=== PATIENT | female | born 1995 | race Caucasian/White ===

== ENCOUNTER 2018-07-17 14:08 | Emergency (ER) | payer SELFPAY ==
--- OUTSIDE RECORDS SUMMARY | 2018-07-17 14:09 | XMS REPORT ---
:1995 Author Organization [facility] Address [address] [place] [address] Care Team Providers Name Role Phone MICHELLE GALDAMEZ Unavailable Unavailable Problems This patient has no known problems. Allergies, Adverse Reactions, Alerts This patient has no known allergies or adverse reactions. Medications This patient has no known medications. Results Test Description Test Time Test Comments Text Results Atomic Results Result Comments Culture, Urine 2017-01-23 10:50:00 Test Item Value Reference Range Comments Culture, Urine (test code=URC) NF Culture, Urine (test code=URC1) 75 NU Chemistry - [id number] 13:59:00 Test Item Value Reference Range Comments Chemistry - Specials (test Negative NEGATIVE Method of sensitivity- code=BHCGST) Indeterminant: results should be repeated after 48-72 hrs Positive: results may be detected as early as 1 day after the first missed menses. [id number] 13:35:00 Test Item Value Reference Range Comments Urinalysis (test code=UACLR) Dark Yellow Yellow Urinalysis (test code=UACLY) h Clear Urinalysis (test code=SPGR) 1.020 1.005-1.030 Urinalysis (test code=ISIDRO) 7.0 5.0-9.0 Urinalysis (test code=UALEU) Trace Negative Urinalysis (test code=UANIT) Positive Negative Urinalysis (test code=PROUADIP) 30 mg/dL Neg-Trace Urinalysis (test code=GLUCU) 100 mg/dL Negative Urinalysis (test code=KETU) Negative mg/dL Negative Urinalysis (test code=UAUROB) 1.0 mg/dL 0.2-1.0 Urinalysis (test code=UABIL) Negative Negative Urinalysis (test code=UABLD) Trace Negative Urinalysis (test code=UARBC) 4-6 HPF 0-3 Urinalysis (test code=UAWBC) Greater Than 50-TNTC HPF 0-3 Urinalysis (test code=UASQUAM) 4-6 HPF 0-3 Urinalysis (test code=UABAC) 1+ HPF None Seen Urine Source: Urine Clean Catch
[2018-07-17 15:28] LABS: Absolute Monocytes 0.7 K/uL (0.1-1.3); Absolute Neutrophil 5.8 K/uL (1.8-8.0); Basophils % 0.3 % (0-1.3); Eosinophils % 5.2 % (0-4.4); Hematocrit 41.6 % (36.0-45.0); Lymphocytes % 22.2 % (15.3-44.8); MPV 10.3 fL (7.6-11.3); Monocytes % 7.4 % (3.3-12.3); RBC Red Blood Cell Count 4.55 M/uL (3.86-4.86)
[2018-07-17 15:41] LABS: BUN Blood Urea Nitrogen 6 mg/dL (7-18); Bicarbonate 24 mmol/L (21-32); Glucose Level 82 mg/dL (74-106); Potassium 3.8 mmol/L (3.5-5.1); Sodium Level 141 mmol/L (136-145)
--- NOTE | 2018-07-17 16:08 | RAD REPORT ---
EXAM DESCRIPTION: US - Transvaginal OB - 07/17/2018 3:04 pm CLINICAL HISTORY: ABD PAIN COMPARISON: No comparisons FINDINGS: A single gestational sac is seen within the uterus. The shape of the sac is within normal limits for gestational age. Within the sac is a single pole with crown-rump length of 4 mm, cor relating to estimated gestational age of 6 weeks 1 day. Estimated date of delivery is 03/11/2019. Heart rate is 111 BPM. The placenta is not yet developed due to early gestational age. The maternal adnexa and ovaries are within normal limits. Normal Doppler blood flow was demonstrated to both ovaries. IMPRESSION: Single live early intrauterine gestation with estimated gestational age of 6 weeks 1 day , RAYO 03/11/2019. No unusual or unexpected finding.
[2018-07-17 16:25] LABS: HCG, Quantitative 28739 mIU/mL (1-3)
--- NOTE | 2018-07-17 16:40 | EDPHYS ---
Physician Documentation [facility] Name: Christina Alfaro Age: 23 yrs Sex: Female : 1995 Arrival Date: 07/17/2018 Time: 14:10 Bed 23 Private MD: ED Physician Chele Hoffmann HPI: 07/17 16:36 This 23 yrs old Female presents to ER via Ambulatory with complaints of nh Vaginal Bleeding, + Preg <12wks. 16:36 The patient presents to the emergency department with vaginal bleeding, that is nh moderate, with clots. The estimated gestational age is 6 weeks. course: care: at a clinic. Previous pregnancies: in previous pregnancies patient has had. Associated signs and symptoms: The patient has no apparent associated signs or symptoms. The patient has not experienced similar symptoms in the past. The patient has not recently seen a physician. 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 - Social history:: Smoking status: . - Ebola Screening: : Patient denies travel to an Ebola-affected area in the 21 days before illness onset. ROS: 16:36 Constitutional: Negative for fever, chills, and weight loss, Eyes: Negative for injury, nh pain, redness, and discharge, ENT: Negative for injury, pain, and discharge, Neck: Negative for injury, pain, and swelling, Cardiovascular: Negative for chest pain, palpitations, and edema, Respiratory: Negative for shortness of breath, cough, wheezing, and pleuritic chest pain, Abdomen/GI: Negative for abdominal pain, nausea, vomiting, diarrhea, and constipation, Back: Negative for injury and pain, MS/Extremity: Negative for injury and deformity, Skin: Negative for injury, rash, and discoloration, Neuro: Negative for headache, weakness, numbness, tingling, and seizure, Psych: Negative for depression, anxiety, suicide ideation, homicidal ideation, and hallucinations, Allergy/Immunology: Negative for hives, rash, and allergies, Endocrine: Negative for neck swelling, polydipsia, polyuria, polyphagia, and marked weight changes, Hematologic/Lymphatic: Negative for swollen nodes, abnormal bleeding, and unusual bruising. 16:36 : Positive for vaginal bleeding. Exam: 16:36 Constitutional: This is a well developed, well nourished patient who is awake, alert, nh and in no acute distress. Head/Face: Normocephalic, atraumatic. Eyes: Pupils equal round and reactive to light, extra-ocular motions intact. Lids and lashes normal. Conjunctiva and sclera are non-icteric and not injected. Cornea within normal limits. Periorbital areas with no swelling, redness, or edema. ENT: Nares patent. No nasal discharge, no septal abnormalities noted. Tympanic membranes are normal and external auditory canals are clear. Oropharynx with no redness, swelling, or masses, exudates, or evidence of obstruction, uvula midline. Mucous membranes moist. Neck: Trachea midline, no thyromegaly or masses palpated, and no cervical lymphadenopathy. Supple, full range of motion without nuchal rigidity, or vertebral point tenderness. No Meningismus. Chest/axilla: Normal chest wall appearance and motion. Nontender with no deformity. No lesions are appreciated. Cardiovascular: Regular rate and rhythm with a normal S1 and S2. No gallops, murmurs, or rubs. Normal PMI, no JVD. No pulse deficits. Respiratory: Lungs have equal breath sounds bilaterally, clear to auscultation and percussion. No rales, rhonchi or wheezes noted. No increased work of breathing, no retractions or nasal flaring. Abdomen/GI: Soft, non-tender, with normal bowel sounds. No distension or tympany. No guarding or rebound. No evidence of tenderness throughout. Back: No spinal tenderness. No costovertebral tenderness. Full range of motion. Pelvic Exam: Normal external genitalia. Speculum exam with closed cervical os, no discharge or bleeding noted. Bimanual exam with normal adnexa, no adnexal or cervical motion tenderness. Normal uterus. Female : Normal external genitalia. Skin: Warm, dry with normal turgor. Normal color with no rashes, no lesions, and no evidence of cellulitis. MS/ Extremity: Pulses equal, no cyanosis. Neurovascular intact. Full, normal range of motion. Neuro: Awake and alert, GCS 15, oriented to person, place, time, and situation. Cranial nerves II-XII grossly intact. Motor strength 5/5 in all extremities. Sensory grossly intact. Cerebellar exam normal. Normal gait. Psych: Awake, alert, with orientation to person, place and time. Behavior, mood, and affect are within normal limits. Vital Signs: 14:21 BP 117 / 61; Pulse 83; Resp 17; Temp 97.8(TE); Pulse Ox 98% on R/A; Pain 5/10; tw2 15:21 BP 114 / 76; Pulse 83; Resp 17; Pulse Ox 100% on R/A; Pain 5/10; ed1 MDM: 14:29 Patient medically screened. mn 16:36 Data reviewed: vital signs, nurses notes, lab test result(s), radiologic studies, I nh have discussed the patient's presentation/case with the attending Emergency Department Physician; and as a result, I will discharge patient. Counseling: I had a detailed discussion with the patient and/or guardian regarding: the historical points, exam findings, and any diagnostic results supporting the discharge/admit diagnosis, lab results, radiology results, the need for outpatient follow up, to return to the emergency department if symptoms worsen or persist or if there are any questions or concerns that arise at home. 07/17 14:37 Order name: Urine Dipstick--Ancillary (enter results) 07/17 14:37 Order name: Urine --Ancillary (enter results) 07/17 14:41 Order name: Abo/rh Typing; Complete Time: 16:09 mn 07/17 14:41 Order name: Basic Metabolic Panel; Complete Time: 16:36 mn 07/17 14:41 Order name: CBC with Diff; Complete Time: 15:43 mn 07/17 15:43 Order name: HCG-Quantitative mn 07/17 14:41 Order name: IV Saline Lock; Complete Time: 15:24 mn 07/17 14:41 Order name: Labs collected and sent; Complete Time: 15:24 mn 07/17 14:41 Order name: NPO; Complete Time: 15:24 mn 07/17 14:41 Order name: Urine Dipstick-Ancillary (obtain specimen); Complete Time: 15:24 mn 07/17 14:41 Order name: US Transvaginal Ob; Complete Time: 16:09 mn 07/17 15:46 Order name: HCG, Quantitative; Complete Time: 16:36 EDMS 07/17 15:47 Order name: ABO/RH no charge; Complete Time: 16:09 EDMS Administered Medications: No medications were administered Point of Care Testing: Urine : 14:37 hCG Reading: Positive; Control Reading: Positive; ed1 Disposition: 18:44 Co-signature as Attending Physician, Chele Hoffmann MD. rn Disposition: 07/17/18 16:39 Discharged to Home. Impression: Threatened . - Condition is Stable. - Discharge Instructions: Threatened Miscarriage. - Medication Reconciliation Form, Thank You Letter, Antibiotic Education, Prescription Opioid Use form. - Follow up: Private Physician; When: 2 - 3 days; Reason: Recheck today's complaints. - Problem is new. - Symptoms are unchanged. Signatures: Dispatcher [employer] EDMS Olga Webber, PUNCHBOARD INSERTER PUNCHBOARD INSERTER mn Chele Hoffmann MD MD rn Riggs, Erika, LVN RUN BOAT OPERATOR ed1 Elayne Vera RN RN tw2 Corrections: (The following items were deleted from the chart) 16:51 16:39 07/17/2018 16:39 Discharged to Home. Impression: Threatened . Condition ed1 is Stable. Forms are Medication Reconciliation Form, Thank You Letter, Antibiotic Education, Prescription Opioid Use. Follow up: Private Physician; When: 2 - 3 days; Reason: Recheck today's complaints. Problem is new. Symptoms are unchanged. mn
--- NOTE | 2018-07-17 16:40 | ER ---
Nurse's Notes [facility] Name: Christina Alfaro Age: 23 yrs Sex: Female : 1995 Arrival Date: 07/17/2018 Time: 14:10 Bed 23 Private MD: Diagnosis: Threatened Presentation: 07/17 14:20 Presenting complaint: Patient states: i think i am having a miscarriage, the bleeding tw2 started 3 days ago, cramping and nauseous, and constipation. Transition of care: patient was not received from another setting of care. Onset of symptoms was July 17, 2018. Risk Assessment: Do you want to hurt yourself or someone else? Patient reports no desire to harm self or others. Initial Sepsis Screen: Does the patient meet any 2 criteria? No. Patient's initial sepsis screen is negative. Does the patient have a suspected source of infection? No. Patient's initial sepsis screen is negative. Care prior to arrival: None. 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 - Social history:: Smoking status: . - Ebola Screening: : Patient denies travel to an Ebola-affected area in the 21 days before illness onset. Screenin:21 Abuse screen: Denies threats or abuse. Denies injuries from another. Nutritional ed1 screening: No deficits noted. Tuberculosis screening: No symptoms or risk factors identified. Fall Risk No fall in past 12 months (0 pts). No secondary diagnosis (0 pts). IV access (20 points). Ambulatory Aid- None/Bed Rest/Nurse Assist (0 pts). Gait- Normal/Bed Rest/Wheelchair (0 pts) Mental Status- Oriented to own ability (0 pts). Total Laughlin Fall Scale indicates No Risk (0-24 pts). Assessment: 15:21 Obstetrical Assessment: General assessment: awake and alert, skin warm and dry, ed1 respirations even and unlabored, Patient reports nausea, abdominal cramping, vaginal bleeding. Pain: Complains of pain in suprapubic area Pain does not radiate. Pain currently is 5 out of 10 on a pain scale. Quality of pain is described as crampy, Pain began 1 day ago. Is continuous. : Reports vaginal bleeding that is bright red, spotty. 15:25 General: The previous assessment is accurate, call light remains within reach. . ss 16:49 Reassessment: Patient appears in no apparent distress at this time. No changes from ed1 previously documented assessment. Patient and/or family updated on plan of care and expected duration. Pain level reassessed. Patient is alert, oriented x 3, equal unlabored respirations, skin warm/dry/pink. Vital Signs: 14:21 BP 117 / 61; Pulse 83; Resp 17; Temp 97.8(TE); Pulse Ox 98% on R/A; Pain 5/10; tw2 15:21 BP 114 / 76; Pulse 83; Resp 17; Pulse Ox 100% on R/A; Pain 5/10; ed1 Vitals: 16:50 Heart Tones N/A. ed1 ED Course: 14:10 Patient arrived in ED. tw3 14:21 Triage completed. tw2 14:22 Arm band placed on. tw2 14:24 Syl Herbert LVN is Primary Nurse. ed1 14:29 Olga Webber FNP is PHCP. nh 14:29 Chele Hoffmann MD is Attending Physician. nh 14:37 Urine collected: clean catch specimen, clear. ed1 15:05 US Transvaginal Ob In Process Unspecified. EDMS 15:21 Patient has correct armband on for positive identification. Bed in low position. Call ed1 light in reach. Side rails up X 1. Adult w/ patient. Pulse ox on. NIBP on. Door closed. Visitors limited. Warm blanket given. 15:21 Initial lab(s) drawn, by me, sent to lab. Inserted saline lock: 22 gauge in right ed1 antecubital area, using aseptic technique. Blood collected. 16:49 No provider procedures requiring assistance completed. IV discontinued, intact, ed1 bleeding controlled, No redness/swelling at site. Pressure dressing applied. Administered Medications: No medications were administered Point of Care Testing: Urine : 14:37 hCG Reading: Positive; Control Reading: Positive; ed1 Outcome: 16:39 Discharge ordered by . hi 16:49 Discharged to home ambulatory, with significant other. ed1 16:49 Condition: good 16:49 Discharge instructions given to patient, Instructed on discharge instructions, follow up and referral plans. Demonstrated understanding of instructions, follow-up care. 16:51 Patient left the ED. ed1 Signatures: Dispatcher [employer] EDMS Olga Webber, DECK SCALER DECK SCALER Meeta Wilkins, RN RN ss Syl Herbert LVN PROGRAM EVALUATOR ed1 Elayne Vera RN RN tw2 Ct Ortiz tw3
[2018-07-17 19:15] LABS: Urine Blood NEGATIVE (NEG); Urine Glucose NEGATIVE (NEG); Urine Protein NEGATIVE (NEG); Urine Specific Gravity >1.030 (1.005-1.030); Urine pH 6.5 (5.0-7.0)
== END 2018-07-17 16:51 | disposition home or self-care (01) ==
LOC: ER 14:08
DX: O20.0 Threatened abortion (principal); Z3A.01 Less than 8 weeks gestation of pregnancy; Z91.040 Latex allergy status; Z91.048 Other nonmedicinal substance allergy status
CPT/HCPCS: 36415; 76817; 80048; 81003; 81025; 84702; 85025; 86900; 86901; 99284

== ENCOUNTER 2018-10-13 07:16 | Emergency (ER) | payer OTHER, SELFPAY ==
--- OUTSIDE RECORDS SUMMARY | 2018-10-13 07:18 | XMS REPORT ---
:1995 Author Organization [facility] Address [address] [place] [address] Care Team Providers Name Role Phone MICHELLE [...] code=URC) NF Culture, Urine (test code=URC1) 75 [facility] Chemistry - [id number] 13:59:00 Test Item Value Reference Range Comments Chemistry - Specials (test Negative NEGATIVE Method of sensitivity- code=BHCGST) Indeterminant: results should be repeated after 48-72 hrs Positive: results may be detected as early as 1 day after the first missed menses. [id number] 13:35:00 Test Item Value Reference Range Comments [...]
--- NOTE | 2018-10-13 08:29 | EDPHYS ---
Physician Documentation [facility] Name: Christina Alfaro Age: 23 yrs Sex: Female : 1995 Arrival Date: 10/13/2018 Time: 07:18 Bed 12 Private MD: ED Physician Michael Lima HPI: 10/13 08:20 This 23 yrs old Female presents to ER via Ambulatory with complaints of Flu pm1 Symptoms - 18 wks preg. 08:20 The patient or guardian reports cough, with productive sputum, that is yellow. Onset: pm1 The symptoms/episode began/occurred 5 day(s) ago. 08:20 Severity of symptoms: in the emergency department the symptoms are actually worse. pm1 Modifying factors: The symptoms are alleviated by nothing, the symptoms are aggravated by nothing. Associated signs and symptoms: Pertinent positives: sore throat, Pertinent negatives: chest pain, ear ache, fever, nausea, vomiting, Urinary symptoms. The patient has not experienced similar symptoms in the past. The patient has been recently seen by a physician: with similar presenting complaints, and apparently given a diagnosis of URI, OB. Patient 18 weeks and presenting to the ER with productive yellow cough and sore throat. She currently smokes 1/2 pack per day. 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 - Social history:: Smoking status: Patient uses tobacco products, smokes one-half pack cigarettes per day. - Ebola Screening: : Patient denies exposure to infectious person Patient denies travel to an Ebola-affected area in the 21 days before illness onset. ROS: 08:20 Constitutional: Negative for fever, chills, and weight loss, Eyes: Negative for injury, pm1 pain, redness, and discharge, Neck: Negative for injury, pain, and swelling. 08:20 Cardiovascular: Negative for chest pain, palpitations, and edema. 08:20 Abdomen/GI: Negative for abdominal pain, nausea, vomiting, diarrhea, and constipation, Back: Negative for injury and pain, : Negative for injury, bleeding, discharge, and swelling, MS/Extremity: Negative for injury and deformity, Skin: Negative for injury, rash, and discoloration, Neuro: Negative for headache, weakness, numbness, tingling, and seizure. 08:20 ENT: Positive for sore throat, Negative for drainage from ear(s), ear pain, sinus congestion, sinus pain, dental pain, difficulty swallowing, difficulty handling secretions, hoarseness. 08:20 Respiratory: Positive for cough, with yellow sputum, shortness of breath, Negative for wheezing. Exam: 08:20 Constitutional: This is a well developed, well nourished patient who is awake, alert, pm1 and in no acute distress. Head/Face: Normocephalic, atraumatic. Eyes: Pupils equal round and reactive to light, extra-ocular motions intact. Lids and lashes normal. Conjunctiva and sclera are non-icteric and not injected. Cornea within normal limits. Periorbital areas with no swelling, redness, or edema. ENT: Nares patent. No nasal discharge, no septal abnormalities noted. Tympanic membranes are normal and external auditory canals are clear. Oropharynx with no redness, swelling, or masses, exudates, or evidence of obstruction, uvula midline. Mucous membranes moist. Neck: Trachea midline, no thyromegaly or masses palpated, and no cervical lymphadenopathy. Supple, full range of motion without nuchal rigidity, or vertebral point tenderness. No Meningismus. Chest/axilla: Normal chest wall appearance and motion. Nontender with no deformity. No lesions are appreciated. Cardiovascular: Regular rate and rhythm with a normal S1 and S2. No gallops, murmurs, or rubs. Normal PMI, no JVD. No pulse deficits. Respiratory: Lungs have equal breath sounds bilaterally, clear to auscultation and percussion. No rales, rhonchi or wheezes noted. No increased work of breathing, no retractions or nasal flaring. Abdomen/GI: Soft, non-tender, with normal bowel sounds. No distension or tympany. No guarding or rebound. No evidence of tenderness throughout. Back: No spinal tenderness. No costovertebral tenderness. Full range of motion. Skin: Warm, dry with normal turgor. Normal color with no rashes, no lesions, and no evidence of cellulitis. MS/ Extremity: Pulses equal, no cyanosis. Neurovascular intact. Full, normal range of motion. 08:20 Neuro: Orientation: is normal, Motor: is normal, moves all fours. Vital Signs: 07:26 BP 106 / 63; Pulse 84; Resp 14; Temp 97.7(TE); Pulse Ox 99% on R/A; Weight 91.17 kg; aa1 Height 5 ft. 9 in. (175.26 cm); Pain 5/10; 07:26 Body Mass Index 29.68 (91.17 kg, 175.26 cm) aa1 MDM: 07:32 Patient medically screened. pm1 08:27 Data reviewed: vital signs. Data interpreted: Pulse oximetry: on room air is 99 %. pm1 Interpretation: normal. Counseling: I had a detailed discussion with the patient and/or guardian regarding: the historical points, exam findings, and any diagnostic results supporting the discharge/admit diagnosis, lab results, the need for outpatient follow up, to return to the emergency department if symptoms worsen or persist or if there are any questions or concerns that arise at home. 10/13 07:32 Order name: Flu; Complete Time: 08:14 pm1 10/13 07:32 Order name: Strep; Complete Time: 08:14 pm1 10/13 07:32 Order name: FHT's; Complete Time: 07:47 pm1 10/13 08:08 Order name: Throat Culture EDMS Administered Medications: No medications were administered Disposition: 10:32 Co-signature as Attending Physician, Michael Lima MD I agree with the assessment and kdr plan of care. Disposition: 10/13/18 08:28 Discharged to Home. Impression: Bronchitis, not specified as acute or chronic. - Condition is Stable. - Discharge Instructions: Acute Bronchitis, Adult, How to Use an Inhaler, Steps to Quit Smoking. - Prescriptions for Albuterol Sulfate 90 mcg/actuation - inhale 1-2 puff by INHALATION route every 4-6 hours; 1 Inhaler. - Medication Reconciliation Form, Thank You Letter, Antibiotic Education, Prescription Opioid Use form. - Follow up: Emergency Department; When: As needed; Reason: Worsening of condition. Follow up: Private Physician; When: 2 - 3 days; Reason: Recheck today's complaints, Continuance of care, Re-evaluation by your physician. - Problem is new. - Symptoms have improved. Signatures: Dispatcher [employer] EDMS Ghazal Moore RN RN aa1 Michael Lima MD MD kdr Hall, Patricia, RN RN ph Corey العلي, SHIPMASTER SHIPMASTER pm1 Corrections: (The following items were deleted from the chart) 08:45 08:28 10/13/2018 08:28 Discharged to Home. Impression: Bronchitis, not specified as ph acute or chronic. Condition is Stable. Forms are Medication Reconciliation Form, Thank You Letter, Antibiotic Education, Prescription Opioid Use. Follow up: Emergency Department; When: As needed; Reason: Worsening of condition. Follow up: Private Physician; When: 2 - 3 days; Reason: Recheck today's complaints, Continuance of care, Re-evaluation by your physician. Problem is new. Symptoms have improved. pm1
--- NOTE | 2018-10-13 08:29 | ER ---
Nurse's Notes [facility] Name: Christina Alfaro Age: 23 yrs Sex: Female : 1995 Arrival Date: 10/13/2018 Time: 07:18 Bed 12 Private MD: Diagnosis: Bronchitis, not specified as acute or chronic Presentation: 10/13 07:24 Presenting complaint: Patient states: cough, fever and congestion x 4-5 days. Pt aa1 reports she is 18 weeks . Transition of care: patient was not received from another setting of care. Onset of symptoms was October 08, 2018. Risk Assessment: Do you want to hurt yourself or someone else? Patient reports no desire to harm self or others. Initial Sepsis Screen: Does the patient meet any 2 criteria? No. Patient's initial sepsis screen is negative. Does the patient have a suspected source of infection? No. Patient's initial sepsis screen is negative. Care prior to arrival: None. 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 - Social history:: Smoking status: Patient uses tobacco products, smokes one-half pack cigarettes per day. - Ebola Screening: : Patient denies exposure to infectious person Patient denies travel to an Ebola-affected area in the 21 days before illness onset. Screenin:32 Abuse screen: Denies threats or abuse. Denies injuries from another. Nutritional ss screening: No deficits noted. Tuberculosis screening: No symptoms or risk factors identified. Never had TB. Fall Risk None identified. Assessment: 07:32 General: Appears uncomfortable, Behavior is calm, cooperative, Reports chills for >3 ss days, fever for 2-3 days, feeling ill for > 3 days, fatigue for >3 days. Pain: Complains of pain in chest Pain currently is 5 out of 10 on a pain scale. Quality of pain is described as "sore from coughing" Pain began 2-3 days ago. Is continuous. Neuro: Level of Consciousness is awake, alert, obeys commands, Oriented to person, place, time, situation. Cardiovascular: Capillary refill < 3 seconds is brisk in bilateral fingers Patient's skin is warm and dry. Respiratory: Reports shortness of breath cough that is productive, since x 5 days pain with cough pain with respiration Airway is patent Trachea midline Respiratory effort is even, unlabored, Respiratory pattern is regular, symmetrical, Breath sounds are clear bilaterally. GI: Patient currently denies abdominal pain, diarrhea, nausea, vomiting. : No signs and/or symptoms were reported regarding the genitourinary system. EENT: Nares are clear Oral mucosa is moist. Throat is clear. Derm: Skin is intact, is healthy with good turgor, Skin is dry, Skin is pink, warm \\T\\ dry. normal. Musculoskeletal: Circulation, motion, and sensation intact. Range of motion: intact in all extremities, Swelling absent. 08:43 Reassessment: Patient appears in no apparent distress at this time. Patient and/or ph family updated on plan of care and expected duration. Pain level reassessed. Patient is alert, oriented x 3, equal unlabored respirations, skin warm/dry/pink. Pt d/c home w/ family, instructed to follow up w/ OB if symptoms do not improve in 3-4 days. Vital Signs: 07:26 BP 106 / 63; Pulse 84; Resp 14; Temp 97.7(TE); Pulse Ox 99% on R/A; Weight 91.17 kg; aa1 Height 5 ft. 9 in. (175.26 cm); Pain 5/10; 07:26 Body Mass Index 29.68 (91.17 kg, 175.26 cm) aa1 Vitals: 07:51 Heart Tones 156. ED Course: 07:18 Patient arrived in ED. as 07:25 Triage completed. aa1 07:26 Arm band placed on right wrist. aa1 07:27 Corey العلي NP is PHCP. pm1 07:27 Michael Lima MD is Attending Physician. pm1 07:32 Meeta Meza, LANA is Primary Nurse. ss 07:32 Patient has correct armband on for positive identification. Bed in low position. Call ss light in reach. 07:32 Patient maintains SpO2 saturation greater than 95% on room air. 08:44 No provider procedures requiring assistance completed. Patient did not have IV access ph during this emergency room visit. Administered Medications: No medications were administered Outcome: 08:28 Discharge ordered by . pm1 08:44 Discharged to home ambulatory, with family. ph 08:44 Condition: good 08:44 Discharge instructions given to patient, Instructed on discharge instructions, follow up and referral plans. medication usage, Demonstrated understanding of instructions, follow-up care, medications, Prescriptions given X 1. 08:45 Patient left the ED. ph Signatures: Ghazal Moore RN RN aa1 Mae Magana Shelby, RN RN Mindy Juarez RN RN Corey العلي, GREER CLOUD ENGINEER pm1
== END 2018-10-13 08:45 | disposition home or self-care (01) ==
LOC: ER 07:16
DX: O26.892 Other specified pregnancy related conditions, second trimester (principal); J40 Bronchitis, not specified as acute or chronic; Z3A.18 18 weeks gestation of pregnancy; Z91.040 Latex allergy status; F17.210 Nicotine dependence, cigarettes, uncomplicated
CPT/HCPCS: 87070; 87081; 87804; 99284

== ENCOUNTER 2018-10-15 11:35 | Emergency (ER) | payer OTHER ==
--- OUTSIDE RECORDS SUMMARY | 2018-10-15 11:37 | XMS REPORT ---
:1995 [facility] Address [address] [place] [address] [address] [place] [address] Care Team Providers Name Role Phone MICHELLE [...] code=URC) NF Culture, Urine (test code=URC1) 75 NUGF Chemistry - [id number] 13:59:00 Test Item Value Reference Range Comments Chemistry - Specials (test Negative NEGATIVE Method of sensitivity- code=BHCGST) Indeterminant: results should be repeated after 48-72 hrs Positive: results may be detected as early as 1 day after the first missed menses. [id number] 13:35:00 Test Item Value Reference Range Comments [...]
[2018-10-15 12:17] LABS: Urine Blood NEGATIVE (NEG); Urine Glucose NEGATIVE (NEG); Urine Protein NEGATIVE (NEG); Urine Specific Gravity 1.025 (1.005-1.030)
--- NOTE | 2018-10-15 13:25 | RAD REPORT ---
EXAM DESCRIPTION: US - OB Limited - 10/15/2018 1:12 pm CLINICAL HISTORY: 19wk iup;Abd pain age. COMPARISON: Transvaginal OB dated 07/17/2018 FINDINGS: Limited examination was performed for referring physician request. A single cephalic presenting gestation is identified. Heart rate normal. The estimated gestational age (EGA) is 19 weeks 0 days. The placenta is grade 0, posterior in location. No placenta previa. The amniotic fluid index is 13.7 cm, with largest pocket 5.0 cm. IMPRESSION: Limited obstetrical sonography as detailed.
--- NOTE | 2018-10-15 13:35 | ER ---
Nurse's Notes [facility] Name: Christina Alfaro Age: 23 yrs Sex: Female : 1995 Arrival Date: 10/15/2018 Time: 11:36 Bed 2 Private MD: out of town, doctor Diagnosis: Unspecified abdominal pain Presentation: 10/15 11:55 Presenting complaint: Patient states: is approx 19 weeks , had sharp pain to iw suprapubic area this morning, has been having abd cramping since then, denies vaginal bleeding, states she has a "low placenta". Transition of care: patient was not received from another setting of care. Onset of symptoms was October 15, 2018. Risk Assessment: Do you want to hurt yourself or someone else? Patient reports no desire to harm self or others. Initial Sepsis Screen: Does the patient meet any 2 criteria? No. Patient's initial sepsis screen is negative. Does the patient have a suspected source of infection? No. Patient's initial sepsis screen is negative. Care prior to arrival: None. 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 - Social history:: Smoking status: . - Ebola Screening: : Patient negative for fever greater than or equal to 101.5 degrees Fahrenheit, and additional compatible Ebola Virus Disease symptoms Patient denies exposure to infectious person Patient denies travel to an Ebola-affected area in the 21 days before illness onset No symptoms or risks identified at this time. Screenin:55 Abuse screen: Denies threats or abuse. Nutritional screening: No deficits noted. aa5 Tuberculosis screening: No symptoms or risk factors identified. Fall Risk None identified. Assessment: 11:55 General: Appears comfortable, Behavior is calm, cooperative. Pain: Complains of pain in aa5 suprapubic area, right lower quadrant and left lower quadrant Pain currently is 7 out of 10 on a pain scale. Quality of pain is described as crampy, Is continuous. Neuro: Level of Consciousness is awake, alert, obeys commands, Oriented to person, place, time, situation. Cardiovascular: Heart tones S1 S2 present Rhythm is regular. Respiratory: Airway is patent Respiratory effort is even, unlabored, Respiratory pattern is regular, symmetrical. GI: Abdomen is round Bowel sounds present X 4 quads. Abd is soft and non tender X 4 quads. : Denies burning with urination, urinary frequency, urgency, vaginal bleeding. EENT: No signs and/or symptoms were reported regarding the EENT system. Derm: Skin is pink, warm \\T\\ dry. Musculoskeletal: Range of motion: intact in all extremities. 12:05 Reassessment: Patient is alert, oriented x 3, equal unlabored respirations, skin aa5 warm/dry/pink. 13:02 Reassessment: Patient is alert, oriented x 3, equal unlabored respirations, skin aa5 warm/dry/pink. US at bedside . 14:00 Reassessment: Patient is alert, oriented x 3, equal unlabored respirations, skin aa5 warm/dry/pink. Vital Signs: 11:57 BP 113 / 68; Pulse 70; Resp 16 S; Temp 98.7; Pulse Ox 99% on R/A; Pain 7/10; iw 14:00 BP 105 / 55; Pulse 65; Resp 16 S; Pulse Ox 99% on R/A; aa5 Vitals: 12:05 Heart Tones 150 to 190 bpm, GLASS POLISHER was notified. . aa5 ED Course: 11:36 Patient arrived in ED. mr 11:37 out of town, doctor is Private Physician. mr 11:39 [facility]und[facility]iles [facility] snw 11:39 Chele Hoffmann MD is Attending Physician. snw 11:52 Odette Alexandra, LANA is Primary Nurse. aa5 11:56 Triage completed. iw 11:57 Arm band placed on. iw 11:57 Patient has correct armband on for positive identification. Bed in low position. Call aa5 light in reach. Side rails up X 1. 13:11 Ultrasound completed. Patient tolerated well. sg3 13:12 US OB Limited In Process Unspecified. EDMS 14:00 No provider procedures requiring assistance completed. Patient did not have IV access aa5 during this emergency room visit. Administered Medications: No medications were administered Outcome: 13:34 Discharge ordered by MD. marin 14:00 Discharged to home ambulatory, with significant other. aa5 14:00 Condition: good 14:00 Discharge instructions given to patient, Instructed on discharge instructions, follow up and referral plans. Demonstrated understanding of instructions, follow-up care. 14:12 Patient left the ED. aa5 Signatures: Dispatcher [employer] EDMS Aundrea Giles, INDIAN BLANKET WEAVER-C INDIAN BLANKET WEAVER-Csnw Isauro Kaylin Emma Ross RN Odette Cardozo RN RN aa5 Jordana Syed sg3 Corrections: (The following items were deleted from the chart) 12:12 11:55 : Denies burning with urination, urinary frequency, urgency, aa5 aa5
--- NOTE | 2018-10-15 13:35 | EDPHYS ---
Physician Documentation [facility] Name: Christina Alfaro Age: 23 yrs Sex: Female : 1995 Arrival Date: 10/15/2018 Time: 11:36 Bed 2 Private MD: out of town, doctor ED Physician Chele Hoffmann HPI: 10/15 12:32 This 23 yrs old Female presents to ER via Ambulatory with complaints of 19 snw wks , Abdominal Pain. 12:32 The patient presents with abdominal pain in the lower abdomen. Onset: The snw symptoms/episode began/occurred suddenly, today. The symptoms do not radiate. Associated signs and symptoms: none. The symptoms are described as crampy. Severity of pain: At its worst the pain was moderate today, crampy in nature since, denies vaginal discharge or bleeding. The patient has not experienced similar symptoms in the past. It is unknown whether or not the patient has recently seen a physician. 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 - Social history:: Smoking status: . - Ebola Screening: : Patient negative for fever greater than or equal to 101.5 degrees Fahrenheit, and additional compatible Ebola Virus Disease symptoms Patient denies exposure to infectious person Patient denies travel to an Ebola-affected area in the 21 days before illness onset No symptoms or risks identified at this time. ROS: 12:32 Constitutional: Negative for fever, chills, and weight loss, Eyes: Negative for injury, snw pain, redness, and discharge, ENT: Negative for injury, pain, and discharge, Neck: Negative for injury, pain, and swelling, Cardiovascular: Negative for chest pain, palpitations, and edema, Respiratory: Negative for shortness of breath, cough, wheezing, and pleuritic chest pain, Back: Negative for injury and pain, : Negative for injury, bleeding, discharge, and swelling, MS/Extremity: Negative for injury and deformity, Skin: Negative for injury, rash, and discoloration, Neuro: Negative for headache, weakness, numbness, tingling, and seizure. 12:32 Abdomen/GI: Positive for abdominal pain, abdominal cramps. Exam: 12:27 Constitutional: This is a well developed, well nourished patient who is awake, alert, snw and in no acute distress. Head/Face: Normocephalic, atraumatic. Eyes: Pupils equal round and reactive to light, extra-ocular motions intact. Lids and lashes normal. Conjunctiva and sclera are non-icteric and not injected. Cornea within normal limits. Periorbital areas with no swelling, redness, or edema. ENT: Nares patent. No nasal discharge, no septal abnormalities noted. Tympanic membranes are normal and external auditory canals are clear. Oropharynx with no redness, swelling, or masses, exudates, or evidence of obstruction, uvula midline. Mucous membranes moist. Neck: Trachea midline, no thyromegaly or masses palpated, and no cervical lymphadenopathy. Supple, full range of motion without nuchal rigidity, or vertebral point tenderness. No Meningismus. Chest/axilla: Normal chest wall appearance and motion. Nontender with no deformity. No lesions are appreciated. Cardiovascular: Regular rate and rhythm with a normal S1 and S2. No gallops, murmurs, or rubs. Normal PMI, no JVD. No pulse deficits. Respiratory: Lungs have equal breath sounds bilaterally, clear to auscultation and percussion. No rales, rhonchi or wheezes noted. No increased work of breathing, no retractions or nasal flaring. Back: No spinal tenderness. No costovertebral tenderness. Full range of motion. Skin: Warm, dry with normal turgor. Normal color with no rashes, no lesions, and no evidence of cellulitis. MS/ Extremity: Pulses equal, no cyanosis. Neurovascular intact. Full, normal range of motion. Neuro: Awake and alert, GCS 15, oriented to person, place, time, and situation. Cranial nerves II-XII grossly intact. Motor strength 5/5 in all extremities. Sensory grossly intact. Cerebellar exam normal. Normal gait. Psych: Awake, alert, with orientation to person, place and time. Behavior, mood, and affect are within normal limits. 12:27 Abdomen/GI: Inspection: abdomen appears normal, Bowel sounds: normal, Palpation: abdomen is soft and non-tender, in all quadrants, gravid. Vital Signs: 11:57 BP 113 / 68; Pulse 70; Resp 16 S; Temp 98.7; Pulse Ox 99% on R/A; Pain 7/10; iw 14:00 BP 105 / 55; Pulse 65; Resp 16 S; Pulse Ox 99% on R/A; aa5 MDM: 11:50 Patient medically screened. snw 13:50 Data reviewed: vital signs, nurses notes. Data interpreted: Pulse oximetry: on room air snw is 99 %. Interpretation: normal. Counseling: I had a detailed discussion with the patient and/or guardian regarding: the historical points, exam findings, and any diagnostic results supporting the discharge/admit diagnosis, lab results, the need for outpatient follow up, to return to the emergency department if symptoms worsen or persist or if there are any questions or concerns that arise at home. 10/15 12:04 Order name: Urine Dipstick--Ancillary (enter results); Complete Time: 12:24 eb 10/15 11:40 Order name: Urine Dipstick-Ancillary (obtain specimen); Complete Time: 11:57 snw 10/15 11:40 Order name: FHT's; Complete Time: 12:08 snw 10/15 12:04 Order name: Urine --Ancillary (enter results); Complete Time: 12:24 eb 10/15 12:14 Order name: US OB Limited; Complete Time: 13:31 snw Administered Medications: No medications were administered Disposition: 14:20 Co-signature as Attending Physician, Chele Hoffmann MD. rn Disposition: 10/15/18 13:34 Discharged to Home. Impression: Unspecified abdominal pain. - Condition is Stable. - Discharge Instructions: Abdominal Pain, Adult, Second Trimester of , [id number]. - Medication Reconciliation Form, Thank You Letter, Antibiotic Education, Prescription Opioid Use form. - Follow up: Private Physician; When: 2 - 3 days; Reason: Recheck today's complaints, Continuance of care, Re-evaluation by your physician. Follow up: Emergency Department; When: As needed; Reason: Worsening of condition. Signatures: Dispatcher [employer] EDAundrea Mcrae, METAL FLOORING INSTALLER-C METAL FLOORING INSTALLER-Csnw Emma Talley, RN Chele Ham MD MD rn Calderon, Audri, RN RN aa5 Corrections: (The following items were deleted from the chart) 14:12 13:34 10/15/2018 13:34 Discharged to Home. Impression: Unspecified abdominal pain. aa5 Condition is Stable. Forms are Medication Reconciliation Form, Thank You Letter, Antibiotic Education, Prescription Opioid Use. Follow up: Private Physician; When: 2 - 3 days; Reason: Recheck today's complaints, Continuance of care, Re-evaluation by your physician. Follow up: Emergency Department; When: As needed; Reason: Worsening of condition. snw
== END 2018-10-15 14:12 | disposition home or self-care (01) ==
LOC: ER 11:35
DX: O26.892 Other specified pregnancy related conditions, second trimester (principal); Z3A.19 19 weeks gestation of pregnancy; Z91.040 Latex allergy status; Z91.048 Other nonmedicinal substance allergy status
CPT/HCPCS: 76815; 81003; 81025; 99283

== ENCOUNTER 2019-06-06 09:00 | Inpatient (IN) | payer OTHER ==
--- OUTSIDE RECORDS SUMMARY | 2019-06-06 09:04 | XMS REPORT | Summary of Care ---
:1995 Author Organization [facility] Address [address] [place] [id number] Care Team Providers Name Role Phone Cole Hallman DO Insurance Hmo Kathy Vásquez [facility] Primary Care Provider Encounter Details Date Type Department Care Team Description 02/13/2019 Patient Secure [facility]- Kathy Vásquez , [facility] [address] [facility] [address] [place] [address] [facility] [phone] [place] [address] Allergies Active Allergy Reactions Severity Noted Date Comments Latex Rash 05/20/2017 documented as of this encounter (statuses as of 02/13/2019) Medications Medication Sig Dispensed Refills Start Date End Date Status buPROPion XL Take 1 tablet by 30 tablet 0 01/26/2019 Active (WELLBUTRIN XL) 150 mouth daily. mg 24 hr tabletIndications: Other depression vitamin Take 1 tablet by 100 tablet 3 02/08/2019 Active w/FA mouth daily. May tabletIndications: substitute for what S/P is in stock and section covered by patient plan docusate calcium Take 1 capsule by 60 capsule 1 02/08/2019 Active 240 mg mouth once daily as capsuleIndications: needed for S/P Constipation. May section substitute for what is in stock and covered by patient plan ferrous sulfate 325 Take 1 tablet by 60 tablet 2 02/08/2019 Active mg (65 mg iron) mouth 2 (two) times tabletIndications: daily. May S/P substitute for what section is in stock and covered by patient plan ibuprofen 600 mg Take 1 tablet by 60 tablet 1 02/08/2019 Active tabletIndications: mouth every 6 (six) S/P hours as needed for section Pain (scale 1-3) or Pain (scale 4-6) (Pain). Take with food or milk. HYDROcodone-acetami Take 1 tablet by 25 tablet 0 02/10/2019 Active nophen 5-325 mg mouth every 6 (six) tabletIndications: hours as needed for 35 weeks gestation Pain (scale 4-6) (If of uncontrolled by Ibuprofen). documented as of this encounter (statuses as of 02/13/2019) Active Problems Problem Noted Date Tubal ligation evaluation 02/07/2019 35 weeks gestation of 02/07/2019 Obesity (BMI 30-39.9) 02/07/2019 Other depression 12/26/2018 Headache in 11/09/2018 Low-lying placenta 10/12/2018 Overview: See usg report , follow up 01/11/19-resolved Eczema 09/16/2018 Susceptible varicella 08/22/2018 Overview: Address pp Supervision of high-risk 08/19/2018 Multiparity 08/19/2018 Family history of Down syndrome 08/19/2018 Overview: Reports pervious child with down syndrome, quad screen was done at the time but it was not detected. Order detailed anatomy with genetics-pending Tobacco use in 08/19/2018 Obesity in 08/19/2018 Pelvic disproportion 08/19/2018 Overview: As reported by patient History of section 08/19/2018 documented as of this encounter (statuses as of 02/13/2019) Immunizations Name Administration Dates Next Due Tdap 12/26/2018 Varicella (varivax)(chicken pox) 02/10/2019 documented as of this encounter Social History Tobacco Use Types Packs/Day Years Used Date Current Every Day Smoker 0.75 6 Smokeless Tobacco: Never Used Alcohol Use Drinks/Week oz/Week Comments No Sex Assigned at Date Recorded Not on file Job Start Date Occupation Industry Not on file Not on file Not on file Travel History Travel Start Travel End No recent travel history available. documented as of this encounter Last Filed Vital Signs Not on filedocumented in this encounter Plan of Treatment Date Type Specialty Care Team Description 02/14/2019 [facility]2019 Routine Visit OB Satellites Kerry Talley, LAUNDRY AGENT [address] [place] [address] [phone] Health Maintenance Due Date Last Done Comments PNEUMOCOCCAL 0-64 YEARS COMBINED SERIES (1 of 1 - 2000 PPSV23) HPV VACCINES (1 - Female 3-dose series) 2009 VARICELLA VACCINES (2 of 2 - 13+ 2-dose series) 03/10/2019 02/10/2019 INFLUENZA VACCINE 03/19/2019 CHLAMYDIA SCREENING 08/19/2019 08/19/2018 PAP SMEAR 08/19/2021 08/19/2018 DTaP,Tdap,and Td Vaccines (2 - Td) 12/26/2028 12/26/2018 documented as of this encounter Results Not on filedocumented in this encounter Insurance Payer Benefit Plan / Subscriber ID Effective Dates Phone Address Type Group [facility] xxxxxxxxx 2018-Present Medicaid HEALTH PLAN - HEALTH MANAGED MEDICAID documented as of this encounter Advance Directives Name Relationship Healthcare Agent Communication Relationship Kishor Nahun Spouse Primary healthcare agent
--- OUTSIDE RECORDS SUMMARY | 2019-06-06 09:04 | XMS REPORT | Summary of Care ---
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 pfannenstiel - Closure: aria - Estimated blood loss: 700 mL - Intraoperative Complications: none - Clinical trials: none - Preop H/H: 11.1/34.7 - Postop H/H: 9.9/31.2 Depression - on bupropion 150mg qd - reports stable mood, denies SI/HI Tobacco Use in - approx 15cigarettes/day in first trimester - reports no use since first trimester - counseled on smoking cessation Antepartum course reviewed - 1 h 85, sero negative, Rimmune, VZVnot immune, O positive/IAT negative, GBS unkn, Pap NILM 08/2018 - H/H, plt: 12 / 36.9, 137 on 12/07/2018 - [facility] Postoperative care: - Diet: Advance as tolerated - Fluid: Encourage oral intake - Activity: Encourage ambulation and incentive spirometry - Pain: [place] and Ibuprofen, Toradol as needed for pain not controlled by [place]/ Ibuprofen - DVT prophylaxis: SCDs and TEDs when not ambulating Discharge Planning - Contraception: s/p BTL - Vaccines: Varivax ordered, patient unaware if she has gotten Gardasil so declines at this time - Follow up in 5-7 days for incision check and/or staple removal at [facility] - Follow Up: follow-up in 3-6 weeks at [facility] Baby's Status - APGARs 8 , 9 - Weight: 2975 g - Male, desires circumcision - Location: ISCU for RDS, unknown discharge date per mother Dispo: POD#2.home todaySaige Perez MD - 02/08/2019 11:47 PM CDTR1 ALEXANDRE CALL PROGRESS NOTE Christina Alfaro [id number] 02/08/2019, 11:48 PM CTSP by LANA Ribeiro Notified by RN that patient is complaining of uncontrolled pain. Patient was given Ibuprofen at 1657and Andover at 1820 without relief. Toradol 30mg IM ordered. 0501: Patient was asleep when I entered the room. Patient says that the Andover brought pain down from8/10 to 7/10 and Toradol helped to bring pain from 7/10 to 6/10. Vitals are stable. Heart was normalRR, no murmurs, rubs, or gallops. Lungs were clear to auscultation. Abdomen was normal tenderness topalpation. Incision site was clean and dry. Patient has been passing gas and urinating without any issues. Will order another dose of Toradol 30mg IM as well as continue with Andover. Discussed with Dr. Janet Hardin. Saige Perez MD PGY-1, Obstetrics and Gynecology Pager: [phone] ETMadelyn Lara LMSW - 02/08/2019 4:00 PM CDTTHIS NOTE IS COPIED FROM BABY'S CHART: Social Work Note REDRYING MACHINE OPERATOR interviewed MOB Christina Alfaro ph: [phone], who reports residing at [facility] [address], [facility] [address] with FOB: Kishor Garnica ph: [phone] and her 5 year old son and 2 year old daughter. MOB reports they are getting ready to move to [address] in [address] same [address] complex. MOB reports having a car seat and all other necessary items for baby to go home with. MOB is already established with WIC and will make baby an appointment. MOB reports plans to follow-up at the [facility] in [place]. MOB has transportation home and to appointments. MOB reports a history of anxiety and depression. MOB reports she is currently taking Wellbutrin and states her mood has been stable. MOB denies any current depressive symptoms. MOB provided educationalmaterial on PPD. Signs/symptoms reviewed and MOB encouraged to notify physician if experiencing any signs/ symptoms of PPD. Plan: Baby to D/C home with MOB when medically cleared. F/U as directed by physician Madelyn Lara LMSW Care Management Pager: [phone] Darlene Martin MD - 02/08/2019 5:42 AM CDT POST-OPERATIVE PROGRESS NOTE 02/08/2019 5:42 AM Subjective: Overnight patient had complaints of itching, but she is aware it is from the anesthesia wearing off. Her pain is not well controlled on oral pain medications. She is tolerating a regular diet. She has passed flatus. She is not ambulating without difficulty. Lochia is moderate. She is urinating with [place]. Patient denies chest pain, SOB, n/v, headache, RUQ pain, vision changes, dizziness. Objective: VITALS: Patient Vitals for the past 24 hrs: BP Temp Temp src Pulse Resp SpO2 Height Weight 02/08/19 0400 109/60 36.7 C (98 F) Oral 58 16 100 % 02/08/19 0019 109/51 36.4 C (97.5 F) Oral 55 16 100 % 02/07/19 2300 108/64 67 17 100 % 02/07/19 2245 106/63 36.5 C (97.7 F) Oral 68 12 100 % 02/07/19 2230 102/57 60 11 100 % 02/07/19 2215 100/59 67 11 100 % 02/07/19 2200 110/51 36.4 C (97.6 F) Oral 73 19 100 % 02/07/19 1948 124/71 37 C (98.6 F) Oral 77 18 100 % 02/07/19 1830 115/77 80 20 99 % 02/07/19 1755 122/69 36.7 C (98.1 F) Oral 80 18 99 % 1.753 m (5' 9") 98.9 kg (218 lb) 02/07/19 1714 103/76 36.2 C (97.1 F) Oral 74 16 100 % 02/07/19 1713 97.5 kg (215 lb) I/O: 0.93 cc/kg/hr Intake/Output Summary (Last 24 hours) at 02/08/2019 0542 Last data filed at 02/08/2019 0400 Gross per 24 hour Intake 1356 ml Output 1900 ml Net -544 ml PE: General: patient alert and in no acute distress Lungs: clear to auscultation bilaterally Cardiology: regular rate and rhythm, no murmur Abdomen: normal tenderness to palpation, soft, bowel sounds present. Fundus is firm and at umbilicus Incision: bandage Clean, dry, and intact, no erythema or induration Extremities: no clubbing, cyanosis, or edema : deferred MEDS: Current Facility-Administered Medications Medication Dose Route Frequency Last Rate Last Dose bisacodyl (DULCOLAX) suppository 10 mg 10 mg Rectal QDAILYPRN diphenhydrAMINE (BENADRYL) 25 mg in NaCl 0.9% (NS) piggyback 25 mg IV Piggyback Q6HPRN diphenhydrAMINE (BENADRYL) tablet 25 mg 25 mg Oral Q6HPRN 25 mg at 0246 docusate calcium (SURFAK) capsule 240 mg 240 mg Oral QDAILYPRN HYDROcodone-acetaminophen (NORCO 5) 5-325 mg tablet 1 tablet 1 tablet Oral Q6HPRN HYDROcodone-acetaminophen (NORCO 5) 5-325 mg tablet 2 tablet 2 tablet Oral Q6HPRN 2 tablet at02/08/19 0019 ibuprofen (IBU) tablet 600 mg 600 mg Oral Q6HPRN 600 mg at 02/08/19 0430 LR 1000 mL + oxytocin 20 units IV Solution IV Infusion ONCE magnesium hydroxide (MILK OF MAGNESIA) 400 mg/5 mL suspension 30 mL 30 mL Oral QDAILYPRN ondansetron (ZOFRAN (PF)) injection 4 mg 4 mg Slow IV Push Q8HPRN simethicone (GAS RELIEF) chewable tablet 160 mg 160 mg Oral PC+HSPRN ketorolac (TORADOL) injection 30 mg 30 mg Intramuscular Q6HPRN X 24 HOURS 30 mg at 02/07/19 2304 naloxone (NARCAN) injection 0.4 mg 0.4 mg Slow IV Push PRN - SEE INSTRUCTIONS ondansetron (ZOFRAN (PF)) injection 4 mg 4 mg Slow IV Push ONCE Stopped at 02/07/19 2300 LABS: WBC (10*3/L) Date Value 02/08/2019 12.70 (H) 02/07/2019 9.68 HGB (g/dL) Date Value 02/08/2019 9.9 (L) 02/07/2019 11.1 (L) HCT (%) Date Value 02/08/2019 31.2 (L) 02/07/2019 34.7 (L) PLT (10*3/L) Date Value 02/08/2019 133 (L) 02/07/2019 157 (L) Assessment: Christina Alfaro is a 23 year old POD#1 s/p repeat LTCS +BTL on 02/07/192113 at 35w5d for labor in the setting of previous X2, uncomplicated. Patient is recovering well: hemodynamicallystable, good UOP, pain well- controlled, vitals within normal limits. Plan: Postoperative Review: - Admitted for: contractions - Surgical procedure: Repeat Lower uterine transverse section with lower segment uterine extension and Modified [place] bilateral tubal ligation - Skin incision: pfannenstiel - Closure: aria - Estimated blood loss: 700 mL - Intraoperative Complications: none - Clinical trials: none - Urine output: 0.93 cc/kg/hr - Preop H/H: 11.1/34.7 - Postop H/H: 9.9/31.2 Depression - on bupropion 15mg qd - reports stable mood, denies SI/HI Tobacco Use in - approx 15cigarettes/day in first trimester - reports no use since first trimester - counseled on smoking cessation Antepartum course reviewed - 1 h 85, sero negative, Rimmune, VZVnot immune, O positive/IAT negative, GBS unkn, Pap NILM 08/2018 - H/H, plt: 12 36.9, 137 on 12/07/2018 - [facility] Postoperative care: - Diet: Advance as tolerated - Fluid: Encourage oral intake - Activity: Encourage ambulation and incentive spirometry - Pain: [place] and Ibuprofen - DVT prophylaxis: SCDs and TEDs when not ambulating Discharge Planning - Contraception: s/p BTL - Vaccines: Varivax ordered, patient unaware if she has gotten Gardasil so declines at this time - Follow up in 5-7 days for incision check and/or staple removal at [facility] - Follow Up: follow-up in 3-6 weeks at [facility] - Dispo: Anticipate discharge POD#1-2 Baby's Status - APGARs 8 , 9 - Weight: 2975 g - Male, desires circumcision - Location: ISCU for RDS Dispo: POD#1. Patient is 24h PP @ 2114. Stable overnight, needs to meet following milestones: d/c [place], ambulation, incision check after 24 hours. Patient does not feel ready to go home. Anticipate discharge on POD#2. Darlene Carcamo MD Associated attestation - Wilman Hall - 02/09/2019 1:54 PM CDTCase reviewed , patient seen, agree with Dr. Carcamo.Keon Stover MD - 02/07/2019 8: 08 PM CDTBTL COUNSELING NOTE 02/07/2019 8:09 PM I counseled the patient regarding incentives, risks, benefits and alternatives of Bilateral Tubal Ligation including: risk of infection, bleeding, need for transfusion of blood/blood products, injury to ureter, bladder, bowel with possible further surgery, stint, catheterization or colostomy to repair. The permanence of this procedure and risk of regret in 1 in 3 women under the age of 30 were discussed. tubal ligation failure rate is 0.75% and higher in women younger than 30 years old. There is an increased risk for ectopic and the need to seek medical attention should failure of tubal ligation occur. Alternatives discussed include: Oral Contraceptive Agents, Intrauterine Device, Depo Provera, Ring, Patch, Condoms/foam, interval bilateral tubal ligation, or vasectomy of partner. All questions answered, and patient expressed her desire to proceed with bilateral tubal ligation surgery. PSH: previous c/s x2 Weight: 98.9 kg Informed consent discussed with the patient, including: condition, proposed care , treatments and services, alternative forms of treatment, and risks of no treatment. Details discussed around the procedures to be used, and the risks and hazards involved, potential benefits, and side effects of the patients proposed care, treatment, and services; the likelihood of the patient achieving his or her goals; and any potential problems that might occur during recuperation. Reasonable alternative also discussed with the patients proposed care, treatment, and services. The discussion encompasses risks, benefits, and side effects related to the alternative and risks related to not receiving the proposed care, treatment, and services. Consent signed on 12/26/2018. Keon Stover MD OBGYN PGY2 02/07/19 documented in this encounter Plan of Treatment Date Type Specialty Care Team Description 02/14/2019 [facility] Routine Visit OB Satellites Kerry Talley, SHORT STORY WRITER [address] [place] [address] [phone] Name Type Priority Associated Diagnoses Order Schedule Rho (D) Immune Globulin LAB Routine ONCE for 1 Occurrences starting 02/08/2019 until 02/08/2019 Health Maintenance Due Date Last Done Comments PNEUMOCOCCAL 0-64 YEARS COMBINED SERIES (1 of 1 - 2000 PPSV23) VARICELLA VACCINES (1 of 2 - 13+ 2-dose series) 2007 HPV VACCINES (1 - Female 3-dose series) 2009 INFLUENZA VACCINE 03/19/2019 CHLAMYDIA SCREENING 08/19/2019 08/19/2018 PAP SMEAR 08/19/2021 08/19/2018 DTaP,Tdap,and Td Vaccines (2 - Td) 12/26/2028 12/26/2018 documented as of this encounter Procedures Procedure Name Priority Date/Time Associated Comments Diagnosis CBC WITH DIFFERENTIAL Routine 02/08/2019 4:34 Results for this AM CDT procedure are in the results section. CBC WITH DIFF Routine 02/08/2019 4:34 Results for this AM CDT procedure are in the results section. SURGICAL PATHOLOGY STAT 02/07/2019 9:28 Results for this EXAM PM CDT procedure are in the results section. VENOUS CORD GAS LORENZA 02/07/2019 9:19 Results for this PM CDT procedure are in the results section. ARTERIAL CORD GAS LORENZA 02/07/2019 9:19 Results for this PM CDT procedure are in the results section. TUBAL LIGATION 02/07/2019 8:24 23yo @ 35.6 wbd PM CDT PrevX2 for ERCS SECTION 02/07/2019 8:24 23yo @ 35.6 wbd PM CDT PrevX2 for ERCS TYPE AND SCREEN Routine 02/07/2019 8:12 Results for this PM CDT procedure are in the results section. TYPE AND SCREEN LORENZA 02/07/2019 8:12 Results for this PM CDT procedure are in the results section. GALV ONLY - SYPHILIS LORENZA 02/07/2019 8:07 Results for this IGG/IGM PM CDT procedure are in the results section. CBC WITH DIFFERENTIAL LORENZA 02/07/2019 8:07 Results for this PM CDT procedure are in the results section. HEPATITIS B SURFACE LORENZA 02/07/2019 8:07 Results for this ANTIGEN PM CDT procedure are in the results section. CBC WITH DIFF LORENZA 02/07/2019 8:07 Results for this PM CDT procedure are in the results section. documented in this encounter Results CBC WITH DIFFERENTIAL (02/08/2019 4:34 AM CDT) WBC 12.70 (H) 4.30 - 11.10 [facility] 10*3/L SERVICES RBC 3.36 (L) 3.93 - 5.25 [facility] 10*6/L SERVICES HGB 9.9 (L) 11.6 - 15.0 [facility] g/dL SERVICES HCT 31.2 (L) 35.7 - 45.2 % [facility] SERVICES MCV 92.9 80.6 - 95.5 fL [facility] MCH 29.5 25.9 - 32.8 pg [facility] MCHC 31.7 31.6 - 35.1 [facility] g/dL SERVICES RDW-SD 45.2 39.0 - 49.9 fL [facility] RDW-CV 13.3 12.0 - 15.5 % [facility] PLT 133 (L) 166 - 358 [facility] 10*3/L SERVICES MPV 12.5 9.5 - 12.9 fL [facility] NRBC/100 WBC 0.0 0.0 - 10.0 /100 [facility] WBCs SERVICES NRBC x10^3 <0.01 10*3/L [facility] GRAN MAT (NEUT) % 75.4 % [facility] IMM GRAN % 0.40 % [facility] LYMPH % 16.9 % [facility] MONO % 6.0 % [facility] EOS % 1.1 % [facility] BASO % 0.2 % [facility] GRAN MAT x10^3(ANC) 9.58 (H) 1.88 - 7.09 [facility] 10*3/uL SERVICES IMM GRAN x10^3 0.05 0.00 - 0.06 [facility] 10*3/uL SERVICES LYMPH x10^3 2.14 1.32 - 3.29 [facility] 10*3/uL SERVICES MONO x10^3 0.76 0.33 - 0.92 [facility] 10*3/uL SERVICES EOS x10^3 0.14 0.03 - 0.39 [facility] 10*3/uL SERVICES BASO x10^3 0.03 0.01 - 0.07 [facility] 10*3/uL SERVICES Specimen Blood - ARM, LEFT Performing Organization Address City/State/Zipcode Phone Number [facility] CLIA: [id number], [address] [place] [address] [phone] [facility] SURGICAL PATHOLOGY EXAM (02/07/2019 9:28 PM CDT) Case Report Surgical Pathology Case: [id number] [facility] Authorizing Provider:America Adams MD Collected: 02/07/20198 SERVICES Ordering Location: Labor and Delivery ([facility])Received: 02/08/2019 0847 Pathologist: Leopoldo Jimenez MD Specimens: A) - FALLOPIAN TUBE, LEFT B) - FALLOPIAN TUBE, RIGHT Final Diagnosis [facility] Electronically A. FALLOPIAN TUBE, LEFT, SEGMENTAL RESECTION: SERVICES signed by Barbara, - FULL CROSS SECTION OF FALLOPIAN TUBE IDENTIFIED Leopoldo Mcneil MD on 02/09/2019 at 11:00 B. FALLOPIAN TUBE, RIGHT, SEGMENTAL RESECTION: AM - FULL CROSS SECTION OF FALLOPIAN TUBE IDENTIFIED I have personally reviewed all specimens/slides and agree with all statements made by residents, fellows or pathologist assistants whose name(s) may appear on this report. Clinical prev x2, MPDPS [facility] Information SERVICES Gross Description |SSpecimen A is received in formalin labeled with the patient's name, number, "fallopian tube, left" and consists of a single renae- pink segment of fallopian tube (1.3 cm in length and 0.5 cm in diamet [facility] er) which is serially sectioned to reveal renae-pink, grossly unremarkable cut surfaces. Fleet Sales Associate sections are submitted in A1. SERVICES Specimen B is received in formalin labeled with the patient's name, number , "fallopian tube, right" and consists of a single renae-pink segment of fallopian tube (1.5 cm in length and 0.6 cm in diamete r) which is serially sectioned to reveal renae-pink, grossly unremarkable cut surfaces. Fleet Sales Associate sections are submitted in B1. JOSTIN Mohan (ASCP)cm Embedded Images [facility] Specimen Tissue - FALLOPIAN TUBE, LEFT Tissue specimen (specimen) - FALLOPIAN TUBE, RIGHT Performing Organization Address City/State/Zipcode Phone Number [facility] CLIA: [id number], [address] [place] [phone] [facility] ARTERIAL CORD GAS (02/07/2019 9:19 PM CDT) BASE EXCESS, CORD -3.9 mEq/L [facility] AC PH, CORD (BEAKER) 7.33 7.18 - 7.38 [facility] PC02, CORD 42 32 - 66 mmHg [facility] PO2, CORD 21 10 - 30 mmHg [facility] BICARBONATE, CORD 22 17 - 27 mEq/L [facility] Specimen Blood - CORD Performing Organization Address City/State/Zipcode Phone Number [facility] CLIA: [id number], [address] [place] [address] [facility] VENOUS CORD GAS (02/07/2019 9:19 PM CDT) Pathologist [facility] VENOUS BASE EXCESS, -4.0 mEq/L [facility] CORD SERVICES VENOUS PH, CORD 7.41 7.25 - 7.45 [facility] VENOUS PC02, CORD 31 27 - 49 mmHg [facility] VENOUS PO2, CORD 36 17 - 41 mmHg [facility] SERVICES VENOUS BICARBONATE, 19 12 - 29 mEq/L [facility] CORD SERVICES Specimen Blood - CORD Performing Organization Address City/State/Zipcode Phone Number [facility] CLIA: [id number], [address] [place] [address] [facility] Type and Screen - ONCE Routine (02/07/2019 8:12 PM CDT) Pathologist [facility] ABO & RH O POSITIVE LAB Comment: Performed at [facility] Laboratory Services - [facility] Blood [place] [address] Toll Free: [phone] CLIA No. [id number] IAT Negative LAB Comment: Performed at [facility] Laboratory Services - [facility] Blood [place] [address] Toll Free: [phone] CLIA No. [id number] Specimen Blood - VENOUS Performing Organization Address City[facility] Phone Number [facility] LAB Type and Screen - ONCE LORENZA (02/07/2019 8:12 PM CDT) [facility] ABO & RH O POSITIVE LAB Comment: Performed at [facility] Laboratory Services - [facility] Blood [place] [address] Toll Free: [phone] CLIA No. [id number] IAT Negative LAB Comment: Performed at [facility] Laboratory Services - [facility] Blood [place] [address] Toll Free: [phone] CLIA No. [id number] Specimen Blood - VENOUS Performing Organization Address City/State/Zipcode Phone Number [facility] LAB CBC WITH DIFFERENTIAL (02/07/2019 8:07 PM CDT) Pathologist [facility] WBC 9.68 4.30 - 11.10 [facility] 10*3/L SERVICES RBC 3.73 (L) 3.93 - 5.25 [facility] 10*6/L SERVICES HGB 11.1 (L) 11.6 - 15.0 [facility] g/dL SERVICES HCT 34.7 (L) 35.7 - 45.2 % [facility] MCV 93.0 80.6 - 95.5 fL [facility] MCH 29.8 25.9 - 32.8 pg [facility] MCHC 32.0 31.6 - 35.1 [facility] g/dL SERVICES RDW-SD 46.3 39.0 - 49.9 fL [facility] RDW-CV 13.6 12.0 - 15.5 % [facility] PLT 157 (L) 166 - 358 [facility] 10*3/L SERVICES MPV 12.3 9.5 - 12.9 fL [facility] NRBC/100 WBC 0.0 0.0 - 10.0 /100 [facility] WBCs SERVICES NRBC x10^3 <0.01 10*3/L [facility] GRAN MAT (NEUT) % 70.5 % [facility] IMM GRAN % 0.40 % [facility] LYMPH % 20.6 % [facility] MONO % 6.5 % [facility] EOS % 1.7 % [facility] BASO % 0.3 % [facility] GRAN MAT x10^3(ANC) 6.83 1.88 - 7.09 [facility] 10*3/uL SERVICES IMM GRAN x10^3 0.04 0.00 - 0.06 [facility] 10*3/uL SERVICES LYMPH x10^3 1.99 1.32 - 3.29 [facility] 10*3/uL SERVICES MONO x10^3 0.63 0.33 - 0.92 [facility] 10*3/uL SERVICES EOS x10^3 0.16 0.03 - 0.39 [facility] 10*3/uL SERVICES BASO x10^3 0.03 0.01 - 0.07 [facility] 10*3/uL SERVICES Specimen Blood - VENOUS Performing Organization Address City/State/Zipcode Phone Number [facility] CLIA: [id number], [address] [place] [address] [phone] [facility] GALV ONLY - SYPHILIS IGG/IGM (02/07/2019 8:07 PM CDT) Syphilis IgG/IgM Non-reactive Non-reactive [facility] Specimen Blood - VENOUS Narrative Performed At Non-reactive - No serologic evidence of T. pallidum [facility] infection. Cannot exclude incubating or early syphilis. Submit a second specimen in 2-4 weeks if syphilis is clinically suspected. Equivocal - Further testing to follow. Reactive - Further testing to follow. Performing Organization Address City/State/Zipcode Phone Number [facility] CLIA: [id number], [address] [place] [phone] [facility] Hepatitis B Surface Antigen (02/07/2019 8:07 PM CDT) HBsAg HEPATITIS B Negative [facility] SURFACE ANTIGEN SERVICES NEGATIVE HBsAg 0.05 [facility] Semi-Quantitative SERVICES Specimen Blood - VENOUS Performing Organization Address City/[facility] Phone Number [facility] CLIA: [id number], [address] [place] [phone] [facility] documented in this encounter Visit Diagnoses Diagnosis 35 weeks gestation of - Primary state, incidental S/P section Other postprocedural status Supervision of high-risk Unspecified high-risk Multiparity Family history of Down syndrome Family history of congenital anomalies Tobacco use in Tobacco use disorder complicating , childbirth, or the puerperium, unspecified as to episode of care or not applicable Obesity in Obesity complicating , childbirth, or the puerperium, unspecified as to episode of care or not applicable History of section Other postprocedural status Susceptible varicella Other specified conditions influencing health status Other depression Tubal ligation evaluation Other specified pre-operative examination Obesity (BMI 30-39.9) Obesity, unspecified documented in this encounter Administered Medications Medication Order MAR Action Action Date Dose Rate Site buPROPion XL (WELLBUTRIN XL) Given 02/09/2019 10:55 AM CDT 150 mg tablet 150 mg 150 mg, Oral, DAILY, First dose on Alison 02/09/19 at 0900, Until Discontinued, Routine diphenhydrAMINE (BENADRYL) tablet 25 mg Given 02/08/2019 2:46 AM CDT 25 mg 25 mg, Oral, Q6HPRN, Starting Wed02/08/19 at 0008, Until Discontinued, Routine, Sleep, Itching docusate calcium (SURFAK) capsule 240 mg Given 02/09/2019 1:22 PM CDT 240 mg 240 mg, Oral, QDAILYPRN, Starting Wed02/08/19 at 0008, Until Discontinued, Routine, Constipation Given 02/08/2019 12:24 PM CDT 240 mg HYDROcodone-acetaminophen (NORCO 5) 5-325 Given 02/10/2019 1:19 PM CDT 1 tablet mg tablet 1 tablet 1 tablet, Oral, Q6HPRN, Starting Wed02/08/19 at 0008, Until Discontinued, Routine, Pain (scale 4-6), If uncontrolled by Ibuprofen HYDROcodone-acetaminophen (NORCO 5) 5-325 Given 02/10/2019 3:50 AM CDT 2 tablets mg tablet 2 tablet 2 tablet, Oral, Q6HPRN, Starting Wed02/08/19 at 0008, Until Discontinued, Routine, Pain (scale 7-10), If uncontrolled by Ibuprofen Given 02/09/2019 8:44 PM CDT 2 tablets Given 02/09/2019 1:22 PM CDT 2 tablets ibuprofen (IBU) tablet 600 mg Given 02/10/2019 10:43 AM CDT 600 mg 600 mg, Oral, Q6HPRN, Starting Wed02/08/19 at 0008, Until Discontinued, Routine, Pain (scale 1-3) Given 02/10/2019 3:51 AM CDT 600 mg Given 02/09/2019 8:44 PM CDT 600 mg magnesium hydroxide (MILK OF MAGNESIA) 400 Given 02/09/2019 1:22 PM CDT 30 mL mg/5 mL suspension 30 mL 30 mL, Oral, QDAILYPRN, Starting Wed02/08/19 at 0008, Until Discontinued, Routine, Constipation simethicone (GAS RELIEF) chewable tablet 160 Given 02/09/2019 1:22 PM CDT 160 mg mg 160 mg, Oral, PC+HSPRN, Starting Wed02/08/19 at 0008, Until Discontinued, Routine, Gas Given 02/08/2019 10:06 PM CDT 160 mg Medication Order MAR Action Action Date Dose Rate Site ceFAZolin in dextrose (iso-os) Given 02/07/2019 8:20 PM CDT 2 g (ANCEF) 2 gram/100 mL Piggyback 2 g 2 g (2,000 mg), IV Piggyback, O.R. 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 injection 30 mg Gluteus 30 mg, Intramuscular, Q6HPRN X 24 HOURS, 2 doses, Starting Wed02/07/19 at 2258, Until Wed02/08/19 at 2251, Routine, Pain (scale 4-6), PACU, sales team member approving Restricted medication: LD PACU Given 02/07/2019 11:04 PM CDT 30 mg Right Vastus Lateralis-IM ketorolac (TORADOL) Given 02/09/2019 6:15 AM CDT 30 mg Right Upper Outer injection 30 mg Quadrant 30 mg, Intramuscular, ONCE, 1 dose, Alison 02/09/19 at 0515, Routine, sales team member approving Restricted medication: ТАТЬЯНА RAMEY lactated ringers IV infusion 1,000 mL New Bag 02/07/2019 9:11 PM CDT at 125 mL/hr, 1,000 mL, IV Infusion, CONTINUOUS, Starting Wed02/07/19 at 1900, Until Wed02/08/19 at 0008, Routine New Bag 02/07/2019 8:42 PM CDT New Bag 02/07/2019 7:46 PM CDT 1,000 mL 125 mL/hr lactated ringers IV infusion New Bag 02/08/2019 2:53 AM CDT 1,000 mL 125 mL/hr 1,000 mL at 125 mL/hr, 1,000 mL, IV Infusion, ONCE, 1 dose, Wed02/08/19 at 0015, Routine lactated ringers IV infusion 500 New Bag 02/07/2019 7:47 PM CDT 500 mL 999 mL/hr mL at 999 mL/hr, 500 mL, IV Infusion, ONCE, 1 dose, Wed02/07/19 at 2000, Routine LR 1000 mL + oxytocin 20 units IV New Bag 02/07/2019 10:58 PM CDT 125 mL/ hr Solution at 125 mL/hr, IV Infusion, CONTINUOUS, Starting Wed02/07/19 at 2100, Until Wed02/08/19 at 0008, LORENZA nalbuphine (NUBAIN) injection 5 mg Given 02/07/2019 11:40 PM CDT 5 mg 5 mg, Intravenous, PRN, 1 dose, Starting Wed02/07/19 at 2258, Until Wed02/07/19 at 2340, Routine, Itching, PACU sodium citrate-citric acid (BICITRA) 500-334 Given 02/07/2019 8:20 PM CDT 30 mL mg/5 mL solution 30 mL 30 mL, Oral, PRE-PROCEDURE ONCE, 1 dose, Starting Wed02/07/19 at 1855, Until Wed02/07/19 at 2020, Routine, Surgery terbutaline (BRETHINE) Given 02/07/2019 7:27 PM CDT 0.25 mg Right Upper Arm-SC injection 0.25 mg 0.25 mg, Subcutaneous, ONCE, 1 dose, Wed02/07/19 at 2030, Routine varicella virus vaccine live (VARIVAX Given 02/10/2019 5:19 PM CDT 0.5 mL Left Arm (PF)) injection 0.5 mL 0.5 mL, Subcutaneous, ONCE-PRIOR TO DISCHARGE, 1 dose, Starting Wed02/08/19 at 0636, Until Wed02/10/19 at 1719, Routine, Give vaccine prior to discharge documented in this encounter Insurance Payer Benefit Plan / Subscriber ID Effective Dates Phone Address Type Group [facility] xxxxxxxxx 2018-Present Medicaid HEALTH PLAN - HEALTH MANAGED MEDICAID documented as of this encounter Advance Directives Name Relationship Healthcare Agent Communication Relationship Kishor Nahun Spouse Primary healthcare agent
--- OUTSIDE RECORDS SUMMARY | 2019-06-06 09:04 | XMS REPORT ---
:1995 [facility] Address [address] [place] [address] [address] [place] [address] Care Team Providers Name Role Phone MICHELLE [...] Urine (test code=URC1) 75 NUGF Chemistry - [id number] 13:59:00 Test Item Value Reference Range Comments Chemistry - Specials (test Negative NEGATIVE Method of sensitivity- code=BHCGST) Indeterminant: results should be repeated after 48-72 hrs Positive: results may be detected as early as 1 day after the first missed menses. [id number] 13:35:00 Test Item Value Reference Range Comments [...]
--- OUTSIDE RECORDS SUMMARY | 2019-06-06 09:05 | XMS REPORT | Summary of Care ---
:1995 Author Organization [facility] Address [address] [place] [address] Care Team Providers Name Role Phone Cole Hallman DO Insurance Hmo Kathy Vásquez [facility] Primary Care Provider Reason for Visit Reason Comments Staple Removal Encounter Details Date Type Department Care Team Description 02/17/2019 Nurse Visit [facility]- Kathy Vásquez, [facility] [address] [place] [address] [facility] Visit, [facility] Nurse removal (Primary Dx) [address] [place] [address] Allergies Active Allergy Reactions Severity Noted Date Comments Latex Rash 05/20/2017 documented as of this encounter (statuses as of 02/21/2019) Medications Medication Sig Dispensed Refills Start Date End Date Status buPROPion XL Take 1 tablet by 30 tablet 0 01/26/2019 Suspended (WELLBUTRIN XL) mouth daily. 150 mg 24 hr tabletIndications : Other depression vitamin Take 1 tablet by 100 tablet 3 02/08/2019 Suspended w/FA mouth daily. May tabletIndications substitute for what : S/P is in stock and section covered by patient plan docusate calcium Take 1 capsule by 60 capsule 1 02/08/2019 Suspended 240 mg mouth once daily as capsuleIndication needed for s: S/P Constipation. May section substitute for what is in stock and covered by patient plan ferrous sulfate Take 1 tablet by 60 tablet 2 02/08/2019 Suspended 325 mg (65 mg mouth 2 (two) times iron) daily. May tabletIndications substitute for what : S/P is in stock and section covered by patient plan ibuprofen 600 mg Take 1 tablet by 60 tablet 1 02/08/2019 Suspended tabletIndications mouth every 6 (six) : S/P hours as needed for section Pain (scale 1-3) or Pain (scale 4-6) (Pain). Take with food or milk. HYDROcodone-aceta Take 1 tablet by 25 tablet 0 02/10/2019 Suspended minophen 5-325 mg mouth every 6 (six) tabletIndications hours as needed for : 35 weeks Pain (scale 4-6) gestation of (If uncontrolled by Ibuprofen). documented as of this encounter (statuses as of 02/21/2019) Active Problems Problem Noted Date Bradycardia 02/19/2019 Tubal ligation evaluation 02/07/2019 35 weeks gestation [...] as of this encounter (statuses as of 02/21/2019) Immunizations Name Administration Dates Next Due Tdap [...] Sign Reading Time Taken Comments Blood Pressure 109/63 02/17/2019 2:25 PM CDT Pulse 57 02/17/2019 2:25 PM CDT Temperature 37 C (98.6 F) 02/17/2019 2:25 PM CDT Respiratory Rate 16 02/17/2019 2:25 PM CDT Oxygen Saturation - - Inhaled Oxygen Concentration - - Weight 94.3 kg (208 lb) 02/17/2019 2:25 PM CDT Height 175.3 cm (5' 9") 02/17/2019 2:25 PM CDT Body Mass Index 30.72 02/17/2019 2:25 PM CDT documented in this encounter Patient Instructions Patient InstructionsDeisy WillselaISHAAN - 02/17/2019 2:30 PM CDT Incision Care Remember: Follow-up visits allow your healthcare provider to make sure your incision is healing well. Be sure to keep your appointments. Stitches (sutures),surgical aria, special strips of surgical tape, or surgical skin glue may beused to close incisions. They also help stop bleeding and speed healing. To help your incision heal,follow the tips on this handout. Home care Tips for home care include the following: Always wash your hands before and after touching your incision. Keep your incision clean and dry. Avoid doing things that could cause dirt or sweat to get on your incision. Dont pick at scabs. They help protect the wound. Keep your incision out of water. Take a sponge bath to avoid getting your incision wet, unless your healthcare provider tells you otherwise. Ask your provider when can you take a shower or bathe. Ask your provider about the best way to keep your incision dry when bathing or showering. Pat stitches dry if they get wet. Dont rub. Leave the bandage (dressing) in place until you are told to remove it or change it. Change it only as directed, using clean hands. After the first 12 hours, change your dressing every 24 hours, or as directed by your healthcare provider. Change your dressing if it gets wet or soiled. Care for specific closures Follow these guidelines unless yourhealthcare provider tells you otherwise: Stitches or aria. Once you no longer need to keep these dry, clean the wound daily. First remove the bandage using clean hands. Then wash the area gently with soap and warm water. Use a wet cotton swab to loosen and remove any blood or crust that forms. After cleaning, put a thin layer of antibiotic ointment on. Then put on a new bandage. Skin glue. Dont put liquid, ointment, or cream on your wound while the glue is in place.Avoid activities that cause heavy sweating. Protect the wound from sunlight. Do not scratch, rub, or pickat the glue. Do not put tape directly over the glue.The glue should peel off within 5 to 10 days. Surgical tape. Keep the area dry. If it gets wet, blot the area dry with a clean towel. Surgical tape usually falls off within 7 to 10 days. If it has not fallen off after 10 days, contact your healthcare provider before taking it off yourself. If you are told to remove the tape,put mineral oil or petroleum jelly on a cotton ball. Gently rub the tape until it is removed. Changing your dressing Leave the dressing (bandage) in place until you are told to remove it or change it. Follow the instructions below unless told otherwise by your healthcare provider: Always wash your hands before changing your dressing. After the first48 hours, the incision wound usually will have closed. At this point, leave the incision uncovered and open to the air.If the incision has not closed keep it covered. Cover your incision only if your clothing is rubbing it or causing irritation. Change your dressing if it gets wet or soiled. Follow-up care Follow up with your healthcare provider to ask how long sutures or aria should be left in place. Be sure to return for stitch or staple removal as directed. If dissolving stitches were used in your mouth, these will not need to be removed. They should fall out or dissolve on their own. If tape closures were used, remove them yourself when your provider recommends if they have not fallen off on their own. Ifskin glue was used, the glue will wear off by itself. When to seek medical care Call your healthcare provider if you have any of the following: More pain, redness, swelling, bleeding, or foul-smelling discharge around the incision area Fever of 100.4F (38C) or higher, or as directed by your healthcare provider Shaking chills Vomiting or nausea that doesn't go away Numbness, coldness, or tingling around the incision area, or changes in skin color Opening of the sutures or wound Stitches or aria come apart or fall out or surgical tape falls off before 7 days or as directed by your healthcare provider Date Last Reviewed: 06/18/201619996454-6121 [employer]. [address] [place] [address], [place] [address]. All rights reserved. This information is not intended as a substitute for professional medical care. Always follow your healthcare professional's instructions. documented in this encounter Progress Notes Cathryn Wills LVN - 02/17/2019 2:30 PM CDTNurse Visit:: Patient in clinic for staple removal. Delivered 02/07/2019 via Pt voiding and stooling without difficulties, not constipated . Pt eating well and drinking water daily. She is breast and bottle feeding. Infant care no concerns voiced has help at home. She denies depression/suicidal/homocial ideation, Denies any domestic violence. LT incision well approximated and intact no superficial wound separation. No ss of infection, induration or wound opening noted. Skin cleansed via aseptic technique, aria removed w/o any difficulty. Steri-strips applied. C/S inc care reviewed and warning S/S given ER warnings discussed, she voiced understanding and agrees with plan. documented in this encounter Plan of Treatment Date Type Specialty Care Team Description 03/01/2019 Routine Visit [facility] Kerry Talley, TAB MACHINE OPERATOR [address] [place], [place] [address] Health Maintenance Due Date Last Done Comments [...] Results Not on filedocumented in this encounter Visit Diagnoses Diagnosis Encounter for staple removal - Primary Encounter for removal of sutures documented in this encounter Insurance Payer Benefit Plan / Subscriber ID Effective Dates Phone Address Type Group [facility] xxxxxxxxx 2018-Present Medicaid HEALTH PLAN - [facility] MANAGED MEDICAID documented as of this encounter Advance Directives Name Relationship Healthcare Agent Communication Relationship Kishor Nahun Spouse Primary healthcare agent
--- OUTSIDE RECORDS SUMMARY | 2019-06-06 09:05 | XMS REPORT | Summary of Care ---
:1995 Author Organization [facility] Address [address] [place] [address] Care Team Providers Name Role Phone Cole Hallman DO Insurance Hmo Kathy Vásquez [facility] Primary Care Provider Encounter Details Date Type Department Care Team Description 02/20/2019 Patient Secure [facility]- Kathy Vásquez , [facility] [address] [facility] [address] [place] [address] [facility] [phone] [place] [address] Allergies Active Allergy Reactions Severity Noted Date Comments Latex Rash 05/20/2017 documented as of this encounter (statuses as of 02/20/2019) Medications Medication Sig Dispensed Refills Start Date [...] as of this encounter (statuses as of 02/20/2019) Active Problems Problem Noted Date Bradycardia 02/19/2019 [...] as of this encounter (statuses as of 02/20/2019) Immunizations Name Administration Dates Next Due Tdap [...] 03/01/2019 Routine Visit [facility] Kerry Talley, ENVIRONMENTAL COMPLIANCE TECHNICIAN [address] [place] [address] [phone] Health Maintenance Due Date Last Done Comments [...] ID Effective Dates Phone Address Type Group [facility] xxxxxxxxx 2018-Present Medicaid HEALTH PLAN - HEALTH MANAGED MEDICAID documented as of this encounter Advance Directives Name Relationship Healthcare Agent Communication Relationship Kishor Nahun Spouse Primary healthcare agent
--- OUTSIDE RECORDS SUMMARY | 2019-06-06 09:06 | XMS REPORT | Summary of Care ---
:1995 Author Organization [facility] - [facility] Address [address] [place] [id number] Care Team Providers Name Role Phone Cole Hallman DO Insurance Hmo Kathy Vásquez [facility] Primary Care Provider Reason for Referral (Routine) Status Reason Specialty Diagnoses / Referred By Referred To Procedures Contact Contact New Request IM-CARDIOVASCULA Diagnoses cardiomyopathy Roxi, Rosales R DISEASE Procedures Discharge Follow-Up: Specialty Service IM-CARDIOVASCULAR DISEASE; 4-6 Weeks RADHA Chen 301 [facility] [id number] [place], [place] [id number] (Routine) Status Reason Specialty Diagnoses / Procedures Referred By Referred To Contact Contact New Request Diagnoses cardiomyopathy Roxi, Rosales Akinsikalina, Procedures Discharge Follow-up: PCP KATHY VÁSQUEZ; 3-5 Days RADHA Chen, 301 [facility] [id number] [address] [facility] [address] [address] Phone: [place], [place] [phone] Radiology Services (Routine) Status Reason Specialty Diagnoses / Referred By Referred To Procedures Contact Contact New Request Diagnostic Diagnoses Bradycardia Anthony [facility]ill Radiology Procedures XR BRISA Nguyen MD 301 [facility] [id number] [place] [id number] Radiology Services (Routine) Status Reason Specialty Diagnoses / Referred By Referred To Procedures Contact Contact New Request Diagnostic Diagnoses Bradycardia 35 weeks gestation of Anthony Oneill Radiology Procedures XR CHEST 1 NAFISA Nguyen MD [address] [facility] [id number] [place] [address] Radiology Services (Routine) Status Reason Specialty Diagnoses / Referred By Referred To Procedures Contact Contact New Request Diagnostic Diagnoses Bradycardia Anthony Oneill Radiology Procedures XR BRISA Nguyen MD [id number] [place] [address] Radiology Services (Routine) Status Reason Specialty Diagnoses / Referred By Referred To Procedures Contact Contact New Request Diagnostic Diagnoses Bradycardia 35 weeks gestation of Anthony Oneill Radiology Procedures XR CHEST 1 NAFISA Nguyen MD [address] [place] [address] Reason for Visit Auth/Cert Status Reason Specialty Diagnoses / Procedures Referred By Contact Referred To Contact Cardiology Diagnoses CHEST PAIN [place] [address] [place] [phone] Encounter Details Date Type Department Care Team Description 02/19/2019 - Hospital Encounter Cardiology (SANDOVAL 9B) Unruly Dianeas Bradycardia 02/21/2019 712 [facility] [address] [place] [id number] [address] [facility] [phone] [place] [address] [phone] Allergies Active Allergy Reactions Severity Noted Date Comments Latex Rash 05/20/2017 documented as of this encounter (statuses as of 02/21/2019) Medications Medication Sig Dispensed Refills Start End Date Status Date vitamin Take 1 tablet by 100 tablet 3 Active w/FA mouth daily. November 24 tabletIndications: substitute for S/P what is in stock section and covered by patient plan docusate calcium Take 1 capsule by 60 capsule 1 Active 240 mg mouth once daily 9 capsuleIndications: as needed for S/P Constipation. May section substitute for what is in stock and covered by patient plan ferrous sulfate 325 Take 1 tablet by 60 tablet 2 Active mg (65 mg iron) mouth 2 (two) 9 tabletIndications: times daily. May S/P substitute for section what is in stock and covered by patient plan ibuprofen 600 mg Take 1 tablet by 60 tablet 1 Active tabletIndications: mouth every 6 9 S/P (six) hours as section needed for Pain (scale 1-3) or Pain (scale 4-6) (Pain). Take with food or milk. carvedilol 3.125 mg Take 1 tablet by 60 tablet 5 Active tabletIndications: mouth 2 (two) 9 times daily with cardiomyopathy meals. furosemide 20 mg Take 1 tablet by 5 tablet 0 Active tabletIndications: mouth daily. 9 cardiomyopathy buPROPion XL Take 1 tablet by 30 tablet 0 02/22/20 Discontinued (WELLBUTRIN XL) 150 mouth daily. 9 19 mg 24 hr tabletIndications: Other depression HYDROcodone-acetami Take 1 tablet by 25 tablet 0 02/22/20 Discontinued nophen 5-325 mg mouth every 6 9 19 tabletIndications: (six) hours as 35 weeks gestation needed for Pain of (scale 4-6) (If uncontrolled by Ibuprofen). furosemide 20 mg Take 1 tablet by 30 tablet 5 02/22/20 Discontinued tabletIndications: mouth daily. 9 19 cardiomyopathy documented as of this encounter (statuses as of 02/21/2019) Active Problems Problem Noted Date cardiomyopathy 02/21/2019 Bradycardia 02/19/2019 Tubal ligation evaluation 02/07/2019 35 [...] Sign Reading Time Taken Comments Blood Pressure 108/64 02/21/2019 3:33 PM CDT Pulse 61 02/21/2019 3:33 PM CDT Temperature 36.8 C (98.2 F) 02/21/2019 3:33 PM CDT Respiratory Rate 18 02/21/2019 3:33 PM CDT Oxygen Saturation 98% 02/21/2019 3:33 PM CDT Inhaled Oxygen Concentration - - Weight 90.7 kg (200 lb) 02/21/2019 3:30 AM CDT Height 175.3 cm (5' 9") 02/19/2019 2:00 AM CDT Body Mass Index 29.53 02/19/2019 2:00 AM CDT documented in this encounter Discharge Instructions Debby Huizar RN - 02/21/2019 Patient Discharge Instructions Take Home Medications These are medications ordered for you by your healthcare provider. Do not take any other medications or supplements unless advised by your healthcare provider. Current Discharge Medication List START taking these medications Details carvedilol (COREG) 3.125 mg Take 3.125 mg by mouth 2 (two) times daily with meals. Qty: 60 tablet, Refills: 5 Start date: 02/21/2019 Associated Diagnoses: cardiomyopathy furosemide (LASIX) 20 mg Take 20 mg by mouth daily. Qty: 5 tablet, Refills: 0 Start date: 02/21/2019 Associated Diagnoses: cardiomyopathy CONTINUE these medications which have NOT CHANGED Details docusate calcium (SURFAK) 240 mg Take 240 mg by mouth once daily as needed for Constipation. May substitute for what is in stock and covered by patient plan Qty: 60 capsule, Refills: 1 Associated Diagnoses: S/P section ferrous sulfate 325 mg Take 325 mg by mouth 2 (two) times daily. May substitute for what is in stockand covered by patient plan Qty: 60 tablet, Refills: 2 Associated Diagnoses: S/P section ibuprofen (IBU) 600 mg Take 600 mg by mouth every 6 (six) hours as needed for Pain (scale 1-3) or Pain (scale 4-6) (Pain). Take with food or milk. Qty: 60 tablet, Refills: 1 Associated Diagnoses: S/P section vitamin w/FA (PRENATABS RX) 1 tablet Take 1 tablet by mouth daily. May substitute for what is in stock and covered by patient plan Qty: 100 tablet, Refills: 3 Associated Diagnoses: S/P section STOP taking these medications HYDROcodone-acetaminophen (NORCO 5) 1 tablet Comments: Reason for Stopping: buPROPion XL (WELLBUTRIN XL) 150 mg Comments: Reason for Stopping: Follow-up appointments: For questions regarding follow-up instructions call the edenes Hotline at or If you experience any of the following symptoms , please follow up with . For worsening symptoms/changing condition/problems or questions: Non-emergency/urgent: Call the edenes Hotline at or or Emergency: Go to the closest emergency room or call [phone] Translated by Date Time AttachmentsThe following attachments cannot be sent through Care Everywhere.Cardiomyopathy, Discharge Instructions for (Moldovan)Angina, Discharge Instructions for (Moldovan)documented in this encounter Progress Notes Sara Browne RN - 02/20/2019 2:18 PM CDTCare Management Social Functional Assessment Patient Name: Christina Alfaro Age: [age] year old Sex: female Patient's Previous Admission Date at [facility]: 02/07/2019 Current diagnosis and co-morbidities: CHEST PAIN Readmission Questions: Was patient discharged from any acute care hospital within the last 30 days: Yes Were all questions regarding previous illness/diagnosis answered prior to discharge: Yes Did you have any difficulties with your discharge instructions: No Were you able to go to your follow-up discharge appointments: Yes Any difficulties after discharge with medications: No Any difficulties after discharge with transportation: No Any difficulties after discharge with physical conditions, support, or other limitations?: No Did patient refuse services that were recommended on the previous admission: No Was patient non-compliant with the previously recommended treatment: No If admitted from the ED did you call your primary MD or place a sick call/ request with your provider?: No Social Functional Assessment: Primary language spoken/preferred: Moldovan Mental Status: Alert & Oriented to Person,Place & Time Information given by: Self Patient's support system: Spouse Name and number of support system: Spouse Kishor Nahun [phone] Primary Lead Furnace Operator: Self MPOA: No;Same as support system Living Arrangement: Mobile Home Address of living arrangement : [address], [facility] [address] Persons living in home: Self;Child;Spouse Barriers to returning home: None Baseline functional status- ambulation: Independent Functional status-baseline personal care: Independent Baseline functional status- driving: Independent Baseline functional status- grocery shopping: Independent Functional status-baseline housekeeping: Independent Functional status-baseline meal prep: Independent Current functional status same as prior: Yes Do you have a PCP?: Yes Name of PCP: Kathy Vásquez Home Health Care Agency: No Provider Services: No DME Company: No Equipment: None Hemodialysis: No Community resources utilized: SSA/SSI/Medicaid Funding Resources: Medicaid HMO Prescription coverage plan: Medicaid-3 slots Pharmacy where meds are filled: Other Other pharmacy: [facility] Anticipated services prior to disharge: Continue Medical Eval Expected mode of discharge transportation: Personal vehicle Additional Recommendations for DC: Pt already has a goodrx card. She is not sure if she has 3 slots or unlimited with her medicaid. Additional info required for discharge planning: Pending medical evaluation Recommended discharge plan: Home SFA Complete: Social Functional Assessment complete: Yes Alcohol Use Screening (AUDIT-C) How often do you have a drink containing alcohol?: Never SCORE: 0 Role of Care Management explained. Makayla Martinez MD - 02/19/2019 6:52 AM CDT White Team Progress Note Date of Service: 02/19/2019 06:53 Chief Complaint: Chest pain 24-HOUR EVENTS: - Admitted to White team - Tele: Sinus bradycardia, trending 50s - Chronotropic response was monitored during walk test on the floor. HR at rest 47. HR after walkingin 80s. SUBJECTIVE: Patient continues to have chest pain across b/l chest that is 6/10. Chest pain has been going on forseveral hours. She says it feels heavy to breathe. Denies MCFARLANE, N/V, LE edema. Objective: Vitals: 02/19/19 0200 02/19/19623 BP: (!) 141/85 116/68 Pulse: (!) 47 67 Resp: 20 20 Temp: 36.7 C (98 F) 36.9 C (98.4 F) TempSrc: Oral Oral SpO2: 100% 100% Weight: 94.3 kg (207 lb 12.8 oz) Height: 1.753 m (5' 9") BP: (116-141)/(68-85) Temp: [36.7 C (98 F)-36.9 C (98.4 F)] Temp source: Oral (02/20 624) Pulse: [47-67] Resp: [20] SpO2: [100 %] Height: [175.3 cm (5' 9")] Weight: [94.3 kg (207 lb 12.8 oz)] BMI (calculated): [30.69] Intake/Output Summary (Last 24 hours) at 02/19/2019 0653 Last data filed at 02/19/2019 0624 Gross per 24 hour Intake 360 ml Output 400 ml Net -40 ml Physical Exam: General: Alert and oriented x 4; no apparent distress HEENT: PERRLA, EOMI, MMM Neck: Supple, no lymphadenopathy, no bruits, no JVD Lungs: Clear to auscultation bilaterally, no respiratory distress Cardio: S1, S2 normal; no murmurs. No chest tenderness to palpation Abdomen: Soft; non-tender; non-distended; normoactive bowel sounds Extremities: No clubbing, cyanosis, or edema Skin: scar present across low abdomen: clean, dry, intact. No rashes Neuro: No focal sensorimotor deficits LABS/IMAGING - reviewed, pertinent results as below: Recent Labs 02/19/19 0308 WBC 9.29 HGB 10.8* HCT 35.0* MCV 92.3 PLT 257 NA 141 K 3.8 CL 108 TCO2 26 CREAT 0.74 BUN 13 MG 1.8 Recent Labs 03/20/18 1530 02/19/19 0308 TROPNI 0.001 0.001 ASSESSMENT/PLAN Christina Alfaro is a 23 year old female with PMH as listed above, admitted to the hospital with: Chest pain Bradycardia Patient is (underwent 02/07/19) and presents with chest pain and sinus saulo. Per chart review, HR is normally 60-80s. Labs and imaging are unremarkable and ruled out PE, dissection, and pneumothorax at this time. Possible there is a component of pericarditis vs non cardiac pain. The bradycardia may be related being as some women can have transient bradycardia after vs some other hormonal process. She exhibited adequate chronotropic response on walk test. Will check ECHO tomorrow. - Monitor on telemetry - [place] 5 Q6HPRN; will wean to non-opioid pain meds as tolerated - TTE Makayla Castillo MD Internal Medicine, PGY-2 [place] Team Pager# [phone] END OF DAILY PROGRESS NOTE HOSPITAL COURSE Christina Alfaro is a 23 year old female with PMHx of anxiety, depression, and recent C section on 02/07/19 presenting for chest pain. Troponin negative. EKG showed sinus bradycardia but no ST changes. She continues on supportive care and telemetry monitoring. CURRENT MEDICATIONS - reviewed. Current Facility-Administered Medications Medication Dose Route Frequency Last Rate Last Dose acetaminophen (TYLENOL) tablet 650 mg 650 mg Oral Q6HPRN alum-mag hydroxide-simeth (MAALOX PLUS / MAG-AL PLUS) 200-200-20 mg/5 mL suspension 30 mL 30 mLOral ONCE buPROPion XL (WELLBUTRIN XL) tablet 150 mg 150 mg Oral DAILY heparin injection 5,000 Units 5,000 Units Subcutaneous Q12H HYDROcodone-acetaminophen (NORCO 5) 5-325 mg tablet 1 tablet 1 tablet Oral Q6HPRN 1 tablet at02/19/19 0302 ipratropium-albuterol (DUONEB) 0.5 mg-3 mg(2.5 mg base)/3 mL nebulizer solution 3 mL 3 mL Inhalation ONCE nitroglycerin (NITROSTAT) sublingual tablet 0.4 mg 0.4 mg Sublingual Q5MIN PRN Prior to Admission medications Medication Sig Start Date End Date Taking? Authorizing Provider HYDROcodone-acetaminophen 5-325 mg tablet Take 1 tablet by mouth every 6 (six) hours as needed for Pain (scale 4-6) (If uncontrolled by Ibuprofen). 02/10/19 Yes Clarence Pereira MD buPROPion XL (WELLBUTRIN XL) 150 mg 24 hr tablet Take 1 tablet by mouth daily. Yes Kathy Vásquez CONSTANZA docusate calcium 240 mg capsule Take 1 capsule by mouth once daily as needed for Constipation. May substitute for what is in stock and covered by patient plan 02/08/19 Darlene Carcamo MD ferrous sulfate 325 mg (65 mg iron) tablet Take 1 tablet by mouth 2 (two) times daily. May substitute for what is in stock and covered by patient plan 02/08/19 Darlene Carcamo MD ibuprofen 600 mg tablet Take 1 tablet by mouth every 6 (six) hours as needed for Pain (scale 1-3) orPain (scale 4-6) (Pain). Take with food or milk. 02/08/19 Darlene Carcamo MD vitamin w/FA tablet Take 1 tablet by mouth daily. May substitute for what is in stock and covered by patient plan 02/08/19 Darlene Carcamo MD documented in this encounter Plan of Treatment Date Type Specialty Care Team Description 03/01/2019 Routine Visit OB Satellites Kerry Talley, ACID[facility]ER [address] [place] [address] [phone] Name Type Priority Associated Diagnoses Date/Time URINE DRUG (LCMSMS) - LAB Routine 02/19/2019 6:29 PM CDT SYNTHETIC OPIATES PANEL URINE DRUG (LCMSMS) - LAB Routine 02/19/2019 6:29 PM CDT OPIATES PANEL Name Type Priority Associated Diagnoses Order Schedule Troponin I LAB Routine EVERY 6 HOURS (START TIME ADJUSTABLE) START TIME ADJUSTABLE for 3 Occurrences starting 02/19/2019 until 02/19/2019, 2 completed EKG-12 LEAD ROUTINE HEART STATION Routine EVERY MORNING for 3 Days starting 02/19/2019 until 02/21/2019 URINE DRUG (LCMSMS) LAB Routine ONCE for 1 Occurrences - SYNTHETIC OPIATES starting 02/19/2019 PANEL until 02/19/2019, 1 completed URINE DRUG (LCMSMS) LAB Routine ONCE for 1 Occurrences - OPIATES PANEL starting 02/19/2019 until 02/19/2019, 1 completed MAGNESIUM LAB Routine EVERY MORNING AT 0400 until discontinued starting 02/21/2019, 1 completed BASIC METABOLIC LAB Routine EVERY MORNING AT 0400 PANEL (NA, K, CL, until discontinued CO2, GLUCOSE, BUN, starting 02/21/2019, 1 CREATININE, CA) completed CBC WITH DIFF LAB Routine EVERY MORNING AT 0400 until discontinued starting 02/21/2019, 1 completed Health Maintenance Due Date Last Done Comments [...] Associated Comments Diagnosis CBC WITH DIFFERENTIAL Routine 02/21/2019 3:39 Results for this AM CDT procedure are in the results section. CBC WITH DIFF Routine 02/21/2019 3:39 Results for this AM CDT procedure are in the results section. BASIC METABOLIC PANEL Routine 02/21/2019 3:39 Results for this (NA, K, CL, CO2, AM CDT procedure are in GLUCOSE, BUN, the results CREATININE, CA) section. MAGNESIUM Routine 02/21/2019 3:39 Results for this AM CDT procedure are in the results section. ECHO ROUTINE W/DOPPLER LORENZA 02/20/2019 3:55 Bradycardia COLOR PM CDT EKG-12 LEAD Routine 02/20/2019 7:20 AM CDT CBC WITH DIFFERENTIAL Routine 02/20/2019 4:34 Results for this AM CDT procedure are in the results section. CBC WITH DIFF Routine 02/20/2019 4:34 Results for this AM CDT procedure are in the results section. BASIC METABOLIC PANEL Routine 02/20/2019 4:34 Results for this (NA, K, CL, CO2, AM CDT procedure are in GLUCOSE, BUN, the results CREATININE, CA) section. TROPONIN I Routine 02/20/2019 4:34 Results for this AM CDT procedure are in the results section. MAGNESIUM Routine 02/20/2019 4:34 Results for this AM CDT procedure are in the results section. GALV/CLC ONLY - URINE Routine 02/19/2019 6:29 Results for this DRUG (IMMUNOASSAY) - PM CDT procedure are in COMPREHENSIVE DRUG the results SCREEN section. GLYCOSYLATED Routine 02/19/2019 4:15 Results for this HEMOGLOBIN (A1C) AM CDT procedure are in the results section. XR KUB Routine 02/19/2019 3:38 Bradycardia Results for this AM CDT procedure are in the results section. XR CHEST 1 VW Routine 02/19/2019 3:38 Bradycardia Results for this AM CDT 35 weeks gestation procedure are in of the results section. CBC WITH DIFFERENTIAL Routine 02/19/2019 3:08 Results for this AM CDT procedure are in the results section. N-TERMINAL PRO-BNP Add-on 02/19/2019 3:08 Results for this AM CDT procedure are in the results section. ANTI-NUCLEAR ANTIBODY Add-on 02/19/2019 3:08 Results for this SCREEN AM CDT procedure are in the results section. PROTHROMBIN TIME / INR LORENZA 02/19/2019 3:08 Results for this AM CDT procedure are in the results section. CBC WITH DIFF Routine 02/19/2019 3:08 Results for this AM CDT procedure are in the results section. SEDIMENTATION RATE Routine 02/19/2019 3:08 Results for this AM CDT procedure are in the results section. LIPID PANEL Routine 02/19/2019 3:08 Results for this (52387)(TOTAL AM CDT procedure are in CHOLESTEROL, the results TRIGLYCERIDES, HDL) section. BASIC METABOLIC PANEL Routine 02/19/2019 3:08 Results for this (NA, K, CL, CO2, AM CDT procedure are in GLUCOSE, BUN, the results CREATININE, CA) section. HEPATIC FUNCTION PANEL LORENZA 02/19/2019 3:08 Results for this (76631) AM CDT procedure are in (ALB,T.PRO,BILI the results T,BU/BC,ALT,AST,ALK section. PHOS) THYROID STIMULATING Routine 02/19/2019 3:08 Results for this HORMONE AM CDT procedure are in the results section. TROPONIN I Routine 02/19/2019 3:08 Results for this AM CDT procedure are in the results section. C-REACTIVE PROTEIN Routine 02/19/2019 3:08 Results for this AM CDT procedure are in the results section. MAGNESIUM Routine 02/19/2019 3:08 Results for this AM CDT procedure are in the results section. LIPASE Add-on 02/19/2019 3:08 Results for this AM CDT procedure are in the results section. CREATINE KINASE Routine 02/19/2019 3:08 Results for this AM CDT procedure are in the results section. PHOSPHORUS Routine 02/19/2019 3:08 Results for this AM CDT procedure are in the results section. documented in this encounter Results CBC WITH DIFFERENTIAL (02/21/2019 3:39 AM CDT) WBC 5.20 4.30 - 11.10 [facility] 10*3/L SERVICES RBC 4.14 3.93 - 5.25 [facility] 10*6/L SERVICES HGB 11.8 11.6 - 15.0 [facility] g/dL SERVICES HCT 37.2 35.7 - 45.2 % [facility] SERVICES MCV 89.9 80.6 - 95.5 fL [facility] SERVICES MCH 28.5 25.9 - 32.8 pg [facility] SERVICES MCHC 31.7 31.6 - 35.1 [facility] g/dL SERVICES RDW-SD 43.4 39.0 - 49.9 fL [facility] SERVICES RDW-CV 13.2 12.0 - 15.5 % [facility] PLT 231 166 - 358 [facility] 10*3/L SERVICES MPV 11.4 9.5 - 12.9 fL [facility] SERVICES NRBC/100 WBC 0.0 0.0 - 10.0 /100 [facility] WBCs SERVICES NRBC x10^3 <0.01 10*3/L [facility] SERVICES GRAN MAT (NEUT) % 54.9 % [facility] IMM GRAN % 0.40 % [facility] LYMPH % 26.5 % [facility] MONO % 8.8 % [facility] EOS % 8.8 % [facility] BASO % 0.6 % [facility] SERVICES GRAN MAT x10^3(ANC) 2.85 1.88 - 7.09 [facility] 10*3/uL SERVICES IMM GRAN x10^3 <0.03 0.00 - 0.06 [facility] 10*3/uL SERVICES LYMPH x10^3 1.38 1.32 - 3.29 [facility] 10*3/uL SERVICES MONO x10^3 0.46 0.33 - 0.92 [facility] 10*3/uL SERVICES EOS x10^3 0.46 (H) 0.03 - 0.39 [facility] 10*3/uL SERVICES BASO x10^3 0.03 0.01 - 0.07 [facility] 10*3/uL SERVICES Specimen Blood - ARM, LEFT Performing Organization Address City/State/Zipcode Phone Number [facility] CLIA: [id number], [address] [place] [address] [facility] BASIC METABOLIC PANEL (NA, K, CL, CO2, GLUCOSE, BUN, CREATININE, CA) (2018 3:39 AM CDT) NA 136 135 - 145 mmol/L [facility] K 3.8 3.5 - 5.0 mmol/L [facility] CL 103 98 - 108 mmol/L [facility] CO2 TOTAL 25 23 - 31 mmol/L [facility] AGAP 8 2 - 16 [facility] BUN 13 7 - 23 mg/dL [facility] GLUCOSE 95 70 - 110 mg/dL [facility] CREATININE 0.67 0.50 - 1.04 [facility] mg/dL SERVICES CALCIUM 8.6 8.6 - 10.6 mg/dL [facility] SERVICES eGFR Calculation 108.1 mL/min/1.73m2 [facility] (Non-) SERVICES eGFR Calculation 131.1 mL/min/1.73m2 [facility] () SERVICES Specimen Blood - ARM, LEFT Narrative Performed At Association of Glomerular Filtration Rate (GFR) and Staging [facility] SERVICES of Kidney Disease* + + + + | GFR (mL/min/1.73 m2)| With Kidney Damage|Without Kidney Damage + + + + |>90|Stage one| Normal + + + + |60-89|Stage two| Decreased GFR + + + + |30-59|Stage three| Stage three + + + + |15-29|Stage four | Stage four + + + + |<15 (or dialysis)|Stage five | Stage five + + + + *Each stage assumes the associated GFR level has been in effect for at least three months.Stages 1 to 5, with or without kidney disease, indicate chronic kidney disease. Notes: Determination of stages one and two (with eGFR >59mL/min/1.73 m2) requires estimation of kidney damage for at least three months as defined by structural or functional abnormalities of the kidney, manifested by either: Pathological abnormalities or Markers of kidney damage (including abnormalities in the composition of the blood or urine or abnormalities in imaging tests). Performing Organization Address [facility] Phone Number [facility] CLIA: [id number], [address] [place] [phone] [facility] MAGNESIUM (02/21/2019 3:39 AM CDT) MAGNESIUM 1.8 1.7 - 2.4 mg/dL [facility] Specimen Blood - ARM, LEFT Performing Organization Address [facility] Phone Number [facility] CLIA: [id number], [address] [place] [address] [phone] [facility] CBC WITH DIFFERENTIAL (02/20/2019 4:34 AM CDT) WBC 7.19 4.30 - 11.10 [facility] 10*3/L SERVICES RBC 4.04 3.93 - 5.25 [facility] 10*6/L SERVICES HGB 11.8 11.6 - 15.0 [facility] g/dL SERVICES HCT 36.6 35.7 - 45.2 % [facility] MCV 90.6 80.6 - 95.5 fL [facility] MCH 29.2 25.9 - 32.8 pg [facility] MCHC 32.2 31.6 - 35.1 [facility] g/dL SERVICES RDW-SD 42.9 39.0 - 49.9 fL [facility] RDW-CV 13.1 12.0 - 15.5 % [facility] PLT 270 166 - 358 [facility] 10*3/L SERVICES MPV 11.3 9.5 - 12.9 fL [facility] NRBC/100 WBC 0.0 0.0 - 10.0 /100 [facility] WBCs SERVICES NRBC x10^3 <0.01 10*3/L [facility] GRAN MAT (NEUT) % 61.6 % [facility] IMM GRAN % 0.30 % [facility] LYMPH % 24.8 % [facility] MONO % 5.6 % [facility] EOS % 7.4 % [facility] BASO % 0.3 % [facility] GRAN MAT x10^3(ANC) 4.44 1.88 - 7.09 [facility] 10*3/uL SERVICES IMM GRAN x10^3 <0.03 0.00 - 0.06 [facility] 10*3/uL SERVICES LYMPH x10^3 1.78 1.32 - 3.29 [facility] 10*3/uL SERVICES MONO x10^3 0.40 0.33 - 0.92 [facility] 10*3/uL SERVICES EOS x10^3 0.53 (H) 0.03 - 0.39 [facility] 10*3/uL SERVICES BASO x10^3 <0.03 0.01 - 0.07 [facility] 10*3/uL SERVICES Specimen Blood - ARM, LEFT Performing Organization Address City/State/Zipcode Phone Number [facility] CLIA: [id number], [address] [place], [place] [address] [facility] MAGNESIUM (02/20/2019 4:34 AM CDT) MAGNESIUM 1.9 1.7 - 2.4 mg/dL [facility] Specimen Blood - ARM, LEFT Performing Organization Address City/State/Zipcode Phone Number [facility] CLIA: [id number], [address] [place] [address] [facility] BASIC METABOLIC PANEL (NA, K, CL, CO2, GLUCOSE, BUN, CREATININE, CA) (2018 4:34 AM CDT) NA 139 135 - 145 mmol/L [facility] K 4.1 3.5 - 5.0 mmol/L [facility] CL 108 98 - 108 mmol/L [facility] CO2 TOTAL 25 23 - 31 mmol/L [facility] AGAP 6 2 - 16 [facility] BUN 12 7 - 23 mg/dL [facility] GLUCOSE 83 70 - 110 mg/dL [facility] CREATININE 0.78 0.50 - 1.04 [facility] mg/dL SERVICES CALCIUM 9.1 8.6 - 10.6 mg/dL [facility] eGFR Calculation 90.7 mL/min/1.73m2 [facility] (Non-) SERVICES eGFR Calculation 110.0 mL/min/1.73m2 [facility] () SERVICES Specimen Blood - ARM, LEFT Narrative Performed At Association of Glomerular Filtration Rate (GFR) and Staging [facility] of Kidney Disease* + + + + | GFR (mL/min/1.73 m2)| With Kidney Damage|Without Kidney Damage + + + + |>90|Stage one| Normal + + + + |60-89|Stage two| Decreased GFR + + + + |30-59|Stage three| Stage three + + + + |15-29|Stage four | Stage four + + + + |<15 (or dialysis)|Stage five | Stage five + + + + *Each stage assumes the associated GFR level has been in effect for at least three months.Stages 1 to 5, with or without kidney disease, indicate chronic kidney disease. Notes: Determination of stages one and two (with eGFR >59mL/min/1.73 m2) requires estimation of kidney damage for at least three months as defined by structural or functional abnormalities of the kidney, manifested by either: Pathological abnormalities or Markers of kidney damage (including abnormalities in the composition of the blood or urine or abnormalities in imaging tests). Performing Organization Address City/State/Zipcode Phone Number [facility] CLIA: [id number], [address] [place] [phone] [facility] Troponin I (02/20/2019 4:34 AM CDT) TROPONIN I 0.000 <=0.034 ng/mL [facility] Specimen Blood - ARM, LEFT Narrative Performed At Equal or Less than 0.034 ng/ml---Normal [facility] Note: Cardiac troponin begins to rise 3-4 hours after the onset of ischemia. Repeat in 4-6 hours if the sample was drawn within 3-4 hours of the onset of the symptom and found normal. Between 0.035 and 0.120 ng/mL--- Borderline. Questionable myocardial injury or necrosis Note: Serial measurement may be necessary to confirm or exclude the diagnosis of myocardial injury or necrosis; Clinical correlation (symptoms, EKGs, imaging studies, and others) required; Repeat in 4-6 hours if clinically indicated. Equal or Higher than 0.121 ng/mL---Abnormal. Myocardial Injury or Necrosis Likely Biotin has been reported to cause a negative bias, interpret results relative to patient's use of biotin. Performing Organization Address City/State/Zipcode Phone Number [facility] CLIA: [id number], [address] [place] [phone] [facility] GALV/CLC ONLY - URINE DRUG (IMMUNOASSAY) - COMPREHENSIVE DRUG SCREEN (2018 6:29 PM CDT) AMPHET Negative Negative [facility] MARLENY U Negative Negative [facility] BENZO U Negative Negative [facility] Cocaine Metabolite Negative Negative [facility] METHADONE Negative Negative [facility] OPIATES Presumptive Negative [facility] Positive (A) SERVICES PCP Negative Negative [facility] THC Negative Negative [facility] Specimen Urine - URINE, CLEAN CATCH Narrative Performed At Urine Drug Cutoff Ranges [facility] Cocaine: 150 ng/mL Benzodiazepines: 200 ng/mL Methadone: 300 ng/mL Amphetamine: 1,000 ng/mL Opiates: 300 ng/mL Cannabinoids:50 ng/mL Phencyclidine: 25 ng/mL Barbiturates:200 ng/mL The results are to be used only for medical (i.e., treatment) purposes. Unconfirmed screening results must not be used for non-medical purposes (e.g., employment testing, legal testing). Performing Organization Address City/[facility]/Zipcode Phone Number [facility] CLIA: [id number], [address] [place] [address] 92462 [phone] [facility] Glycosylated Hemoglobin (A1C) (02/19/2019 4:15 AM CDT) HGB A1C 5.0 4.0 - 6.0 % [facility] Specimen Blood - VENOUS Performing Organization Address [facility] Phone Number [facility] CLIA: [id number], [address] [place] [phone] [facility] XR KUB (02/19/2019 3:38 AM CDT) Specimen Impressions Performed At PACS/VR/DOSE 1.No acute cardiopulmonary or intra-abdominal abnormality. Narrative Performed At * * * * * * * * ORIGINAL REPORT * * * * * * * * PACS/VR/DOSE EXAM: XR CHEST 1 VW, EXAM: XR KUB COMPARISON: None available HISTORY: chest pain FINDINGS: Radiographs of the chest and abdomen are interpreted on this report. Lines/Tubes: None. Lungs: The lungs are clear. No pleural effusion or pneumothorax is identified. Heart/Mediastinum: The cardiomediastinal silhouette is normal for technique. Bones: No acute osseous abnormality is seen. ABDOMEN: The bowel gas pattern is nonobstructive. No definite urolithiasis is seen. Procedure Note [facility], Radiant Results Inft User - 02/19/2019 1:27 PM CDT * * * * * * * * ORIGINAL REPORT * * * * * * * * EXAM: XR CHEST 1 VW, EXAM: XR KUB COMPARISON: None available HISTORY: chest pain FINDINGS: Radiographs of the chest and abdomen are interpreted on this report. Lines/Tubes: None. Lungs: The lungs are clear. No pleural effusion or pneumothorax is identified. Heart/Mediastinum: The cardiomediastinal silhouette is normal for technique. Bones: No acute osseous abnormality is seen. ABDOMEN: The bowel gas pattern is nonobstructive. No definite urolithiasis is seen. IMPRESSION 1. No acute cardiopulmonary or intra-abdominal abnormality. Performing Organization Address [facility] Phone Number PACS/VR/DOSE XR CHEST 1 VW (02/19/2019 3:38 AM CDT) Specimen Impressions Performed At [facility]/VR/DOSE 1.No acute cardiopulmonary or intra-abdominal abnormality. Narrative Performed At * * * * * * * * ORIGINAL REPORT * * * * * * * * PACS/VR/DOSE EXAM: XR CHEST 1 VW, EXAM: XR KUB COMPARISON: None available HISTORY: chest pain FINDINGS: Radiographs of the chest and abdomen are interpreted on this report. Lines/Tubes: None. Lungs: The lungs are clear. No pleural effusion or pneumothorax is identified. Heart/Mediastinum: The cardiomediastinal silhouette is normal for technique. Bones: No acute osseous abnormality is seen. ABDOMEN: The bowel gas pattern is nonobstructive. No definite urolithiasis is seen. Procedure Note [facility], Radiant Results Inft User - 02/19/2019 1:27 PM CDT * * * * * * * * ORIGINAL REPORT * * * * * * * * EXAM: XR CHEST 1 VW, EXAM: XR KUB COMPARISON: None available HISTORY: chest pain FINDINGS: Radiographs of the chest and abdomen are interpreted on this report. Lines/Tubes: None. Lungs: The lungs are clear. No pleural effusion or pneumothorax is identified. Heart/Mediastinum: The cardiomediastinal silhouette is normal for technique. Bones: No acute osseous abnormality is seen. ABDOMEN: The bowel gas pattern is nonobstructive. No definite urolithiasis is seen. IMPRESSION 1. No acute cardiopulmonary or intra-abdominal abnormality. Performing Organization Address City/State/Zipcode Phone Number [facility]/VR/DOSE N-TERMINAL PRO-BNP (02/19/2019 3:08 AM CDT) NT-proBNP 162 (H) <=125 pg/mL [facility] Specimen Blood - VENOUS Narrative Performed At Biotin has been reported to cause a negative bias, interpret [facility] results relative to patient's use of biotin. Performing Organization Address City/State/Zipcode Phone Number [facility] CLIA: [id number], [address] [place] [phone] [facility] ANTI-NUCLEAR ANTIBODY SCREEN (02/19/2019 3:08 AM CDT) ERICA Negative Negative [facility] Specimen Blood - VENOUS Narrative Performed At Negative - No Anti-Nuclear Antibodies detected by IFA. [facility] Positive - ERICA IFA screen performed with a 1:80 dilution in adults and a 1:40 dilution in pediatrics. Any ERICA "Positive" will have titer performed and reported separately. Negative - No Anti-Nuclear Antibodies detected by IFA. Positive - ERICA IFA screen performed with a 1:80 dilution in adults and a 1:40 dilution in pediatrics. Any ERICA "Positive" will have titer performed and reported separately. Performing Organization Address City/State/Zipcode Phone Number [facility] CLIA: [id number], [address] [place] [phone] [facility] LIPASE (02/19/2019 3:08 AM CDT) LIPASE 73 0 - 220 U/L [facility] Specimen Blood - VENOUS Performing Organization Address City/[facility] Phone Number [facility] CLIA: [id number], [address] [place] [phone] [facility] CBC WITH DIFFERENTIAL (02/19/2019 3:08 AM CDT) WBC 9.29 4.30 - 11.10 [facility] 10*3/L SERVICES RBC 3.79 (L) 3.93 - 5.25 [facility] 10*6/L SERVICES HGB 10.8 (L) 11.6 - 15.0 [facility] g/dL SERVICES HCT 35.0 (L) 35.7 - 45.2 % [facility] MCV 92.3 80.6 - 95.5 fL [facility] MCH 28.5 25.9 - 32.8 pg [facility] MCHC 30.9 (L) 31.6 - 35.1 [facility] g/dL SERVICES RDW-SD 44.5 39.0 - 49.9 fL [facility] RDW-CV 13.1 12.0 - 15.5 % [facility] PLT 257 166 - 358 [facility] 10*3/L SERVICES MPV 11.1 9.5 - 12.9 fL [facility] NRBC/100 WBC 0.0 0.0 - 10.0 /100 [facility] WBCs SERVICES NRBC x10^3 <0.01 10*3/L [facility] GRAN MAT (NEUT) % 64.2 % [facility] IMM GRAN % 0.30 % [facility] LYMPH % 23.6 % [facility] MONO % 6.5 % [facility] EOS % 5.0 % [facility] BASO % 0.4 % [facility] GRAN MAT x10^3(ANC) 5.97 1.88 - 7.09 [facility] 10*3/uL SERVICES IMM GRAN x10^3 0.03 0.00 - 0.06 [facility] 10*3/uL SERVICES LYMPH x10^3 2.19 1.32 - 3.29 [facility] 10*3/uL SERVICES MONO x10^3 0.60 0.33 - 0.92 [facility] 10*3/uL SERVICES EOS x10^3 0.46 (H) 0.03 - 0.39 [facility] 10*3/uL SERVICES BASO x10^3 0.04 0.01 - 0.07 [facility] 10*3/uL SERVICES Specimen Blood - VENOUS Performing Organization Address City/[facility] Phone Number [facility] CLIA: [id number], [address] [place] [address] [facility] C-REACTIVE PROTEIN (02/19/2019 3:08 AM CDT) CRP 2.0 (H) <0.8 mg/dL [facility] Specimen Blood - VENOUS Performing Organization Address [facility] Phone Number [facility] CLIA: [id number], [address] [place] [address] [facility] SEDIMENTATION RATE (02/19/2019 3:08 AM CDT) ESR 62 (H) 0 - 20 mm/HR [facility] Specimen Blood - VENOUS Performing Organization Address [facility] Phone Number [facility] CLIA: [id number], [address] [place] [address] [facility] CREATINE KINASE (02/19/2019 3:08 AM CDT) CK 57 33 - 194 U/L [facility] Specimen Blood - VENOUS Performing Organization Address City/[facility] Phone Number [facility] CLIA: [id number], [address] [place] [phone] [facility] Thyroid Stimulating Hormone (TSH) (02/19/2019 3:08 AM CDT) TSH 1.19 0.45 - 4.70 mIU/L [facility] Specimen Blood - VENOUS Performing Organization Address [facility] Phone Number [facility] CLIA: [id number], [address] [place] [address] [phone] [facility] Lipid Panel (Total Cholesterol, Triglycerides, HDL) (02/19/2019 3:08 AM CDT) CHOL 233 (H) 120 - 200 mg/dL [facility] HDL 44 (L) >50 mg/dL [facility] HDLC RATIO 5.3 (H) <=4.5 [facility] TRIG 148 30 - 170 mg/dL [facility] LDL CHOL 159 <=160 mg/dL [facility] VLDL 30 5 - 60 mg/dL [facility] Specimen Blood - VENOUS Performing Organization Address [facility] Phone Number [facility] CLIA: [id number], [address] [place] [address] [phone] [facility] Troponin I (02/19/2019 3:08 AM CDT) TROPONIN I 0.001 <=0.034 ng/mL [facility] Specimen Blood - VENOUS Narrative Performed At Equal or Less than 0.034 ng/ml---Normal [facility] Note: Cardiac troponin begins to rise 3-4 hours after the onset of ischemia. Repeat in 4-6 hours if the sample was drawn within 3-4 hours of the onset of the symptom and found normal. Between 0.035 and 0.120 ng/mL--- Borderline. Questionable myocardial injury or necrosis Note: Serial measurement may be necessary to confirm or exclude the diagnosis of myocardial injury or necrosis; Clinical correlation (symptoms, EKGs, imaging studies, and others) required; Repeat in 4-6 hours if clinically indicated. Equal or Higher than 0.121 ng/mL---Abnormal. Myocardial Injury or Necrosis Likely Biotin has been reported to cause a negative bias, interpret results relative to patient's use of biotin. Performing Organization Address City/[facility]/Zipcode Phone Number [facility] CLIA: [id number], [address] [place] [phone] [facility] Phosphorus Serum (02/19/2019 3:08 AM CDT) PHOSPHORUS 4.3 2.5 - 5.0 mg/dL [facility] Specimen Blood - VENOUS Performing Organization Address [facility] Phone Number [facility] CLIA: [id number], [address] [place] [phone] [facility] Prothrombin Time / INR (02/19/2019 3:08 AM CDT) PROTIME PATIENT 12.5 10.1 - 12.6 [facility] Seconds SERVICES INR 1.1Comment: Normal [facility] INR <1.1; Warfarin SERVICES Therapeutic range 2.0 to 3.0 or 2.5 to 3.5, depending upon the indications. Specimen Blood - VENOUS Performing Organization Address [facility] Phone Number [facility] CLIA: [id number], [address] [place] [address] [phone] [facility] Magnesium Serum (02/19/2019 3:08 AM CDT) Pathologist [facility] MAGNESIUM 1.8 1.7 - 2.4 mg/dL [facility] Specimen Blood - VENOUS Performing Organization Address [facility] Phone Number [facility] CLIA: [id number], [address] [place] [phone] [facility] HEPATIC FUNCTION PANEL ([id number]) (ALB,T.PRO,BILI T,BU/BC,ALT,AST,ALK PHOS) (2018 3:08 AM CDT) TOTAL BILI 0.3 0.1 - 1.1 mg/dL [facility] BILI UNCON 0.1 0.1 - 1.1 mg/dL [facility] BILI CONJ 0.0 0.0 - 0.3 mg/dL [facility] T PROTEIN 6.8 6.3 - 8.2 g/dL [facility] ALBUMIN 3.4 (L) 3.5 - 5.0 g/dL [facility] ALK PHOS 79 34 - 122 U/L [facility] ALT(SGPT) 20 9 - 51 U/L [facility] AST(SGOT) 20 13 - 40 U/L [facility] Specimen Blood - VENOUS Performing Organization Address City/State/Zipcode Phone Number [facility] CLIA: [id number], [address] [place] [address] [facility] Basic Metabolic Panel (NA, K, CL, CO2, GLUCOSE, BUN, CREATININE, CA) (2018 3:08 AM CDT) NA 141 135 - 145 mmol/L [facility] K 3.8 3.5 - 5.0 mmol/L [facility] CL 108 98 - 108 mmol/L [facility] CO2 TOTAL 26 23 - 31 mmol/L [facility] [facility] AGAP 7 2 - 16 [facility] BUN 13 7 - 23 mg/dL [facility] GLUCOSE 82 70 - 110 mg/dL [facility] CREATININE 0.74 0.50 - 1.04 [facility] mg/dL SERVICES CALCIUM 9.0 8.6 - 10.6 mg/dL [facility] eGFR Calculation 96.4 mL/min/1.73m2 [facility] (Non-) SERVICES eGFR Calculation 116.9 mL/min/1.73m2 [facility] () SERVICES Specimen Blood - VENOUS Narrative Performed At Association of Glomerular Filtration Rate (GFR) and Staging [facility] of Kidney Disease* + + + + | GFR (mL/min/1.73 m2)| With Kidney Damage|Without Kidney Damage + + + + |>90|Stage one| Normal + + + + |60-89|Stage two| Decreased GFR + + + + |30-59|Stage three| Stage three + + + + |15-29|Stage four | Stage four + + + + |<15 (or dialysis)|Stage five | Stage five + + + + *Each stage assumes the associated GFR level has been in effect for at least three months.Stages 1 to 5, with or without kidney disease, indicate chronic kidney disease. Notes: Determination of stages one and two (with eGFR >59mL/min/1.73 m2) requires estimation of kidney damage for at least three months as defined by structural or functional abnormalities of the kidney, manifested by either: Pathological abnormalities or Markers of kidney damage (including abnormalities in the composition of the blood or urine or abnormalities in imaging tests). 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 Administered Medications Medication Order MAR Action Action Date Dose Rate Site buPROPion XL (WELLBUTRIN XL) Given 02/21/2019 8:35 AM CDT 150 mg tablet 150 mg 150 mg, Oral, DAILY, First dose on Wed02/19/19 at 0900, Until Discontinued, Routine Given 02/20/2019 9:05 AM CDT 150 mg Given 02/19/2019 7:57 AM CDT 150 mg heparin injection 5,000 Units Given 02/20/2019 8:00 PM CDT 5,000 Units Abdomen-SC 5,000 Units, Subcutaneous, Q12H, First dose on Wed02/19/19 at 0800, Until Discontinued, Routine HYDROcodone-acetaminophen (NORCO 5) 5-325 Given 02/21/2019 1:27 PM CDT 1 tablet mg tablet 1 tablet 1 tablet, Oral, Q6HPRN, Starting Wed02/21/19 at 0634, Until Alison 02/23/19 at 0633, Routine, Pain (scale 4-6) Given 02/21/2019 6:25 AM CDT 1 tablet traMADol (ULTRAM) tablet 50 mg Given 02/20/2019 6:37 PM CDT 50 mg 50 mg, Oral, Q6HPRN, Starting Wed02/20/19 at 1345, Until Discontinued, Routine, Pain (scale 4-6) Medication Order MAR Action Action Date Dose Rate Site aspirin tablet 325 mg Given 02/19/2019 3:02 AM CDT 325 mg 325 mg, Oral, ONCE, 1 dose, Wed02/19/19 at 0300, Routine furosemide (LASIX) tablet 20 mg Given 02/21/2019 3:49 PM CDT 20 mg 20 mg, Oral, ONCE, 1 dose, Wed02/21/19 at 1545, LORENZA HYDROcodone-acetaminophen (NORCO 5) 5-325 Given 02/20/2019 8:00 PM CDT 1 tablet mg tablet 1 tablet 1 tablet, Oral, Q6HPRN, Starting 02/19/19 at 0241, Until Wed02/21/19 at 0240, Routine, Pain (scale 4-6) Given 02/20/2019 2:17 PM CDT 1 tablet Given 02/20/2019 4:29 AM CDT 1 tablet KCL (KLOR-CON M20) tablet 40 mEq Given 02/20/2019 4:29 AM CDT 40 mEq 40 mEq, Oral, ONCE, 1 dose, 02/20/19 at 0415, Routine KCL (KLOR-CON M20) tablet 40 mEq Given 02/21/2019 5:22 AM CDT 40 mEq 40 mEq, Oral, ONCE, 1 dose, Wed02/21/19 at 0545, Routine magnesium sulfate in water 2 gram/50 mL (4 %) New Bag 02/21/2019 5:46 AM CDT 2 g infusion 2 g 2 g, IV Piggyback, ONCE, 1 dose, Wed02/21/19 at 0545, Routine documented in this encounter Insurance Payer Benefit Plan / Subscriber ID Effective Dates Phone Address Type Group [facility] 2018-Present Medicaid HEALTH PLAN - HEALTH MANAGED MEDICAID documented as of this encounter Advance Directives Name Relationship Healthcare Agent Communication Relationship Kishor Nahun Spouse Primary healthcare agent
--- OUTSIDE RECORDS SUMMARY | 2019-06-06 09:07 | XMS REPORT | Summary of Care ---
:1995 Author Organization [facility] - [facility] Address [address] [place] [id number] Care Team Providers Name Role Phone Cole Hallman DO Insurance Hmo Kathy Vásquez [facility] Primary Care Provider Reason for Referral (LORENZA) Status Reason Specialty Diagnoses / Referred By Referred To Procedures Contact Contact New Request Cardiology Diagnoses Chest pain, unspecified type Chest wall pain Jeremie Eng Procedures CONSULT CARDIOLOGY III, [place] [address] [place] [address] MRI/CAT Scan (LORENZA) Status Reason Specialty Diagnoses / Referred By Referred To Procedures Contact Contact New Request Diagnostic Diagnoses Chest pain, unspecified type Jeremie Eng A Radiology Procedures CT CHEST PULMONARY ANGIOGRAM III, [place] [address] [facility] [place] [address] MRI/CAT Scan (LORENZA) Status Reason Specialty Diagnoses / Referred By Referred To Procedures Contact Contact New Request Diagnostic Diagnoses Chest pain, unspecified type Jeremie Eng A Radiology Procedures CT CHEST PULMONARY ANGIOGRAM III, [place] [address] [facility] [place] [address] Radiology Services (LORENZA) Status Reason Specialty Diagnoses / Referred By Referred To Procedures Contact Contact New Request Diagnostic Diagnoses Chest pain, unspecified type Jeremie Eng A Radiology Procedures XR CHEST 2 VW III, [place] [address] [facility] [place] [address] Radiology Services (LORENZA) Status Reason Specialty Diagnoses / Referred By Referred To Procedures Contact Contact New Request Diagnostic Diagnoses Chest pain, unspecified type Jeremie Eng Radiology Procedures XR CHEST 2 VW III, PA [address] [place] [address] [place] [address] Reason for Visit Reason Comments Chest wall pain Auth/Cert Status Reason Specialty Diagnoses / Referred By Referred To Procedures Contact Contact Emergency Medicine Diagnoses [facility] [address] [place] [address] [place] [address] Encounter Details Date Type Department Care Team Description 02/26/2019 Emergency [facility] Jeremie Eng III, Chest pain, unspecified type (Primary Dx); Department PA Chest wall pain [address] [place] [address] [place] [address] [place] [address] [facility] [place] [address] [phone] Allergies Active Allergy Reactions Severity Noted Date Comments Latex Rash 05/20/2017 documented as of this encounter (statuses as of 02/26/2019) Medications Medication Sig Dispensed Refills Start Date End Date Status vitamin w/FA Take 1 tablet by 100 tablet 3 02/08/2019 Active tabletIndications: mouth daily. May S/P section substitute for what is in stock and covered by patient plan docusate calcium 240 Take 1 capsule by 60 capsule 1 02/08/2019 Active mg mouth once daily capsuleIndications: as needed for S/P section Constipation. May substitute for what is in stock and covered by patient plan ferrous sulfate 325 Take 1 tablet by 60 tablet 2 02/08/2019 Active mg (65 mg iron) mouth 2 (two) tabletIndications: times daily. May S/P section substitute for what is in stock and covered by patient plan ibuprofen 600 mg Take 1 tablet by 60 tablet 1 02/08/2019 Active tabletIndications: mouth every 6 S/P section (six) hours as needed for Pain (scale 1-3) or Pain (scale 4-6) (Pain). Take with food or milk. carvedilol 3.125 mg Take 1 tablet by 60 tablet 5 02/21/2019 Active tabletIndications: mouth 2 (two) times daily with cardiomyopathy meals. furosemide 20 mg Take 1 tablet by 5 tablet 0 02/21/2019 Active tabletIndications: mouth daily. cardiomyopathy ranitidine (ZANTAC) Take 1 tablet by 30 tablet 1 02/26/2019 Active 150 mg mouth 2 (two) tabletIndications: times daily. Chest pain, Follow up with unspecified type, your MD for Chest wall pain further evaluation and treatment. Omeprazole 20 mg Take 1 tablet by 10 tablet 0 02/26/2019 03/08/2019 Active tabletIndications: mouth daily for Chest pain, 10 days. unspecified type, Chest wall pain traMADol (ULTRAM) 50 Take 1 tablet by 9 tablet 0 02/26/2019 Active mg tabletIndications: mouth every 8 Chest pain, (eight) hours as unspecified type, needed for Pain Chest wall pain (scale 4-6). ibuprofen 600 mg Take 1 tablet by 10 tablet 0 02/26/2019 03/03/2019 Active tabletIndications: mouth 4 (four) Chest pain, times daily as unspecified type, needed for Pain Chest wall pain (scale 4-6) for up to 5 days. documented as of this encounter (statuses as of 02/26/2019) Active Problems Problem Noted Date cardiomyopathy 02/21/2019 [...] as of this encounter (statuses as of 02/26/2019) Immunizations Name Administration Dates Next Due Tdap [...] Sign Reading Time Taken Comments Blood Pressure 132/79 02/26/2019 11:14 PM CDT Pulse 57 02/26/2019 11:14 PM CDT Temperature 36.8 C (98.3 F) 02/26/2019 9:33 PM CDT Respiratory Rate 18 02/26/2019 11:14 PM CDT Oxygen Saturation 99% 02/26/2019 11:14 PM CDT Inhaled Oxygen Concentration - - Weight 91.6 kg (202 lb) 02/26/2019 9:33 PM CDT Height - - Body Mass Index 29.83 02/19/2019 2:00 AM CDT documented in this encounter Discharge Instructions Jeremie Leung III, PA - 02/26/2019 @@@@@@@@@@@@@@@@@@@@@@@@@@@@@@@@@@@@@@@@@@@@@@@@@@@@@ [facility] RETURN TO WORK / SCHOOL EXCUSE Christina Alfaro WAS SEEN IN THE ER AND DISCHARGED 02/26/2019 TODAY, 11:35 PM & May return to Work / School / Incarceration on 02/27/19 with No limitations unless indicated below. ___The following limitations apply until pt is seen by Physician and cleared to return to normal activity. ___ Light duty ___ No Sports ___ No work ___ Do not return until fever free for 24 hours. ___ No school Jabari Eng PA-C [facility] [address] [place] [address] [place] [address] If you are unprepared to return to work tomorrow due to pain please give this note to your employer and make a follow up appointment with your MD for further evaluation and limitations. ### The patient may have been given Narcotic pain medications during their stay in the ED that may show up on a Drug Screen. The hospital discharge paper work will identify these medications. @@@@@@@@@@@@@@@@@@@@@@@@@@@@@@@@@@@@@@@@@@@@@@@@@@@@@ Thank you for trusting us with your care. The emergency room is the first stop in the medical management of your complaint . Our primary pupose is to identify life threatening emergancies and to rapidly address those issues. We are releasing you today after evaluation for emergency or life threatening problems related to your complaint. At this time we are comfortable that your condition is stable enough to go home, take oral medications and follow up for further care. If you can't afford a doctor OR MEDICATIONS consider Clinic [facility], [address] [place] [address]; [phone] Medications mAPPn WILL SHOW YOU WHERE YOU CAN GET YOUR MEDICATIONS CHEAPEST. 1. Call your doctor and let them know you were seen for ICD-10-CM ICD-9-CM 1. Chest pain, unspecified type R07.9 786.50 2. Chest wall pain R07.89 786.52 2. Schedule a follow up within 3 days of your ER visit. 3. Take your prescriptions to the pharmacy and get them filled today. 4. Take the medications as prescribed and until completed. 5. You have been referred for further care 6. You may need additional tests Your doctors will help you figure out what you need and how to get them done. 7. Please read all paperwork provided to you. Additional instructions See Attached documented in this encounter Plan of Treatment Date Type Specialty Care Team Description 03/01/2019 Routine Visit OB Satellites Kerry Talley, PRESS SET UP PERSON [address] [place], [place] [id number] Name Type Priority Associated Diagnoses Date/Time XR CHEST 2 VW IMAGING LORENZA Chest pain, unspecified type 02/26/2019 10:46 PM CDT Health Maintenance Due Date Last Done Comments PNEUMOCOCCAL 0-64 YEARS COMBINED SERIES (1 of - 2000 PPSV23) HPV VACCINES (1 - Female 3-dose series) 2009 VARICELLA VACCINES (2 of 2 - 13+ 2-dose series) 03/10/2019 02/10/2019 INFLUENZA VACCINE 03/19/2019 CHLAMYDIA SCREENING 08/19/2019 08/19/2018 PAP SMEAR 08/19/2021 08/19/2018 DTaP,Tdap,and Td Vaccines (2 - Td) 12/26/2028 12/26/2018 documented as of this encounter Procedures Procedure Name Priority Date/Time Associated Diagnosis Comments CT CHEST PULMONARY LORENZA 02/26/2019 11:11 PM Chest pain, Results for this ANGIOGRAM CDT unspecified type procedure are in the results section. XR CHEST 2 VW LORENZA 02/26/2019 10:46 PM Chest pain, CDT unspecified type Procedure Note - [facility], Radiant Results Inft User - 02/26/2019 10:58 PM CDT * * * * * * * * ORIGINAL REPORT * * * * * * * * EXAM: XR CHEST 2 VW HISTORY: chest wall pain COMPARISON: Chest x-ray dated 02/19/2019. FINDINGS: The lungs are clear without a focal consolidation, pleural effusion, or pneumothorax. The cardiomediastinal silhouette is normal. No acute osseous abnormality is identified. IMPRESSION No acute cardiopulmonary abnormality. CBC WITH DIFFERENTIAL STAT 02/26/2019 9:59 PM Chest pain, Results for this CDT unspecified type procedure are in the results section. N-TERMINAL PRO-BNP STAT 02/26/2019 9:59 PM Chest pain, Results for this CDT unspecified type procedure are in the results section. D-DIMER STAT 02/26/2019 9:59 PM Chest pain, Results for this CDT unspecified type procedure are in the results section. CBC WITH DIFF Routine 02/26/2019 9:59 PM Chest pain, Results for this CDT unspecified type procedure are in the results section. COMP. METABOLIC PANEL STAT 02/26/2019 9:59 PM Chest pain, Results for this (46814) CDT unspecified type procedure are in the results section. TROPONIN I STAT 02/26/2019 9:59 PM Chest pain, Results for this CDT unspecified type procedure are in the results section. LIPASE STAT 02/26/2019 9:59 PM Chest pain, Results for this CDT unspecified type procedure are in the results section. CONSENT/REFUSAL FOR Routine 02/26/2019 9:19 PM DIAGNOSIS AND CDT TREATMENT documented in this encounter Results CT CHEST PULMONARY ANGIOGRAM (02/26/2019 11:11 PM CDT) Specimen Impressions Performed At PACS/VR/DOSE 1.No acute pulmonary embolism Huma Vargas MD., have reviewed this study and agree with the above report. Narrative Performed At * * * * * * * * ORIGINAL REPORT * * * * * * * * PACS/VR/DOSE PROCEDURE: CT ANGIO CHEST WITH CONTRAST - PE PROTOCOL CLINICAL INDICATION: PE suspected, intermediate probability, positive D-dimer PE suspected, low pretestprobability COMPARISON: Same-day chest x-ray. TECHNIQUE:Helical CT was performed and reconstructed at 1.25 mm slice thickness from lung base to apices after the administration of 120 mL Omnipaque-350 intravenous contrast, without complication.Display field of view: 40 cm. FINDINGS: PULMONARY ARTERIES: Enhancement is adequate, and there is no acute or chronic pulmonary embolism. CHEST: Lower neck/thyroid: Unremarkable. Lungs: Normal. Central airway: Unremarkable. Pleura: No pleural effusion, thickening or pneumothorax. Thoracic aorta and great vessels: Normal in diameter. Heart and pericardium: No detectable coronary arterial calcification. Unremarkable cardiac morphology and pericardium. Lymph nodes: A calcified mediastinal lymph node is noted. The left is otherwise unremarkable. Mediastinum: Unremarkable. Thoracic spine and chest wall: Unremarkable, with normal thoracic vertebral body heights. Other Lines/Tubes/Devices/Hardware: None Visualized upper abdomen: Unremarkable. Procedure Note [facility], Radiant Results Inft User - 02/26/2019 11:57 PM CDT * * * * * * * * ORIGINAL REPORT * * * * * * * * PROCEDURE: CT ANGIO CHEST WITH CONTRAST - PE PROTOCOL CLINICAL INDICATION: PE suspected, intermediate probability, positive D-dimer PE suspected, low pretest probability COMPARISON: Same-day chest x-ray. TECHNIQUE: Helical CT was performed and reconstructed at 1.25 mm slice thickness from lung base to apices after the administration of 120 mL Omnipaque-350 intravenous contrast, without complication. Display field of view: 40 cm. FINDINGS: PULMONARY ARTERIES: Enhancement is adequate, and there is no acute or chronic pulmonary embolism. CHEST: Lower neck/thyroid: Unremarkable. Lungs: Normal. Central airway: Unremarkable. Pleura: No pleural effusion, thickening or pneumothorax. Thoracic aorta and great vessels: Normal in diameter. Heart and pericardium: No detectable coronary arterial calcification. Unremarkable cardiac morphology and pericardium. Lymph nodes: A calcified mediastinal lymph node is noted. The left is otherwise unremarkable. Mediastinum: Unremarkable. Thoracic spine and chest wall: Unremarkable, with normal thoracic vertebral body heights. Other Lines/Tubes/Devices/Hardware: None Visualized upper abdomen: Unremarkable. IMPRESSION 1. No acute pulmonary embolism I, Compa English MD., have reviewed this study and agree with the above report. Performing Organization Address City/State/Zipcode Phone Number PACS/VR/DOSE CBC WITH DIFFERENTIAL (02/26/2019 9:59 PM CDT) WBC 6.40 4.30 - 11.10 [facility] 10*3/L [facility] RBC 4.37 3.93 - 5.25 [facility] 10*6/L HOSPITAL [facility] HGB 12.5 11.6 - 15.0 g/dL [facility] HCT 39.0 35.7 - 45.2 % [facility] MCV 89.2 80.6 - 95.5 fL [facility] MCH 28.6 25.9 - 32.8 pg [facility] MCHC 32.1 31.6 - 35.1 g/dL [facility] RDW-SD 43.3 39.0 - 49.9 fL [facility] RDW-CV 13.2 12.0 - 15.5 % [facility] PLT 291 166 - 358 [facility] 10*3/L [facility] MPV 11.8 9.5 - 12.9 fL [facility] NRBC/100 WBC 0.0 0.0 - 10.0 /100 [facility] WBCs [facility] NRBC x10^3 <0.01 10*3/L [facility] GRAN MAT (NEUT) % 50.1 % [facility] IMM GRAN % 0.30 % [facility] LYMPH % 38.8 % [facility] MONO % 5.9 % [facility] EOS % 4.4 % [facility] BASO % 0.5 % [facility] GRAN MAT x10^3(ANC) 3.21 1.88 - 7.09 [facility] 10*3/uL HOSPITAL [facility] IMM GRAN x10^3 <0.03 0.00 - 0.06 [facility] 10*3/uL [facility] LYMPH x10^3 2.48 1.32 - 3.29 [facility] 10*3/uL [facility] MONO x10^3 0.38 0.33 - 0.92 [facility] 10*3/uL H[facility]ITAL [facility] EOS x10^3 0.28 0.03 - 0.39 [facility] 10*3/uL [facility] BASO x10^3 0.03 0.01 - 0.07 [facility] 10*3/uL [facility] Specimen Blood - VENOUS Performing Organization Address City/[facility] Phone Number [facility] CLIA: [id number], [address] [place] [address] LIPASE (02/26/2019 9:59 PM CDT) LIPASE 117 0 - 220 U/L [facility] Specimen Blood - VENOUS Performing Organization Address City/[facility]/Zipcode Phone Number [facility] CLIA: [id number], [address] [place] [address] N-TERMINAL PRO-BNP (02/26/2019 9:59 PM CDT) NT-proBNP 34 <=125 pg/mL [facility] Specimen Blood - VENOUS Narrative Performed At Biotin has been reported to cause a negative [facility] bias, interpret results relative to patient's use of biotin. Performing Organization Address [facility] Cent[facility]ode Phone Number [facility] CLIA: [id number], [address] [place] [address] TROPONIN I (02/26/2019 9:59 PM CDT) TROPONIN I <0.012 <=0.034 ng/mL [facility] Specimen Blood - VENOUS Narrative Performed At Equal or Less than 0.034 ng/ml---Normal [facility] Note: Cardiac troponin begins to rise 3-4 [...] patient's use of biotin. Performing Organization Address [facility] Center[facility]il Phone Number [facility] CLIA: [id number], [address] D-DIMER (02/26/2019 9:59 PM CDT) D-DIMER 0.53 (H) <0.41 g/mL (FEU) [facility] Specimen Blood - VENOUS Narrative Performed At This test may be used in conjunction with a [facility] clinical pretest probability (PTP) assessment model to exclude pulmonary embolism (PE) and as an aid in the diagnosis of deep venous thrombosis (DVT) in outpatients suspected of PE or DVT. A D-Dimer value less than 0.50 g/ml (FEU) has a negative predicative value of 98 to 100% (95% CI) for the exclusion of pulmonary embolism (PE) and 95 to 100% (95% CI) as an aid in the diagnosis of deep vein thrombosis (DVT) when there is low or moderate pretest probability of PE or DVT. D-Dimer values are expressed in initial fibrinogen equivalent units (FEU). Performing Organization Address [facility] Centercode Phone Number [facility] CLIA: [id number], [address] COMP. METABOLIC PANEL (50518) (02/26/2019 9:59 PM CDT) NA 142 135 - 145 [facility] mmol/L [facility] K 4.1 3.5 - 5.0 [facility] mmol/L [facility] CL 105 98 - 108 mmol/L [facility] CO2 TOTAL 25 23 - 31 mmol/L [facility] AGAP 12 2 - 16 [facility] BUN 14 7 - 23 mg/dL [facility] GLUCOSE 82 70 - 110 mg/dL [facility] CREATININE 0.86 0.50 - 1.04 [facility] mg/dL [facility] TOTAL BILI <0.1 (L) 0.1 - 1.1 mg/dL [facility] CALCIUM 9.4 8.6 - 10.6 [facility] mg/dL [facility] T PROTEIN 8.0 6.3 - 8.2 g/dL [facility] ALBUMIN 4.5 3.5 - 5.0 g/dL [facility] ALK PHOS 78 34 - 122 U/L [facility] ALT(SGPT) 20 9 - 51 U/L [facility] AST(SGOT) 17 13 - 40 U/L [facility] eGFR Calculation 81.1 mL/min/1.73m2 [facility] ([facility] [place]) eGFR Calculation 98.3 mL/min/1.73m2 [facility] ([facility]) [facility] Specimen Blood - VENOUS Narrative Performed At Association of Glomerular Filtration Rate (GFR) [facility] and Staging of Kidney Disease* + + +- + | GFR (mL/min/1.73 m2)| With Kidney Damage|Without Kidney Damage + + +- + |>90| Stage one| Normal + + +- + |60-89|S tage two| Decreased GFR + + +- + |30-59|S tage three| Stage three + + +- + |15-29|S tage four | Stage four + + +- + |<15 (or dialysis)|Stage five | Stage five + + +- + *Each stage assumes the associated GFR [...] tests). Performing Organization Address City/State/Zipcode Phone Number [facility] CLIA: [id number], [address] [place] [address] documented in this encounter Visit Diagnoses Diagnosis Chest pain, unspecified type - Primary Chest wall pain Painful respiration documented in this encounter Administered Medications Medication Order MAR Action Action Date Dose Rate Site HYDROcodone-acetaminophen Given 02/26/2019 10:06 PM CDT 1 tablet (NORCO) 10-325 mg tablet 1 tablet 1 tablet, Oral, ONCE NOW, 1 dose, 02/26/19 at 2300, Routine iohexol (OMNIPAQUE 350 BULK-100 mL) Given 02/26/2019 11:04 PM CDT 120 mL injection 120 mL 120 mL, Intravenous, ONCE, 1 dose, 02/26/19 at 2315, Routine maalox:diphenhydrAMINE:lidocaine2 %viscous Given 02/26/2019 11:00 PM CDT 15 mL 1:1:1: suspension (COMPOUNDED) 15 mL, Oral, ONCE, 1 dose, 02/26/19 at 2300, Routine NaCl 0.9% (NS) bolus infusion New Bag 02/26/2019 10:05 PM CDT 1,000 mL 999 mL/hr 1,000 mL at 999 mL/hr, 1,000 mL, IV Infusion, ONCE, 1 dose, 02/26/19 at 2300, STAT ondansetron (ZOFRAN (PF)) injection 4 mg Given 02/26/2019 10:05 PM CDT 4 mg 4 mg, Slow IV Push, ONCE, 1 dose, 02/26/19 at 2300, LORENZA documented in this encounter Insurance Payer Benefit Plan / Subscriber ID Effective Dates Phone Address Type Group [place] [facility] [place] [facility] xxxxxxxxx 2018-Present Medicaid HEALTH PLAN - HEALTH MANAGED MEDICAID documented as of this encounter Advance Directives Name Relationship Healthcare Agent Relationship Communication Kishor Echoer Spouse Primary healthcare agent "
--- OUTSIDE RECORDS SUMMARY | 2019-06-06 09:07 | XMS REPORT | Summary of Care ---
:1995 Author Organization [facility] - Health Address [address] [place] [address] Care Team Providers Name Role Phone Cole Hallman DO Insurance Hmo Kathy Vásquez [facility] Primary Care Provider Encounter Details Date Type Department Care Team Description 02/27/2019 Orders Only [facility] Doctor Unassigned, No [address] [facility] [place] [address] [place] [id number] Allergies Active Allergy Reactions Severity Noted Date Comments Latex Rash 05/20/2017 documented as of this encounter (statuses as of 02/27/2019) Medications Medication Sig Dispensed Refills Start Date [...] as of this encounter (statuses as of 02/27/2019) Active Problems Problem Noted Date cardiomyopathy 02/21/2019 [...] as of this encounter (statuses as of 02/27/2019) Immunizations Name Administration Dates Next Due Tdap [...] 03/01/2019 Routine Visit OB Satellites Kerry Talley, MAP M[employer]TER [address] [place] [address] [phone] Health Maintenance Due Date Last Done Comments [...] Procedure Name Priority Date/Time Associated Diagnosis Comments EXTERNAL PROVIDER Routine 02/27/2019 12:01 AM CDT RECORDS documented in this encounter Results Not on filedocumented in this encounter Insurance Payer Benefit Plan / Subscriber ID Effective Dates Phone Address Type Group [place] [facility] [place] [facility] xxxxxxxxx 2018-Present Medicaid HEALTH PLAN - HEALTH MANAGED MEDICAID documented as of this encounter Advance Directives Name Relationship Healthcare Agent Relationship Communication Kishor Risinger Spouse Primary healthcare agent
--- OUTSIDE RECORDS SUMMARY | 2019-06-06 09:07 | XMS REPORT | Summary of Care ---
:1995 Author Organization [facility] Address [address] [place] [address] Care Team Providers Name Role Phone Cole Hallman DO Insurance Hmo Kathy Vásquez [facility] Primary Care Provider Reason for Visit Reason Comments Refill Request Encounter Details Date Type Department Care Team Description 03/02/2019 Refill [facility] [place] Kathy Vásquez, Refill Request [address] [place] [address] [place] [phone] [facility] [place] [address] Allergies Active Allergy Reactions Severity Noted Date Comments Latex Rash 05/20/2017 documented as of this encounter (statuses as of 03/02/2019) Medications Medication Sig Dispensed Refills Start Date [...] 2 (two) times daily with cardiomyopathy meals. Omeprazole 20 mg Take 1 tablet by 10 tablet 0 02/26/2019 03/08/2019 Active tabletIndications: mouth daily for Chest pain, 10 days. unspecified type, Chest wall pain buPROPion XL 150 mg TAKE 1 TABLET BY 0 01/26/2019 Active 24 hr tablet MOUTH ONCE DAILY BUPROPION XL 150 mg TAKE 1 TABLET BY 30 tablet 0 03/02/2019 Active 24 hr MOUTH ONCE DAILY tabletIndications: Other depression documented as of this encounter (statuses as of 03/02/2019) Active Problems Problem Noted Date cardiomyopathy 02/21/2019 Bradycardia 02/19/2019 History of bilateral tubal ligation 02/07/2019 Obesity (BMI 30-39.9) 02/07/2019 Other depression 12/26/2018 Eczema 09/16/2018 Susceptible varicella 08/22/2018 Overview: Address pp Multiparity 08/19/2018 Family history of Down syndrome 08/19/2018 Overview: Reports pervious child with down syndrome, quad screen was done at the time but it was not detected. Order detailed anatomy with genetics-pending Tobacco use 08/19/2018 Pelvic disproportion 08/19/2018 Overview: As reported by patient History of section 08/19/2018 documented as of this encounter (statuses as of 03/02/2019) Resolved Problems Problem Noted Date Resolved Date 35 weeks gestation of 02/07/2019 03/01/2019 Headache in 11/09/2018 03/01/2019 Low-lying placenta 10/12/2018 03/01/2019 Overview: See usg report , follow up 01/11/19-resolved Supervision of high-risk 08/19/2018 03/01/2019 Obesity in 08/19/2018 03/01/2019 documented as of this encounter (statuses as of 03/02/2019) Immunizations Name Administration Dates Next Due Tdap 12/26/2018 Varicella (varivax)(chicken pox) 02/10/2019 documented as of this encounter Social History Tobacco Use Types Packs/Day Years Used Date Former Smoker 0.75 6 Smokeless Tobacco: Never Used [...] Treatment Date Type Specialty Care Team Description 03/23/2019 Office Visit OB Satellites Kerry Talley, SHAFT MECHANIC [address] [place], [place] [id number] 05/01/2019 Laboratory Only [place] Man, Adc Cardio Fac 1, Adc Cardio Fac Room 05/11/2019 Office Visit Cardiology Nancy Pavon MD [address] [place] [address] Health Maintenance Due Date Last Done Comments PNEUMOCOCCAL 0-64 YEARS COMBINED SERIES (1 of 1 - 2000 PPSV23) HPV VACCINES (1 - Female 3-dose series) 2009 VARICELLA VACCINES (2 of 2 - 13+ 2-dose series) 03/10/2019 02/10/2019 INFLUENZA VACCINE (#1) 2019 CHLAMYDIA SCREENING 08/19/2019 08/19/2018 PAP SMEAR 08/19/2021 08/19/2018 DTaP,Tdap,and Td Vaccines (2 - Td) 12/26/2028 12/26/2018 documented as of this encounter Results Not on filedocumented in this encounter Visit Diagnoses Diagnosis Other depression documented in this encounter Insurance Payer Benefit Plan / Subscriber ID Effective Dates Phone Address Type Group [facility] xxxxxxxxx 2018-Present Medicaid HEALTH PLAN - HEALTH MANAGED MEDICAID documented as of this encounter Advance Directives Name Relationship Healthcare Agent Relationship Communication Kishor Risinger Spouse Primary healthcare agent
--- OUTSIDE RECORDS SUMMARY | 2019-06-06 09:07 | XMS REPORT | Summary of Care ---
:1995 Author Organization [facility] Address [address] [place] [address] Care Team Providers Name Role Phone Cole Hallman DO Insurance [facility] Provider Encounter Details Date Type Department Care Team Description 02/24/2019 Patient Secure [facility] Kathy Vásquez , [facility] [address] [facility] [address] [place] [address] [facility] [phone] [place] [address] Allergies Active Allergy Reactions Severity Noted Date Comments Latex Rash 05/20/2017 documented as of this encounter (statuses as of 02/24/2019) Medications Medication Sig Dispensed Refills Start Date End Date Status vitamin w/FA Take 1 tablet by 100 tablet 3 02/08/2019 Active tabletIndications: S/P mouth daily. May section substitute for what is in stock and covered by patient plan docusate calcium 240 Take 1 capsule by 60 capsule 1 02/08/2019 Active mg capsuleIndications: mouth once daily S/P section as needed for Constipation. May substitute for what is in stock and covered by patient plan ferrous sulfate 325 mg Take 1 tablet by 60 tablet 2 02/08/2019 Active (65 mg iron) mouth 2 (two) tabletIndications: S/P times daily. May section substitute for what is in stock and covered by patient plan ibuprofen 600 mg Take 1 tablet by 60 tablet 1 02/08/2019 Active tabletIndications: S/P mouth every 6 section (six) hours as needed for Pain (scale 1-3) or Pain (scale 4-6) (Pain). Take with food or milk. carvedilol 3.125 mg Take 1 tablet by 60 tablet 5 02/21/2019 Active tabletIndications: mouth 2 (two) times daily with cardiomyopathy meals. furosemide 20 mg Take 1 tablet by 5 tablet 0 02/21/2019 Active tabletIndications: mouth daily. cardiomyopathy documented as of this encounter (statuses as of 02/24/2019) Active Problems Problem Noted Date cardiomyopathy 02/21/2019 [...] as of this encounter (statuses as of 02/24/2019) Immunizations Name Administration Dates Next Due Tdap [...] 03/01/2019 Routine Visit OB Satellites Kerry Talley, ROLL COVERER [address] [place] [address] [phone] Health Maintenance Due Date Last Done Comments [...] ID Effective Dates Phone Address Type Group [facility] [place] [facility] xxxxxxxxx 2018-Present Medicaid HEALTH PLAN - HEALTH MANAGED MEDICAID documented as of this encounter Advance Directives Name Relationship Healthcare Agent Communication Relationship Kishor Nahun Spouse Primary healthcare agent
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
--- OUTSIDE RECORDS SUMMARY | 2019-06-06 09:08 | XMS REPORT | Summary of Care ---
:1995 Author Organization [facility] - [facility] Address [address] [place] [address] Care Team Providers Name Role Phone Cole Hallman DO Insurance Hmo Kathy Vásquez [facility] Primary Care Provider Reason for Visit Reason Comments New Patient induced Cardiomyopathy Bradycardia (Routine) Status Reason Specialty Diagnoses / Referred By Referred To Procedures Contact Contact New Request Cardiology Diagnoses cardiomyopathy Bradycardia Kerry Talley, Procedures CONSULT/REFERRAL CARDIOLOGY AUTOMOTIVE PARTS COUNTERPERSON [address] [facility] [place] [address] Encounter Details Date Type Department Care Team Description 03/02/2019 Office Visit [facility] Nancy Pavon cardiomyopathy (Primary Dx); Cardiology- Hui Jacob MD Atypical chest pain [address], [address] [place] [address] [phone] Allergies Active Allergy Reactions Severity Noted Date Comments Latex Rash 05/20/2017 documented as of this encounter (statuses as of 03/03/2019) Medications Medication Sig Dispensed Refills Start Date [...] Active 24 hr tablet MOUTH ONCE DAILY documented as of this encounter (statuses as of 03/03/2019) Active Problems Problem Noted Date cardiomyopathy 02/21/2019 [...] as of this encounter (statuses as of 03/03/2019) Resolved Problems Problem Noted Date Resolved Date 35 weeks gestation of 02/07/2019 03/01/2019 Headache in 11/09/2018 03/01/2019 Low-lying placenta 10/12/2018 03/01/2019 Overview: See usg report , follow up 01/11/19-resolved Supervision of high-risk 08/19/2018 03/01/2019 Obesity in 08/19/2018 03/01/2019 documented as of this encounter (statuses as of 03/03/2019) Immunizations Name Administration Dates Next Due Tdap [...] Sign Reading Time Taken Comments Blood Pressure 112/70 03/02/2019 8:18 AM CDT Pulse 61 03/02/2019 8:18 AM CDT Temperature - - Respiratory Rate 19 03/02/2019 8:18 AM CDT Oxygen Saturation 98% 03/02/2019 8:18 AM CDT Inhaled Oxygen Concentration - - Weight 90.8 kg (200 lb 1.6 oz) 03/02/2019 8:18 AM CDT Height 175.3 cm (5' 9") 03/02/2019 8:18 AM CDT Body Mass Index 29.55 03/02/2019 8:18 AM CDT documented in this encounter Progress Notes Nancy Pavon MD - 03/02/2019 8:00 AM CDT [facility] Cardiology Consult Note Patient: Christina Alfaro Date of : 1995 Primary Care Physician: Kathy Vásquez CHIEF COMPLAINT: Chief Complaint Patient presents with New Patient induced Cardiomyopathy Bradycardia HISTORY OF PRESENT ILLNESS: Christina Alfaro is a 23 year old female presents to the clinic for follow up after recent hospital DC. History from patient/her mother. Admitted for chest pain, ACS ruled out. Echo shows mild LV EF reduction. Started on Coreg. Feeling better. MCFARLANE NYHA Class II. Still complaints of atypical chest pain. No PND or orthopnea. No pedal edema. No exertional palpitations or palpitations at rest. No syncopalattacks. Previous Cardiac Studies: IMAGING - I personally reviewed, pertinent results as below: Echo 02/2019 Echo 02/20/2019 Interpretation Summary A two-dimensional transthoracic echocardiogram with M-mode and Doppler was performed. The study was technically adequate. There is no comparison study available. Left ventricular systolic function is borderline reduced. EF=45-50%. The left ventricular diastolic function is consistant with impaired relaxation. Insufficient Tricuspid regurgitation jet to estimate RVSP There is mild global hypokinesis. Insufficient Tricuspid regurgitation jet to estimate RVSP Pericardial effusion is trivial CT chest 02/2019 IMPRESSION 1. No acute pulmonary embolism ECG Sinus bradycardia with sinus arrhythmia Otherwise normal ECG PAST MEDICAL HISTORY Past Medical History: Diagnosis Date Anemia ongoing, taking with iron Anxiety 2017 ongoing Depression 2017 bipolar manic depressive disorder Menstrual disorder Trauma 2004 Past Surgical History: Procedure Laterality Date SECTION SECTION N/A 02/07/2019 Surgeon: America Adams MD; Location: Labor and Delivery - [place] TONSILLECTOMY 2014 TUBAL LIGATION N/A 02/07/2019 Surgeon: America Adams MD; Location: Labor and Delivery [facility] [place] Family History Problem Relation Age of Onset Heart Sister defects Maternal Aunt Cancer Maternal Grandmother SOCIAL HISTORY Social History Socioeconomic History Marital status: Spouse [...] Not on file Tobacco Use Smoking status: Former Smoker Packs/day: 0.75 Years: 6.00 Pack years: 4.50 Smokeless tobacco: Never Used Substance and Sexual Activity Alcohol use: No Drug use: No Sexual activity: Yes Partners: Male control/protection: Surgical Comment: last sexual intercourse 08/11/2018 Lifestyle Physical activity: Days per week: Not on file Minutes per session: Not on file Stress: Not on file Relationships Social connections: Talks on phone: Not on file Gets together: Not on file Attends jain service: Not on file Active member of [...] Social History Narrative Patient lives with . ALLERGIES Allergies Allergen Reactions Latex Rash MEDICATIONS Patient's Medications START taking these medications No medications on file CONTINUE taking these medications which have NOT CHANGED BUPROPION XL 150 MG 24 HR TABLET TAKE 1 TABLET BY MOUTH ONCE DAILY CARVEDILOL 3.125 MG TABLET Take 1 tablet by mouth 2 (two) times daily with meals. DOCUSATE CALCIUM 240 MG CAPSULE Take 1 capsule by mouth once daily as needed for Constipation. May substitute for what is in stock and covered by patient plan IBUPROFEN 600 MG TABLET Take 1 tablet by mouth every 6 (six) hours as needed for Pain (scale 1-3) or Pain (scale 4-6) (Pain). Take with food or milk. OMEPRAZOLE 20 MG TABLET Take 1 tablet by mouth daily for 10 days. VITAMIN W/FA TABLET Take 1 tablet by mouth daily. May substitute for what is in stock and covered by patient plan START taking Modified Medications as Prescribed Modified Medication Previous Medication BUPROPION XL 150 MG 24 HR TABLET buPROPion XL (WELLBUTRIN XL) 150 mg 24 hr tablet TAKE 1 TABLET BY MOUTH ONCE DAILY Take 1 tablet by mouth daily. STOP taking these medications No medications on file REVIEW OF SYSTEMS: Comprehensive 10-system review was conducted and were negative except for what' s noted in the HPI. The following systems were reviewed: Constitutional, cardiovascular, respiratory, gastrointestinal, genitourinary, musculoskeletal, neurologic, psychiatric, endocrinological, and hematological. PHYSICAL EXAMINATION: Vitals: 03/02/19 0818 BP: 112/70 BP Location: Left arm Patient Position: Sitting BP CUFF SIZE: Adult Medium Pulse: 61 Resp: 19 SpO2: 98% Weight: 200 lb 1.6 oz (90.8 kg) Height: 5' 9" (1.753 m) General: no apparent distress HEENT: normocephalic atraumatic Neck: supple, no lymphadenopathy, no bruits, no JVD Lungs: clear to auscultation bilaterally. No wheezes or rhonchi. No increased work of breathing. Cardio: Regular rate and rhythm, S1&S2 normal, no murmurs, rubs or gallops Abdomen: soft; non-tender; non-distended; normoactive bowel sounds. : not examined Rectal: not examined Extremities: no clubbing, cyanosis, or edema. Skin: no rashes, no visible lesions. Neuro: no gross focal deficits LABS - Reviewed pertinent labs as below: CBC BMP PT/INR WBC (10*3/L) Date Value 02/26/2019 6.40 NA (mmol/L) Date Value 02/26/2019 142 No results found for: PT PLT (10*3/L) Date Value 02/26/2019 291 K (mmol/L) Date Value 02/26/2019 4.1 INR (no units) Date Value 02/19/2019 1.1 HGB (g/dL) Date Value 02/26/2019 12.5 BUN (mg/dL) Date Value 02/26/2019 14 HCT (%) Date Value 02/26/2019 39.0 CREATININE (mg/dL) Date Value 02/26/2019 0.86 LIPID PROFILE GLUCOSE (mg/dL) Date Value 02/26/2019 82 CHOL (mg/dL) Date Value 02/19/2019 233 (H) TSH LDL CHOL (mg/dL) Date Value 02/19/2019 159 TSH (mIU/L) Date Value 02/19/2019 1.19 CARDIAC ENZYMES HDL (mg/dL) Date Value 02/19/2019 44 (L) CK (U/L) Date Value 02/19/2019 57 TRIG (mg/dL) Date Value 02/19/2019 148 LFTs No results found for: CKMB AST(SGOT) (U/L) Date Value 02/26/2019 17 TROPONIN I (ng/mL) Date Value 02/26/2019 <0.012 ALT(SGPT) (U/L) Date Value 02/26/2019 20 No results found for: BNP LDL CHOL (mg/dL) Date Value 02/19/2019 159 Recent Labs 02/26/19 2159 TROPNI <0.012 Recent Labs 02/19/19 0308 TRIG 148 LDL CHOL (mg/dL) Date Value 02/19/2019 159 NT-proBNP (pg/mL) Date Value 02/26/2019 34 ASSESSMENT/PLAN 1. cardiomyopathy 2. Atypical chest pain Atypical chest pain: ECG done in the hospital was reviewed. Within acceptable limits. Will observe. If recurrent chest pain, then will plan for Ex TMT at later date. Post cardiomyopathy: EF reviewed. Echo report copy given. Continue Coreg 3.125 mg BiD. BP stable. Rpt Echo in 2 months. Reviewed future preg contraindications in view of post cardiomyopathy. May need to add ACEI. Follow up in 2 months Patient's diease process and its evaluation and treatment were discussed. We discussed each of for cardio vascular-related problems and discussed long-term goals and expectations for the each problem.I reviewed each of the cardiac medications in detail. Reviewed the medication with patient in detail recommended to continue taking the current medications without further changes. Recommended goal BP < 130/80 consistently, LDL << 70, HbA1c < 6.5. Recommended, explained and stressed the importance of healthy eating habits and exercises and lifestyle modifications Follow up as planned is predicated on symptoms stability and/or acceptable test results. Patient is urged to call in sooner should problems arise or if there is no improvement in cardiac symptoms. ER warning signs and symptoms explained and patient verbalized understanding. My diagnostic impression and treatment plans were discussed at length with the patient and family member present. All side effects as well as drug-drug interactions and risks discussed at length. Ample opportunity was offered and encouraged to ask questions during this visit and patient verbzalised statisfcation in the answers given. We reviewed the [place] [employer] recommendations for reduction of overall cardio vascular risk. The importance of monitoring the blood pressure carefully both at home on regular basis along with other physicians appointment was stressed in detail. In addition we discussed target LDL levels for optimal risk reduction. It was advised that to daily physical activity be performed with 30 minutes of sustained exercise for both cardio vascular fitness and improvement for generalized medical health and well-being. Thank you for allowing us to participate in the care of Christina Alfaro. If you have any questions or concerns please feel free to call our office at [phone]. I would be happy to be of further assistance for Christina Alfaro wellbeing. Giovanni Pavon MD Financial Center Manager, Division of Cardiology [facility] documented in this encounter Plan of Treatment Date Type Specialty Care Team Description 03/23/2019 Office Visit [facility] Kerry Talley, AUTOMOTIVE PARTS COUNTERPERSON [address] [place] [address] 05/01/2019 Laboratory Only Certified Performance Technologist, Adc Cardio Fac 1, Adc Cardio Fac Room 05/11/2019 Office Visit Cardiology Nancy Pavon MD [address] [place] [address] [phone] Health Maintenance Due Date Last Done Comments HPV VACCINES (1 - Female 3-dose 2009 series) VARICELLA VACCINES (2 of 2 - 13+ 03/10/2019 02/10/2019 2-dose series) INFLUENZA VACCINE (#1) 2019 CHLAMYDIA SCREENING 08/19/2019 08/19/2018 PAP SMEAR 08/19/2021 08/19/2018 DTaP,Tdap,and Td Vaccines (2 - Td) 12/26/2028 12/26/2018 PNEUMOCOCCAL 0-64 YEARS COMBINED Aged Out No longer eligible based on SERIES patient's age to complete this topic documented as of this encounter Results Not on filedocumented in this encounter Visit Diagnoses Diagnosis cardiomyopathy - Primary Peripartum cardiomyopathy, Atypical chest pain Other chest pain documented in this encounter Insurance Payer Benefit Plan / Subscriber ID Effective Dates Phone Address Type Group [facility] CHILDRENS xxxxxxxxx 2018-Present Medicaid HEALTH PLAN - HEALTH MANAGED MEDICAID documented as of this encounter Advance Directives Name Relationship Healthcare Agent Relationship Communication Kishor Risingyannick Spouse Primary healthcare agent
--- OUTSIDE RECORDS SUMMARY | 2019-06-06 09:08 | XMS REPORT | Summary of Care ---
:1995 Author Organization [facility] - [facility] Address [address] [place] [address] Care Team Providers Name Role Phone Cole Hallman DO Insurance Hmo Kathy Vásquez [employer] Primary Care Provider Encounter Details Date Type Department Care Team Description 03/13/2019 [facility] Kathy V[facility] , [facility] [address] [facility] [address] [place] [address] [facility] [phone] [place] [address] Allergies Active Allergy Reactions Severity Noted Date Comments Latex Rash 05/20/2017 documented as of this encounter (statuses as of 03/13/2019) Medications Medication Sig Dispensed Refills Start Date [...] 2 (two) times daily with cardiomyopathy meals. buPROPion XL 150 mg 24 TAKE 1 TABLET BY 0 01/26/2019 Active hr tablet MOUTH ONCE DAILY BUPROPION XL 150 mg 24 TAKE 1 TABLET BY 30 tablet 0 03/02/2019 Active hr tabletIndications: MOUTH ONCE DAILY Other depression documented as of this encounter (statuses as of 03/13/2019) Active Problems Problem Noted Date cardiomyopathy 02/21/2019 [...] as of this encounter (statuses as of 03/13/2019) Resolved Problems Problem Noted Date Resolved Date 35 weeks gestation of 02/07/2019 03/01/2019 Headache in 11/09/2018 03/01/2019 Low-lying placenta 10/12/2018 03/01/2019 Overview: See usg report , follow up 01/11/19-resolved Supervision of high-risk 08/19/2018 03/01/2019 Obesity in 08/19/2018 03/01/2019 documented as of this encounter (statuses as of 03/13/2019) Immunizations Name Administration Dates Next Due Tdap [...] 03/23/2019 Office Visit [facility] Kerry Talley, TAX ACCOUNTING ASSISTANT [address] [place], [place] [address] 05/04/2019 Laboratory Only Field Crops Harvest Machine Operator, Adc Cardio Fac 1, Adc Cardio Fac Room 05/11/2019 Office Visit Cardiology Nancy Pavon MD [address] [place] [address] Health Maintenance Due Date Last Done [...] ID Effective Dates Phone Address Type Group [facility] CHILDREN xxxxxxxxx 2018-Present Medicaid HEALTH PLAN - HEALTH MANAGED MEDICAID documented as of this encounter Advance Directives Name Relationship Healthcare Agent Relationship Communication Kishor Risinger Spouse Primary healthcare agent
--- OUTSIDE RECORDS SUMMARY | 2019-06-06 09:08 | XMS REPORT | Summary of Care ---
:1995 Author Organization [facility] - [facility] Address [address] [place] [address] Care Team Providers Name Role Phone Cole Hallman DO Insurance Hmo aKthy Vásquez [facility] Primary Care Provider Reason for Visit Reason Comments New Patient induced Cardiomyopathy Bradycardia (Routine) Status Reason Specialty Diagnoses / Referred By Referred To Procedures Contact Contact New Request Cardiology Diagnoses cardiomyopathy Bradycardia Kerry Talley, Procedures CONSULT/REFERRAL CARDIOLOGY ENROLLMENT COORDINATOR [address] [facility] [place] [address] Encounter Details Date Type Department Care Team Description 03/02/2019 Office Visit [facility] Nancy Pavon cardiomyopathy (Primary Dx); Cardiology- Hui Jacob MD Atypical chest pain [address], [address] [place] [address] [phone] Allergies Active Allergy Reactions Severity Noted Date [...] Pavon MD - 03/02/2019 8:00 AM CDT [facility] Cardiology Consult Note Patient: Christina Alfaro Date [...] Adams MD; Location: Labor and Delivery - [place] TONSILLECTOMY 2014 TUBAL LIGATION N/A 02/07/2019 Surgeon: America Adams MD; Location: Labor and Delivery - [place] Family History Problem Relation Age of Onset [...] file Gets together: Not on file Attends jew service: Not on file Active member of [...] in the answers given. We reviewed the [place] [employer] recommendations for reduction of overall [...] feel free to call our office at . I would be happy to be of further assistance for Christina Alfaro wellbeing. Giovanni Pavon MD Waiter/Waitress Cafeteria, Division of Cardiology [facility] documented in this encounter Plan of Treatment Date Type Specialty Care Team Description 03/23/2019 Office Visit [facility] Kerry Talley, ENROLLMENT COORDINATOR [address] [place] [address] 05/01/2019 Laboratory Only Blue Line Operator, Adc Cardio Fac 1, Adc Cardio Fac Room 05/11/2019 Office Visit Cardiology Nancy Pavon MD [address] [place] [address] [phone] Health Maintenance Due Date Last Done Comments [...] ID Effective Dates Phone Address Type Group [facility] CHILDRENS xxxxxxxxx 2018-Present Medicaid HEALTH PLAN - HEALTH MANAGED MEDICAID documented as of this encounter Advance Directives Name Relationship Healthcare Agent Relationship Communication Kishor Risingyannick Spouse Primary healthcare agent
--- OUTSIDE RECORDS SUMMARY | 2019-06-06 09:08 | XMS REPORT | Summary of Care ---
:1995 Author Organization [facility] - [facility] Address [address] [place] [address] Care Team Providers Name Role Phone Cole Hallman DO Insurance Hmo Kathy Vásquez [facility] Primary Care Provider Encounter Details Date Type Department Care Team Description 02/07/2019 Patient Secure Msg [facility] MyChart Messages Doctor Unassigned, [address] [place] [address] [place] [address] [place] [address] [place] [address] Allergies Active Allergy Reactions Severity Noted Date Comments Latex Rash 05/20/2017 documented as of this encounter (statuses as of 03/11/2019) Medications Medication Sig Dispensed Refills Start Date End Date Status vitamin Take 1 tablet by 100 tablet 3 02/08/2019 Active w/FA mouth daily. May tabletIndications: substitute for what S/P section is in stock and covered by patient plan docusate calcium 240 Take 1 capsule by 60 capsule 1 02/08/2019 Active mg mouth once daily as capsuleIndications: needed for S/P section Constipation. May substitute for what is in stock and covered by patient plan ibuprofen 600 mg Take 1 tablet by 60 tablet 1 02/08/2019 Active tabletIndications: mouth every 6 (six) S/P section hours as needed for Pain (scale 1-3) or Pain (scale 4-6) (Pain). Take with food or milk. documented as of this encounter (statuses as of 03/11/2019) Active Problems Problem Noted Date cardiomyopathy 02/21/2019 [...] as of this encounter (statuses as of 03/11/2019) Resolved Problems Problem Noted Date Resolved Date 35 weeks gestation of 02/07/2019 03/01/2019 Headache in 11/09/2018 03/01/2019 Low-lying placenta 10/12/2018 03/01/2019 Overview: See usg report , follow up 01/11/19-resolved Supervision of high-risk 08/19/2018 03/01/2019 Obesity in 08/19/2018 03/01/2019 documented as of this encounter (statuses as of 03/11/2019) Immunizations Name Administration Dates Next Due Tdap 12/26/2018 documented as of this encounter Social History [...] 03/23/2019 Office Visit [facility] Kerry Talley, MECHANICAL LEAD [address] [place] [address] [phone] 05/04/2019 Laboratory Only Generation Technologist, Adc Cardio Fac 1, Adc Cardio Fac Room 05/11/2019 Office Visit Cardiology Nancy Pavon MD [address] [place] [phone] Health Maintenance Due Date Last Done Comments [...] ID Effective Dates Phone Address Type Group [place] [facility] [place] [facility] xxxxxxxxx 2018-Present Medicaid HEALTH PLAN - HEALTH MANAGED MEDICAID documented as of this encounter Advance Directives Name Relationship Healthcare Agent Relationship Communication Kishor Risinger Spouse Primary healthcare agent
--- OUTSIDE RECORDS SUMMARY | 2019-06-06 09:08 | XMS REPORT | Summary of Care ---
:1995 Author Organization [facility] Address [address] [place] [address] Care Team Providers Name Role Phone Cole Hallman DO Insurance Hmo Kathy Vásquez [facility] Primary Care Provider Reason for Referral (Routine) Status Reason Specialty Diagnoses / Referred By Referred To Procedures Contact Contact New Request Cardiology Diagnoses cardiomyopathy Atypical chest pain MCFARLANE (dyspnea on exertion) Nancy Pavon Procedures ECHO ROUTINE W/DOPPLER COLOR Preferred Location: Hui Jacob MD [address] [phone] Reason for Visit Reason Comments New Patient induced Cardiomyopathy Bradycardia (Routine) Status Reason Specialty Diagnoses / Referred By Referred To Procedures Contact Contact New Request Cardiology Diagnoses cardiomyopathy Bradycardia Kerry Talley, Procedures CONSULT/REFERRAL CARDIOLOGY DIGITAL CAMPAIGN SPECIALIST [address] [place] [address] Encounter Details Date Type Department Care Team Description 03/02/2019 Office Visit [facility] Nancy Pavon cardiomyopathy (Primary Dx); Cardiology- Hui Jacob MD Atypical chest pain; [address] (dyspnea on exertion) Drive, [address] [place] [phone] Allergies Active Allergy Reactions Severity Noted Date [...] Pavon MD - 03/02/2019 8:00 AM CDT [facility] Cardiology Consult Note Patient: Christina [...] Adams MD; Location: Labor and Delivery - [place] TONSILLECTOMY 2014 TUBAL LIGATION N/A 02/07/2019 Surgeon: America Adams MD; Location: Labor and Delivery - [place] Family History Problem Relation Age of Onset [...] file Gets together: Not on file Attends hinduism service: Not on file Active member of [...] in the answers given. We reviewed the [place] [employer] recommendations for reduction of overall [...] for Christina Alfaro wellbeing. Giovanni Pavon MD Volunteer Firefighter, Division of Cardiology [facility] documented in this encounter Plan of Treatment Date Type Specialty Care Team Description 03/23/2019 Office Visit [facility] Kerry Talley, DIGITAL CAMPAIGN SPECIALIST [address] [place], [place] [phone] 05/01/2019 Laboratory Only Flight Engineer Inspector, Adc Cardio Fac 1, Adc Cardio Fac Room 05/11/2019 Office Visit Cardiology Nancy Pavon MD [address] [place] [address] Health Maintenance Due Date Last [...] cardiomyopathy, Atypical chest pain Other chest pain MCFARLANE (dyspnea on exertion) Other dyspnea and respiratory abnormality documented in this encounter Insurance Payer Benefit Plan / Subscriber ID Effective Dates Phone Address Type Group [facility] CHILDREN xxxxxxxxx 2018-Present Medicaid HEALTH PLAN - HEALTH MANAGED MEDICAID documented as of this encounter Advance Directives Name Relationship Healthcare Agent Relationship Communication Kishor Risinger Spouse Primary healthcare agent
--- OUTSIDE RECORDS SUMMARY | 2019-06-06 09:08 | XMS REPORT | Summary of Care ---
:1995 Author Organization [facility] Address [address] [place] [address] Care Team Providers Name Role Phone Cole Hallman DO Insurance Hmo Kathy Vásquez [facility] Primary Care Provider Reason for Visit Reason Comments Assessment Encounter Details Date Type Department Care Team Description 03/15/2019 Telephone [facility] Cardiology- Nancy Pavon MD Assessment [place] [address] [facility], [address] [place] [address] [place] [address] Allergies Active Allergy Reactions Severity Noted Date Comments Latex Rash 05/20/2017 documented as of this encounter (statuses as of 03/15/2019) Medications Medication Sig Dispensed Refills Start Date [...] as of this encounter (statuses as of 03/15/2019) Active Problems Problem Noted Date cardiomyopathy 02/21/2019 [...] as of this encounter (statuses as of 03/15/2019) Resolved Problems Problem Noted Date Resolved Date 35 weeks gestation of 02/07/2019 03/01/2019 Headache in 11/09/2018 03/01/2019 Low-lying placenta 10/12/2018 03/01/2019 Overview: See usg report , follow up 01/11/19-resolved Supervision of high-risk 08/19/2018 03/01/2019 Obesity in 08/19/2018 03/01/2019 documented as of this encounter (statuses as of 03/15/2019) Immunizations Name Administration Dates Next Due Tdap [...] 03/23/2019 Office Visit OB Satellites Kerry Talley, ENGINE LATHE SET UP OPERATOR TOOL [address] [place], [place] [phone] 05/04/2019 Laboratory Only Senior Tax Analyst, Adc Cardio Fac 1, Adc Cardio Fac Room 05/11/2019 Office Visit Cardiology Nancy Pavon MD [address] [place] [address] Health Maintenance Due Date Last [...] ID Effective Dates Phone Address Type Group [facility] CHILDRENS xxxxxxxxx 2018-Present Medicaid HEALTH PLAN - HEALTH MANAGED MEDICAID documented as of this encounter Advance Directives Name Relationship Healthcare Agent Relationship Communication Kishor Risinger Spouse Primary healthcare agent
--- OUTSIDE RECORDS SUMMARY | 2019-06-06 09:09 | XMS REPORT | Summary of Care ---
:1995 Author Organization [facility] - [facility] Address [address] [place] [address] Care Team Providers Name Role Phone Cole Hallman DO Insurance Hmo Kathy Vásquez [facility] Primary Care Provider Reason for Referral (Routine) Status Reason Specialty Diagnoses / Referred By Referred To Procedures Contact Contact New Request IM-CARDIOVASCULA Diagnoses cardiomyopathy Tosha Hines R DISEASE Procedures Discharge Follow-Up: Specialty Service IM-CARDIOVASCULAR DISEASE; 2 Weeks LISA Whatley [address] [facility] [place] [address] (Routine) Status Reason Specialty Diagnoses / Procedures Referred By Referred To Contact Contact New Request Diagnoses cardiomyopathy Tosha Hines, Procedures Discharge Follow-up: PCP KATHY VÁSQUEZ; 1 Week LISA Whatley, [address] [facility] [place], [place] [address] [address] Phone: MILO Millard [phone] [place] [address] Radiology Services (Routine) Status Reason Specialty Diagnoses / Referred By Referred To Procedures Contact Contact New Request Diagnostic Diagnoses cardiomyopathy Mariano Drake, Radiology Procedures XR CHEST [address] [place] [address] Radiology Services (Routine) Status Reason Specialty Diagnoses / Referred By Referred To Procedures Contact Contact New Request Diagnostic Diagnoses cardiomyopathy Mariano Drake, Radiology Procedures XR CHEST [address] [place] [address] Reason for Visit Auth/Cert Status Reason Specialty Diagnoses / Referred By Referred To Procedures Contact Contact Medicine - Diagnoses cardiomyopathy, chest pain Adc Med Surg Inpatient only [address] [place] [address] [place] [address] Encounter Details Date Type Department Care Team Description 03/15/2019 - Hospital Encounter [facility] Medicine Surgery Mariano Drake MD Chest pain 03/16/[address] [place] [address] [place] [address] [place] [address] [phone] Allergies Active Allergy Reactions Severity Noted Date Comments Latex Rash 05/20/2017 documented as of this encounter (statuses as of 03/16/2019) Medications Medication Sig Dispensed Refills Start Date [...] 4-6) (Pain). Take with food or milk. BUPROPION XL 150 mg TAKE 1 TABLET 30 tablet 0 03/02/2019 Active 24 hr BY MOUTH ONCE tabletIndications: DAILY Other depression carvedilol 3.125 mg Take 1 tablet 60 tablet 5 02/21/2019 Discontinued tabletIndications: by mouth 2 9 (two) times cardiomyopathy daily with meals. buPROPion XL 150 mg TAKE 1 TABLET 0 01/26/2019 08/29/201 Discontinued 24 hr tablet BY MOUTH ONCE 9 DAILY documented as of this encounter (statuses as of 03/16/2019) Active Problems Problem Noted Date Chest pain 03/15/2019 cardiomyopathy 02/21/2019 Bradycardia 02/19/2019 History of bilateral [...] as of this encounter (statuses as of 03/16/2019) Resolved Problems Problem Noted Date Resolved Date 35 weeks gestation of 02/07/2019 03/01/2019 Headache in 11/09/2018 03/01/2019 Low-lying placenta 10/12/2018 03/01/2019 Overview: See usg report , follow up 01/11/19-resolved Supervision of high-risk 08/19/2018 03/01/2019 Obesity in 08/19/2018 03/01/2019 documented as of this encounter (statuses as of 03/16/2019) Immunizations Name Administration Dates Next Due Tdap [...] Sign Reading Time Taken Comments Blood Pressure 112/74 03/16/2019 4:00 PM CDT Pulse 58 03/16/2019 4:00 PM CDT Temperature 36.6 C (97.9 F) 03/16/2019 4:00 PM CDT Respiratory Rate 18 03/16/2019 4:00 PM CDT Oxygen Saturation 96% 03/16/2019 4:00 PM CDT Inhaled Oxygen Concentration - - Weight 93.5 kg (206 lb 1.6 oz) 03/15/2019 5:47 PM CDT Height 175.3 cm (5' 9") 03/15/2019 5:47 PM CDT Body Mass Index 30.44 03/15/2019 5:47 PM CDT documented in this encounter Discharge Instructions AttachmentsThe following attachments cannot be sent through Care Everywhere.Chest Pain, Uncertain Cause (Lao)documented in this encounter Progress Notes Vivian Santizo, LB - 03/16/2019 11:13 AM CDTSubjective Patient ID: Christina Alfaro is a 23 year old female. Care Management Social Functional Assessment Patient Name: Christina Alfaro Age: [age] year old Sex: female Patient's Previous Admission Date at [facility]: 02/07/2019 Current diagnosis and co-morbidities: cardiomyopathy, chest pain Readmission Questions: Was patient discharged from any acute care hospital within the last 30 days: No Social Functional Assessment: Primary language spoken/preferred: Lao Mental Status: Alert & Oriented to Person,Place & Time Information given by: Self Patient's support system: Spouse Name and number of support system: Kishor Ratliff, Primary Knuckler: Self MPOA: No Living Arrangement: Home Address of living arrangement : [address] [facility] [address] Persons living in home: Self;Spouse Barriers to returning home: None Baseline functional [...] Equipment: None Hemodialysis: No Community resources utilized: None Funding Resources: Medicaid Prescription coverage plan: Medicaid-3 slots Pharmacy where meds are filled: Other Other pharmacy: [facility] Anticipated services prior to disharge: Continue Medical Eval Expected mode of discharge transportation: Same as support system Additional Recommendations for DC: Medical clearance Additional info required for discharge planning: Pending medical evaluation Recommended discharge plan: Home SFA Complete: Social Functional Assessment complete: Yes Alcohol Use Screening (AUDIT-C) How often do you have a drink containing alcohol?: Never SCORE: 0 Did patient elect to have resources provided: No Role of Care Management explained. Any issues or concerns with obtaining/affording your medications at home: no. 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 Review of Systems Objective Physical Exam Assessment/Plan Home with support of family KARI Vera Digital Photo Printer - Care Management [facility] [phone] [email or web address] documented in this encounter Plan of Treatment Date Type Specialty Care Team Description 03/23/2019 Office Visit OB Satellites Kerry Talley, HOSTED SERVICES ANALYST [address] [place], [place] [phone] 05/04/2019 Laboratory Only Mobile Pet Groomer, Adc Cardio Fac 1, Adc Cardio Fac Room 05/11/2019 Office Visit Cardiology Nancy Pavon MD [address] [place] [address] Name Type Priority Associated Diagnoses Order Schedule EKG-12 LEAD ROUTINE HEART STATION LORENZA ONCE for 1 Occurrences starting 03/15/2019 until 03/15/2019 Health Maintenance Due Date Last Done Comments [...] this topic documented as of this encounter Procedures Procedure Name Priority Date/Time Associated Diagnosis Comments ECHO ROUTINE Routine 03/16/2019 8:46 Chest pain, W/DOPPLER COLOR AM CDT unspecified type TROPONIN I Routine 03/16/2019 4:18 Results for this AM CDT procedure are in the results section. TROPONIN I Routine 03/15/2019 11:08 Results for this PM CDT procedure are in the results section. XR CHEST 1 VW Routine 03/15/2019 6:32 Results for this PM CDT cardiomyopathy procedure are in the results section. EKG-12 LEAD Routine 03/15/2019 6:25 PM CDT CBC WITH LORENZA 03/15/2019 6:24 Results for this DIFFERENTIAL PM CDT procedure are in the results section. N-TERMINAL PRO-BNP Routine 03/15/2019 6:24 Results for this PM CDT procedure are in the results section. CBC WITH DIFF LORENZA 03/15/2019 6:24 Results for this PM CDT procedure are in the results section. BASIC METABOLIC LORENZA 03/15/2019 6:24 Results for this PANEL (NA, K, CL, PM CDT procedure are in CO2, GLUCOSE, BUN, the results CREATININE, CA) section. HEPATIC FUNCTION LORENZA 03/15/2019 6:24 Results for this PANEL (78191) PM CDT procedure are in (ALB,T.PRO,BILI the results T,BU/BC,ALT,AST,ALK section. PHOS) TROPONIN I Routine 03/15/2019 6:24 Results for this PM CDT procedure are in the results section. documented in this encounter Results TROPONIN I (03/16/2019 4:18 AM CDT) TROPONIN I <0.012 <=0.034 ng/mL [facility] Specimen Blood - LINE, VENOUS Narrative Performed At Equal or Less than 0.034 ng/ml---Normal [facility] Note: Cardiac troponin begins to rise [...] patient's use of biotin. Performing Organization Address [facility] Facility[facility] Phone Number [facility] CLIA: [id number], [address] [place] [address] TROPONIN I (03/15/2019 11:08 PM CDT) TROPONIN I <0.012 <=0.034 ng/mL [facility] Specimen Blood - LINE, VENOUS Narrative Performed At Equal or Less than 0.034 ng/ml---Normal [facility] Note: Cardiac troponin begins to rise [...] patient's use of biotin. Performing Organization Address [facility] Facilitycode Phone Number [facility] CLIA: [id number], [address] [place] [address] [facility] XR CHEST 1 VW (03/15/2019 6:32 PM CDT) Specimen Impressions Performed At PACS/VR/DOSE No acute cardiopulmonary process. Bren Vargas MD., have reviewed this study and agree with the above report. Narrative Performed At PROCEDURE: XR CHEST 1 VW PACS/VR/DOSE CLINICAL INDICATION: Chest pain COMPARISON: 02/26/2019 FINDINGS: The lungs are well-expanded and clear without focal consolidation, pleural effusion, or pneumothorax. The cardiac silhouette is normal in size. No acute osseous abnormality. Procedure Note [facility], Radiant Results Inft User - 03/15/2019 7:00 PM CDT PROCEDURE: XR CHEST 1 VW CLINICAL INDICATION: Chest pain COMPARISON: 02/26/2019 FINDINGS: The lungs are well-expanded and clear without focal consolidation, pleural effusion, or pneumothorax. The cardiac silhouette is normal in size. No acute osseous abnormality. IMPRESSION No acute cardiopulmonary process. I, Bren Aponte MD., have reviewed this study and agree with the above report. Performing Organization Address City/State/Zipcode Phone Number PACS/VR/DOSE CBC WITH DIFFERENTIAL (03/15/2019 6:24 PM CDT) WBC 6.50 4.30 - 11.10 [facility] 10*3/L HOSPITAL LABORATORY RBC 3.94 3.93 - 5.25 [facility] 10*6/L HOSPITAL LAB[facility]ATORY HGB 10.9 (L) 11.6 - 15.0 [facility] g/dL HOSPITAL LAB[facility]ORY HCT 34.1 (L) 35.7 - 45.2 % [facility] MCV 86.5 80.6 - 95.5 fL [facility] MCH 27.7 25.9 - 32.8 pg [facility] MCHC 32.0 31.6 - 35.1 [facility] g/dL [facility] RDW-SD 43.3 39.0 - 49.9 fL [facility] RDW-CV 13.8 12.0 - 15.5 % [facility] PLT 211 166 - 358 [facility] 10*3/L [facility] MPV 11.6 9.5 - 12.9 fL [facility] NRBC/100 WBC 0.0 0.0 - 10.0 /100 [facility] WBCs [facility] NRBC x10^3 <0.01 10*3/L [facility] GRAN MAT (NEUT) % 49.4 % [facility] IMM GRAN % 0.30 % [facility] LYMPH % 38.0 % [facility] MONO % 6.6 % [facility] EOS % 5.1 % [facility] BASO % 0.6 % [facility] GRAN MAT x10^3(ANC) 3.21 1.88 - 7.09 [facility] 10*3/uL HOSPITAL LABORATORY IMM GRAN x10^3 <0.03 0.00 - 0.06 [facility] 10*3/uL HOSPITAL [facility] LYMPH x10^3 2.47 1.32 - 3.29 [facility] 10*3/uL HOSPITAL [facility] MONO x10^3 0.43 0.33 - 0.92 [facility] 10*3/uL HOSPITAL [facility] EOS x10^3 0.33 0.03 - 0.39 [facility] 10*3/uL H[facility]PITAL [facility] BASO x10^3 0.04 0.01 - 0.07 [facility] 10*3/uL [facility] Specimen Blood - ARM, RIGHT Performing Organization Address [facility] Facilitycohi Phone Number [facility] CLIA: [id number], [address] [place], [place] [id number] [address] TROPONIN I (03/15/2019 6:24 PM CDT) TROPONIN I <0.012 <=0.034 ng/mL [facility] Specimen Blood - ARM, RIGHT Narrative Performed At Equal or Less than 0.034 ng/ml---Normal [facility] Note: Cardiac troponin begins to rise [...] patient's use of biotin. Performing Organization Address [facility] Facility[facility] Phone Number [facility] CLIA: [id number], [address] [place], [place] [address] [address] N-TERMINAL PRO-BNP (03/15/2019 6:24 PM CDT) NT-proBNP 76 <=125 pg/mL [facility] Specimen Blood - ARM, RIGHT Narrative Performed At Biotin has been reported to cause a negative [facility] bias, interpret results relative to patient's use of biotin. Performing Organization Address [facility] Facilitycode Phone Number [facility] CLIA: [id number], [address] [place] [address] [address] HEPATIC FUNCTION PANEL ([id number]) (ALB,T.PRO,BILI T,BU/BC,ALT,AST,ALK PHOS) (2018 6:24 PM CDT) TOTAL BILI 0.3 0.1 - 1.1 mg/dL [facility] BILI UNCON 0.3 0.1 - 1.1 mg/dL [facility] BILI CONJ 0.0 0.0 - 0.3 mg/dL [facility] T PROTEIN 6.8 6.3 - 8.2 g/dL [facility] ALBUMIN 3.7 3.5 - 5.0 g/dL [facility] ALK PHOS 61 34 - 122 U/L [facility] ALT(SGPT) 25 9 - 51 U/L [facility] AST(SGOT) 22 13 - 40 U/L [facility] Specimen Blood - ARM, RIGHT Performing Organization Address City/State/Zipcode Phone Number [facility] CLIA: [id number], [address] [place] [address] BASIC METABOLIC PANEL (NA, K, CL, CO2, GLUCOSE, BUN, CREATININE, CA) (2018 6:24 PM CDT) NA 142 135 - 145 [facility] mmol/L [facility] K 3.8 3.5 - 5.0 [facility] mmol/L [facility] CL 109 (H) 98 - 108 mmol/L [facility] CO2 TOTAL 25 23 - 31 mmol/L [facility] AGAP 8 2 - 16 [facility] BUN 8 7 - 23 mg/dL [facility] GLUCOSE 75 70 - 110 mg/dL [facility] CREATININE 0.59 0.50 - 1.04 [facility] mg/dL [facility] CALCIUM 8.4 (L) 8.6 - 10.6 [facility] mg/dL [facility] eGFR Calculation 125.2 mL/min/1.73m2 [facility] (Non-[facility] LABORATORY Ukrainian) eGFR Calculation 151.8 mL/min/1.73m2 [facility] () [facility] Specimen Blood - ARM, RIGHT Narrative Performed At [facility] of Glomerular Filtration Rate (GFR) [facility] and Staging of Kidney Disease* + [...] tests). Performing Organization Address City/State/Zipcode Phone Number [facility] CLIA: [id number], [address] [place] [address] [facility] [address] documented in this encounter Visit Diagnoses Diagnosis cardiomyopathy - Primary Peripartum cardiomyopathy, Chest pain, unspecified type documented in this encounter Administered Medications Medication Order MAR Action Action Date Dose Rate Site acetaminophen (TYLENOL) tablet Given 03/16/2019 4:22 PM CDT 650 mg 650 mg 650 mg, Oral, Q6HPRN, Starting Wed03/15/19 at 1800, Until Discontinued, Routine, Pain (scale 1-3) buPROPion XL (WELLBUTRIN XL) tablet 150 mg Given 03/16/2019 9:27 AM CDT 150 mg 150 mg, Oral, DAILY, First dose on Wed03/16/19 at 0900, Until Discontinued, Routine traMADol (ULTRAM) tablet 50 mg 50 mg, Oral, Q8HPRN, Starting Wed03/15/19 at 1800, Until Wed03/17/19 at 1759, Routine, Pain (scale 4-6) Medication Order MAR Action Action Date Dose Rate Site morpHINE injection 2 mg Given 03/16/2019 1:34 PM CDT 2 mg 2 mg, Slow IV Push, Q4HPRN, Starting Wed03/15/19 at 1800, Until Wed03/16/19 at 1759, Routine, Pain (scale 7-10), Chest pain Given 03/16/2019 9:31 AM CDT 2 mg Given 03/16/2019 4:17 AM CDT 2 mg documented in this encounter Insurance Payer Benefit Plan / Subscriber ID Effective Dates Phone Address Type Group [facility] CHILDRENS xxxxxxxxx 2018-Present Medicaid HEALTH PLAN - HEALTH MANAGED MEDICAID documented as of this encounter Advance Directives Name Relationship Healthcare Agent Relationship Communication Kishor Risinger Spouse Primary healthcare agent
--- OUTSIDE RECORDS SUMMARY | 2019-06-06 09:09 | XMS REPORT | Summary of Care ---
:1995 Author Organization [facility] - [facility] Address [address] [place] [address] Care Team Providers Name Role Phone Cole Hallman DO Insurance Hmo Kathy Vásquez [facility] Primary Care Provider Reason for Visit Reason Comments Assessment Encounter Details Date Type Department Care Team Description 03/15/2019 Telephone [facility] Cardiology- Nancy Pavon MD Assessment [place] [address] [facility], [address] [place] [address] [place] [address] Allergies Active Allergy Reactions Severity Noted Date Comments Latex Rash 05/20/2017 documented as of this encounter (statuses as of 03/20/2019) Medications Medication Sig Dispensed Refills Start Date [...] 150 mg TAKE 1 TABLET 0 01/26/2019 Discontinued 24 hr tablet BY MOUTH ONCE 9 DAILY documented as of this encounter (statuses as of 03/20/2019) Active Problems Problem Noted Date Chest pain [...] as of this encounter (statuses as of 03/20/2019) Resolved Problems Problem Noted Date Resolved Date 35 weeks gestation of 02/07/2019 03/01/2019 Headache in 11/09/2018 03/01/2019 Low-lying placenta 10/12/2018 03/01/2019 Overview: See usg report , follow up 01/11/19-resolved Supervision of high-risk 08/19/2018 03/01/2019 Obesity in 08/19/2018 03/01/2019 documented as of this encounter (statuses as of 03/20/2019) Immunizations Name Administration Dates Next Due Tdap [...] 03/23/2019 Office Visit OB Satellites Kerry Talley, ABRASIVE WORKER [address] [place] [address] [phone] 05/04/2019 Laboratory Only Cement Storage Worker, Adc Cardio Fac 1, Adc Cardio Fac Room 05/11/2019 Office Visit Cardiology Nancy Pavon MD [address] [place] [address] Health Maintenance Due Date Last Done [...] ID Effective Dates Phone Address Type Group [place] [facility] xxxxxxxxx 2018-Present Medicaid HEALTH PLAN - HEALTH MANAGED MEDICAID documented as of this encounter Advance Directives Name Relationship Healthcare Agent Relationship Communication Kishor Risinger Spouse Primary healthcare agent
--- NOTE | 2019-06-06 09:41 | EKG ---
Test Date: 2019-06-06 Test Time: 09:10:36 Inorganic Chemistry Professor: NURIS MEASUREMENT RESULTS: Intervals: Rate: 58 ND: 154 QRSD: 94 QT: 398 QTc: 390 [place]: P: 75 ND: 154 QRS: 88 T: 63 INTERPRETIVE STATEMENTS: Sinus bradycardia with marked sinus arrhythmia Otherwise normal ECG No previous ECG available for comparison Electronically Signed On 06-06-19 09:41:32 HEEL SEATER by Chan Lindquist
--- NOTE | 2019-06-06 10:01 | RAD REPORT ---
EXAM DESCRIPTION: RAD - Chest Single View - 06/06/2019 9:53 am CLINICAL HISTORY: CHEST PAIN Chest pain. COMPARISON: No comparisons FINDINGS: Portable technique limits examination quality. The lungs are grossly clear. The heart is normal in size. No displaced fractures. IMPRESSION: No acute intrathoracic process suspected.
[2019-06-06] MEDS ORDERED: FENTANYL CITR 100 MCG/2 ML ONE (10:03)
[2019-06-06] MEDS ORDERED: ONDANSETRON 4 MG/2 ML VIAL ONE (10:03)
[2019-06-06] MEDS ORDERED: NA CHLORIDE 0.9% 500 ML ONE (10:04)
[2019-06-06 10:10] LABS: Absolute Lymphocytes (CBC) 1.7 K/uL (0.7-4.9); Basophils % 0.5 % (0-1.3); Lymphocytes % 32.3 % (15.3-44.8); MPV 10.2 fL (7.6-11.3); RBC Red Blood Cell Count 4.26 M/uL (3.86-4.86)
[2019-06-06 10:12] LABS: Protime INR 1.01
[2019-06-06 10:36] LABS: ALT/SGPT 28 U/L (12-78); AST/SGOT 17 U/L (15-37); Albumin 3.7 g/dL (3.4-5.0); Alkaline Phosphatase 67 U/L (45-117); BUN Blood Urea Nitrogen 7 mg/dL (7-18); Bicarbonate 27 mmol/L (21-32); Bilirubin Direct < 0.1 mg/dL (0-0.2); Bilirubin Total 0.2 mg/dL (0.2-1.0); Glucose Level 80 mg/dL (74-106); NT PRO-BNP 110 pg/mL (<125); Protein, Total 7.4 g/dL (6.4-8.2); Sodium Level 140 mmol/L (136-145); Troponin (Emerg Dept Use Only) < 0.02 ng/mL (0.0-0.045)
[2019-06-06] MEDS ORDERED: MORPHINE 4 MG/ML SYR ONE (11:07)
--- NOTE | 2019-06-06 11:41 | RAD REPORT ---
EXAM DESCRIPTION: CT - Chest For Pe Angio - 06/06/2019 11:30 am CLINICAL HISTORY: Chest pain. CHEST PAIN COMPARISON: No comparisons TECHNIQUE: CT angiogram of the pulmonary arteries was performed with MIP. All CT scans are performed using dose optimization technique as appropriate and may include automated exposure control or mA/KV adjustment according to patient size. FINDINGS: No evidence of pulmonary thromboembolism. No acute aortic finding demonstrated. The lungs are clear. No significant pericardial or pleural fluid. No concerning bony finding. IMPRESSION: No evidence of pulmonary thromboembolism. No acute lung findings.
--- NOTE | 2019-06-06 12:04 | ER ---
Nurse's Notes [facility] Name: Christina Alfaro Age: 23 yrs Sex: Female : 1995 Arrival Date: 06/06/2019 Time: 09:02 Bed 8 Private MD: out of town, doctor Diagnosis: Chest pain, unspecified Presentation: 06/06 09:25 Presenting complaint: Patient states: left sided chest pain, radiating to left shoulder iw blade and up to neck, constant X 1 week. Transition of care: patient was not received from another setting of care. Onset of symptoms was May 30, 2019. Risk Assessment: Do you want to hurt yourself or someone else? Patient reports no desire to harm self or others. Initial Sepsis Screen: Does the patient meet any 2 criteria? No. Patient's initial sepsis screen is negative. Does the patient have a suspected source of infection? No. Patient's initial sepsis screen is negative. Care prior to arrival: None. 09:25 Method Of Arrival: Ambulatory 09:25 Acuity: ADELINA 3 iw Historical: - Allergies: : Latex, Natural Rubber; around mouth; iw - Home Meds: : None [Active]; iw - PMHx: : Colitis; iw - PSHx: 09:26 Tonsillectomy; ; iw - Immunization history:: Adult Immunizations up to date. - Social history:: Smoking status: Patient/guardian denies using tobacco. - Ebola Screening: : Patient negative for fever greater than or equal to 101.5 degrees Fahrenheit, and additional compatible Ebola Virus Disease symptoms Patient denies exposure to infectious person Patient denies travel to an Ebola-affected area in the 21 days before illness onset No symptoms or risks identified at this time. Screenin:10 Abuse screen: Denies threats or abuse. Denies injuries from another. Nutritional sg screening: No deficits noted. Tuberculosis screening: No symptoms or risk factors identified. Never had TB. Fall Risk None identified. Assessment: 10:10 Reassessment: Patient appears in no apparent distress at this time. General: Appears in sg no apparent distress. well groomed, well developed, well nourished, Behavior is calm, cooperative, appropriate for age. Pain: Complains of pain in diaphragm Quality of pain is described as aching. Neuro: Level of Consciousness is awake, alert, obeys commands, Oriented to person, place, time, situation, Moves all extremities. Speech is normal, Facial symmetry appears normal. Cardiovascular: Capillary refill is brisk in bilateral fingers Patient's skin is warm and dry. Chest pain is denied. Respiratory: Airway is patent Respiratory effort is even, unlabored, Respiratory pattern is regular, symmetrical. GI: Abdomen is round non-distended, Reports tolerance of fluids, tolerance of food. : No signs and/or symptoms were reported regarding the genitourinary system. EENT: No signs and/or symptoms were reported regarding the EENT system. Derm: Skin is pink, warm \T\ dry. Musculoskeletal: Circulation, motion, and sensation intact. Range of motion: intact in all extremities. 12:55 Reassessment: Patient appears in no apparent distress at this time. pt updated, attempt sg to call report, nurse unavailable at this time, expecting a call back, pt stated understanding, no new orders received, pt to go upstairs soon. Vital Signs: 09:26 BP 98 / 77; Pulse 55; Resp 16; Temp 98.0; Pulse Ox 99% on R/A; Weight 99.79 kg; Height iw 5 ft. 9 in. (175.26 cm); Pain 8/10; 09:26 Body Mass Index 32.49 (99.79 kg, 175.26 cm) iw ED Course: 09:02 Patient arrived in ED. mr 09:02 out of town, doctor is Private Physician. mr 09:14 EKG done, by science technician. reviewed by Elias Jackson MD. at1 09:26 Triage completed. iw 09:26 Arm band placed on. iw 09:30 Corey العلي, GREER is PHCP. pm1 09:30 Elias Jackson MD is Attending Physician. pm1 09:52 XRAY Chest (1 view) In Process Unspecified. EDMS 10:05 Initial lab(s) drawn, by me, sent to lab. Inserted saline lock: 22 gauge in right jb1 antecubital area, using aseptic technique. Blood collected. 10:10 Patient has correct armband on for positive identification. Bed in low position. Call sg light in reach. Pulse ox on. NIBP on. Warm blanket given. Head of bed. 10:29 Jevon Grey, RN is Primary Nurse. sg 11:32 CT Chest For PE Angio In Process Unspecified. EDMS 12:03 Trevin Garcia MD is Hospitalizing Provider. pm1 12:06 Awaiting: admitting physician, awaiting admission orders, awaiting a bed assignment at this time, will continue to monitor. 13:12 No provider procedures requiring assistance completed. Patient admitted, IV remains in sg place. intact, No redness/swelling at site. Patient maintains SpO2 saturation greater than 95% on room air. Administered Medications: 10:08 Drug: NS 0.9% 500 ml Route: IV; Rate: bolus; Site: right antecubital; sg 10:10 Drug: fentaNYL (PF) 25 mcg Route: IVP; Site: right antecubital; sg 10:10 Drug: Zofran 4 mg Route: IVP; Site: right antecubital; sg 11:15 Drug: morphine 4 mg Route: IVP; Site: right antecubital; sg Outcome: 12:03 Decision to Hospitalize by Provider. pm1 13:12 Admitted to Tele accompanied by tech, via wheelchair, room 228, with chart, Report sg called to Tamy SCHWARTZ 13:12 Condition: good 13:12 Instructed on the need for admit, safety practices, Demonstrated understanding of instructions. 13:19 Patient left the ED. jl7 Signatures: Dispatcher [employer] EDMS Rick He jb1 Jevon Grey, RN Kaylin Ferguson Irene, Vaishnavi Cheng RN, solar photovoltaic installer EKG Tat1 Corey العلي, COMMERCIAL LOAN OFFICER COMMERCIAL LOAN OFFICER pm1 Brian Soares, LANA SCHWARTZ jl7
--- NOTE | 2019-06-06 12:05 | EDPHYS ---
Physician Documentation [facility] Name: Christina Alfaro Age: 23 yrs Sex: Female : 1995 Arrival Date: 06/06/2019 Time: 09:02 Bed 8 Private MD: out of town, doctor ED Physician Elias Jackson HPI: 06/06 10:15 This 23 yrs old Female presents to ER via Ambulatory with complaints of Chest pm1 Pain. 10:15 The patient or guardian reports chest pain that is located primarily in the mid-sternal pm1 area. The pain radiates to the left shoulder, left jaw, right jaw. Associated signs and symptoms: Pertinent positives: shortness of breath, Pertinent negatives: abdominal pain, cough, nausea, vomiting. The chest pain is described as a pressure. Duration: The patient or guardian reports a single episode. Modifying factors: The symptoms are alleviated by nothing. the symptoms are aggravated by nothing. Severity of pain: in the emergency department the pain is actually worse. The patient has experienced a previous episode, post delivery of child 4 months ago. Developed cardiomyopathy with 40% ejection fraction. Took carvedilol for 1 month and repeat u/s showed normal EF and medication discontinued.. Patient reports pain radiation to jaw and left shoulder worse today. Historical: - Allergies: 09:26 Latex, Natural Rubber; around mouth; iw - Home Meds: :26 None [Active]; iw - PMHx: :26 Colitis; iw - PSHx: 09:26 Tonsillectomy; ; iw - Immunization history:: Adult Immunizations up to date. - Social history:: Smoking status: Patient/guardian denies using tobacco. - Ebola Screening: : Patient negative for fever greater than or equal to 101.5 degrees Fahrenheit, and additional compatible Ebola Virus Disease symptoms Patient denies exposure to infectious person Patient denies travel to an Ebola-affected area in the 21 days before illness onset No symptoms or risks identified at this time. ROS: 10:15 Constitutional: Negative for fever, chills, and weight loss, Eyes: Negative for injury, pm1 pain, redness, and discharge, ENT: Negative for injury, pain, and discharge, Neck: Negative for injury, pain, and swelling. 10:15 Abdomen/GI: Negative for abdominal pain, nausea, vomiting, diarrhea, and constipation, Back: Negative for injury and pain, : Negative for injury, bleeding, discharge, and swelling, MS/Extremity: Negative for injury and deformity, Skin: Negative for injury, rash, and discoloration, Neuro: Negative for headache, weakness, numbness, tingling, and seizure. 10:15 Cardiovascular: Positive for chest pain, Negative for edema, palpitations. 10:15 Respiratory: Positive for shortness of breath, Negative for cough. Exam: 10:15 Constitutional: This is a well developed, well nourished patient who is awake, alert, pm1 and in no acute distress. Head/Face: Normocephalic, atraumatic. Neck: Trachea midline, no thyromegaly or masses palpated, and no cervical lymphadenopathy. Supple, full range of motion without nuchal rigidity, or vertebral point tenderness. No Meningismus. Chest/axilla: Normal chest wall appearance and motion. Nontender with no deformity. No lesions are appreciated. Respiratory: Lungs have equal breath sounds bilaterally, clear to auscultation and percussion. No rales, rhonchi or wheezes noted. No increased work of breathing, no retractions or nasal flaring. Abdomen/GI: Soft, non-tender, with normal bowel sounds. No distension or tympany. No guarding or rebound. No evidence of tenderness throughout. Back: No spinal tenderness. No costovertebral tenderness. Full range of motion. 10:15 Cardiovascular: Rate: bradycardic, Rhythm: regular, Pulses: no pulse deficits are appreciated, Heart sounds: normal. Vital Signs: 09:26 BP 98 / 77; Pulse 55; Resp 16; Temp 98.0; Pulse Ox 99% on R/A; Weight 99.79 kg; Height iw 5 ft. 9 in. (175.26 cm); Pain 8/10; 09:26 Body Mass Index 32.49 (99.79 kg, 175.26 cm) iw MDM: 09:30 Patient medically screened. pm1 11:40 Data reviewed: vital signs. Data interpreted: Pulse oximetry: on room air is 99 %. pm1 Interpretation: normal. 11:46 Counseling: I had a detailed discussion with the patient and/or guardian regarding: the pm1 historical points, exam findings, and any diagnostic results supporting the discharge/admit diagnosis, lab results, radiology results, the need for further work-up and treatment in the hospital. 12:02 Physician consultation: Trevin Garcia MD was called at 11:58, was contacted at 11:58, pm1 regarding admission, patient's condition, and will see patient in ED. 06/06 09:38 Order name: Basic Metabolic Panel; Complete Time: 10:56 pm1 06/06 09:38 Order name: CBC with Diff; Complete Time: 10:13 pm1 06/06 09:38 Order name: LFT's; Complete Time: 10:56 pm1 06/06 09:38 Order name: Magnesium; Complete Time: 10:56 pm1 06/06 09:38 Order name: NT PRO-BNP; Complete Time: 10:56 pm1 06/06 09:38 Order name: PT-INR; Complete Time: 10:16 pm1 06/06 09:38 Order name: Troponin (emerg Dept Use Only); Complete Time: 10:56 pm1 06/06 12:35 Order name: CKMB Creatine Kinase MB [facility] 06/06 12:35 Order name: CKMB Creatine Kinase MB [facility] 06/06 12:35 Order name: CKMB Creatine Kinase MB [facility] 06/06 12:36 Order name: Creatine Phosphokinase [facility] 06/06 12:36 Order name: Creatine Phosphokinase [facility] 06/06 12:36 Order name: Troponin I [facility] 06/06 12:36 Order name: Troponin I [facility] 06/06 09:38 Order name: XRAY Chest (1 view); Complete Time: 10:11 pm1 06/06 09:38 Order name: EKG; Complete Time: 09:39 pm1 06/06 09:38 Order name: Cardiac monitoring; Complete Time: 09:53 pm1 06/06 09:38 Order name: EKG - Nurse/Tech; Complete Time: 09:53 pm1 06/06 09:38 Order name: IV Saline Lock; Complete Time: 10:05 pm1 06/06 09:38 Order name: Labs collected and sent; Complete Time: 10:05 pm1 06/06 09:38 Order name: O2 Per Protocol; Complete Time: 09:53 pm1 06/06 09:38 Order name: O2 Sat Monitoring; Complete Time: 09:53 pm1 06/06 11:03 Order name: CT Chest For PE Angio; Complete Time: 11:47 pm1 06/06 12:36 Order name: CONS Pharmacy Consult EDTN 06/06 12:36 Order name: Heart Healthy EDTN EC:16 Rate is 58 beats/min. Rhythm is irregular, Sinus bradycardia with sinus arrhythmia. No pm1 Q waves. T waves are Normal. No ST changes noted. Clinical impression: Sinus saulo cardia with sinus arryhtmia. Administered Medications: 10:08 Drug: NS 0.9% 500 ml Route: IV; Rate: bolus; Site: right antecubital; sg 10:10 Drug: fentaNYL (PF) 25 mcg Route: IVP; Site: right antecubital; sg 10:10 Drug: Zofran 4 mg Route: IVP; Site: right antecubital; sg 11:15 Drug: morphine 4 mg Route: IVP; Site: right antecubital; sg Disposition: 06/06/19 12:03 Hospitalization ordered by Trevin Garcia for Observation. Preliminary diagnosis is Chest pain, unspecified. - Bed requested for Telemetry/MedSurg (observation). - Status is Observation. jl7 - Condition is Stable. - Problem is new. - Symptoms have improved. UTI on Admission? No Addendum: 06/12/2019 07:06 Co-signature as Attending Physician, Elias Jackson MD Did not see or evaluate patient. p s1 Chart signed for administrative purposes. Not and endorsement of care. . Signatures: Dispatcher [employer] [facility] sylwiaSharlene palomino Jevon Ortez RN RN sg Emma Talley RN RN iw Corey العلي, MANAGER CASINO MANAGER CASINO pm1 Brian Soares RN RN jl7 Elias Jackson MD MD ps1 Corrections: (The following items were deleted from the chart) 06/06 12:48 12:03 Hospitalization Ordered by Trevin Garcia MD for Observation. Preliminary bd diagnosis is Chest pain, unspecified. Bed requested for Telemetry/MedSurg (observation). Status is Observation. Condition is Stable. Problem is new. Symptoms have improved. UTI on Admission? No. pm1 13:19 12:48 06/06/2019 12:03 Hospitalization Ordered by Trevin Garcia MD for Observation. jl7 Preliminary diagnosis is Chest pain, unspecified. Bed requested for Telemetry/MedSurg (observation). Status is Observation. Condition is Stable. Problem is new. Symptoms have improved. UTI on Admission? No. bd
[2019-06-06] MEDS ORDERED: ACETAMINOPHEN 500 MG TAB PO PRN (12:29)
[2019-06-06] MEDS ORDERED: MORPHINE 2 MG/ML SYR IV PRN (12:29)
[2019-06-06] MEDS ORDERED: ONDANSETRON 4 MG/2 ML VIAL IV PRN (12:29)
--- NOTE | 2019-06-06 12:35 | P.HP ---
Certification for Inpatient Patient admitted to: Observation With expected LOS: <2 Midnights Patient will require the following post-hospital care: None Practitioner: I am a practitioner with admitting privileges, knowledge of patient current condition, hospital course, and medical plan of care. Services: Services provided to patient in accordance with Admission requirements found in Title 42 Section 412.3 of the Code of Federal Regulations Patient History Date of Service: 06/06/19 Reason for admission: Chest pain History of Present Illness: 23-year-old female with past medical history of cardiomyopathy admitted with chest discomfort . chest pain was going on for a week and was progressively worsening. Located retrosternal pressure-like radiating to the neck, not associated with any diaphoresis. Denies any shortness of breath. No fever no chills. Not associated with any cough patient has a history of cardiomyopathy and has been on Coreg. His initial EF was 40-45 which got better and normalized. Hence was discontinued coreg. At the time of interview, patient denies in shortness of breath but still continues to have chest pain 5/10 in severity. Was admitted in view of possible ACS Allergies No Known Allergies Allergy (Uncoded 03/05/17 13:33) Unknown Home Medications: NK [No Home Meds] 06/06/19 - Past Medical/Surgical History Past Medical History: Reviewed- Non-Contributory -: cardiomyopathy Past Surgical History: Reviewed- Non-Contributory -: 4 months back - Family History Family History: Reviewed- Non-Contributory - Social History Smoking Status: Never smoker Review of Systems 10-point ROS is otherwise unremarkable Eyes: Unremarkable ENT: Unremarkable Physical Examination - Vital Signs Temperature: 98 F Blood Pressure: 98/77 Pulse: 55 - Physical Exam General: Alert, In no apparent distress, Oriented x3 HEENT: Atraumatic, Normocephalic Neck: Supple Respiratory: Clear to auscultation bilaterally, Normal air movement Cardiovascular: Normal pulses, Regular rate/rhythm Capillary refill: <2 Seconds Gastrointestinal: Soft and benign, Non-distended, W/out hepatosplenomegaly Musculoskeletal: No clubbing, No swelling Integumentary: No rashes, No breakdown Neurological: Normal speech, Normal strength at 5/5 x4 extr Lymphatics: No axilla or inguinal lymphadenopathy Urinary: Other (No bladder distention) External genitalia: Deferred Rectal: Deferred - Studies Laboratory Data (last 24 hrs) 06/06/19 10:00: PT 11.9, INR 1.01 06/06/19 10:00: WBC 5.4, Hgb 11.9 L, Hct 35.0 L, Plt Count 172 06/06/19 10:00: Sodium 140, Potassium 4.0, BUN 7, Creatinine 0.61, Glucose 80, Magnesium 2.0, Total Bilirubin 0.2, AST 17, ALT 28, Alkaline Phosphatase 67 Assessment and Plan - Problems (Diagnosis) (1) Chest pain Current Visit: Yes Status: Acute Plan: Chest pain to rule out ACS Trend cardiac enzymes Monitor under telemetry Will get an echocardiogram given her history of cardiomyopathy Cardiology consult pain control CTA was negative for PE Discharge Plan: Home Plan to discharge in: 24 Hours - Advance Directives Does patient have a Living Will: No Does patient have a Durable POA for Healthcare: No Time Spent Managing Pts Care (In Minutes): 42
[2019-06-06 13:32] VITALS: O2SAT 99
[2019-06-06 13:36] VITALS: BMI 32.8
[2019-06-06] MEDS ORDERED: KETOROLAC 30 MG/ML INJ IV PRN (14:49)
[2019-06-06 18:26] LABS: CKMB Creatine Kinase MB < 1.0 ng/mL (0.3-3.6); Creatine Phosphokinase 89 U/L (26-192)
[2019-06-06 21:04] VITALS: BP 111/53; TEMP 97.6
[2019-06-06 21:33] LABS: CKMB Creatine Kinase MB < 1.0 ng/mL (0.3-3.6); Creatine Phosphokinase 88 U/L (26-192)
--- NOTE | 2019-06-07 07:57 | ECHO ---
HEIGHT: 5 ft 9 in WEIGHT: 222 lb 9 oz DATE OF STUDY: 06/06/[address]: Calvin Garcia DO 2-DIMENSIONAL: YES M.MODE: YES DOPPLER: YES COLOR FLOW: YES TDS: NO PORTABLE: NO DEFINITY: NO BUBBLE STUDY: NO DIAGNOSIS: CONGESTIVE HEART FAILURE, CHEST PAIN CARDIAC HISTORY: CATHERIZATION: NO SURGERY: NO PROSTHETIC VALVE: NO PACEMAKER: NO MEASUREMENTS (cm) DIASTOLIC (NORMALS) SYSTOLIC (NORMALS) IVSd 0.8 (0.6-1.2) LA Diam 3.4 (1.9-4.0) LVEF 67% LVIDd 5.1 (3.5-5.7) LVIDs 3.2 (2.0-3.5) %FS 38% LVPWd 0.9 (0.6-1.2) Ao Diam 2.6 (2.0-3.7) 2 DIMENSIONAL ASSESSMENT: RIGHT ATRIUM: NORMAL LEFT ATRIUM: NORMAL RIGHT VENTRICLE: NORMAL LEFT VENTRICLE: NORMAL TRICUSPID VALVE: NORMAL MITRAL VALVE: NORMAL PULMONIC VALVE: NORMAL AORTIC VALVE: NORMAL PERICARDIAL EFFUSION: NONE AORTIC ROOT: NORMAL LEFT VENTRICULAR WALL MOTION: NORMAL DOPPLER/COLOR FLOW: MILD TRICUSPID REGURGITATION. COMMENTS: MILD TRICUSPID REGURGITATION. NORMAL RIGHT VENTRICULAR SYSTOLIC PRESSURE. NORMAL SIZE AND FUNCTION. NO WALL MOTION ABNORMALITY. NO EFFUSION. TECHNOLOGIST: Tameka ATWOOD
[2019-06-07] MEDS ORDERED: ASPIRIN EC 81 MG TAB PO SCH (09:00)
== END 2019-06-06 21:28 | disposition left against medical advice (07) | DRG 313 ==
LOC: ER 09:00 → ERHOLD 12:30 → 2ND 13:11
PROVIDERS: ADMIT Family Medicine; ATTEND Family Medicine
DX: R07.9 Chest pain, unspecified (principal)
CPT/HCPCS: 36415; 71045; 71275; 80048; 80076; 82550; 82553; 83735; 83880; 84484; 85025; 85610; 93005; 93306; 96374; 96375; 99285; J2270; J2405; J3010; J7040; Q9967

== ENCOUNTER 2022-02-06 10:54 | Emergency (ER) | payer OTHER, SELFPAY ==
--- OUTSIDE RECORDS SUMMARY | 2022-02-06 11:01 | XMS REPORT | Continuity of Care Document ---
:1995 Author Organization [facility] t Address [address] [place] [address] Care Team Providers Name Role Phone Pcp, Does Not Have A Primary Care Physician Kristy ALONZO Attending Clinician Unavailable Kristy Alonzo DO Attending Clinician SRAVAN Attending Clinician Unavailable Wendy Balderas Attending Clinician WENDY MTZ Attending Clinician Unavailable POLLY DERAS Attending Clinician Unavailable Noelle SWENSON Attending Clinician Librado SWENSON, K.H. Attending Clinician Akinsikalina CNP, C Attending Clinician Cheri PARIMUTUEL TICKET CHECKER, N Attending Clinician Doctor Unassigned, Name Attending Clinician Unavailable Freeman Moore Attending Clinician Gustavo Roldan Attending Clinician Visit, Nurse Attending Clinician Unavailable Blayne SWENSON Attending Clinician Jesu Adams MD Attending Clinician DENICE Attending Clinician Unavailable SRAVAN Admitting Clinician Unavailable Noelle SWENSON Admitting Clinician Gustavo Roldan Admitting Clinician Blayne SWENSON Admitting Clinician Payers Payer Name Policy Type Policy Number Effective Date Expiration Date S shobha Problems Condition Condition Condition Status Onset Resolution Last Treating Co mments Source Name Details Category Date Date Treatment Clinician Date Chest pain Chest pain Disease Active 2019- U nivers 8-28 ity of 00:00: [place] 00 Medical Branch Disease Active 2019- U nivers cardiomyop cardiomyop 8-06 it y of athy athy 00:00: [place] [facility] Bradycardi Bradycardi Disease Active 2019- U nivers a a 8-04 ity of 00:00: [place] 00 Medical Branch Tubal Tubal Disease Active 2019 Univers ligation ligation 7 ity of evaluation evaluation 00:00[place] 00 Medical Branch 35 weeks 35 weeks Disease Active Unive rs gestation gestation 7 ity of of of 00:00: [place] 00 [facility] Obesity Obesity Disease Active Univers (BMI (BMI 7-23 ity of 30-39.9) 30-39.9) 00:00: [place] 00 Medical Branch History of History of Disease Active U nivers bilateral bilateral 02-07 ity of tubal tubal 00:00: [place] ligation ligation 00 Medica l Branch Other Other Disease Active Univers depression depression 6-10 it y of 00:00: [place] 00 Medical Branch Headache Headache Disease Active Unive rs in [place] 4-24 [place] [facility] [place] Low-lying Low-lying Disease Active 2019 Overview: Univers placenta placenta 3-27 See usg ity o f 00:00: report , [place] follow up Medical 01/11/19-r Branch esolved Eczema Eczema Disease Active 2019- Univers 3-01 ity of 00:00: [place] 00 Medical Branch Susceptibl Susceptibl Disease Active 2019 Overview : Univers e e 2-04 Formattin ity of varicella varicella 00:00: g of this [place] note Medical might be Branch different from the original. Address pp Supervisio Supervisio Disease Active 2019- U nivers n of n of 2-01 ity of high-risk high-risk 00:[place] [facility] Multiparit Multiparit Disease Active 2019- U nivers y y 2-01 ity of 00:00: [place] 00 Medical Branch Family [facility] Reports i ty of Down Down 00:00: pervious [place] syndrome syndrome 00 child Medica l with down Branch syndrome, quad screen was done at the time but it was not detected. Order detailed anatomy with genetics- pending Tobacco Tobacco Disease Active Univers use in use in - [place] of 00[place] [facility] Obesity in Obesity in Disease Active U nivers 08-19 ity of 00:00: [facility] Pelvic Pelvic Disease Active Overview: Thu s disproport disproport 08-19 Formattin ity of ion ion 00:00: g of this note Medical might be Branch different from the original. As reported by patient History of [facility] of Disease [facility] it[facility] of section section 00:00: [facility] Tobacco Tobacco Disease Active Univers use use 08-19 ity of 00:00: [facility] Tobacco Tobacco Disease Active Univers use use 08-19 ity of 00:00: [facility] Family Family Disease [facility]: [facility] of 08-19 Formattin ity of Down Down 00:00: g of this [place] syndrome syndrome 00 note Medica l might be Branch different from the original. Reports pervious child with down syndrome, quad screen was done at the time but it was not detected. Order detailed anatomy with genetics- pending Allergies, Adverse Reactions, Alerts Allergy Allergy Status Severity Reaction(s) Onset Inactive Treating Comm ents Source Name Type Date Date Clinician Latex Propensi Active Rash 2016-07 Univers ty to 07-20 ity of adverse 00:00: [place] reaction 00 [facility] s Branch LATEX DRUG Active Rash 2016-07 Univers INGREDI 07-20 ity of 00:00: Medical [place] Social History Social Habit Start Date Stop Date Quantity Comments Source Exposure to Not sure University of SARS-CoV-2 (event) [facility] Alcohol intake 2021-08-18 2021-08-18 Current University of 00:00:00 00:00:00 non-drinker of [facility] alcohol Branch (finding) Tobacco use and 2019-03-02 2019-03-02 Never used Universit y of exposure 00:00:00 00:00:00 [facility] Cigarettes smoked 2019-03-02 2019-03-02 Univers ity of current (pack per 00:00:00 00:00:00 ) - Reported Branch Cigarette 2019-03-02 2019-03-02 University of pack-years 00:00:00 00:00:00 [facility] Sex Assigned At [birth year] Universit y of 00:00:00 00:00:00 [facility] Smoking Status Start Date Stop Date Source Former smoker 2019-03-02 00:00:00 2019-03-02 00:00:00 Universi ty of [facility] Current every day 2019-02-07 00:00:00 [facility] smoker [facility] Medications Ordered Filled Start Stop Current Ordering Indication Dosage Frequency Signature Comments Components Source Medication Medication Date Date Medication? Clinician (SIG) Name Name HYDROcodone 2021- No 1{tbl} 1 tablet, Univers -acetaminop 08-18 Oral, ity of hen (NORCO 17:15: 16:15 ONCE, 1 Eduin as 5) 5-325 mg 00 :00 dose, On Medi amirah tablet 1 Mon Branch tablet 08/18/21 at 1115, LORENZA ondansetron 2021- No 4mg 4 mg, Univ ers (ZOFRAN-ODT 08-18 Oral, ity of ) 17:15: 16:15 ONCE, 1 [place] disintegrat 00 :00 dose, On Medi amirah ing tablet Mon Branch 4 mg 08/18/21 at 1115, Routine ondansetron Yes [id number] 4mg Take 1 Univers 4 mg 08-18 tablet by ity of disintegrat 00:00: mouth [place] ing tablet 00 every 8 Medica l (eight) Branch hours as needed for Nausea and Vomiting (N/V). sulfamethox 2021- No [id number] 1{tbl} Take 1 Univers azole-trime 08-1808 tablet by it y of thoprim 00:00: 05:59 mouth [place] 800-160 mg 00 :00 every 12 Medic al per tablet (twelve) Branc h hours for 7 days. NaCl 0.9% 2019- No 1000mL at 999 Uni vers (NS) bolus 2- 02-19 mL/hr, ity of infusion 23:30: 23:30 1,000 mL, Eduin as 1,000 mL 00 :00 IV Medical Infusion, [place] ONCE, 1 dose, [facility] 09/06/19 at 1730, STAT LORazepam 2019-0 2020- No 1mg 1 mg, Slow U nivers (ATIVAN) 09-06 IV Push, ity of injection 1 23:30: 22:36 ONCE, 1 [place] mg 00 :00 dose, [facility] 09/06/19 at Branch 1730, STAT buPROPion 2018- Yes 150mg 150 mg, Univ ers XL 03-16 Oral, ity of (WELLBUTRIN 14:00: DAILY, [place] tablet 00 First dose Med ical 150 mg on [place] 03/16/19 at 0900, Until Discontinu ed, Routine morpHINE 2018- 2019- No 2mg 2 mg, Slow Un luz injection 2 03-15 IV Push, ity of mg 23:00: 22:59 Q4HPRN, [place] 52 :52 Starting [facility] 03/15/19 at 1800, Until [place] 03/16/19 at 1759, Routine, Pain (scale 7-10), Chest pain traMADol 2018- 2019- No 50mg 50 mg, Univer s (ULTRAM) 03-15 Oral, ity of tablet 50 23:00: 22:59 Q8HPRN, [place] mg 49 :49 Starting [facility] 03/15/19 at 1800, Until Wed03/17/19 at 1759, Routine, Pain (scale 4-6) acetaminoph 2018- Yes 650mg 650 mg, Un luz en 03-15 Oral, ity of (TYLENOL) 23:00: Q6HPRN, [place] tablet 650 46 Starting Medic al mg [facility] 03/15/19 at 1800, Until Discontinu ed, Routine, Pain (scale 1-3) BUPROPION 2019- Yes [id number] TAKE 1 Un luz XL 150 mg 8-15 TABLET BY ity o f 24 hr 00:00: MOUTH ONCE [place] tablet 00 DAILY [facility] BUPROPION 2019-0 Yes [id number] TAKE 1 Un luz XL 150 mg 8-15 TABLET BY ity o f 24 hr 00:00: MOUTH ONCE [place] tablet 00 DAILY Medical [place] BUPROPION Yes [id number] TAKE 1 Un luz XL 150 mg 8-15 TABLET BY ity o f 24 hr 00:00: MOUTH ONCE [place] tablet 00 DAILY [facility] BUPROPION Yes [id number] TAKE 1 Un luz XL 150 mg 8-15 TABLET BY ity o f 24 hr 00:00: MOUTH ONCE [place] tablet 00 DAILY Medical [place] BUPROPION Yes [id number] TAKE 1 Un luz XL 150 mg 8-15 TABLET BY ity o f 24 hr 00:00: MOUTH ONCE [place] tablet 00 DAILY [facility] BUPROPION Yes [id number] TAKE 1 Un luz XL 150 mg 8-15 TABLET BY ity o f 24 hr 00:00: MOUTH ONCE [place] tablet 00 DAILY [facility] BUPROPION Yes [id number] TAKE 1 Un luz XL 150 mg 8-15 TABLET BY ity o f 24 hr 00:00: MOUTH ONCE [place] tablet 00 DAILY [facility] iohexol 2019- No 120mL 120 mL, Unive rs (OMNIPAQUE 02-27 Intravenou it y of 350 04:15: 04:04 s, ONCE, 1 [place] BULK-100 00 :00 dose, [facility] Medica l mL) 02/26/19 at Branch injection 2315, 120 mL Routine HYDROcodone 2018- No 1{tbl} 1 tablet, Univers -acetaminop 02-27 Oral, ONCE i ty of hen (NORCO) 04:00: 03:06 NOW, 1 Eduin as 10-325 mg 00 :00 dose, [facility] Medic al tablet 1 02/26/19 at [facility] h tablet 2300, Routine ondansetron 2019- No 4mg 4 mg, Slow Univers (ZOFRAN 02-27 IV Push, ity of (PF)) 04:00: 03:05 ONCE, 1 [place] injection 4 00 :00 dose, [facility] Med ical mg 02/26/19 at Branch 2300, LORENZA NaCl 0.9% 2019- No 1000mL at 999 Uni vers (NS) bolus 02-27 mL/hr, ity of infusion 04:00: 04:14 1,000 mL, Eduin as 1,000 mL 00 :00 IV Medical Infusion, [place] ONCE, 1 dose, 02/26/19 at 2300, STAT maalox:diph 2019- No 15mL 15 mL, Uni vers enhydrAMINE 02-27 Oral, ity of :lidocaine2 04:00: 04:00 ONCE, 1 [place] %viscous 00 :00 dose, [place] Medica l 1:1:1: 02/26/19 at Branch suspension 2300, (COMPOUNDED Routine ) ranitidine 2018- Yes [id number] 150mg Take 1 Univers (ZANTAC) 8-11 tablet by ity of 150 mg 00:00: mouth 2 [place] tablet 00 (two) Medical times Branch daily. Follow up with your MD for further evaluation and treatment. traMADol 2018- Yes [id number] 50mg Take 1 Un luz (ULTRAM) 50 8-11 tablet by ity of mg tablet 00:00: mouth [place] 00 every 8 Medical (eight) Branch hours as needed for Pain (scale 4-6). ranitidine 2018- Yes [id number] 150mg Take 1 Univers (ZANTAC) 8-11 tablet by ity of 150 mg 00:00: mouth 2 [place] tablet 00 (two) Medical times Branch daily. Follow up with your MD for further evaluation and treatment. traMADol Yes [id number] 50mg Take 1 Un luz (ULTRAM) 50 8-11 tablet by ity of mg tablet 00:00: mouth [place] 00 every 8 Medical (eight) Branch hours as needed for Pain (scale 4-6). Omeprazole 2019- No [id number] 20mg Take 1 Univers 20 mg 8-05 26-22 tablet by ity of tablet 00:00: 04:59 mouth [place] 00 :00 daily for Medical 10 days. Branch Omeprazole 2019- No [id number] 20mg Take 1 Univers 20 mg 8-11 08-22 tablet by ity of tablet 00:00: 04:59 mouth [place] 00 :00 daily for Medical 10 days. Branch Omeprazole 2019- No [id number] 20mg Take 1 Univers 20 mg 8-05 26- tablet by ity of tablet 00:00: 04:59 mouth [place] 00 :00 daily for Medical 10 days. Branch Omeprazole 2019- No [id number] 20mg Take 1 Univers 20 mg 8-11 08-22 tablet by ity of tablet 00:00: 04:59 mouth [place] 00 :00 daily for Medical 10 days. Branch Omeprazole 2019- No [id number] 20mg Take 1 Univers 20 mg 8-05 26-22 tablet by ity of tablet 00:00: 04:59 mouth [place] 00 :00 daily for Medical 10 days. Branch Omeprazole 2019- No [id number] 20mg Take 1 Univers 20 mg 8-05 26-22 tablet by ity of tablet 00:00: 04:59 mouth [place] 00 :00 daily for Medical 10 days. Branch Omeprazole 2019- No [id number] 20mg Take 1 Univers 20 mg 8-05 26-22 tablet by ity of tablet 00:00: 04:59 mouth [place] 00 :00 daily for Medical 10 days. Branch ibuprofen 2019- No [id number] 600mg Take 1 Univers 600 mg 02-26-17 tablet by ity of tablet 00:00: 04:59 mouth 4 [place] 00 :00 (four) Medical times Branch daily as needed for Pain (scale 4-6) for up to 5 days. ibuprofen 2019- No [id number] 600mg Take 1 Univers 600 mg 02-26- tablet by ity of tablet 00:00: 04:59 mouth 4 [place] 00 :00 (four) Medical times Branch daily as needed for Pain (scale 4-6) for up to 5 days. ranitidine 2019- No [id number] 150mg Take 1 Univers (ZANTAC) 02-26 tablet by ity o f 150 mg 00:00: 00:00 mouth 2 [place] tablet 00 :00 (two) Medical times Branch daily. Follow up with your MD for further evaluation and treatment. traMADol 2019- No [id number] 50mg Take 1 U nivers (ULTRAM) 50 02-26- tablet by it y of mg tablet 00:00: 00:00 mouth [place] 00 :00 every 8 Medical (eight) Branch hours as needed for Pain (scale 4-6). ibuprofen 2019- No [id number] 600mg Take 1 Univers 600 mg 02-26-14 tablet by ity of tablet 00:00: 00:00 mouth 4 [place] 00 :00 (four) Medical times Branch daily as needed for Pain (scale 4-6) for up to 5 days. furosemide 2019- No 20mg 20 mg, Univ ers (LASIX) 02-21 Oral, ity of tablet 20 20:42: 20:49 ONCE, 1 [place] mg 00 :00 dose, [facility] 02/21/19 at Branch 1545, LORENZA HYDROcodone 2019- No 1{tbl} 1 tablet, Univers -acetaminop 02-21 Oral, ity of hen (NORCO 11:34: 11:33 Q6HPRN, Eduin as 5) 5-325 mg 58 :58 Starting Medi amirah tablet 1 02/21/19 Branc h tablet at 0634, Until [place] 02/23/19 at 0633, Routine, Pain (scale 4-6) KCL 2019- No 40meq 40 mEq, Univers (KLOR-CON 02-21 Oral, ity of M20) tablet 10:45: 10:22 ONCE, 1 [place] 40 mEq 00 :00 dose, [facility] 02/21/19 at Branch 0545, Routine magnesium 2019- No 2g 2 g, IV [facility] ers sulfate in 02-21 Piggyback, it y of water 2 10:45: 10:46 ONCE, 1 [place] gram/50 mL 00 :00 dose, [facility] Medi amiarh (4 %) 02/21/19 at [place] infusion 2 0545, g Routine carvedilol Yes [id number] 3.125mg Take 1 Univers 3.125 mg 8- tablet by ity of tablet 00:00: mouth 2 [place] 00 (two) Medical times [place] daily with meals. furosemide 2018- Yes [id number] 20mg Take 1 U nivers 20 mg 8-06 tablet by ity of tablet 00:00: mouth [place] 00 daily. [facility] Branch carvedilol Yes [id number] 3.125mg Take 1 Univers 3.125 mg 8-06 tablet by ity of tablet 00:00: mouth 2 [place] 00 (two) Medical times [place] daily with meals. furosemide 2018- Yes [id number] 20mg Take 1 U nivers 20 mg 8-06 tablet by ity of tablet 00:00: mouth [place] 00 daily. [facility] Branch carvedilol 2018- Yes [id number] 3.125mg Take 1 Univers 3.125 mg 8-06 tablet by ity of tablet 00:00: mouth (two) Medical times Branch daily with meals. furosemide 2018-0 Yes [id number] 20mg Take 1 U nivers 20 mg 8-06 tablet by ity of tablet 00:00: mouth 00 daily. Medical Branch carvedilol 2018- Yes [id number] 3.125mg Take 1 Univers 3.125 mg 8-06 tablet by ity of tablet 00:00: mouth (two) Medical times Branch daily with meals. furosemide 2018- Yes [id number] 20mg Take 1 U nivers 20 mg 8-06 tablet by ity of tablet 00:00: mouth 00 daily. Medical Branch carvedilol Yes [id number] 3.125mg Take 1 Univers 3.125 mg 8-06 tablet by ity of tablet 00:00: mouth (two) Medical times Branch daily with meals. carvedilol Yes [id number] 3.125mg Take 1 Univers 3.125 mg 8-06 tablet by ity of tablet 00:00: mouth (two) Medical times Branch daily with meals. carvedilol 2018-0 Yes [id number] 3.125mg Take 1 Univers 3.125 mg 8-06 tablet by ity of tablet 00:00: mouth (two) Medical times Branch daily with meals. carvedilol 2018- Yes [id number] 3.125mg Take 1 Univers 3.125 mg 8-06 tablet by ity of tablet 00:00: mouth (two) Medical times Branch daily with meals. carvedilol Yes [id number] 3.125mg Take 1 Univers 3.125 mg 8-06 tablet by ity of tablet 00:00: mouth (two) Medical times Branch daily with meals. carvedilol 2018-0 Yes [id number] 3.125mg Take 1 Univers 3.125 mg 8-06 tablet by ity of tablet 00:00: mouth (two) Medical times Branch daily with meals. carvedilol 2018-0 Yes [id number] 3.125mg Take 1 Univers 3.125 mg 8-06 tablet by ity of tablet 00:00: mouth 2 [place] 00 (two) Medical times Branch daily with meals. carvedilol 2018- No [id number] 3.125mg Take 1 Univers 3.125 mg 02-21- tablet by ity o f tablet 00:00: 00:00 mouth 2 [place] 00 :00 (two) Medical times Branch daily with meals. carvedilol 2019- No [id number] 3.125mg Take 1 Univers 3.125 mg 02-21- tablet by ity o f tablet 00:00: 00:00 mouth 2 [place] 00 :00 (two) Medical times Branch daily with meals. furosemide 2019- No [id number] 20mg Take 1 Univers 20 mg 02-21- tablet by ity of tablet 00:00: 00:00 mouth [place] 00 :00 daily. Medical Branch furosemide 2018- No [id number] 20mg Take 1 Univers 20 mg 02-21- tablet by ity of tablet 00:00: 00:00 mouth [place] 00 :00 daily. Medical Branch traMADol Yes 50mg 50 mg, Univers (ULTRAM) 8-05 Oral, ity of tablet 50 18:45: Q6HPRN, [place] mg [address] [facility] 02/20/19 Branch at 1345, Until Discontinu ed, Routine, Pain (scale 4-6) KCL 2019- No 40meq 40 mEq, Univers (KLOR-CON 8- 08-05 Oral, ity of M20) tablet 09:15: 09:29 ONCE, 1 [place] 40 mEq 00 :00 dose, [facility] Medical 02/20/19 at Branch 0415, Routine buPROPion Yes 150mg 150 mg, Univ ers XL 8-04 Oral, ity of (WELLBUTRIN 14:00: DAILY, [place] XL) tablet 00 First dose Med ical 150 mg on [place] Branch 02/19/19 at 0900, Until Discontinu ed, Routine heparin Yes 5000U 5,000 Univers injection 8-04 Units, ity of 5,000 Units 13:00: Subcutaneo [place] 00 us, Q12H, Medical First dose Branch on [place] 02/19/19 at 0800, Until Discontinu ed, Routine aspirin 2019-0 2019- No 325mg 325 mg, Unive rs tablet 325 02-19 Oral, ity of mg 08:00: 08:02 ONCE, 1 [place] 00 :00 dose, [place] Medical 02/19/19 at Branch 0300, Routine nitroglycer 2018-0 Yes .4mg 0.4 mg, Uni vers in 02-19 Sublingual ity of (NITROSTAT) 07:42: , Q5MIN Eduin as sublingual 29 PRN, Medical tablet 0.4 Starting Branc h mg [place] 02/19/19 at 0242, Until Discontinu ed, Routine, Chest pain HYDROcodone 2019- No 1{tbl} 1 tablet, Univers -acetaminop 02-19 Oral, ity of hen (NORCO 07:41: 07:40 Q6HPRN, Eduin as 5) 5-325 mg 59 :59 Starting Medi amirah tablet 1 [place] 02/19/19 Branc h tablet at 0241, Until 02/21/19 at 0240, Routine, Pain (scale 4-6) acetaminoph 2018- Yes 650mg 650 mg, Un luz en 02-19 Oral, ity of (TYLENOL) 07:41: Q6HPRN, [place] tablet 650 56 Starting Medic al mg [place] 02/19/19 Branch at 0241, Until Discontinu ed, Routine, Pain (scale 1-3) HYDROcodone 2018- Yes [id number] 1{tbl} Take 1 Univers -acetaminop 7-26 tablet by ity of hen 5-325 00:00: mouth [place] mg tablet 00 every 6 Medical (six) Branch hours as needed for Pain (scale 4-6) (If uncontroll ed by Ibuprofen) . HYDROcodone 2018- Yes [id number] 1{tbl} Take 1 Univers -acetaminop 7-26 tablet by ity of hen 5-325 00:00: mouth [place] mg tablet 00 every 6 Medical (six) Branch hours as needed for Pain (scale 4-6) (If uncontroll ed by Ibuprofen) . HYDROcodone 2018- Yes [id number] 1{tbl} Take 1 Univers -acetaminop 7-26 tablet by ity of hen 5-325 00:00: mouth [place] mg tablet 00 every 6 Medical (six) Branch hours as needed for Pain (scale 4-6) (If uncontroll ed by Ibuprofen) . HYDROcodone Yes [id number] 1{tbl} Take 1 Univers -acetaminop 7-26 tablet by ity of hen 5-325 00:00: mouth [place] mg tablet 00 every 6 Medical (six) Branch hours as needed for Pain (scale 4-6) (If uncontroll ed by Ibuprofen) . HYDROcodone 2019- No [id number] 1{tbl} Take 1 Univers -acetaminop 7-26 08-06 tablet by it y of hen 5-325 00:00: 00:00 mouth [place] mg tablet 00 :00 every 6 Medical (six) Branch hours as needed for Pain (scale 4-6) (If uncontroll ed by Ibuprofen) . buPROPion Yes 150mg 150 mg, Univ ers XL 02-09 Oral, ity of (WELLBUTRIN 14:00: DAILY, [place] XL) tablet 00 First dose Med ical 150 mg on [facility] Branch 02/09/19 at 0900, Until Discontinu ed, Routine ketorolac 2019- No 30mg 30 mg, Unive rs (TORADOL) 02-09 Intramuscu ity of injection 10:09: 11:15 lar, ONCE, [place] 30 mg 00 :00 1 dose, Medical [facility] 02/09/19 at 0515, Routine
science faculty member approving Restricted medication : ТАТЬЯНА RAMEY diphenhydra 2019- No Take by U preetjuliann mine HCl 02-08 mouth. ity of (BENADRYL 14:22: 00:00 [place] ORAL) 06 :00 Medical Branch varicella 2019- No .5mL 0.5 mL, [facility] ers virus 02-08 Subcutaneo ity of vaccine 11:36: 22:19 us, [place] live 45 :00 ONCE-PRIOR Medical (VARIVAX TO Branch (PF)) DISCHARGE, injection 1 dose, 0.5 mL Starting [facility] 02/08/19 at 0636, Until Discontinu ed, Routine, Give vaccine prior to discharge lactated 2019- No 1000mL at 125 Univ ers ringers IV 02-08-24 mL/hr, ity of infusion 05:15: 07:53 1,000 mL, Eduin as 1,000 mL 00 :00 IV Medical Infusion, Branch ONCE, 1 dose, 02/08/19 at 0015, Routine HYDROcodone 2019-0 Yes 2{tbl} 2 tablet, Univers -acetaminop 7-24 Oral, ity of hen (NORCO 05:08: Q6HPRN, [place] 5) 5-325 mg 01 Starting Medi amirah tablet 2 Wed Branch tablet 02/08/19 at 0008, Until Discontinu ed, Routine, Pain (scale 7-10), If uncontroll ed by Ibuprofen HYDROcodone 2019-0 Yes 1{tbl} 1 tablet, Univers -acetaminop 02-08 Oral, ity of hen (NORCO 05:08: Q6HPRN, [place] 5) 5-325 mg 01 Starting Medi amirah tablet 1 Wed Branch tablet 02/08/19 at 0008, Until Discontinu ed, Routine, Pain (scale 4-6), If uncontroll ed by Ibuprofen ibuprofen 2019-0 Yes 600mg 600 mg, Univ ers (IBU) 02-08 Oral, ity of tablet 600 05:08: Q6HPRN, [place] mg Starting Medical Wed Branch 02/08/19 at 0008, Until Discontinu ed, Routine, Pain (scale 1-3) diphenhydrA 2019-0 Yes 25mg 25 mg, Univ ers MINE 02-08 Oral, ity of (BENADRYL) 05:08: Q6HPRN, [place] tablet 25 01 Starting Medica l mg Wed Branch 02/08/19 at 0008, Until Discontinu ed, Routine, Sleep, Itching ondansetron 2019-0 Yes 4mg 4 mg, Slow Univers (ZOFRAN 02-08 IV Push, ity of (PF)) 05:08: Q8HPRN, [place] injection 4 01 Starting Medi amirah mg Wed Branch 02/08/19 at 0008, Until Discontinu ed, Routine, Nausea and Vomiting (N/V) bisacodyl 2019-0 Yes 10mg 10 mg, Univer s (DULCOLAX) 02-08 Rectal, ity of suppository 05:08: QDAILYPRN, [place] 10 mg Starting Medical Wed Branch 02/08/19 at 0008, Until Discontinu ed, Routine, Constipati on simethicone 2019-0 Yes 160mg 160 mg, Un luz (GAS 02-08 Oral, ity of RELIEF) 05:08: PC+HSPRN, [place] chewable 01 Starting Medical tablet 160 Wed Branch mg 02/08/19 at 0008, Until Discontinu ed, Routine, Gas docusate Yes 240mg 240 mg, Unive rs calcium 02-08 Oral, ity of (SURFAK) 05:08: QDAILYPRN, Eduin as capsule 240 01 Starting Medi amirah mg Wed Branch 02/08/19 at 0008, Until Discontinu ed, Routine, Constipati on magnesium Yes 30mL 30 mL, Univer s hydroxide 02-08 Oral, ity of (MILK OF 05:08: QDAILYPRN, Eduin as MAGNESIA) 01 Starting Medica l 400 mg/5 mL Wed Branch suspension 02/08/19 at 30 mL 0008, Until Discontinu ed, Routine, Constipati on ketorolac 2019- No 30mg 30 mg, Unive rs (TORADOL) 02-08 Intramuscu ity of injection 03:58: 03:51 lar, [place] 30 mg 09 :00 Q6HPRN X Medical 24 HOURS, Branch 2 doses, Starting Wed02/07/19 at 2258, Until Discontinu ed, Routine, Pain (scale 4-6), PACU
Fa culty member approving Restricted medication : LD PACU nalbuphine 2019- No 5mg 5 mg, Unive rs (NUBAIN) 02-08 Intravenou ity of injection 5 03:58: 04:40 s, PRN, 1 [place] mg 09 :00 dose, Medical Starting Branch Wed02/07/19 at 2258, Until Discontinu ed, Routine, Itching, PACU LR 1000 mL 2019- No at 125 Univ ers + oxytocin 02-08 mL/hr, IV ity of 20 units IV 02:00: 05:08 Infusion, [place] Solution 00 :06 CONTINUOUS Medic al , Starting Branch Wed02/07/19 at 2100, Until Wed02/08/19 at 0008, LORENZA terbutaline 2019- No .25mg 0.25 mg, Univers (BRETHINE) 02-08 Subcutaneo it y of injection 01:30: 00:27 [place], ONCE, [place] 0.25 mg 00 :00 1 dose, Medical Tue Branch 02/07/19 at 2030, Routine lactated 2019- 2019- No 500mL at 999 Unive rs ringers IV - 07-24 mL/hr, 500 it y of infusion 01:00: 00:47 mL, IV [place] 500 mL 00 :00 Infusion, Medical ONCE, 1 Branch dose, 02/07/19 at 2000, Routine 2019-0 Yes [id number] 1{tbl} Take 1 Univers vitamin 7-24 tablet by ity of w/FA tablet 00:00: mouth [place] 00 daily. May Medical substitute Branch for what is in stock and covered by patient plan docusate Yes [id number] 240mg Take 1 [facility] nivers calcium 240 7-24 capsule by it y of mg capsule 00:00: mouth [place] 00 daily as Medical needed for Branch Constipati on. May substitute for what is in stock and covered by patient plan ferrous 2019 Yes [id number] 325mg Take 1 Un luz sulfate 325 7-24 tablet by ity of mg (65 mg 00:00: mouth 2 [place] iron) 00 (two) Medical tablet times Branch daily. May substitute for what is in stock and covered by patient plan ibuprofen Yes [id number] 600mg Take 1 [facility] 600 mg 7-24 tablet by ity of tablet 00:00: mouth [place] 00 every 6 Medical (six) Branch hours as needed for Pain (scale 1-3) or Pain (scale 4-6) (Pain). Take with food or milk. 2019-0 Yes [id number] 1{tbl} Take 1 [facility] vitamin 7-24 tablet by ity of w/FA tablet 00:00: mouth [place] 00 daily. May Medical substitute Branch for what is in stock and covered by patient plan docusate Yes [id number] 240mg Take 1 [facility] n[facility] calcium 240 7-24 capsule by it y of mg capsule 00:00: mouth once [place] 00 daily as Medical needed for Branch Constipati on. May substitute for what is in stock and covered by patient plan ferrous 2019- Yes [id number] 325mg Take 1 Un luz sulfate 325 7-24 tablet by ity of mg (65 mg 00:00: mouth 2 [place] iron) 00 (two) Medical tablet times Branch daily. May substitute for what is in stock and covered by patient plan ibuprofen Yes [id number] 600mg Take 1 [facility] 600 mg 7-24 tablet by ity of tablet 00:00: mouth [place] 00 every 6 Medical (six) Branch hours as needed for Pain (scale 1-3) or Pain (scale 4-6) (Pain). Take with food or milk. Yes [id number] 1{tbl} Take 1 [facility] vitamin 7-24 tablet by ity of w/FA tablet 00:00: mouth [place] 00 daily. May Medical substitute Branch for what is in stock and covered by patient plan docusate Yes [id number] 240mg Take 1 [facility] nivers calcium 240 7-24 capsule by it y of mg capsule 00:00: mouth once [place] 00 daily as Medical needed for Branch Constipati on. May substitute for what is in stock and covered by patient plan ferrous Yes [id number] 325mg Take 1 Un luz sulfate 325 7-24 tablet by ity of mg (65 mg 00:00: mouth 2 [place] iron) 00 (two) Medical tablet times Branch daily. May substitute for what is in stock and covered by patient plan ibuprofen Yes [id number] 600mg Take 1 [facility] 600 mg 7-24 tablet by ity of tablet 00:00: mouth [place] 00 every 6 Medical (six) Branch hours as needed for Pain (scale 1-3) or Pain (scale 4-6) (Pain). Take with food or milk. Yes [id number] 1{tbl} Take 1 [facility] vitamin 7-24 tablet by ity of w/FA tablet 00:00: mouth [place] 00 daily. May Medical substitute Branch for what is in stock and covered by patient plan docusate Yes [id number] 240mg Take 1 [facility] n[facility] calcium 240 7-24 capsule by it y of mg capsule 00:00: mouth once [place] 00 daily as Medical needed for Branch Constipati on. May substitute for what is in stock and covered by patient plan ferrous Yes [id number] 325mg Take 1 Un luz sulfate 325 7-24 tablet by ity of mg (65 mg 00:00: mouth 2 [place] iron) 00 (two) Medical tablet times Branch daily. May substitute for what is in stock and covered by patient plan ibuprofen Yes [id number] 600mg Take 1 [facility] 600 mg 7-24 tablet by ity of tablet 00:00: mouth [place] 00 every 6 Medical (six) Branch hours as needed for Pain (scale 1-3) or Pain (scale 4-6) (Pain). Take with food or milk. Yes [id number] 1{tbl} Take 1 [facility] vitamin 7-24 tablet by ity of w/FA tablet 00:00: mouth [place] 00 daily. May Medical substitute Branch for what is in stock and covered by patient plan docusate Yes [id number] 240mg Take 1 [facility] n[facility] calcium 240 7-24 capsule by it y of mg capsule 00:00: mouth once [place] 00 daily as Medical needed for Branch Constipati on. May substitute for what is in stock and covered by patient plan ferrous Yes [id number] 325mg Take 1 Un luz sulfate 325 7-24 tablet by ity of mg (65 mg 00:00: mouth 2 [place] iron) 00 (two) Medical tablet times Branch daily. May substitute for what is in stock and covered by patient plan ibuprofen Yes [id number] 600mg Take 1 [facility] 600 mg 7-24 tablet by ity of tablet 00:00: mouth [place] 00 every 6 Medical (six) Branch hours as needed for Pain (scale 1-3) or Pain (scale 4-6) (Pain). Take with food or milk. Yes [id number] 1{tbl} Take 1 [facility] vitamin 7-24 tablet by ity of w/FA tablet 00:00: mouth [place] 00 daily. May Medical substitute Branch for what is in stock and covered by patient plan docusate Yes [id number] 240mg Take 1 [facility] n[facility] calcium 240 7-24 capsule by it y of mg capsule 00:00: mouth once [place] 00 daily as Medical needed for Branch Constipati on. May substitute for what is in stock and covered by patient plan ferrous Yes [id number] 325mg Take 1 Un luz sulfate 325 7-24 tablet by ity of mg (65 mg 00:00: mouth 2 [place] iron) 00 (two) Medical tablet times Branch daily. May substitute for what is in stock and covered by patient plan ibuprofen Yes [id number] 600mg Take 1 [facility] 600 mg 7-24 tablet by ity of tablet 00:00: mouth [place] 00 every 6 Medical (six) Branch hours as needed for Pain (scale 1-3) or Pain (scale 4-6) (Pain). Take with food or milk. Yes [id number] 1{tbl} Take 1 [facility] vitamin 7-24 tablet by ity of w/FA tablet 00:00: mouth [place] 00 daily. May Medical substitute Branch for what is in stock and covered by patient plan docusate Yes [id number] 240mg Take 1 [facility] n[facility] calcium 240 7-24 capsule by it y of mg capsule 00:00: mouth once [place] 00 daily as Medical needed for Branch Constipati on. May substitute for what is in stock and covered by patient plan ferrous Yes [id number] 325mg Take 1 Un luz sulfate 325 7-24 tablet by ity of mg (65 mg 00:00: mouth 2 [place] iron) 00 (two) Medical tablet times Branch daily. May substitute for what is in stock and covered by patient plan ibuprofen Yes [id number] 600mg Take 1 [facility] 600 mg 7-24 tablet by ity of tablet 00:00: mouth [place] 00 every 6 Medical (six) Branch hours as needed for Pain (scale 1-3) or Pain (scale 4-6) (Pain). Take with food or milk. Yes [id number] 1{tbl} Take 1 [facility] vitamin 7-24 tablet by ity of w/FA tablet 00:00: mouth [place] 00 daily. May Medical substitute Branch for what is in stock and covered by patient plan docusate Yes [id number] 240mg Take 1 [facility] n[facility] calcium 240 7-24 capsule by it y of mg capsule 00:00: mouth once [place] 00 daily as Medical needed for Branch Constipati on. May substitute for what is in stock and covered by patient plan ibuprofen Yes [id number] 600mg Take 1 [facility] 600 mg 7-24 tablet by ity of tablet 00:00: mouth [place] 00 every 6 Medical (six) Branch hours as needed for Pain (scale 1-3) or Pain (scale 4-6) (Pain). Take with food or milk. Yes [id number] 1{tbl} Take 1 [facility] vitamin 7-24 tablet by ity of w/FA tablet 00:00: mouth [place] 00 daily. May Medical substitute Branch for what is in stock and covered by patient plan docusate Yes [id number] 240mg Take 1 [facility] n[facility] calcium 240 7-24 capsule by it y of mg capsule 00:00: mouth once [place] 00 daily as Medical needed for Branch Constipati on. May substitute for what is in stock and covered by patient plan ibuprofen Yes [id number] 600mg Take 1 [facility] 600 mg 7-24 tablet by ity of tablet 00:00: mouth [place] 00 every 6 Medical (six) Branch hours as needed for Pain (scale 1-3) or Pain (scale 4-6) (Pain). Take with food or milk. Yes [id number] 1{tbl} Take 1 [facility] vitamin 7-24 tablet by ity of w/FA tablet 00:00: mouth [place] 00 daily. May Medical substitute Branch for what is in stock and covered by patient plan docusate Yes [id number] 240mg Take 1 [facility] n[facility] calcium 240 7-24 capsule by it y of mg capsule 00:00: mouth once [place] 00 daily as Medical needed for Branch Constipati on. May substitute for what is in stock and covered by patient plan ibuprofen Yes [id number] 600mg Take 1 [facility] 600 mg 7-24 tablet by ity of tablet 00:00: mouth [place] 00 every 6 Medical (six) Branch hours as needed for Pain (scale 1-3) or Pain (scale 4-6) (Pain). Take with food or milk. Yes [id number] 1{tbl} Take 1 [facility] vitamin 7-24 tablet by ity of w/FA tablet 00:00: mouth [place] 00 daily. May Medical substitute Branch for what is in stock and covered by patient plan docusate Yes [id number] 240mg Take 1 [facility] n[facility] calcium 240 7-24 capsule by it y of mg capsule 00:00: mouth once [place] 00 daily as Medical needed for Branch Constipati on. May substitute for what is in stock and covered by patient plan ibuprofen Yes [id number] 600mg Take 1 [facility] 600 mg 7-24 tablet by ity of tablet 00:00: mouth [place] 00 every 6 Medical (six) Branch hours as needed for Pain (scale 1-3) or Pain (scale 4-6) (Pain). Take with food or milk. Yes [id number] 1{tbl} Take 1 [facility] vitamin 7-24 tablet by ity of w/FA tablet 00:00: mouth [place] 00 daily. May Medical substitute Branch for what is in stock and covered by patient plan docusate Yes [id number] 240mg Take 1 [facility] calcium 240 7-24 capsule by it y of mg capsule 00:00: mouth once [place] 00 daily as Medical needed for Branch Constipati on. May substitute for what is in stock and covered by patient plan ibuprofen Yes [id number] 600mg Take 1 [facility] 600 mg 7-24 tablet by ity of tablet 00:00: mouth [place] 00 every 6 Medical (six) Branch hours as needed for Pain (scale 1-3) or Pain (scale 4-6) (Pain). Take with food or milk. Yes [id number] 1{tbl} Take 1 [facility] vitamin 7-24 tablet by ity of w/FA tablet 00:00: mouth [place] 00 daily. May Medical substitute Branch for what is in stock and covered by patient plan docusate Yes [id number] 240mg Take 1 [facility] n[facility] calcium 240 7-24 capsule by it y of mg capsule 00:00: mouth once [place] 00 daily as Medical needed for Branch Constipati on. May substitute for what is in stock and covered by patient plan ibuprofen Yes [id number] 600mg Take 1 [facility] 600 mg 7-24 tablet by ity of tablet 00:00: mouth [place] 00 every 6 Medical (six) Branch hours as needed for Pain (scale 1-3) or Pain (scale 4-6) (Pain). Take with food or milk. Yes [id number] 1{tbl} Take 1 [facility] vitamin 7-24 tablet by ity of w/FA tablet 00:00: mouth [place] 00 daily. May Medical substitute Branch for what is in stock and covered by patient plan docusate Yes [id number] 240mg Take 1 [facility] n[facility] calcium 240 7-24 capsule by it y of mg capsule 00:00: mouth once [place] 00 daily as Medical needed for Branch Constipati on. May substitute for what is in stock and covered by patient plan ibuprofen Yes [id number] 600mg Take 1 [facility] 600 mg 7-24 tablet by ity of tablet 00:00: mouth [place] 00 every 6 Medical (six) Branch hours as needed for Pain (scale 1-3) or Pain (scale 4-6) (Pain). Take with food or milk. Yes [id number] 1{tbl} Take 1 [facility] vitamin 7-24 tablet by ity of w/FA tablet 00:00: mouth [place] 00 daily. May Medical substitute Branch for what is in stock and covered by patient plan docusate Yes [id number] 240mg Take 1 [facility] n[facility] calcium 240 7-24 capsule by it y of mg capsule 00:00: mouth once [place] 00 daily as Medical needed for Branch Constipati on. May substitute for what is in stock and covered by patient plan ibuprofen Yes [id number] 600mg Take 1 [facility] 600 mg 7-24 tablet by ity of tablet 00:00: mouth [place] 00 every 6 Medical (six) Branch hours as needed for Pain (scale 1-3) or Pain (scale 4-6) (Pain). Take with food or milk. Yes [id number] 1{tbl} Take 1 [facility] vitamin 7-24 tablet by ity of w/FA tablet 00:00: mouth [place] 00 daily. May Medical substitute Branch for what is in stock and covered by patient plan docusate Yes [id number] 240mg Take 1 [facility] n[facility] calcium 240 7-24 capsule by it y of mg capsule 00:00: mouth once [place] 00 daily as Medical needed for Branch Constipati on. May substitute for what is in stock and covered by patient plan ibuprofen Yes [id number] 600mg Take 1 [facility] 600 mg 7-24 tablet by ity of tablet 00:00: mouth [place] 00 every 6 Medical (six) Branch hours as needed for Pain (scale 1-3) or Pain (scale 4-6) (Pain). Take with food or milk. Yes [id number] 1{tbl} Take 1 [facility] vitamin 7-24 tablet by ity of w/FA tablet 00:00: mouth [place] 00 daily. May Medical substitute Branch for what is in stock and covered by patient plan docusate Yes [id number] 240mg Take 1 [facility] nivers calcium 240 7-24 capsule by it y of mg capsule 00:00: mouth once [place] 00 daily as Medical needed for Branch Constipati on. May substitute for what is in stock and covered by patient plan ibuprofen Yes [id number] 600mg Take 1 [facility] 600 mg 7-24 tablet by ity of tablet 00:00: mouth [place] 00 every 6 Medical (six) Branch hours as needed for Pain (scale 1-3) or Pain (scale 4-6) (Pain). Take with food or milk. Yes [id number] 1{tbl} Take 1 [facility] vitamin 7-24 tablet by ity of w/FA tablet 00:00: mouth [place] 00 daily. May Medical substitute Branch for what is in stock and covered by patient plan docusate Yes [id number] 240mg Take 1 [facility] n[facility] calcium 240 7-24 capsule by it y of mg capsule 00:00: mouth once [place] 00 daily as Medical needed for Branch Constipati on. May substitute for what is in stock and covered by patient plan ibuprofen Yes [id number] 600mg Take 1 [facility] 600 mg 7-24 tablet by ity of tablet 00:00: mouth [place] 00 every 6 Medical (six) Branch hours as needed for Pain (scale 1-3) or Pain (scale 4-6) (Pain). Take with food or milk. Yes [id number] 1{tbl} Take 1 [facility] vitamin 7-24 tablet by ity of w/FA tablet 00:00: mouth [place] 00 daily. May Medical substitute Branch for what is in stock and covered by patient plan Yes [id number] 1{tbl} Take 1 [facility] vitamin 7-24 tablet by ity of w/FA tablet 00:00: mouth [place] 00 daily. May Medical substitute Branch for what is in stock and covered by patient plan docusate Yes [id number] 240mg Take 1 [facility] n[facility] calcium 240 7-24 capsule by it y of mg capsule 00:00: mouth once [place] 00 daily as Medical needed for Branch Constipati on. May substitute for what is in stock and covered by patient plan ibuprofen Yes [id number] 600mg Take 1 [facility] 600 mg 7-24 tablet by ity of tablet 00:00: mouth [place] 00 every 6 Medical (six) Branch hours as needed for Pain (scale 1-3) or Pain (scale 4-6) (Pain). Take with food or milk. docusate Yes [id number] 240mg Take 1 [facility] nivers calcium 240 7-24 capsule by it y of mg capsule 00:00: mouth once [place] 00 daily as Medical needed for Branch Constipati on. May substitute for what is in stock and covered by patient plan ferrous Yes [id number] 325mg Take 1 Un luz sulfate 325 7-24 tablet by ity of mg (65 mg 00:00: mouth 2 [place] iron) 00 (two) Medical tablet times Branch daily. May substitute for what is in stock and covered by patient plan ibuprofen Yes [id number] 600mg Take 1 [facility] 600 mg 7-24 tablet by ity of tablet 00:00: mouth [place] 00 every 6 Medical (six) Branch hours as needed for Pain (scale 1-3) or Pain (scale 4-6) (Pain). Take with food or milk. ferrous 2019- No [id number] 325mg Take 1 [facility] n[facility] sulfate 325 7-24 08-14 tablet by it y of mg (65 mg 00:00: 00:00 mouth 2 [place] iron) 00 :00 (two) Medical tablet times Branch daily. May substitute for what is in stock and covered by patient plan lactated 2019- No 1000mL at 125 Univ ers ringers IV 02-08 07-24 mL/hr, ity of infusion 00:00: 05:08 1,000 mL, Eduin as 1,000 mL 00 :06 IV Medical Infusion, Branch CONTINUOUS , Starting Wed02/07/19 at 1900, Until Wed02/08/19 at 0008, Routine ceFAZolin 2019- No 2000mg 2 g (2,000 [facility] in dextrose 02-07 07-24 mg), IV ity of (iso-os) 23:55: 01:20 Piggyback, [place] (ANCEF) 2 06 :00 O.R. Medical gram/100 mL HOLDING Branc h Piggyback 2 ONCE, 1 g dose, Starting Wed02/07/19 at 1855, Until Discontinu ed, 100 mL
Reas on for Anti-Infec tive: Surgical Prophylaxi s
Surgi amirah Prophylaxi s: DWARF TREE GROWER
Duration of therapy: within 24 hours of surgery sodium 2019-0 2019- No 30mL 30 mL, [facility] citrate-cit 02-07 07-24 Oral, ity of nj acid 23:55: 01:20 PRE-PROCED [place] (BICITRA) 06 :00 URE ONCE, Medic al 500-334 1 dose, Branch mg/5 mL Starting solution 30 Tue mL 02/07/19 at 1855, Until Discontinu ed, Routine, Surgery buPROPion 2018-0 Yes [id number] 150mg Take 1 U nivers XL 7-11 tablet by ity of (WELLBUTRIN 00:00: mouth [place] XL) 150 mg 00 daily. Medical 24 hr Branch tablet buPROPion 2018-0 Yes [id number] 150mg Take 1 U nivers XL 7-11 tablet by ity of (WELLBUTRIN 00:00: mouth [place] XL) 150 mg 00 daily. Medical 24 hr Branch tablet buPROPion 2018-0 Yes [id number] 150mg Take 1 [facility] nivers XL 7-11 tablet by ity of (WELLBUTRIN 00:00: mouth [place] XL) 150 mg 00 daily. Medical 24 hr Branch tablet buPROPion 2018-0 Yes TAKE 1 Univer s XL 150 mg 7-11 TABLET BY ity o f 24 hr 00:00: MOUTH ONCE [place] tablet 00 DAILY Medical Branch buPROPion 2019-0 Yes TAKE 1 Univer s XL 150 mg 7-11 TABLET BY ity o f 24 hr 00:00: MOUTH ONCE [place] tablet 00 DAILY Medical Branch buPROPion 2018-0 Yes TAKE 1 Univer s XL 150 mg 7-11 TABLET BY ity o f 24 hr 00:00: MOUTH ONCE [place] tablet 00 DAILY Medical Branch buPROPion 2018-0 Yes TAKE 1 Univer s XL 150 mg 7-11 TABLET BY ity o f 24 hr 00:00: MOUTH ONCE [place] tablet 00 DAILY Medical Branch buPROPion 2018-0 Yes TAKE 1 Univer s XL 150 mg 7-11 TABLET BY ity o f 24 hr 00:00: MOUTH ONCE [place] tablet 00 DAILY Medical Branch buPROPion 2018-0 Yes TAKE 1 Univer s XL 150 mg 7-11 TABLET BY ity o f 24 hr 00:00: MOUTH ONCE [place] tablet 00 DAILY Medical Branch buPROPion Yes TAKE 1 Univer s XL 150 mg 7-11 TABLET BY ity o f 24 hr 00:00: MOUTH ONCE [place] tablet 00 DAILY Medical Branch buPROPion Yes [id number] 150mg Take 1 U nivers XL 7-11 tablet by ity of (WELLBUTRIN 00:00: mouth [place] XL) 150 mg 00 daily. Medical 24 hr Branch tablet buPROPion 2019- No TAKE 1 Unive rs XL 150 mg 7-05 26- TABLET BY ity of 24 hr 00:00: 00:00 MOUTH ONCE [place] tablet 00 :00 DAILY Medical Branch buPROPion 2019- No TAKE 1 Unive rs XL 150 mg 7-05 26- TABLET BY ity of 24 hr 00:00: 00:00 MOUTH ONCE [place] tablet 00 :00 DAILY Medical Branch buPROPion 2019- No [id number] 150mg Take 1 [facility] XL 01-26-06 tablet by ity of (WELLBUTRIN 00:00: 00:00 [place] XL) 150 mg 00 :00 daily. Medical 24 hr Branch tablet doxylamine- 2019- No [id number] 2{tbl} Take 2 [facility] pyridoxine, 01-04 tablets by i ty of vit B6, 00:00: 00:00 mouth at [place] (DICLEGIS) 00 :00 bedtime. Medic al 10-10 mg Branch per tablet acetaminoph 2019- No [id number] 1{capsu Take 1 [facility] en-caff-but 12-21 le} capsule by i ty of albital 00:00: 00:00 mouth [place] (ESGIC) per 00 :00 every 4 Medic al capsule (four) Branch hours as needed (migraines ). acetaminoph 2019- No [id number] 1{capsu Take 1 [facility] en-caff-but 11-08 le} capsule by i ty of albital 00:00: 00:00 mouth [place] (ESGIC) per 00 :00 every 4 Medic al capsule (four) Branch hours as needed for Headache. nystatin-tr 2019- No [id number] [facility] area(s) 3 it y of cream 00:00: 00:00 (three) [place] 00 :00 times Medical daily. Branch proMETHazin 2019- No [id number] 25mg Take 1 [facility] e 25 mg 08-29 tablet by ity of tablet 00:00: 00:00 mouth [place] 00 :00 every 6 Medical (six) Branch hours as needed for Nausea and Vomiting (N/V). PNV 67-iron 2019- No [id number] 1{each} Take 1 [facility] ps-folate 08-19 Each by ity of no.1-dha 00:00: 00:00 mouth [place] (VITAFOL 00 :00 daily. Medical ULTRA) 29 Branch mg iron- 1 mg-200 mg Cap proMETHazin 2018- No 25mg Take 1 Uni vers e 25 mg 03-20 tablet by ity of tablet 00:00: 00:00 mouth [place] 00 :00 every 6 Medical (six) Branch hours as needed for Nausea and Vomiting (N/V). naproxen 2018- No 250mg Take 1 Unive rs 250 mg 03-20 tablet by ity of tablet 00:00: 00:00 mouth 2 [place] 00 :00 (two) Medical times Branch daily with meals. traMADOL 2018- No 50mg Take 1 Univer s (ULTRAM) 50 03-20 tablet by it y of mg tablet 00:00: 00:00 mouth [place] 00 :00 every 6 Medical (six) Branch hours as needed for Pain (scale 4-6). ranitidine 2018- No 150mg Take 1 Uni vers (ZANTAC) 03-20 tablet by ity o f 150 mg 00:00: 00:00 mouth 2 [place] tablet 00 :00 (two) Medical times Branch daily. Follow up with your MD for further evaluation and treatment. oseltamivir 2018- No 75mg Take 1 Uni vers (TAMIFLU) 08-25 capsule by ity of 75 mg 00:00: 00:00 mouth 2 [place] capsule 00 :00 (two) Medical times Branch daily. acetaminoph 2019- No 1{tbl} Take 1 U nivers en-codeine 08-25 tablet by ity of 300-30 mg 00:00: 00:00 mouth [place] tablet 00 :00 every 4 Medical (four) Branch hours as needed for Pain (scale 4-6) (Cough). metoclopram 2019- No 10mg Take 1 Uni vers bruna HCl 10 08-25 tablet by ity of mg tablet 00:00: 00:00 mouth [place] 00 :00 every 6 Medical (six) Branch hours. sulfamethox 2016-07 2019- No 1{tbl} Take 1 U nivers azole-trime 07-21 tablet by it y of thoprim 00:00: 00:00 mouth [place] 800-160 mg 00 :00 every 12 Medic al per tablet (twelve) Branc h hours. TYLENOL-COD 2019- No 1{tbl} Take 1 U nivers EINE #3 02-18 tablet by ity of 300-30 mg 00:00: 00:00 mouth [place] tablet 00 :00 every 4 Medical (four) Branch hours as needed for Pain (scale 4-6). AMOXICILLIN 2018- No 1{tbl} Take 1 U nivers -CLAVULANAT 02-18 tablet by it y of E 875-125 00:00: 00:00 mouth [place] mg per 00 :00 every 12 Medical tablet (twelve) Branch hours. Immunizations Ordered Filled Immunization Date Status Comments [facility] e Immunization Name Name Varicella 2019-02-10 Completed University of (varivax)(chicken 00:00:00 [place] M edical pox) Branch Varicella 2019-02-10 Completed University of (varivax)(chicken 00:00:00 [place] M edical pox) Branch Varicella 2019-02-10 Completed University of (varivax)(chicken 00:00:00 [place] M edical pox) Branch Varicella 2019-02-10 Completed University of (varivax)(chicken 00:00:00 [place] M edical pox) Branch Varicella 2019-02-10 Completed University of (varivax)(chicken 00:00:00 [place] M edical pox) Branch Varicella 2019-02-10 Completed University of (varivax)(chicken 00:00:00 [place] M edical pox) Branch Varicella 2019-02-10 Completed [facility] of (varivax)(chicken 00:00:00 [place] M edical pox) Branch Varicella 2019-02-10 Completed University of (varivax)(chicken 00:00:00 [place] M edical pox) Branch Varicella 2019-02-10 Completed University of (varivax)(chicken 00:00:00 [place] M edical pox) Branch Varicella 2019-02-10 Completed University of (varivax)(chicken 00:00:00 [place] M edical pox) Branch Varicella 2019-02-10 Completed University of (varivax)(chicken 00:00:00 [place] M edical pox) Branch Varicella 2019-02-10 Completed University of (varivax)(chicken 00:00:00 [place] M edical pox) Branch Varicella 2019-02-10 Completed University of (varivax)(chicken 00:00:00 [place] M edical pox) Branch Varicella 2019-02-10 Completed University of (varivax)(chicken 00:00:00 [place] M edical pox) Branch Varicella 2019-02-10 Completed University of (varivax)(chicken 00:00:00 [place] M edical pox) Branch Varicella 2019-02-10 Completed University of (varivax)(chicken 00:00:00 [place] M edical pox) Branch Varicella 2019-02-10 Completed University of (varivax)(chicken 00:00:00 [place] M edical pox) Branch Varicella 2019-02-10 Completed University of (varivax)(chicken 00:00:00 [place] M edical pox) Branch Varicella 2019-02-10 Completed University of (varivax)(chicken 00:00:00 [place] M edical pox) Branch Tdap 2018-12-26 Completed University of 00:00:00 [facility] Tdap 2018-12-26 Completed University of 00:00:00 [facility] Tdap 2018-12-26 Completed University of 00:00:00 [facility] Tdap 2018-12-26 Completed University of 00:00:00 [facility] Tdap 2018-12-26 Completed University of 00:00:00 [facility] Tdap 2018-12-26 Completed University of 00:00:00 [facility] Tdap 2018-12-26 Completed University of 00:00:00 [facility] Tdap 2018-12-26 Completed University of 00:00:00 [facility] Tdap 2018-12-26 Completed University of 00:00:00 [facility] Tdap 2018-12-26 Completed University of 00:00:00 [place] [facility] Tdap 2018-12-26 Completed University of 00:00:00 [place] [facility] Tdap 2018-12-26 Completed University of 00:00:00 [place] [facility] Tdap 2018-12-26 Completed University of 00:00:00 [place] [facility] Tdap 2018-12-26 Completed University of 00:00:00 [place] [facility] Tdap 2018-12-26 Completed University of 00:00:00 [place] [facility] Tdap 2018-12-26 Completed University of 00:00:00 [place] [facility] Tdap 2018-12-26 Completed [facility] 00:00:00 [facility] Tdap 2018-12-26 Completed [facility] 00:00:00 [facility] TDAP 2018-12-26 Completed [facility] 00:00:00 [facility] Tdap 2018-12-26 Completed [facility] 00:00:00 [facility] Vital Signs Vital Name Observation Time Observation Value Comments Source Systolic blood 2021-08-18 16:03:00 129 mm[Hg] Univer sity of pressure [facility] Diastolic blood 2021-08-18 16:03:00 88 mm[Hg] Unive rsity of pressure [facility] Heart rate 2021-08-18 16:03:00 76 /min [facility] Body temperature 2021-08-18 16:03:00 36.78 Evelina [facility] Respiratory rate 2021-08-18 16:03:00 14 /min [facility] Body weight 2021-08-18 16:03:00 96.616 kg [facility] BMI 2021-08-18 16:03:00 31.45 kg/m2 [facility] Oxygen saturation in 2021-08-18 16:03:00 100 /min [facility] Arterial blood by [facility] Pulse oximetry Branch Systolic blood 2019-09-06 23:00:00 109 mm[Hg] Univer sity of pressure [facility] Diastolic blood 2019-09-06 23:00:00 62 mm[Hg] Unive rsity of pressure [facility] Heart rate 2019-09-06 23:00:00 66 /min [facility] Respiratory rate 2019-09-06 23:00:00 21 /min [facility] Oxygen saturation in 2019-09-06 23:00:00 99 /min University of Arterial blood by [employer] amirah Pulse oximetry Branch Body temperature 2019-09-06 19:39:00 37.22 Evelina [facility] Body weight 2019-09-06 19:39:00 96.616 kg [facility] BMI 2019-09-06 19:39:00 31.45 kg/m2 [facility] Systolic blood 2019-03-16 21:00:00 112 mm[Hg] Univer sity of pressure [facility] Diastolic blood 2019-03-16 21:00:00 74 mm[Hg] Unive rsity of pressure [facility] Heart rate 2019-03-16 21:00:00 58 /min [facility] Body temperature 2019-03-16 21:00:00 36.61 Evelina [facility] Respiratory rate 2019-03-16 21:00:00 18 /min [facility] Oxygen saturation in 2019-03-16 21:00:00 96 /min University of Arterial blood by [place] [employer] amirah Pulse oximetry Branch Body height 2019-03-15 22:47:00 175.3 cm [facility] Body weight 2019-03-15 22:47:00 93.486 kg [facility] BMI 2019-03-15 22:47:00 30.44 kg/m2 [facility] Systolic blood 2019-03-02 13:18:00 112 mm[Hg] Univer sity of pressure [facility] Diastolic blood 2019-03-02 13:18:00 70 mm[Hg] Unive rsity of pressure [facility] Heart rate 2019-03-02 13:18:00 61 /min [facility] Respiratory rate 2019-03-02 13:18:00 19 /min [facility] Body height 2019-03-02 13:18:00 175.3 cm [facility] Body weight 2019-03-02 13:18:00 90.765 kg [facility] BMI 2019-03-02 13:18:00 29.55 kg/m2 [facility] Oxygen saturation in 2019-03-02 13:18:00 98 /min University of Arterial blood by [facility] Pulse oximetry Branch Systolic blood 2019-03-01 18:44:00 111 mm[Hg] Univer sity of pressure [facility] Diastolic blood 2019-03-01 18:44:00 70 mm[Hg] Unive rsity of pressure [facility] Heart rate 2019-03-01 18:44:00 65 /min [facility] Body temperature 2019-03-01 18:44:00 37.11 Evelina [facility] Respiratory rate 2019-03-01 18:44:00 16 /min [facility] Body height 2019-03-01 18:44:00 175.3 cm [facility] Body weight 2019-03-01 18:44:00 90.719 kg [facility] BMI 2019-03-01 18:44:00 29.53 kg/m2 [facility] Systolic blood 2019-02-27 04:14:01 132 mm[Hg] Univer sity of pressure [facility] Diastolic blood 2019-02-27 04:14:01 79 mm[Hg] Unive rsity of pressure [facility] Heart rate 2019-02-27 04:14:01 57 /min [facility] Respiratory rate 2019-02-27 04:14:01 18 /min [facility] Oxygen saturation in 2019-02-27 04:14:01 99 /min University of Arterial blood by [facility] Pulse oximetry Branch Body temperature 2019-02-27 02:33:00 36.83 Evelina [facility] Body weight 2019-02-27 02:33:00 91.627 kg [facility] BMI 2019-02-27 02:33:00 29.83 kg/m2 [facility] Systolic blood 2019-02-21 20:33:00 108 mm[Hg] Univer sity of pressure [facility] Diastolic blood 2019-02-21 20:33:00 64 mm[Hg] Unive rsity of pressure [facility] Heart rate 2019-02-21 20:33:00 61 /min [facility] Body temperature 2019-02-21 20:33:00 36.78 Evelina [facility] Respiratory rate 2019-02-21 20:33:00 18 /min [facility] Oxygen saturation in 2019-02-21 20:33:00 98 /min University of Arterial blood by [place] [employer] amirah P[facility] o[facility] Branch Body weight 2019-02-21 08:30:00 90.719 kg [facility] BMI 2019-02-21 08:30:00 29.53 kg/m2 [facility] Body height 2019-02-19 07:00:00 175.3 cm [facility] Systolic blood 2019-02-17 19:25:00 109 mm[Hg] Univer sity of pressure [facility] Diastolic blood 2019-02-17 19:25:00 63 mm[Hg] Unive rsity of pressure [facility] Heart rate 2019-02-17 19:25:00 57 /min [facility] Body temperature 2019-02-17 19:25:00 37 Evelina [facility] Respiratory rate 2019-02-17 19:25:00 16 /min [facility] Body height 2019-02-17 19:25:00 175.3 cm [facility] Body weight 2019-02-17 19:25:00 94.348 kg [facility] BMI 2019-02-17 19:25:00 30.72 kg/m2 [facility] Systolic blood 2019-02-10 13:00:00 114 mm[Hg] Univer sity of pressure [facility] Diastolic blood 2019-02-10 13:00:00 61 mm[Hg] Unive rsity of pressure [facility] Heart rate 2019-02-10 13:00:00 73 /min [facility] Body temperature 2019-02-10 13:00:00 36.61 Evelina [facility] Respiratory rate 2019-02-10 13:00:00 20 /min [facility] Oxygen saturation in 2019-02-10 13:00:00 99 /min University of Arterial blood by [facility] Pulse oximetry Branch Body height 2019-02-07 22:55:00 175.3 cm [facility] Body weight 2019-02-07 22:55:00 98.884 kg [facility] BMI 2019-02-07 22:55:00 32.19 kg/m2 [facility] Procedures Procedure Date / Time Performing Clinician Source Performed POCT TEST 2021-08-18 16:16:00 Chasity Alonzo [facility] URINALYSIS 2021-08-18 16:15:00 Chasity Alonzo [facility] CONSENT/REFUSAL FOR 2021-08-18 15:57:43 Doctor Unassigned, No Un iversity [facility] DIAGNOSIS AND TREATMENT [facility] NOTICE OF PRIVACY 2021-08-18 15:56:59 Doctor Unassigned, No [facility] Name [facility] POCT TEST 2019-09-06 22:35:00 Reema Mtz [facility] LIPASE 2019-09-06 22:28:00 Reema Mtz [facility] MAGNESIUM 2019-09-06 22:28:00 Sherrie [facility] TROPONIN I 2019-09-06 22:28:00 Reema Mtz [facility] COMP. METABOLIC PANEL 2019-09-06 22:28:00 Reema Mtz Wendy [facility] ([id number]) [facility] CBC WITH DIFFERENTIAL 2019-09-06 22:28:00 Reema Mtz [facility] URINALYSIS 2019-09-06 22:28:00 Reema Mtz [facility] EKG-12 LEAD 2019-09-06 22:24:22 Sherrie, K [facility] CONSENT/REFUSAL FOR 2019-09-06 19:21:51 Doctor Unassigned, No [facility] [place] DIAGNOSIS AND TREATMENT Name [facility] ECHO ROUTINE W/DOPPLER 2019-03-16 13:46:02 Eric Slade [facility] TROPONIN I 2019-03-16 09:18:00 Shayy [facility] TROPONIN I 2019-03-16 04:08:00 Shayy [facility] XR CHEST 1 VW 2019-03-15 23:32:06 Mariano [facility] EKG-12 LEAD 2019-03-15 23:25:38 Mariano [facility] TROPONIN I 2019-03-15 23:24:00 Mariano [facility] HEPATIC FUNCTION PANEL 2019-03-15 23:24:00 Mariano Drake [facility] ([id number]) (ALB,T.PRO,BILI [facility] Branch T,BU/BC,ALT,AST,ALK PHOS) BASIC METABOLIC PANEL 2019-03-15 23:24:00 Mariano Drake [facility] (NA, K, CL, CO2, Medical Branch GLUCOSE, BUN, CREATININE, CA) CBC WITH DIFFERENTIAL 2019-03-15 23:24:00 Mariano Drake [facility] N-TERMINAL PRO-BNP 2019-03-15 23:24:00 Mariano Drake [facility] EXTERNAL PROVIDER 2019-02-27 05:01:00 Doctor Unassigned, No [facility] RECORDS Name [facility] CT CHEST PULMONARY 2019-02-27 04:11:18 Jeremie Eng [facility] ANGIOGRAM Medical Branch XR CHEST 2 VW 2019-02-27 03:46:15 Jeremie Eng [facility] LIPASE 2019-02-27 02:59:00 Jeremie [facility] TROPONIN I 2019-02-27 02:59:00 Jeremie [facility] COMP. METABOLIC PANEL 2019-02-27 02:59:00 Jeremie Eng [facility] ([id number]) [facility] CBC WITH DIFFERENTIAL 2019-02-27 02:59:00 Jeremie Eng [facility] D-DIMER 2019-02-27 02:59:00 Jeremie [facility] N-TERMINAL PRO-BNP 2019-02-27 02:59:00 Jeremie Eng [facility] CONSENT/REFUSAL FOR 2019-02-27 02:19:40 Doctor Unassigned, No [facility] DIAGNOSIS AND TREATMENT Name Medical [place] MAGNESIUM 2019-02-21 08:39:00 [facility] BASIC METABOLIC PANEL 2019-02-21 08:39:00 Harazeen, [facility] (NA, K, CL, CO2, Medical Branch GLUCOSE, BUN, CREATININE, CA) CBC WITH DIFFERENTIAL 2019-02-21 08:39:00 Reid [facility] ECHO ROUTINE W/DOPPLER 2019-02-20 20:55:11 Luís Peacock [facility] EKG-12 LEAD 2019-02-20 12:20:50 Rosales Diane [facility] MAGNESIUM 2019-02-20 09:34:00 Reid [facility] o f [facility] TROPONIN I 2019-02-20 09:34:00 Rolo Vale [facility] BASIC METABOLIC PANEL 2019-02-20 09:34:00 Reid [facility] (NA, K, CL, CO2, Medical Branch GLUCOSE, BUN, CREATININE, CA) CBC WITH DIFFERENTIAL 2019-02-20 09:34:00 Reid [facility] GALV/CLC ONLY - URINE 2019-02-19 23:29:00 Rolo Vale [facility] DRUG (IMMUNOASSAY) - Medical Bra [facility] COMPREHENSIVE DRUG SCREEN GLYCOSYLATED HEMOGLOBIN 2019-02-19 09:15:[address] [facility] (A1C) [facility] XR CHEST 1 VW 2019-02-19 08:38:00 Rolo Vale [facility] XR KUB 2019-02-19 08:38:00 Rolo Vale [facility] PHOSPHORUS 2019-02-19 08:08:00 Rolo Vale [facility] CREATINE KINASE 2019-02-19 08:08:00 Rolo Vale [facility] LIPASE 2019-02-19 08:08:00 Rolo Vale [facility] MAGNESIUM 2019-02-19 08:08:00 Rolo Vale [facility] C-REACTIVE PROTEIN 2019-02-19 08:08:00 Rolo Vale [facility] TROPONIN I 2019-02-19 08:08:00 Rolo Vale [facility] THYROID STIMULATING 2019-02-19 08:08:00 Rolo Vale [facility] HORMONE [facility] HEPATIC FUNCTION PANEL 2019-02-19 08:08:[address] [facility] ([id number]) (ALB,T.PRO,BILI [facility] Branch T,BU/BC,ALT,AST,ALK PHOS) BASIC METABOLIC PANEL 2019-02-19 08:08:00 Rolo Vale [facility] (NA, K, CL, CO2, Medical Branch GLUCOSE, BUN, CREATININE, CA) LIPID PANEL 2019-02-19 08:08:00 Rolo Vale [facility] ([id number])(TOTAL [facility] CHOLESTEROL, TRIGLYCERIDES, HDL) SEDIMENTATION RATE 2019-02-19 08:08:00 Rolo Vale [facility] CBC WITH DIFFERENTIAL 2019-02-19 08:08:00 Rolo Vale [facility] PROTHROMBIN TIME / INR 2019-02-19 08:08:00 Rolo Vale [facility] ANTI-NUCLEAR ANTIBODY 2019-02-19 08:08:00 Rolo Vale [facility] SCREEN [facility] N-TERMINAL PRO-BNP 2019-02-19 08:08:00 Makayla Castillo [facility] CBC WITH DIFFERENTIAL 2019-02-08 09:34:00 Karen [facility] [place] SURGICAL PATHOLOGY EXAM 2019-02-08 02:28:00 America [facility] VENOUS CORD GAS 2019-02-08 02:19:00 Keon Stover [facility] SECTION 2019-02-08 01:24:00 America Adams [facility] TUBAL LIGATION 2019-02-08 01:24:00 America Adams [facility] TYPE AND SCREEN 2019-02-08 01:12:00 Keon Stover [facility] CBC WITH DIFFERENTIAL 2019-02-08 01:07:00 [facility] SURFACE 2019-02-08 01:07:00 kC [facility] ANTIGEN [facility] GALV ONLY - SYPHILIS 2019-02-08 01:07:[address] [address] IGG/IGM [facility] Encounters Start End Encounter Admission Attending Care Care Encounter Source Date/Time Date/Time Type Type Clinicians Facility Department ID 2021-08-18 2021-08-18 Emergency X CHERI [facility] ERT [id number] Univers 10:05:00 12:12:00 CHASITY ity of [facility] 2021-08-18 2021-08-18 Emergency Cheri [facility] [id number] Univers 10:05:00 12:12:00 Chasity TITUS [id number] ity of [place] 4.2.7.2.686 [facility] [phone] [address] 2020-08-14 2020-08-14 Outpatient AMBREEN_[place]AR [place] [id number] [place] 04:37:00 04:37:00 HANA 0127 [facility] 2020-08-13 2020-08-13 Outpatient AMBREEN_[place] [id number] [place] 03:38:00 03:38:00 HANA 0126 [facility] 2019-09-06 2019-09-06 Emergency Reema Mtz [facility] [id number] Univers 14:43:15 17:59:00 Wendy Titus [id number] i ty of [place] 4.2.7.2.686 [facility] [phone] [place] [address] Branch 2019-09-06 2019-09-06 Emergency X Reema MTZ [facility] ERT [id number] Univers 14:43:15 17:59:00 ity of [facility] 2019-03-15 2019-03-16 [facility] [id number] Univers 17:38:00 18:23:00 Encounter Mariano Titus [id number] ity of [place] 4.2.7.2.686 [facility] [id number] [address] 2019-03-15 2019-03-15 Telephone Librado [facility] [id number] Univers 00:00:00 00:00:00 [facility] Nidia Kirvin [id number] ity [place] [id number] Ut dicsc nal 9 [facility] 2019-03-13 2019-03-13 Patient [facility] [id number] Univers 00:00:00 00:00:00 Secure Msg Kathy C [place] [id number] ity of [facility] 4.2.7.2.686 Eduin as MATERNAL [phone] [facility] ical & CHILD [address] [place] [address] 2019-03-02 2019-03-03 Office [facility] [id number] Univers 08:01:07 21:42:30 Visit Nancy Jacob Kirvin [id number] ity [place].2.[place] [phone] [address] 2019-03-02 2019-03-02 Refill [facility] [id number] Univers 00:00:00 00:00:00 Kathy Ron [place] [id number] ity of [facility] 4.2.7.2.686 Eduin as MATERNAL [phone] [facility] & CHILD [address] [place] [address] 2019-03-01 2019-03-01 Routine [facility] [id number] Univers 13:39:28 14:12:17 Kerry N [place] 350.1.13.10 i ty of Visit [facility] 4.2.7.2.686 Eduin as MATERNAL [phone] [facility] ical & CHILD [address] [place] [address] 2019-02-27 2019-02-27 Orders Doctor ROLF 1.2.840.114 [id number] Univers 00:00:00 00:00:00 Only Unassigned, MAGALIS 350.1.13.10 ity of [place] [facility] 4.2.7.2.686 Eduin as [id number] [address] 2019-02-26 2019-02-26 Emergency Velasquez, [facility] [id number] Univers 21:35:01 23:59:00 Jeremie A Kirvin 350.1.13.10 i ty [facility] 4.2.7.2.686 [place] [facility] [id number] [address] 2019-02-24 2019-02-24 Patient Akinsipe, [facility] 1.2.912.001 [id number] Univers 00:00:00 00:00:00 Secure Msg Kathy C [place] 350.1.13.10 ity of [facility] 4.2.7.2.686 Eduin as MATERNAL [phone] [facility] ical & CHILD [address] [place] [address] 2019-02-19 2019-02-21 Hospital Mitali Diane [id number] Univers 01:57:00 18:00:00 Encounter Rosales Malagony 350.1.13.10 ity [facility] 4.2.7.2.686 Eduin as [id number] [address] 2019-02-20 2019-02-20 Patient Bucksikalina, [facility]IMB [id number] Univers 00:00:00 00:00:00 Secure Msg Kathy C [place] 350.1.13.10 ity of [facility] 4.2.7.2.686 Eduin as MATERNAL [id number] [facility] & CHILD [address] [place] [address] 2019-02-17 2019-02-17 [facility] [place] 1.2 .840.114 [id number] Univers 14:17:02 14:50:55 Visit Thalia Kathy C [place] 350.1.13. 10 ity of [facility] 4.2.7.2.686 Eduin as MATERNAL [phone] [facility] ical & CHILD [address] [place] [address] 2019-02-13 2019-02-13 Patient Bucksikalina, [facility] [id number] Univers 00:00:00 00:00:00 Secure Msg Kathy C [place] 350.1.13.10 ity of [facility] 4.2.7.2.686 Eduin as MATERNAL [id number] Med ical & CHILD [address] [facility] 2019-02-07 2019-02-10 Hospital Karen Cisneros 1.2.840.11 [id number] Univers 17:24:00 17:47:00 Encounter America Adams 350.1.13.10 ity of [facility] 4.2.7.2.686 Eudin as [phone] [facility] [address] [place] 2019-02-07 2019-02-07 Patient Doctor ROLF 1.2.840.114 [id number] Univers 00:00:00 00:00:00 Secure Msg Unassigned, MAGALIS 350.1.13.10 ity of [place] [facility] 4.2.7.2.686 Eduin as [phone] [facility] [address] [place] Results Test Description Test Time Test Comments Results Result Comments Source POCT TEST 2021-08-18 16:16:00 Test Item Value Reference Range Interpretation Comme nts POCT PREG (test code = 1605) NEGATIVE On board controls acceptable with C Line (test code = 3574) PRESENT POCT PREG LOT # (test code = 3575) [id number] POCT PREG TEST DATE (test code = 3576) 09/15/2022 Lab Interpretation (test code = 45829-6) Normal [facility] [id number] 23:08:00 Test Item Value Reference Range Interpretation Comments TROPONIN I (test <0.012 See_Comment [Automated code = 1852575718) message] The system which generated this result transmitted reference range : <=0.034 ng/mL. The reference range was not used to interpr et this result as normal/abnormal . ALVAREZ (test code = Equal or Less than ALVAREZ) 0.034 ng/ml---Normal ?Note: Cardiac troponin begins to rise 3-4 hours after the onset of ischemia. Repeat in 4-6 hours if the sample was drawn within 3-4 hours of the onset of the symptom and found normal. Between 0.035 and 0.120 ng/mL--- Borderline. Questionable myocardial injury or necrosis ? ?Note: Serial measurement may be necessary to confirm or exclude the diagnosis of myocardial injury or necrosis; Clinical correlation (symptoms, EKGs, imaging studies, and others) required; Repeat in 4-6 hours if clinically indicated. ? Equal or Higher than 0.121 ng/mL---Abnormal. Myocardial Injury or Necrosis Likely ? Biotin has been reported to cause a negative bias, interpret results relative to patient's use of biotin. ? Lab Interpretation Normal (test code = 75879-0) [facility] 22[facility]58:00 Test Item Value Reference Range Interpretation Comments MAGNESIUM (test code = 5339186621) 1.8 mg/dL 1.7-2.4 Lab Interpretation (test code = Normal 96052-3) [facility]. METABOLIC PANEL ([id number])2019-09-06 22:57:00 Test Item Value Reference Range Interpretation Comments NA (test code = 142 mmol/L 135-145 2855837421) K (test code = 3.5 mmol/L 3.5-5 4148622161) CL (test code = 104 mmol/L 98-108 4768759830) CO2 TOTAL (test code = 26 mmol/L 23-31 5481941496) AGAP (test code = 2-16 2829719639) BUN (test code = 9 mg/dL 7-23 5533071958) GLUCOSE (test code = 103 mg/dL 70-110 8549710155) CREATININE (test code 0.64 mg/dL 0.5-1.04 = 2029740160) TOTAL BILI (test code 0.3 mg/dL 0.1-1.1 = 9461539228) CALCIUM (test code = 9.3 mg/dL 8.6-10.6 3000376833) T PROTEIN (test code = 7.6 g/dL 6.3-8.2 0433851697) ALBUMIN (test code = 4.6 g/dL 3.5-5 1143134903) ALK PHOS (test code = 57 U/L 34-122 6442925534) ALTv (test code = 18 U/L 5-35 1742-6) AST(SGOT) (test code = 19 U/L 13-40 2297720544) eGFR Calculation mL/min/1.73m2 (Non-) (test code = 2429426639) eGFR Calculation mL/min/1.73m2 () (test code = 2006280069) ALVAREZ (test code = ALVAREZ) Association of Glomerular Filtration Rate (GFR) and Staging of Kidney Disease* + -+ + ---+| GFR (mL/min/1.73 m2) ?| With Kidney Damage ?| ?Without Kidney Damage+ -------+ ------+ ---------+| ?>90 ?| ?Stage one ?| ? Normal ?+ --+ -+ ----+| ?60-89 ?| ?Stage two ?| ? Decreased GFR ? + -+ + ---+| ?30-59 ?| ?Stage three ?| ? Stage three ? + -+ + ---+| ?15-29 ?| ?Stage four ? | ? Stage four ?+ --+ -+ ----+| ?<15 (or dialysis) ? ?| ?Stage five ? | ? Stage five ?+ --+ -+ ----+ *Each stage assumes the associated GFR level has been in effect for at least three months. ?Stages 1 to 5, with or without kidney disease, indicate chronic kidney disease. Notes: Determination of stages one and two (with eGFR >59mL/min/1.73 m2) requires estimation of kidney damage for at least three months as defined by structural or functional abnormalities of the kidney, manifested by either:Pathological abnormalities or Markers of kidney damage (including abnormalities in the composition of the blood or urine or abnormalities in imaging tests). [facility]57[facility]00 Test Item Value Reference Range Interpretation Comments LIPASE (test code = 7310150221) 137 U/L 0-220 Lab Interpretation (test code = Normal 51096-8) [facility]19 22:57:00 Test Item Value Reference Range Interpretation Comments APPEARANCE (test code = Clear Clear 2811097930) COLOR (test code = Yellow Yellow 0959044959) PH (test code = 4.8-8.0 5604664103) SP GRAVITY (test code = 1.003-1.030 7346017306) GLU U QUAL (test code = Normal Normal 5218894946) BLOOD (test code = Negative Negative 2425512712) KETONES (test code = 5 mg/dL Negative A 0629460371) PROTEIN (test code = Negative Negative 2887-8) UROBILIN (test code = Normal Normal 2648996726) BILIRUBIN (test code = Negative Negative 1615066148) NITRITE (test code = Negative Negative 5361803193) LEUK AXEL (test code = Negative Negative 1145295358) RBC/HPF (test code = See_Comment [Autom ated message] 7710820246) The system 1-800-DENTIST generated this result transmitted ref erence range: 0 - 3 HP F. The reference range was not used to int erpret this result as normal/abnormal . WBC/HPF (test code = <1 See_Comment [Autom ated message] [id number]) The system 1-800-DENTIST generated this result transmitted ref erence range: 0 - 5 HP F. The reference range was not used to int erpret this result as normal/abnormal . BACTERIA (test code = Few Negative A 4245818698) MUCOUS (test code = Marked Negative LPF A 2437084161) SQ EPITH (test code = HPF 1707604989) Lab Interpretation (test Abnormal code = 62170-7) [facility] WITH [id number] 22:47:00 Test Item Value Reference Range Interpretation Comments WBC (test code = See_Comment [Automated 9390-2) message] The sy stem which generated this result transmitted reference range : 4.30 - 11.10 10*3/?L. The reference range was not used to interpret this result as normal/abnormal . RBC (test code = See_Comment [Automated 651-8) message] The sy stem which generated this result transmitted reference range : 3.93 - 5.25 10*6/?L. The reference range was not used to interpret this result as normal/abnormal . HGB (test code = 12.3 g/dL 11.6-15 718-7) HCT (test code = 39.5 % 35.7-45.2 4544-3) MCV (test code = 86.1 fL 80.6-95.5 787-2) MCH (test code = 26.8 pg 25.9-32.8 785-6) MCHC (test code = 31.1 g/dL 31.6-35.1 L 786-4) RDW-SD (test code = 48.6 fL 39-49.9 38311-3) RDW-CV (test code = 15.5 % 12-15.5 788-0) PLT (test code = See_Comment [Automated 777-3) message] The sy stem which generated this result transmitted reference range : 166 - 358 10*3/ ?L. The reference r dylan was not used to interpret this result as normal/abnormal . MPV (test code = 12.9 fL 9.5-12.9 81845-7) NRBC/100 WBC (test See_Comment [Automat ed code = 4379355406) message] The system which generated this result transmitted reference range : 0.0 - 10.0 /100 WBCs. The refer ence range was not u sed to interpret th is result as normal/abnormal . NRBC x10^3 (test code <0.01 See_Comment [Auto mated = 8453560157) message] The s ystem which generated this result transmitted reference range : 10*3/?L. The reference range was not used to interpret this result as normal/abnormal . GRAN MAT (NEUT) % 63.7 % (test code = 770-8) IMM GRAN % (test code 0.30 % = 3081034697) LYMPH % (test code = 26.7 % 736-9) MONO % (test code = 5.2 % 5905-5) EOS % (test code = 3.6 % 713-8) BASO % (test code = 0.5 % 706-2) GRAN MAT x10^3(ANC) 4.91 10*3/uL 1.88-7.09 (test code = 2281517454) IMM GRAN x10^3 (test <0.03 0-0.06 code = 4630662769) LYMPH x10^3 (test code 2.06 10*3/uL 1.32-3.29 = 731-0) MONO x10^3 (test code 0.40 10*3/uL 0.33-0.92 = 742-7) EOS x10^3 (test code = 0.28 10*3/uL 0.03-0.39 711-2) BASO x10^3 (test code 0.04 10*3/uL 0.01-0.07 = 704-7) Lab Interpretation Abnormal (test code = 75564-5) [id number] 22:35[facility]00 Test Item Value Reference Range Interpretation Comments POCT PREG (test code = 1605) negative On board controls acceptable with present C Line (test code = 3574) POCT PREG LOT # (test code = 3575) [id number] POCT PREG TEST DATE (test 02/15/2021 code = 3576) Lab Interpretation (test code = Normal 79038-5) [facility] [id number] 22:12:00 Test Item Value Reference Range Interpretation Comments COLOR (BEAKER) (test code = 470) Yellow CLARITY (BEAKER) (test code = 469) Clear SPECIFIC GRAVITY UA (BEAKER) (test 1.026 1.001-1.035 code = 468) PH UA (BEAKER) (test code = 467) 6.0 5.0-8.0 PROTEIN UA (BEAKER) (test code = Negative Negative 464) GLUCOSE UA (BEAKER) (test code = Negative Negative 365) KETONES UA (BEAKER) (test code = Negative Negative 371) BILIRUBIN UA (BEAKER) (test code = Negative Negative 462) BLOOD UA (BEAKER) (test code = Negative Negative 461) NITRITE UA (BEAKER) (test code = Negative Negative 465) LEUKOCYTE ESTERASE UA (BEAKER) Moderate Negative A (test code = 466) UROBILINOGEN UA (BEAKER) (test 2.0 mg/dL 0.2-1.0 H code = 463) RBC UA (BEAKER) (test code = 519) < /HPF WBC UA (BEAKER) (test code = 520) 4 /HPF MUCUS (BEAKER) (test code = 1574) Occasional SQUAMOUS EPITHELIAL (BEAKER) (test 3 /HPF code = 516) SOURCE(BEAKER) (test code = 2795) Card Dealer ID - [auto]Card Dealer ID - hankPREGNANCY SCREEN, [id number] 22:10:00 Test Item Value Reference Range Interpretation Comments TEST URINE (BEAKER) (test Negative code = 583) B-TYPE NATRIURETIC FACTOR (BNP)2019-09-02 21:01:00 Test Item Value Reference Range Interpretation Comments B-TYPE NATRIURETIC PEPTIDE (BEAKER) 25 pg/mL 0-100 (test code = 700) Card Dealer ID - YASMINEN [id number] 21:01:00 Test Item Value Reference Range Interpretation Comments TROPONIN I (BEAKER) (test code = 397) < ng/mL 0.00-0.03 Troponin I (TnI) levels must be interpreted in the context of the presenting symptoms and the clinical findings. Elevated TnI levels indicate myocardial damage, but are not specific for ischemic heart disease. Elevated TnI levels are seen in patients with other cardiac conditions (including myocarditis and congestive heart failure), and slight TnI elevations occur in patients with other conditions, including sepsis, renal failure, acidosis, acute neurological disease, and persistent tachyarrhythmia.Card Dealer ID - [id number] 20:52:00 Test Item Value Reference Range Interpretation Comments MAGNESIUM (BEAKER) (test code = 1.9 mg/dL 1.6-2.6 627) Card Dealer ID - LENANCOMPREHENSIVE METABOLIC [id number] 20:52:00 Test Item Value Reference Range Interpretation Comments TOTAL PROTEIN 7.2 gm/dL 6.0-8.3 (BEAKER) (test code = 770) ALBUMIN (BEAKER) 4.2 g/dL 3.5-5.0 (test code = 1145) ALKALINE PHOSPHATASE 63 U/L 40-150 (BEAKER) (test code = 346) BILIRUBIN TOTAL 0.1 mg/dL 0.2-1.2 L (BEAKER) (test code = 377) SODIUM (BEAKER) (test 137 meq/L 136-145 code = 381) POTASSIUM (BEAKER) 3.9 meq/L 3.5-5.1 (test code = 379) CHLORIDE (BEAKER) 107 meq/L 98-107 (test code = 382) CO2 (BEAKER) (test 21 meq/L 22-29 L code = 355) BLOOD UREA NITROGEN 10 mg/dL 7-21 (BEAKER) (test code = 354) CREATININE (BEAKER) 0.71 mg/dL 0.57-1.25 (test code = 358) GLUCOSE RANDOM 82 mg/dL 70-105 (BEAKER) (test code = 652) CALCIUM (BEAKER) 8.7 mg/dL 8.4-10.2 (test code = 697) AST (SGOT) (BEAKER) 13 U/L 5-34 (test code = 353) ALT (SGPT) (BEAKER) 15 U/L 6-55 (test code = 347) EGFR (BEAKER) (test 100 ESTIMATE D GFR IS code = 1092) mL/min/1.73 sq NOT ACCURA TE m CREATININE CLEARANCE IN PREDICTING GLOMERULAR FILTRATION RATE . ESTIMATED GFR I S NOT APPLICABLE FOR DIALYSIS PATIEN TS. Card Dealer ID - [id number] 20:52:00 Test Item Value Reference Range Interpretation Comments LIPASE (BEAKER) (test code = 749) 40 U/L 8-78 Card Dealer ID - KENNCBC W/PLT COUNT & AUTO [id number] 20:33:00 Test Item Value Reference Range Interpretation Comments WHITE BLOOD CELL COUNT (BEAKER) 7.3 K/ L 3.5-10.5 (test code = 775) RED BLOOD CELL COUNT (BEAKER) 4.43 M/ L 3.93-5.22 (test code = 761) HEMOGLOBIN (BEAKER) (test code = 12.1 GM/DL 11.2-15.7 410) HEMATOCRIT (BEAKER) (test code = 37.6 % 34.1-44.9 411) MEAN CORPUSCULAR VOLUME (BEAKER) 84.9 fL 79.4-94.8 (test code = 753) MEAN CORPUSCULAR HEMOGLOBIN 27.3 pg 25.6-32.2 (BEAKER) (test code = 751) MEAN CORPUSCULAR HEMOGLOBIN CONC 32.2 GM/DL 32.2-35.5 (BEAKER) (test code = 752) RED CELL DISTRIBUTION WIDTH 15.4 % 11.7-14.4 H (BEAKER) (test code = 412) PLATELET COUNT (BEAKER) (test 208 K/CU MM 150-450 code = 756) MEAN PLATELET VOLUME (BEAKER) 12.2 fL 9.4-12.3 (test code = 754) NUCLEATED RED BLOOD CELLS 0 /100 WBC 0-0 (BEAKER) (test code = 413) NEUTROPHILS RELATIVE PERCENT 53 % (BEAKER) (test code = 429) LYMPHOCYTES RELATIVE PERCENT 35 % (BEAKER) (test code = 430) MONOCYTES RELATIVE PERCENT 7 % (BEAKER) (test code = 431) EOSINOPHILS RELATIVE PERCENT 6 % (BEAKER) (test code = 432) BASOPHILS RELATIVE PERCENT 0 % (BEAKER) (test code = 437) NEUTROPHILS ABSOLUTE COUNT 3.81 K/ L 1.56-6.13 (BEAKER) (test code = 670) LYMPHOCYTES ABSOLUTE COUNT 2.52 K/ L 1.18-3.74 (BEAKER) (test code = 414) MONOCYTES ABSOLUTE COUNT (BEAKER) 0.48 K/ L 0.24-0.36 H (test code = 415) EOSINOPHILS ABSOLUTE COUNT 0.41 K/ L 0.04-0.36 H (BEAKER) (test code = 416) BASOPHILS ABSOLUTE COUNT (BEAKER) 0.02 K/ L 0.01-0.08 (test code = 417) IMMATURE GRANULOCYTES-RELATIVE 0 % 0-1 PERCENT (BEAKER) (test code = 2801) RAD, CHEST, 1 VIEW, NON [id number] 20:23:00Reason for exam:->chest painIs the patient ?->UnknownShould this be [facility] the [facility]?->YesFINAL REPORT History: Chest pain. Comparison: None. Findings: A single view of the chest is submitted. The cardiomediastinal contours are unremarkable. The lung volumes are slightly low. There is no focal consolidation, pneumothorax, large pleural effusion or evidence of overtpulmonary edema. There is no acute bony abnormality. Impression: No acute abnormality. Signed: Annmarie Aldana MDReport Verified Date/Time: 09/02/2019 20:23:11 TROPONIN [id number] 11:19:00 Test Item Value Reference Range Interpretation Comments TROPONIN I (test <0.012 See_Comment [Automated code = 9144980269) message] The system which generated this result transmitted reference range : <=0.034 ng/mL. The reference range was not used to interpr et this result as normal/abnormal . ALVAREZ (test code = Equal or Less than ALVAREZ) 0.034 ng/ml---Normal?Not e: Cardiac troponin begins to rise 3-4 hours after the onset of ischemia. Repeat in 4-6 hours if the sample was drawn within 3-4 hours of the onset of the symptom and found normal. Between 0.035 and 0.120 ng/mL--- Borderline. Questionable myocardial injury or necrosis?Note: Serial measurement may be necessary to confirm or exclude the diagnosis of myocardial injury or necrosis; Clinical correlation (symptoms, EKGs, imaging studies, and others) required; Repeat in 4-6 hours if clinically indicated.? Equal or Higher than 0.121 ng/mL---Abnormal. Myocardial Injury or Necrosis Likely? Biotin has been reported to cause a negative bias, interpret results relative to patient's use of biotin.? ? Lab Interpretation Normal (test code = 95476-5) [facility] [id number] 04:38:00 Test Item Value Reference Range Interpretation Comments TROPONIN I (test <0.012 See_Comment [Automated code = 6704045955) message] The system which generated this result transmitted reference range : <=0.034 ng/mL. The reference range was not used to interpr et this result as normal/abnormal . ALVAREZ (test code = Equal or Less than ALVAREZ) 0.034 ng/ml---Normal?Not e: Cardiac troponin begins to rise 3-4 hours after the onset of ischemia. Repeat in 4-6 hours if the sample was drawn within 3-4 hours of the onset of the symptom and found normal. Between 0.035 and 0.120 ng/mL--- Borderline. Questionable myocardial injury or necrosis?Note: Serial measurement may be necessary to confirm or exclude the diagnosis of myocardial injury or necrosis; Clinical correlation (symptoms, EKGs, imaging studies, and others) required; Repeat in 4-6 hours if clinically indicated.? Equal or Higher than 0.121 ng/mL---Abnormal. Myocardial Injury or Necrosis Likely? Biotin has been reported to cause a negative bias, interpret results relative to patient's use of biotin.? ?? Lab Interpretation Normal (test code = 38922-0) [facility] [id number] 00:28:00 Test Item Value Reference Range Interpretation Comments TROPONIN I (test <0.012 See_Comment [Automated code = 6892924019) message] The system which generated this result transmitted reference range : <=0.034 ng/mL. The reference range was not used to interpr et this result as normal/abnormal . ALVAREZ (test code = Equal or Less than ALVAREZ) 0.034 ng/ml---Normal?Not e: Cardiac troponin begins to rise 3-4 hours after the onset of ischemia. Repeat in 4-6 hours if the sample was drawn within 3-4 hours of the onset of the symptom and found normal. Between 0.035 and 0.120 ng/mL--- Borderline. Questionable myocardial injury or necrosis?Note: Serial measurement may be necessary to confirm or exclude the diagnosis of myocardial injury or necrosis; Clinical correlation (symptoms, EKGs, imaging studies, and others) required; Repeat in 4-6 hours if clinically indicated.? Equal or Higher than 0.121 ng/mL---Abnormal. Myocardial Injury or Necrosis Likely? Biotin has been reported to cause a negative bias, interpret results relative to patient's use of biotin.? ? Lab Interpretation Normal (test code = 40155-7) [facility] [id number] 00:25:00 Test Item Value Reference Range Interpretation Comments NT-proBNP (test code 76 pg/mL See_Comment [Autom ated = 1797437825) message] The system which generated this result transmitted reference range : <=125. The reference range was not used to interpret this result as normal/abnormal . ALVAREZ (test code = ALVAREZ) Biotin has been reported to cause a negative bias, interpret results relative to patient's use of biotin. Lab Interpretation Normal (test code = 24301-1) [facility]OL[facility] PAN[facility] (NA, K, CL, CO2, GLUCOSE, BUN, CREATININE, CA)2019-03-16 00:16:00 Test Item Value Reference Range Interpretation Comments NA (test code = 142 mmol/L 135-145 6617672532) K (test code = 3.8 mmol/L 3.5-5 0447076912) CL (test code = 109 mmol/L 98-108 H 0821173413) CO2 TOTAL (test code = 25 mmol/L 23-31 3618973875) AGAP (test code = 2-16 9421485402) BUN (test code = 8 mg/dL 7-23 5683915096) GLUCOSE (test code = 75 mg/dL 70-110 2024538336) CREATININE (test code = 0.59 mg/dL 0.5-1.04 3957096116) CALCIUM (test code = 8.4 mg/dL 8.6-10.6 L 4944602782) eGFR Calculation mL/min/1.73m2 (Non-) (test code = 3976435421) eGFR Calculation mL/min/1.73m2 () (test code = 2988219359) ALVAREZ (test code = ALVAREZ) Association of Glomerular Filtration Rate (GFR) and Staging of Kidney Disease*+ + + +| GFR (mL/min/1.73 m2)?| With Kidney Damage?|?Without Kidney Damage+ --------+ --------+ +|?>90?|?S tage one?|? Normal?+ ---------+ ---------+ +|?60-89? |?Stage two?|? Decreased GFR? + --+ --+ ------+|?30-59?|?Stage three?|? Stage three? + --+ --+ ------+|?15-29?|?Stage four? |? Stage four?+ -------+ -------+ +|?<15 (or dialysis)?|?Stage five? |? Stage five?+ -------+ -------+ +*Each stage assumes the associated GFR level has been in effect for at least three months.?Stages 1 to 5, with or without kidney disease, indicate chronic kidney disease.Notes: Determination of stages one and two (with eGFR >59mL/min/1.73 m2) requires estimation of kidney damage for at least three months as defined by structural or functional abnormalities of the kidney, manifested by either:Pathological abnormalities or Markers of kidney damage (including abnormalities in the composition of the blood or urine or abnormalities in imaging tests). Lab Interpretation Abnormal (test code = 49981-7) [facility] (95342[facility] (ALB,T.PRO,BILI T,BU/BC,ALT,AST,ALK PHOS)2019-03-16 00:16:00 Test Item Value Reference Range Interpretation Comments TOTAL BILI (test code = 7860995961) 0.3 mg/dL 0.1-1.1 BILI UNCON (test code = 9617823343) 0.3 mg/dL 0.1-1.1 BILI CONJ (test code = 4302545452) 0.0 mg/dL 0-0.3 T PROTEIN (test code = 2048579370) 6.8 g/dL 6.3-8.2 ALBUMIN (test code = 7698599972) 3.7 g/dL 3.5-5 ALK PHOS (test code = 3341841220) 61 U/L 34-122 ALT(SGPT) (test code = 8051001739) 25 U/L 9-51 AST(SGOT) (test code = 3282116226) 22 U/L 13-40 Lab Interpretation (test code = Normal 60963-6) [facility]XR [facility] 1 [id number] 23:58:27 No acute cardiopulmonary process. Bren Vargas MD., have reviewed this study and agree with theabove report.PROCEDURE: XR CHEST 1 VW CLINICAL INDICATION: Chest pain COMPARISON: 02/26/2019 FINDINGS: The lungs are well-expanded and clear without focal consolidation, pleuraleffusion, or pneumothorax. The cardiac silhouette is normal in size. No acute osseous abnormality. [facility], Radiant Results Inft User - 03/15/2019 7:00 PM CDTPROCEDURE: XR CHEST 1 VWCLINICAL INDICATION: Chest pain COMPARISON: 02/26/2019FINDINGS:The lungs are well-expanded and clear without focal consolidation, pleuraleffusion, or pneumothorax. The cardiac silhouette is normal in size. No acute osseous abnormality. IMPRESSIONNo acute cardiopulmonary process.Bren Vargas MD., have reviewed this study and agree with theabove report.[facility] HospitalCBC WITH [id number] 23:36:00 Test Item Value Reference Range Interpretation Comments WBC (test code = See_Comment [Automated 1351-2) message] The sy stem which generated this result transmitted reference range : 4.30 - 11.10 10*3/?L. The reference range was not used to interpret this result as normal/abnormal . RBC (test code = See_Comment [Automated 779-8) message] The sy stem which generated this result transmitted reference range : 3.93 - 5.25 10*6/?L. The reference range was not used to interpret this result as normal/abnormal . HGB (test code = 10.9 g/dL 11.6-15 L 718-7) HCT (test code = 34.1 % 35.7-45.2 L 4544-3) MCV (test code = 86.5 fL 80.6-95.5 787-2) MCH (test code = 27.7 pg 25.9-32.8 785-6) MCHC (test code = 32.0 g/dL 31.6-35.1 786-4) RDW-SD (test code = 43.3 fL 39-49.9 80238-2) RDW-CV (test code = 13.8 % 12-15.5 788-0) PLT (test code = See_Comment [Automated 777-3) message] The sy stem which generated this result transmitted reference range : 166 - 358 10*3/ ?L. The reference r dylan was not used to interpret this result as normal/abnormal . MPV (test code = 11.6 fL 9.5-12.9 47656-2) NRBC/100 WBC (test See_Comment [Automat ed code = 9737629822) message] The system which generated this result transmitted reference range : 0.0 - 10.0 /100 WBCs. The refer ence range was not u sed to interpret th is result as normal/abnormal . NRBC x10^3 (test code <0.01 See_Comment [Auto mated = 7145756920) message] The s ystem which generated this result transmitted reference range : 10*3/?L. The reference range was not used to interpret this result as normal/abnormal . GRAN MAT (NEUT) % 49.4 % (test code = 770-8) IMM GRAN % (test code 0.30 % = 0585567502) LYMPH % (test code = 38.0 % 736-9) MONO % (test code = 6.6 % 5905-5) EOS % (test code = 5.1 % 713-8) BASO % (test code = 0.6 % 706-2) GRAN MAT x10^3(ANC) 3.21 10*3/uL 1.88-7.09 (test code = 2963652356) IMM GRAN x10^3 (test <0.03 0-0.06 code = 8353347011) LYMPH x10^3 (test code 2.47 10*3/uL 1.32-3.29 = 731-0) MONO x10^3 (test code 0.43 10*3/uL 0.33-0.92 = 742-7) EOS x10^3 (test code = 0.33 10*3/uL 0.03-0.39 711-2) BASO x10^3 (test code 0.04 10*3/uL 0.01-0.07 = 704-7) Lab Interpretation Abnormal (test code = 72305-6) [facility]CT [facility] PULMONARY [id number] 04:55:52 1.?No acute pulmonary embolism Jessica Vargas MD., have reviewed this study and agree with the abovereport.* * * * * * * * ORIGINAL REPORT * * * * * * * * PROCEDURE: CT ANGIO CHEST WITH CONTRAST - PE PROTOCOL CLINICAL INDICATION: PE suspected, intermediate probability, positiveD-dimer PE suspected, low pretest?probability COMPARISON: Same-day chest x-ray. TECHNIQUE:?Helical CT was performed and reconstructed at 1.25 mm slicethickness from lung base to apices afterthe administration of 120 mLOmnipaque-350 intravenous contrast, without complication.?Display field o fview: 40 cm. FINDINGS: PULMONARY ARTERIES:Enhancement is adequate, and there is no acute or chronicpulmonaryembolism. CHEST:Lower neck/thyroid: Unremarkable. Lungs: Normal. Central airway: Unremarkable. Pleura: No pleural effusion, thickening or pneumothorax. Thoracic aorta and great vessels: Normalin diameter. Heart and pericardium: No detectable coronary arterial calcification.Unremarkable cardiac morphology and pericardium. Lymph nodes: A calcified mediastinal lymph node is noted. The left isotherwise unremarkable. Mediastinum: Unremarkable. Thoracic spine and chest wall: Unremarkable, with no rmal thoracic vertebralbody heights. Other Lines/Tubes/Devices/Hardware: None Visualized upper abdomen: Unremarkable. [facility], Radiant Results Inft User - 02/26/2019 11:57 PM CDT* * * * * * * * ORIGINAL REPORT * * * * * * * *PROCEDURE: CT ANGIO CHEST WITH CONTRAST - PE MADIE COLCLINICAL INDICATION: PE suspected, intermediate probability, positiveD-dimer PE suspected, low pretest probability COMPARISON: Same-day chest x- ray.TECHNIQUE: Helical CT was performed and reconstructed at 1.25 mm slicethickness from lung base to apices after the administration of 120 mLOmnipaque-350 intravenous contrast, without complication. Display field ofview: 40 cm.FINDINGS:PULMONARY ARTERIES:Enhancement is adequate, and there is no acute or chronic pulmonaryembolism.CHEST:Lower neck/thyroid: Unremarkable.Lungs: Normal.Central airway: Unremarkable.Pleura: No pleural effusion, thickening or pneumothorax.Thoracic aorta and great vessels: Normal in diameter.Heart and pericardium: No detectable coronary arterial calcification.Unremarkable cardiac morphology and pericardium.Lymph nodes: A ca lcified mediastinal lymph node is noted. The left isotherwise unremarkable.Mediastinum: Unremarkable.Thoracic spine and chest wall: Unremarkable, with normal thoracic vertebralbody heights.Other Lines/T ubes/Devices/Hardware: NoneVisualized upper abdomen: Unremarkable. IMPRESSION1. No acute pulmonary embolism I, Compa English MD., have reviewed this study and agree with the abovereport.[facility] COMP. METABOLIC PANEL (28256)2019-02-27 03:49:00 Test Item Value Reference Range Interpretation Comments NA (test code = 142 mmol/L 135-145 7131442897) K (test code = 4.1 mmol/L 3.5-5 2399249173) CL (test code = 105 mmol/L 98-108 2359860794) CO2 TOTAL (test code = 25 mmol/L 23-31 3280231773) AGAP (test code = 2-16 0999566220) BUN (test code = 14 mg/dL 7-23 2068750025) GLUCOSE (test code = 82 mg/dL 70-110 1529480636) CREATININE (test code = 0.86 mg/dL 0.5-1.04 3505534699) TOTAL BILI (test code = <0.1 0.1-1.1 L 4000243626) CALCIUM (test code = 9.4 mg/dL 8.6-10.6 8192481436) T PROTEIN (test code = 8.0 g/dL 6.3-8.2 5162256170) ALBUMIN (test code = 4.5 g/dL 3.5-5 4027397709) ALK PHOS (test code = 78 U/L 34-122 9229685653) ALT(SGPT) (test code = 20 U/L 9-51 1788635616) AST(SGOT) (test code = 17 U/L 13-40 2793078600) eGFR Calculation mL/min/1.73m2 (Non-) (test code = 7240548868) eGFR Calculation mL/min/1.73m2 () (test code = 2367787381) ALVAREZ (test code = ALVAREZ) Association of Glomerular Filtration Rate (GFR) and Staging of Kidney Disease*+ + + +| GFR (mL/min/1.73 m2)?| With Kidney Damage?|?Without Kidney Damage+ --------+ --------+ +|?>90?|?S tage one?|? Normal?+ ---------+ ---------+ +|?60-89? |?Stage two?|? Decreased GFR? + --+ --+ ------+|?30-59?|?Stage three?|? Stage three? + --+ --+ ------+|?15-29?|?Stage four? |? Stage four?+ -------+ -------+ +|?<15 (or dialysis)?|?Stage five? |? Stage five?+ -------+ -------+ +*Each stage assumes the associated GFR level has been in effect for at least three months.?Stages 1 to 5, with or without kidney disease, indicate chronic kidney disease.Notes: Determination of stages one and two (with eGFR >59mL/min/1.73 m2) requires estimation of kidney damage for at least three months as defined by structural or functional abnormalities of the kidney, manifested by either:Pathological abnormalities or Markers of kidney damage (including abnormalities in the composition of the blood or urine or abnormalities in imaging tests). Lab Interpretation Abnormal (test code = 72449-5) [facility]-[id number] 03:39:00 Test Item Value Reference Range Interpretation Comments D-DIMER (test code = See_Comment H [Autom ated 4799954762) message] The system which generated this result transmitted reference range : <0.41 ?g/mL (FEU). The reference range was not used to interpret this result as normal/abnormal . ALVAREZ (test code = ALVAREZ) This test may be used in conjunction with a clinical pretest probability (PTP) assessment model to exclude pulmonary embolism (PE) and as an aid in the diagnosis of deep venous thrombosis (DVT) in outpatients suspected of PE or DVT.A D-Dimer value less than 0.50 ?g/ml (FEU) has a negative predicative value of 98 to 100% (95% CI) for the exclusion of pulmonary embolism (PE) and 95 to 100% (95% CI) as an aid in the diagnosis of deep vein thrombosis (DVT) when there is low or moderate pretest probability of PE or DVT. D-Dimer values are expressed in initial fibrinogen equivalent units (FEU). Lab Interpretation Abnormal (test code = 11234-6) [facility] [id number] 03:28:00 Test Item Value Reference Range Interpretation Comments TROPONIN I (test <0.012 See_Comment [Automated code = 1864690692) message] The system which generated this result transmitted reference range : <=0.034 ng/mL. The reference range was not used to interpr et this result as normal/abnormal . ALVAREZ (test code = Equal or Less than ALVAREZ) 0.034 ng/ml---Normal?Not e: Cardiac troponin begins to rise 3-4 hours after the onset of ischemia. Repeat in 4-6 hours if the sample was drawn within 3-4 hours of the onset of the symptom and found normal. Between 0.035 and 0.120 ng/mL--- Borderline. Questionable myocardial injury or necrosis?Note: Serial measurement may be necessary to confirm or exclude the diagnosis of myocardial injury or necrosis; Clinical correlation (symptoms, EKGs, imaging studies, and others) required; Repeat in 4-6 hours if clinically indicated.? Equal or Higher than 0.121 ng/mL---Abnormal. Myocardial Injury or Necrosis Likely? Biotin has been reported to cause a negative bias, interpret results relative to patient's use of biotin.? ? Lab Interpretation Normal (test code = 82986-5) [facility] [id number] 03:25:00 Test Item Value Reference Range Interpretation Comments NT-proBNP (test code 34 pg/mL See_Comment [Autom ated = 7028788408) message] The system which generated this result transmitted reference range : <=125. The reference range was not used to interpret this result as normal/abnormal . ALVAREZ (test code = ALVAREZ) Biotin has been reported to cause a negative bias, interpret results relative to patient's use of biotin. Lab Interpretation Normal (test code = 32425-7) [facility]2019-08[facility] 03:16:00 Test Item Value Reference Range Interpretation Comments LIPASE (test code = 8363930014) 117 U/L 0-220 Lab Interpretation (test code = Normal 21559-6) [facility] HospitalCB WITH [id number] 03:12:00 Test Item Value Reference Range Interpretation Comments WBC (test code = See_Comment [Automated message] 9190-2) The system 1-800-DENTIST generated this result transmitted ref erence range: 4.30 - 1 1.10 10*3/?L. The re ference range was not u sed to interpret this result as normal/abnor mal. RBC (test code = See_Comment [Automated message] 449-8) The system 1-800-DENTIST generated this result transmitted ref erence range: 3.93 - 5 .25 10*6/?L. The re ference range was not u sed to interpret this result as normal/abnor mal. HGB (test code = 12.5 g/dL 11.6-15 718-7) HCT (test code = 39.0 % 35.7-45.2 4544-3) MCV (test code = 89.2 fL 80.6-95.5 787-2) MCH (test code = 28.6 pg 25.9-32.8 785-6) MCHC (test code = 32.1 g/dL 31.6-35.1 786-4) RDW-SD (test code 43.3 fL 39-49.9 = 00004-1) RDW-CV (test code 13.2 % 12-15.5 = 788-0) PLT (test code = See_Comment [Automated message] 897-3) The system 1-800-DENTIST generated this result transmitted ref erence range: 166 - 35 8 10*3/?L. The re ference range was not u sed to interpret this result as normal/abnor mal. MPV (test code = 11.8 fL 9.5-12.9 01451-4) NRBC/100 WBC (test See_Comment [Automat ed message] code = 0820813838) The syste m which generated this result transmitted ref erence range: 0.0 - 10 .0 /100 WBCs. The refer ence range was not u sed to interpret this result as normal/abnor mal. NRBC x10^3 (test <0.01 See_Comment [Automated message] code = 0560754249) The syste m which generated this result transmitted ref erence range: 10*3/?L. The reference range was not used to interpr et this result as normal/abnormal . GRAN MAT (NEUT) % 50.1 % (test code = 770-8) IMM GRAN % (test 0.30 % code = 9675034836) LYMPH % (test code 38.8 % = 736-9) MONO % (test code 5.9 % = 5905-5) EOS % (test code = 4.4 % 713-8) BASO % (test code 0.5 % = 706-2) GRAN MAT 3.21 10*3/uL 1.88-7.09 x10^3(ANC) (test code = 9475141914) IMM GRAN x10^3 <0.03 0-0.06 (test code = 4153036858) LYMPH x10^3 (test 2.48 10*3/uL 1.32-3.29 code = 731-0) MONO x10^3 (test 0.38 10*3/uL 0.33-0.92 code = 742-7) EOS x10^3 (test 0.28 10*3/uL 0.03-0.39 code = 711-2) BASO x10^3 (test 0.03 10*3/uL 0.01-0.07 code = 704-7) [facility]MAG[facility]IUM2019-08-06 09:30:00 Test Item Value Reference Range Interpretation Comments MAGNESIUM (test code = 8460994728) 1.8 mg/dL 1.7-2.4 Lab Interpretation (test code = Normal 37189-4) [facility] (NA, K, CL, CO2, GLUCOSE, BUN, CREATININE, CA)2019-02-21 09:30:00 Test Item Value Reference Range Interpretation Comments NA (test code = 136 mmol/L 135-145 5021504305) K (test code = 3.8 mmol/L 3.5-5 8066524495) CL (test code = 103 mmol/L 98-108 4673972024) CO2 TOTAL (test code = 25 mmol/L 23-31 3524681688) AGAP (test code = 2-16 3044121771) BUN (test code = 13 mg/dL 7-23 1270388253) GLUCOSE (test code = 95 mg/dL 70-110 3610682688) CREATININE (test code 0.67 mg/dL 0.5-1.04 = 5087311471) CALCIUM (test code = 8.6 mg/dL 8.6-10.6 6423216991) eGFR Calculation mL/min/1.73m2 (Non-) (test code = 4642500747) eGFR Calculation mL/min/1.73m2 () (test code = 8290040606) ALVAREZ (test code = ALVAREZ) Association of Glomerular Filtration Rate (GFR) and Staging of Kidney Disease*+ ---------+ --------+ +| GFR (mL/min/1.73 m2)?| With Kidney Damage?|?Without Kidney Damage+ -------+ ------+ ---------+|?>90?|?Stage one?|? Normal?+ --------+ -------+ +|?60-89?|?St age two?|? Decreased GFR? + -+ + ---+|?30-59?|?Stage three?|? Stage three? + -+ + ---+|?15-29?|?Stage four? |? Stage four?+ ------+ -----+ --------+|?<15 (or dialysis)?|?Stage five? |? Stage five?+ ------+ -----+ --------+*Each stage assumes the associated GFR level has been in effect for at least three months.?Stages 1 to 5, with or without kidney disease, indicate chronic kidney disease.Notes: Determination of stages one and two (with eGFR >59mL/min/1.73 m2) requires estimation of kidney damage for at least three months as defined by structural or functional abnormalities of the kidney, manifested by either:Pathological abnormalities or Markers of kidney damage (including abnormalities in the composition of the blood or urine or abnormalities in imaging tests). [facility] WITH [id number] 09:07:00 Test Item Value Reference Range Interpretation Comments WBC (test code = See_Comment [Automated 6690-2) message] The sy stem which generated this result transmitted reference range : 4.30 - 11.10 10*3/?L. The reference range was not used to interpret this result as normal/abnormal . RBC (test code = See_Comment [Automated 789-8) message] The sy stem which generated this result transmitted reference range : 3.93 - 5.25 10*6/?L. The reference range was not used to interpret this result as normal/abnormal . HGB (test code = 11.8 g/dL 11.6-15 718-7) HCT (test code = 37.2 % 35.7-45.2 4544-3) MCV (test code = 89.9 fL 80.6-95.5 787-2) MCH (test code = 28.5 pg 25.9-32.8 785-6) MCHC (test code = 31.7 g/dL 31.6-35.1 786-4) RDW-SD (test code = 43.4 fL 39-49.9 77368-0) RDW-CV (test code = 13.2 % 12-15.5 788-0) PLT (test code = See_Comment [Automated 777-3) message] The sy stem which generated this result transmitted reference range : 166 - 358 10*3/ ?L. The reference r dylan was not used to interpret this result as normal/abnormal . MPV (test code = 11.4 fL 9.5-12.9 85123-1) NRBC/100 WBC (test See_Comment [Automat ed code = 7636995136) message] The system which generated this result transmitted reference range : 0.0 - 10.0 /100 WBCs. The refer ence range was not u sed to interpret th is result as normal/abnormal . NRBC x10^3 (test code <0.01 See_Comment [Auto mated = 8350225817) message] The s ystem which generated this result transmitted reference range : 10*3/?L. The reference range was not used to interpret this result as normal/abnormal . GRAN MAT (NEUT) % 54.9 % (test code = 770-8) IMM GRAN % (test code 0.40 % = 5385512295) LYMPH % (test code = 26.5 % 736-9) MONO % (test code = 8.8 % 5905-5) EOS % (test code = 8.8 % 713-8) BASO % (test code = 0.6 % 706-2) GRAN MAT x10^3(ANC) 2.85 10*3/uL 1.88-7.09 (test code = 5270710137) IMM GRAN x10^3 (test <0.03 0-0.06 code = 1277229877) LYMPH x10^3 (test code 1.38 10*3/uL 1.32-3.29 = 731-0) MONO x10^3 (test code 0.46 10*3/uL 0.33-0.92 = 742-7) EOS x10^3 (test code = 0.46 10*3/uL 0.03-0.39 H 711-2) BASO x10^3 (test code 0.03 10*3/uL 0.01-0.07 = 704-7) Lab Interpretation Abnormal (test code = 96783-6) [facility] HospitalANTI-NUCLEAR ANTIBODY [id number] 19:36:00 Test Item Value Reference Range Interpretation Comments ERICA (test code = Negative Negative 9845749772) ALVAREZ (test code = ALVAREZ) Negative - No Anti-Nuclear Antibodies detected by IFA.Positive - ERICA IFA screen performed with a 1:80 dilution in adults and a 1:40 dilution in pediatrics. Any ERICA "Positive" will have titer performed and reported separately.Negative - No Anti-Nuclear Antibodies detected by IFA.Positive - ERICA IFA screen performed with a 1:80 dilution in adults and a 1:40 dilution in pediatrics. Any ERICA "Positive" will have titer performed and reported separately. Lab Interpretation (test Normal code = 22787-9) [facility] HospitalTroponin [id number] 10:22:00 Test Item Value Reference Range Interpretation Comments TROPONIN I (test 0.000 ng/mL See_Comment [Automated code = 1917778955) message] The system which generated this result transmitted reference range : <=0.034. The reference range was not used to interpret this result as normal/abnormal . ALVAREZ (test code = Equal or Less than ALVAREZ) 0.034 ng/ml---Normal?Not e: Cardiac troponin begins to rise 3-4 hours after the onset of ischemia. Repeat in 4-6 hours if the sample was drawn within 3-4 hours of the onset of the symptom and found normal. Between 0.035 and 0.120 ng/mL--- Borderline. Questionable myocardial injury or necrosis?Note: Serial measurement may be necessary to confirm or exclude the diagnosis of myocardial injury or necrosis; Clinical correlation (symptoms, EKGs, imaging studies, and others) required; Repeat in 4-6 hours if clinically indicated.? Equal or Higher than 0.121 ng/mL---Abnormal. Myocardial Injury or Necrosis Likely? Biotin has been reported to cause a negative bias, interpret results relative to patient's use of biotin.?? ? Lab Interpretation Normal (test code = 91965-2) [facility] METABOLIC PANEL (NA, K, CL, CO2, GLUCOSE, BUN, CREATININE, CA)2019-02-20 10:15:00 Test Item Value Reference Range Interpretation Comments NA (test code = 139 mmol/L 135-145 3200760632) K (test code = 4.1 mmol/L 3.5-5 7471565972) CL (test code = 108 mmol/L 98-108 9708291274) CO2 TOTAL (test code = 25 mmol/L 23-31 4919727253) AGAP (test code = 2-16 6614695480) BUN (test code = 12 mg/dL 7-23 4413170626) GLUCOSE (test code = 83 mg/dL 70-110 6248979159) CREATININE (test code 0.78 mg/dL 0.5-1.04 = 0011110475) CALCIUM (test code = 9.1 mg/dL 8.6-10.6 9766368085) eGFR Calculation mL/min/1.73m2 (Non-) (test code = 9138086573) eGFR Calculation mL/min/1.73m2 () (test code = 8233632031) ALVAREZ (test code = ALVAREZ) Association of Glomerular Filtration Rate (GFR) and Staging of Kidney Disease*+ ---------+ --------+ +| GFR (mL/min/1.73 m2)?| With Kidney Damage?|?Without Kidney Damage+ -------+ ------+ ---------+|?>90?|?Stage one?|? Normal?+ --------+ -------+ +|?60-89?|?St age two?|? Decreased GFR? + -+ + ---+|?30-59?|?Stage three?|? Stage three? + -+ + ---+|?15-29?|?Stage four? |? Stage four?+ ------+ -----+ --------+|?<15 (or dialysis)?|?Stage five? |? Stage five?+ ------+ -----+ --------+*Each stage assumes the associated GFR level has been in effect for at least three months.?Stages 1 to 5, with or without kidney disease, indicate chronic kidney disease.Notes: Determination of stages one and two (with eGFR >59mL/min/1.73 m2) requires estimation of kidney damage for at least three months as defined by structural or functional abnormalities of the kidney, manifested by either:Pathological abnormalities or Markers of kidney damage (including abnormalities in the composition of the blood or urine or abnormalities in imaging tests). [facility]MAG[facility]2019-08-05 10:15:00 Test Item Value Reference Range Interpretation Comments MAGNESIUM (test code = 1178849817) 1.9 mg/dL 1.7-2.4 Lab Interpretation (test code = Normal 88619-4) [facility] WITH [id number] 09:50:00 Test Item Value Reference Range Interpretation Comments WBC (test code = See_Comment [Automated 4957-2) message] The sy stem which generated this result transmitted reference range : 4.30 - 11.10 10*3/?L. The reference range was not used to interpret this result as normal/abnormal . RBC (test code = See_Comment [Automated 175-8) message] The sy stem which generated this result transmitted reference range : 3.93 - 5.25 10*6/?L. The reference range was not used to interpret this result as normal/abnormal . HGB (test code = 11.8 g/dL 11.6-15 718-7) HCT (test code = 36.6 % 35.7-45.2 4544-3) MCV (test code = 90.6 fL 80.6-95.5 787-2) MCH (test code = 29.2 pg 25.9-32.8 785-6) MCHC (test code = 32.2 g/dL 31.6-35.1 786-4) RDW-SD (test code = 42.9 fL 39-49.9 76299-5) RDW-CV (test code = 13.1 % 12-15.5 788-0) PLT (test code = See_Comment [Automated 777-3) message] The sy stem which generated this result transmitted reference range : 166 - 358 10*3/ ?L. The reference r dylan was not used to interpret this result as normal/abnormal . MPV (test code = 11.3 fL 9.5-12.9 19249-7) NRBC/100 WBC (test See_Comment [Automat ed code = 7496557440) message] The system which generated this result transmitted reference range : 0.0 - 10.0 /100 WBCs. The refer ence range was not u sed to interpret th is result as normal/abnormal . NRBC x10^3 (test code <0.01 See_Comment [Auto mated = 3396348932) message] The s ystem which generated this result transmitted reference range : 10*3/?L. The reference range was not used to interpret this result as normal/abnormal . GRAN MAT (NEUT) % 61.6 % (test code = 770-8) IMM GRAN % (test code 0.30 % = 2963624472) LYMPH % (test code = 24.8 % 736-9) MONO % (test code = 5.6 % 5905-5) EOS % (test code = 7.4 % 713-8) BASO % (test code = 0.3 % 706-2) GRAN MAT x10^3(ANC) 4.44 10*3/uL 1.88-7.09 (test code = 2956503379) IMM GRAN x10^3 (test <0.03 0-0.06 code = 2365154597) LYMPH x10^3 (test code 1.78 10*3/uL 1.32-3.29 = 731-0) MONO x10^3 (test code 0.40 10*3/uL 0.33-0.92 = 742-7) EOS x10^3 (test code = 0.53 10*3/uL 0.03-0.39 H 711-2) BASO x10^3 (test code <0.03 0.01-0.07 = 704-7) Lab Interpretation Abnormal (test code = 73446-1) [facility] HospitalGALV/CLC ONLY - URINE DRUG (IMMUNOASSAY) - COMPREHENSIVE DRUG [id number] 00:39:00 Test Item Value Reference Range Interpretation Comments AMPHET (test code = Negative Negative 5413059033) MARLENY U (test code = Negative Negative 3948951903) BENZO U (test code = Negative Negative 1210697262) Cocaine Metabolite (test Negative Negative code = 2166383385) METHADONE (test code = Negative Negative 0315217346) OPIATES (test code = Presumptive Positive Negative A 1227940708) PCP (test code = Negative Negative 7307755186) THC (test code = Negative Negative 0062676070) ALVAREZ (test code = ALVAREZ) Urine Drug Cutoff RangesCocaine:? 150 ng/mLBenzodiazepines: ? 200 ng/mLMethadone:? 300 ng/mLAmphetamine:? 1,000 ng/mLOpiates:? 300 ng/mLCannabinoids:?50 ng/mLPhencyclidine:? 25 ng/mLBarbiturates:?20 0 ng/mLThe results are to be used only for medical (i.e., treatment) purposes. Unconfirmed screening results must not be used for non-medical purposes (e.g., employment testing, legal testing). Lab Interpretation (test Abnormal code = 85688-7) [facility] HospitalXR CHEST 1 [id number] 18:25:26 1.?No acute cardiopulmonary or intra-abdominal abnormality. * * * * * * * * ORIGINAL REPORT * * * * * *EXAM: XR CHEST 1 VW, EXAM: XR KUB COMPARISON: None available HISTORY: chest pain FINDINGS:Radiographs of the chest and abdomen are interpreted on this report. Lines/Tubes: None. Lungs: The lungs are clear. No pleural effusion or pneumothorax isidentified. Heart/Mediastinum: The cardiomediastinal silhouette is normal fortechnique. Bones: No acute osseous abnormality is seen. ABDOMEN: The bowelgas pattern is nonobstructive. No definite urolithiasisis seen. [facility], Radiant Results Inft User - 02/19/2019 1:27 PM CDT* * * * * * * * ORIGINAL REPORT * * * * * * * *EXAM: XR CHEST 1 VW,EXAM: XR KUBCOMPARISON: None availableHISTORY: chest pain FINDINGS:Radiographs of the chest and abdomen are interpreted on this report.Lines/Tubes: None.Lungs: The lungs are clear. No pleural effusion or pneumothorax isidentified.Heart/Mediastinum: The cardiomediastinal silhouette is normal fortechnique.Bones: No acute osseous abnormality is seen.ABDOMEN: The bowel gas pattern is nonobstructive. No definite urolithiasisis seen.IMPRESSION1. No acute cardiopulmonary or intra-abdominal abnormality.[facility] HospitalXR [id number] 18:25:26 1.?No acute cardiopulmonary or intra-abdominal abnormality. * * * * * * * * ORIGINAL REPORT * * * * * *EXAM: XR CHEST 1 VW, EXAM: XR KUB COMPARISON: None available HISTORY: chest pain FINDINGS:Rad iographs of the chest and abdomen are interpreted on this report. Lines/Tubes: None. Lungs: The lungs are clear. No pleural effusion or pneumothorax isidentified. Heart/Mediastinum: The cardiomediastinal silhouette is normal fortechnique. Bones: No acute osseous abnormality is seen. ABDOMEN: The bowelgas pattern is nonobstructive. No definite urolithiasisis seen. [facility], Radiant Results Inft User - 02/19/2019 1:27 PM CDT* * * * * * * * ORIGINAL REPORT * * * * * * * *EXAM: XR CHEST 1 VW,EXAM: XR KUBCOMPARISON: None availableHISTORY: chest pain FINDINGS:Radiographs of the chest and abdomen are interpreted on this report.Lines/Tubes: None.Lungs: The lungs are clear. No pleural effusion or pneumothorax isidentified.Heart/Mediastinum: The cardiomediastinal silhouette is normal fortechnique.Bones: No acute osseous abnormality is seen.ABDOMEN: The bowel gas pattern is nonobstructive. No definite urolithiasisis seen.IMPRESSION1. No acute cardiopulmonary or intra-abdominal abnormality. [facility] HospitalN-TERMINAL [id number] 14:55:00 Test Item Value Reference Range Interpretation Comments NT-proBNP (test code 162 pg/mL See_Comment H [Autom ated = 2344160795) message] The system which generated this result transmitted reference range : <=125. The reference range was not used to interpret this result as normal/abnormal . ALVAREZ (test code = ALVAREZ) Biotin has been reported to cause a negative bias, interpret results relative to patient's use of biotin. Lab Interpretation Abnormal (test code = 71918-1) [facility] HospitalC-REACTIVE [id number] 14:21:00 Test Item Value Reference Range Interpretation Comments CRP (test code = 4023666590) 2.0 mg/dL <0.8 H Lab Interpretation (test code = Abnormal 62457-8) [facility] HospitalGlycosylated Hemoglobin (A1C)2019-02-19 10:03:00 Test Item Value Reference Range Interpretation Comments HGB A1C (test code = 4548-4) 5.0 % 4-6 Lab Interpretation (test code = Normal 26027-6) [facility] HospitalSEDIMENTATION [id number] 09:44:00 Test Item Value Reference Range Interpretation Comments ESR (test code = See_Comment H [Automated message] 4750464910) The system 1-800-DENTIST generated this result transmitted ref erence range: 0 - 20 m m/HR. The reference r dylan was not used to interpret this result as normal/abnor mal. Lab Interpretation (test Abnormal code = 73559-8) [facility] HospitalThyroid Stimulating Hormone (TSH)2019-02-19 09:28:00 Test Item Value Reference Range Interpretation Comments TSH (test code = See_Comment [Automated message] 1038507082) The system 1-800-DENTIST generated this result transmitted ref erence range: 0.45 - 4 .70 mIU/L. The refe rence range was not u sed to interpret this result as normal/abnor mal. Lab Interpretation (test Normal code = 57599-1) [facility] HospitalTroponin [id number] 09:09:00 Test Item Value Reference Range Interpretation Comments TROPONIN I (test 0.001 ng/mL See_Comment [Automated code = 5667578953) message] The system which generated this result transmitted reference range : <=0.034. The reference range was not used to interpret this result as normal/abnormal . ALVAREZ (test code = Equal or Less than ALVAREZ) 0.034 ng/ml---Normal?Not e: Cardiac troponin begins to rise 3-4 hours after the onset of ischemia. Repeat in 4-6 hours if the sample was drawn within 3-4 hours of the onset of the symptom and found normal. Between 0.035 and 0.120 ng/mL--- Borderline. Questionable myocardial injury or necrosis?Note: Serial measurement may be necessary to confirm or exclude the diagnosis of myocardial injury or necrosis; Clinical correlation (symptoms, EKGs, imaging studies, and others) required; Repeat in 4-6 hours if clinically indicated.? Equal or Higher than 0.121 ng/mL---Abnormal. Myocardial Injury or Necrosis Likely? Biotin has been reported to cause a negative bias, interpret results relative to patient's use of biotin.? ? Lab Interpretation Normal (test code = 02665-4) [facility] Metabolic Panel (NA, K, CL, CO2, GLUCOSE, BUN, CREATININE, CA)2019-02-19 09:00:00 Test Item Value Reference Range Interpretation Comments NA (test code = 141 mmol/L 135-145 5162383436) K (test code = 3.8 mmol/L 3.5-5 4495374399) CL (test code = 108 mmol/L 98-108 2798098097) CO2 TOTAL (test code = 26 mmol/L 23-31 3641760259) AGAP (test code = 2-16 0370562870) BUN (test code = 13 mg/dL 7-23 7205608915) GLUCOSE (test code = 82 mg/dL 70-110 5003066253) CREATININE (test code 0.74 mg/dL 0.5-1.04 = 7175601767) CALCIUM (test code = 9.0 mg/dL 8.6-10.6 2706558349) eGFR Calculation mL/min/1.73m2 (Non-) (test code = 6980554333) eGFR Calculation mL/min/1.73m2 () (test code = 9106026709) ALVAREZ (test code = ALVAREZ) Association of Glomerular Filtration Rate (GFR) and Staging of Kidney Disease*+ ---------+ --------+ +| GFR (mL/min/1.73 m2)?| With Kidney Damage?|?Without Kidney Damage+ -------+ ------+ ---------+|?>90?|?Stage one?|? Normal?+ --------+ -------+ +|?60-89?|?St age two?|? Decreased GFR? + -+ + ---+|?30-59?|?Stage three?|? Stage three? + -+ + ---+|?15-29?|?Stage four? |? Stage four?+ ------+ -----+ --------+|?<15 (or dialysis)?|?Stage five? |? Stage five?+ ------+ -----+ --------+*Each stage assumes the associated GFR level has been in effect for at least three months.?Stages 1 to 5, with or without kidney disease, indicate chronic kidney disease.Notes: Determination of stages one and two (with eGFR >59mL/min/1.73 m2) requires estimation of kidney damage for at least three months as defined by structural or functional abnormalities of the kidney, manifested by either:Pathological abnormalities or Markers of kidney damage (including abnormalities in the composition of the blood or urine or abnormalities in imaging tests). [facility] HospitalHEPATIC FUNCTION PANEL (66504) (ALB,T.PRO,BILI T,BU/BC,ALT,AST,ALK PHOS)2019-02-19 09:00:00 Test Item Value Reference Range Interpretation Comments TOTAL BILI (test code = 6114409930) 0.3 mg/dL 0.1-1.1 BILI UNCON (test code = 1437902694) 0.1 mg/dL 0.1-1.1 BILI CONJ (test code = 2156282586) 0.0 mg/dL 0-0.3 T PROTEIN (test code = 9779950721) 6.8 g/dL 6.3-8.2 ALBUMIN (test code = 8963074331) 3.4 g/dL 3.5-5 L ALK PHOS (test code = 9402487942) 79 U/L 34-122 ALT(SGPT) (test code = 2386779889) 20 U/L 9-51 AST(SGOT) (test code = 8665168328) 20 U/L 13-40 Lab Interpretation (test code = Abnormal 35118-5) [facility] HospitalMagnesium [id number] 09:00:00 Test Item Value Reference Range Interpretation Comments MAGNESIUM (test code = 8878843891) 1.8 mg/dL 1.7-2.4 Lab Interpretation (test code = Normal 15858-6) [facility] [id number] 09:00:00 Test Item Value Reference Range Interpretation Comments PHOSPHORUS (test code = 8493683294) 4.3 mg/dL 2.5-5 Lab Interpretation (test code = Normal 99693-3) [facility]id Panel (Total Cholesterol, Triglycerides, HDL)2019-02-19 09:00:00 Test Item Value Reference Range Interpretation Comments CHOL (test code = 233 mg/dL 120-200 H 4870482868) HDL (test code = 44 mg/dL >50 L 0596528031) HDLC RATIO (test code = See_Comment H [Au tomated message] 6954088634) The system 1-800-DENTIST generated this result transmit tamela reference range : <=4.5. The refe rence range was not u sed to interpret th is result as normal/abnormal . TRIG (test code = 148 mg/dL 30-170 6713069520) LDL CHOL (test code = 159 mg/dL See_Comment [Auto mated message] 37701-1) The system 1-800-DENTIST generated this result transmit tamela reference range : <=160. The refe rence range was not u sed to interpret th is result as normal/abnormal . VLDL (test code = 30 mg/dL 5-60 4109168386) Lab Interpretation (test Abnormal code = 91715-3) [facility]CREATINE [id number] 09:00:00 Test Item Value Reference Range Interpretation Comments CK (test code = 7198416525) 57 U/L 33-194 Lab Interpretation (test code = Normal 55990-1) [facility]LIP[facility]2019-08-04 09:00:00 Test Item Value Reference Range Interpretation Comments LIPASE (test code = 1896302944) 73 U/L 0-220 Lab Interpretation (test code = Normal 71388-5) [facility] HospitalProthrombin Time / [id number] 08:37:00 Test Item Value Reference Range Interpretation Comments PROTIME PATIENT (test See_Comment [Auto mated message] code = 5964-2) The system [employer] generated this result transmitted ref erence range: 10.1 - 1 2.6 Seconds. The re ference range was not u sed to interpret this result as normal/abnor mal. INR (test code = 6301-6) Nor mal INR <1.1; Warfarin Therap eutic range 2.0 to 3. 0 or 2.5 to 3.5, dep ending upon the indica tions. Lab Interpretation (test Normal code = 13696-3) [facility] WITH [id number] 08:36:00 Test Item Value Reference Range Interpretation Comments WBC (test code = See_Comment [Automated 6690-2) message] The sy stem which generated this result transmitted reference range : 4.30 - 11.10 10*3/?L. The reference range was not used to interpret this result as normal/abnormal . RBC (test code = See_Comment L [Automated 789-8) message] The sy stem which generated this result transmitted reference range : 3.93 - 5.25 10*6/?L. The reference range was not used to interpret this result as normal/abnormal . HGB (test code = 10.8 g/dL 11.6-15 L 718-7) HCT (test code = 35.0 % 35.7-45.2 L 4544-3) MCV (test code = 92.3 fL 80.6-95.5 787-2) MCH (test code = 28.5 pg 25.9-32.8 785-6) MCHC (test code = 30.9 g/dL 31.6-35.1 L 786-4) RDW-SD (test code = 44.5 fL 39-49.9 58619-4) RDW-CV (test code = 13.1 % 12-15.5 788-0) PLT (test code = See_Comment [Automated 777-3) message] The sy stem which generated this result transmitted reference range : 166 - 358 10*3/ ?L. The reference r dylan was not used to interpret this result as normal/abnormal . MPV (test code = 11.1 fL 9.5-12.9 98626-9) NRBC/100 WBC (test See_Comment [Automat ed code = 6913057205) message] The system which generated this result transmitted reference range : 0.0 - 10.0 /100 WBCs. The refer ence range was not u sed to interpret th is result as normal/abnormal . NRBC x10^3 (test code <0.01 See_Comment [Auto mated = 8313766140) message] The s ystem which generated this result transmitted reference range : 10*3/?L. The reference range was not used to interpret this result as normal/abnormal . GRAN MAT (NEUT) % 64.2 % (test code = 770-8) IMM GRAN % (test code 0.30 % = 1146945740) LYMPH % (test code = 23.6 % 736-9) MONO % (test code = 6.5 % 5905-5) EOS % (test code = 5.0 % 713-8) BASO % (test code = 0.4 % 706-2) GRAN MAT x10^3(ANC) 5.97 10*3/uL 1.88-7.09 (test code = 2586113063) IMM GRAN x10^3 (test 0.03 10*3/uL 0-0.06 code = 6569510141) LYMPH x10^3 (test code 2.19 10*3/uL 1.32-3.29 = 731-0) MONO x10^3 (test code 0.60 10*3/uL 0.33-0.92 = 742-7) EOS x10^3 (test code = 0.46 10*3/uL 0.03-0.39 H 711-2) BASO x10^3 (test code 0.04 10*3/uL 0.01-0.07 = 704-7) Lab Interpretation Abnormal (test code = 52844-6) [facility] [id number] 16:00:00 Test Item Value Reference Range Interpretation Comments Case Report (test code Surgical = [id number]) Pathology?Case: [id number]? Authorizing Provider:?America Adams MD? Collected:? 02/07/20192127?Ordering Location:? Labor and Delivery (A3)?Received:?02/08 0847?Pathologist:? Leopoldo Jimenez MD?Specimens:? A) - FALLOPIAN TUBE, LEFT?? B) - FALLOPIAN TUBE, RIGHT? Final Diagnosis (test j6npiQDwSKMlh7bgWVJspG code = 7558119907) FuZzEwMzNcZnRuYmpcdWMx NJcwipXlFJkga0QjD0ZlFv AwMFxhbnNpXGRlZmxhbmcx NPJbZQB6enRlULChYPvgEB BgJZvmVk7xjFTijApoHdJm CIInz2tpubNTuhwjxBl4h3 yfWZIxWuM3tXPyHWjmZ1gr zgBumBJlQVSfVDr2oR04AN WvdR4bkUWvIOlydnMkXHgo czArxoJePqv8NRSuY4vdTI HqRFUjD2IvGA4sBSQeZbt3 CUG8HMM0kOcnm6H8tFSuwC UiyKzgRbSrIbTsCIVDa2Kq ONm9dWzaF4PoHHOnEsT7wY QgUGFyYWdyYXBoIEZvbnQ7 lB69VJrinrP0hHOpv5Fqg0 7xe311xA6osBUsIWS6QNFo KFEraHQeVVEvYLH2PWAuqD WwF1exQJttJJ9yqwfrIVA5 MFxtYXJndDcyMFxtYXJnYj QvtVDfZCCevVusJWhxm315 TFW6FsRbEJ7pE8Way9C3aG 9maXRcZGVmdGFiNzIwXGZv lb6wrTQyTHxhn7CyUAX9jz H8mTCocSDiXGYxAA08Padk a5KjVbthFFT8HXCoklDag0 Cwc2iwRkMgwtRaH4onD5Bc ZHJoZWFkXHBnYnJkcmZvb3 Lom6KoxTVxnOy7p6zlBTCe WDQgpIygj6uqGOK7MQMmK0 E9cGLwg7ebSClzRDAksYO4 lgIfAKCatTGeR4MffZ3eLU jzNC8kpzu1p3ctWhUfRG5t vjufx9poHVjuTABfPKJ5Hv GqFDJmk6TwpueqDcZlc5Fx wYMlBQblU13ec992GXQhgz MwI9menRNhkmveuYVpjqho MFxmczIwXHFsXHBsYWluXG AaKGZhCzEgcBymeK4vSbBw MlZbRVchVAJqfPqgoG3yYu LrWsZcYMTCDcTAZLiDL8FD SL0iWEHZPEcuYVBWDEtfH4 LMITRBSMRWZEWHD0NQXKpX JltarOGoIXUtYU5mCyLSTR SZEk4MYwYFZRJPMW7JRU1K IEZBTExPUElBTiBUVUJFIE dDPK1TMWYZYUPenWWgGRLe vrUGKbHYNQcYR0EFTT3aKN XLCGjvQfkUFKFnVOWEB45E NhGNEENOZNZKT3VXT471FM BouqZvAZNoNWOAYJerC9IU X3WrE9KEXFyKZqPINrHYYT zUY9WOIS4zGFNLSZGRAHRB VElGSUVEXHBsYWluXGYwXG ZzMjBccGFyfXtccnRmMVxz o4BmJ0BiFcWaFDnacpIuYM BbZzsieyjfSXTzMAH7ryAi AMNlKYugJAPsGRzeOr6eiQ BkeMhzFoVbCRNga9tfzyUH HCkpVaPlV149RVCsPQryq4 vck8YdNEIxwEDzw1E9ZBKB acsgqDs7w5aiGeAxAhU1tY NwTHudG9neboVozHQaI9Wr oNYmrYi2sXmuQ00mj5E9Eo vtI4llXRQzWTTkP6NcBF4j VLHyVkc5PVI9LFW2PJBmNZ WiI5OzJM9aBPMtiZDtIZs6 j4qfqVynSFExGBA2a5hgAN pxpiW8PY3yfc3qkKl8t0hl czEgRGVmYXVsdCBQYXJhZ3 MyhMapPp9jjYf4aVopNhfv PWV2Enc9IL4bzs81ooz6rH jvNBRkmngiEjG6KGcdDLDc gqslQVi0KSjbRRApwMS7PX ZofLHsO3LyFQIuVX5dlnf1 FFM9GAxnWZOhLiB3LITbjQ XhAEAxmQowFJvfz015MYM3 TgXpFY1kN7Yyv4K6bI3zbH TlPXYnkECjWoAnLOMpdk1s cHSnFDuos8UzYUA2ouR7iE IcjDHkYALyOS08Fevaa2Ld MuvsYLT4TCRdlbTud9Sep1 exNcMekvIzO8dhI7SiTIEt JZViEMZjZgAkmsKzw3Qtt2 QxxNAjfXo3c4noMTBrVYJf pZrwa2zaWLQ5YMUfY2L7hU Csz6duZRyvFXGtdSG3gkL3 PANbsLUcZ4NxrD7jGMVdRG 5jrhe1u0ijYZO3EBwtASHd UiD9iwX3EQDfnHImBWXelU jjMKzoz179UGF6AhXcKPHz r0UnZ8RrpOaeP22npZvkS2 5lCQArlThquC4xfWujkO6o ZjBcZnMyNFxxbFxwbGFpbl xmMVxmczIwXGxhbmcxMDMz ZLpuX1bhYmFjZZGcqFbcWA cvr2BwKVTkVNTvGkviwfBa XHBhciBJIGhhdmUgcGVyc2 9uYWxseSByZXZpZXdlZCBh wFmpn0VfU1bnTS2yB1QgcQ RypkNcmmAwOEutDYFuk7l3 tEZrxGxal3RhdWBpBK88kn JmFEDwOLT8KUDov0bkER19 pxwaShEjvN00fxUtxpSwEK Skj7exZ5ngwNHvy9Xdp3Pj hlKqTIfnr4HaXK7gjXEejv iykLW5KELabQYocySbxbL9 xJlhRRNetD9mjD7rqTmucE 6iDxEpKiYmPUcvCL3dJAFz Z5wkjTEeSXTbCORfG2noBx VnnV7vyTyfXdydnnO0JYFi cn19 Clinical Information prev x2, MPDPS (test code = 3833865489) Gross Description (test b0dfgDVxLRXesIYcXlRpRU code = 9704153679) CiMNEfq8scEAJunFGtWlZt MzNcZnRuYmpcdWMxXGRlZm Gvk2opz948eMIxd3myTFSd GpX9mXAfMESzcUXqQ443PG FlTJzlb4vtc9VfRMOobUQg p7U4EIGVkktzfEy5c5vwRt FiBzK4gJYdLRvsJ3kbggRj cLCrKNFxC6GzglDZSWBwPg w9sHwjT36zw1V4EsogP2wo ZWQwXGdyZWVuMFxibHVlMC X2JBJbXPR1BTojeeQqpvM1 UOcwvXEdPkC7JZt8n9lesC biETRaOMM2j6czTXkqfqSx HU4qqw0nhZv6m7ipakTsSY HmSIBduGCLJMWjU2SocCoz Jk4llZa3uKtrFfjeDHP0Ms q9HP9wwc44cbk1dIpvYHGc islzRhW8QSakWDDykrcpVV u2IAhbIBZrvNEeUKUciRIe M2OfHThvIU1efxv1HhVdCR 6ltznuEDrbNMCqMOP2IxUq EGLoj5LeppdkLoEjrr5erj 77JYT8f0VavDvfVKR3NTD4 PsVoWf7iaFHdEXYjEE0bKr CvsCFwQJRnvn15bJtuDBoe ryNnfY3fVkDkGQVsmTBeTT VhTW1rhDMwPEFcpE1ljlfi XHBnYnJkcmhlYWRccGdicm CoPu8tpNvkNTU0NZmjV9vt xA4yOhO6NAgpO0ytzY3pSX c0IIlojIA5AYTdpF2kZS0z ukkla2vxNXY8QUfbGHKhef G4rbNmYUZulCRyQ3CspP18 WoNsxMWjC7EnuP3nONfvTM Hcclp5SoPzRd1flCUowOX7 MFxzYmtwYWdlXHBnbmNvbn RccGduZGVjXHBsYWluXHBs YWluXGYwXGZzMTZccGFyZF pmrLUoeepcERbwkdD3CIXg YWluXGYwXGZzMjBcbGFuZz EwMzNcaGljaFxmMFxkYmNo FAZjKYcwE2qiHuTmIaUzQT K3M6njbVFbzfahJDzuhtId GCcjltiqHITkZKvoP7siUs BeOZOscGidWKekm7YyKMIq JVXjSzMyL0VeJ9zgOJ9bWZ BpcyByZWNlaXZlZCBpbiBm j8OnTPsenvHkTKWtoPXtZD dpdGggdGhlIHBhdGllbnQn vsNlSA1uZGECWQUhxS8vTY MnJSRdRAjws1SrJI4zwDOy NXiquKXdnAZkKL0mMQBrqj Pxy0OyVK5tIXBzj8faX6bd NUJomx6ruO0dRDEyP73gct Yrt2XkMrGilO3gkKFeNRK2 YmUgKDEuMyBjbSBpbiBsZW 9ywAsiZD2bYXGyAIQclQBt chEehLYmVYJiiqrcr8pvI1 edaJOir5WdfDRwuNobu6Cz dGlvbmVkIHRvIHJldmVhbC N9ZA9xfPgecrmkG0Vrq1Ao sWF3nvEgiCZlo1BabEHrM0 U7OIL8pyDuP0AeNqOlWdKt zxJmZG32YHFiknHkv7UviE wacdHqJZCuXSJ0Rl8uxALg DRNmijSFSW5rvXGkYFCpgt KEqQIxoW4viqYZGZyqGMZp O1IwqxVrEKyvPUVbto3swD baOWjkXsUjGHNnx4v2yHM6 fOLfpSW0gOBgmUhjUX3atX QeCWEAGT26jTIudnnlCfRf vSuqtNcglqW3iQSxUNMwbY eagVShEG0wIMAqiwZxs5Se UR8hAHQxn2zoZ3raAYWrex 4ihC6cVRHfA50wkcOjp9Dv MkPtsZ4zvBUiQBO1ThCkGD SyJPHceMByrxFmRF0aiBqt SR8fOFZbHhGglLMntuCaxG OdJAIaofhgo7crR4cjmVUx s1ZwdIXpwWxdn5PspJinhl BkNNDhUKCjmgVccEW9VU5o iMfgbozvC1Gnb7SocOS3zm ClwNDzl9JgpJGyV8Y3MDG5 yvGeW5VzKlBtNkYtueKfGS 44ORHnctKwr3MnkIxojfGm ONEdFFI8Ro8uqVThGDSrgi HWVP2ulNOgTXUksdZRYT1e ndEUSbIBv7kqAYCYNYQzMJ BGNMotrFpudA5iLnFyKqFa WAhhOC1sJKLfY9qakJOaQZ NmAXObP8apPzEdsE8zoXol MVxjZjFcZnMyMFxzdXBlci BjbVxwbGFpblxmMlxmczE2 DXahazudURHdESudB6zcUy WvMGJkkFanWcmud4SnVLYg RXNzWSlijrK7MUZpfssxJO J9 Embedded Images (test code = 3651626341) [facility]GAL[facility] - SYPHILIS IGG/[id number] 14:02:00 Test Item Value Reference Range Interpretation Comments Syphilis IgG/IgM (test Non-reactive Non-reactive code = 56315-4) ALVAREZ (test code = ALVAREZ) Non-reactive - No serologic evidence of T. pallidum infection. Cannot exclude incubating or early syphilis. Submit a second specimen in 2-4 weeks if syphilis is clinically suspected.Equivocal - Further testing to follow.Reactive - Further testing to follow. Lab Interpretation (test Normal code = 33785-7) [facility] WITH [id number] 10:00:00 Test Item Value Reference Range Interpretation Comments WBC (test code = See_Comment H [Automated 6690-2) message] The sy stem which generated this result transmitted reference range : 4.30 - 11.10 10*3/?L. The reference range was not used to interpret this result as normal/abnormal . RBC (test code = See_Comment L [Automated 789-8) message] The sy stem which generated this result transmitted reference range : 3.93 - 5.25 10*6/?L. The reference range was not used to interpret this result as normal/abnormal . HGB (test code = 9.9 g/dL 11.6-15 L 718-7) HCT (test code = 31.2 % 35.7-45.2 L 4544-3) MCV (test code = 92.9 fL 80.6-95.5 787-2) MCH (test code = 29.5 pg 25.9-32.8 785-6) MCHC (test code = 31.7 g/dL 31.6-35.1 786-4) RDW-SD (test code = 45.2 fL 39-49.9 28266-1) RDW-CV (test code = 13.3 % 12-15.5 788-0) PLT (test code = See_Comment L [Automated 777-3) message] The sy stem which generated this result transmitted reference range : 166 - 358 10*3/ ?L. The reference r dylan was not used to interpret this result as normal/abnormal . MPV (test code = 12.5 fL 9.5-12.9 54538-4) NRBC/100 WBC (test See_Comment [Automat ed code = 7622904041) message] The system which generated this result transmitted reference range : 0.0 - 10.0 /100 WBCs. The refer ence range was not u sed to interpret th is result as normal/abnormal . NRBC x10^3 (test code <0.01 See_Comment [Auto mated = 2226967099) message] The s ystem which generated this result transmitted reference range : 10*3/?L. The reference range was not used to interpret this result as normal/abnormal . GRAN MAT (NEUT) % 75.4 % (test code = 770-8) IMM GRAN % (test code 0.40 % = 9634837978) LYMPH % (test code = 16.9 % 736-9) MONO % (test code = 6.0 % 5905-5) EOS % (test code = 1.1 % 713-8) BASO % (test code = 0.2 % 706-2) GRAN MAT x10^3(ANC) 9.58 10*3/uL 1.88-7.09 H (test code = 5061511308) IMM GRAN x10^3 (test 0.05 10*3/uL 0-0.06 code = 4020115799) LYMPH x10^3 (test code 2.14 10*3/uL 1.32-3.29 = 731-0) MONO x10^3 (test code 0.76 10*3/uL 0.33-0.92 = 742-7) EOS x10^3 (test code = 0.14 10*3/uL 0.03-0.39 711-2) BASO x10^3 (test code 0.03 10*3/uL 0.01-0.07 = 704-7) Lab Interpretation Abnormal (test code = 49799-5) [facility] HospitalHepatitis B Surface [id number] 02:42:00 Test Item Value Reference Range Interpretation Comments HBsAg Semi-Quantitative (test code = 5195-3) [facility] HospitalVENOUS CORD [id number] 02:37:00 Test Item Value Reference Range Interpretation Comments VENOUS BASE EXCESS, mEq/L CORD (test code = 7302738863) VENOUS PH, CORD (test 7.25-7.45 code = 5125615744) VENOUS PC02, CORD See_Comment [Automate d message] The (test code = system which ge nerated 7310740999) this result tra nsmitted reference range : 27 - 49 mmHg. The refer ence range was not used to interpret this result as normal/abnormal . VENOUS PO2, CORD (test See_Comment [Aut omated message] The code = 9543417384) system [facility] generated this result tra nsmitted reference range : 17 - 41 mmHg. The refer ence range was not used to interpret this result as normal/abnormal . VENOUS BICARBONATE, See_Comment [Automa tamela message] The CORD (test code = system [facility] ch generated 5874556194) this result tra nsmitted reference range : 12 - 29 mEq/L. The refe rence range was not used to interpret this result as normal/abnormal . [facility]ARTERIAL CORD [id number] 02:33:00 Test Item Value Reference Range Interpretation Comments BASE EXCESS, CORD mEq/L (test code = 7071754351) AC PH, CORD (BEAKER) 7.18-7.38 (test code = 5973997983) PC02, CORD (test code See_Comment [Auto mated message] The = 0758563011) system which g enerated this result transmit tamela reference range : 32 - 66 mmHg. The refer ence range was not used to interpret this result as normal/abnormal . PO2, CORD (test code See_Comment [Autom ated message] The = 2735360936) system which g enerated this result transmit tamela reference range : 10 - 30 mmHg. The refer ence range was not used to interpret this result as normal/abnormal . BICARBONATE, CORD See_Comment [Automate d message] The (test code = system which ge nerated this 4214580399) result transmit tamela reference range : 17 - 27 mEq/L. The refe rence range was not used to interpret this result as normal/abnormal . [facility] HospitalType and Screen - ONCE [id number] 01:52:29 Test Item Value Reference Range Interpretation Comments ABO & RH (test code O POSITIVE Performe d at [facility] = 20) Laboratory Serv [facility] [place] [address]Izud Free: [phone] A No. [id number] IAT (test code = Negative Performed a t [facility] 1185) Laboratory [facility] Blood [facility] [place] [address]Xihb Free: [phone] A No. [id number] [facility] HospitalType and Screen - ONCE [id number] 01:52:29 Test Item Value Reference Range Interpretation Comments ABO & RH (test code O POSITIVE Performe d at [facility] = 20) Laboratory [facility] Blood [address] [address]Cjvo Free: [phone] A No. [id number] IAT (test code = Negative Performed a t [facility] 1185) Laboratory [facility] Blood [address] [address]Vovw Free: [phone] A No. [id number] [facility] HospitalCBC WITH [id number] 01:32:00 Test Item Value Reference Range Interpretation Comments WBC (test code = See_Comment [Automated 1590-2) message] The sy stem which generated this result transmitted reference range : 4.30 - 11.10 10*3/?L. The reference range was not used to interpret this result as normal/abnormal . RBC (test code = See_Comment L [Automated 069-8) message] The sy stem which generated this result transmitted reference range : 3.93 - 5.25 10*6/?L. The reference range was not used to interpret this result as normal/abnormal . HGB (test code = 11.1 g/dL 11.6-15 L 718-7) HCT (test code = 34.7 % 35.7-45.2 L 4544-3) MCV (test code = 93.0 fL 80.6-95.5 787-2) MCH (test code = 29.8 pg 25.9-32.8 785-6) MCHC (test code = 32.0 g/dL 31.6-35.1 786-4) RDW-SD (test code = 46.3 fL 39-49.9 27067-4) RDW-CV (test code = 13.6 % 12-15.5 788-0) PLT (test code = See_Comment L [Automated 777-3) message] The sy stem which generated this result transmitted reference range : 166 - 358 10*3/ ?L. The reference r dylan was not used to interpret this result as normal/abnormal . MPV (test code = 12.3 fL 9.5-12.9 66155-2) NRBC/100 WBC (test See_Comment [Automat ed code = 9662290822) message] The system which generated this result transmitted reference range : 0.0 - 10.0 /100 WBCs. The refer ence range was not u sed to interpret th is result as normal/abnormal . NRBC x10^3 (test code <0.01 See_Comment [Auto mated = 6467651660) message] The s ystem which generated this result transmitted reference range : 10*3/?L. The reference range was not used to interpret this result as normal/abnormal . GRAN MAT (NEUT) % 70.5 % (test code = 770-8) IMM GRAN % (test code 0.40 % = 8446029877) LYMPH % (test code = 20.6 % 736-9) MONO % (test code = 6.5 % 5905-5) EOS % (test code = 1.7 % 713-8) BASO % (test code = 0.3 % 706-2) GRAN MAT x10^3(ANC) 6.83 10*3/uL 1.88-7.09 (test code = 5918164810) IMM GRAN x10^3 (test 0.04 10*3/uL 0-0.06 code = 0903282703) LYMPH x10^3 (test code 1.99 10*3/uL 1.32-3.29 = 731-0) MONO x10^3 (test code 0.63 10*3/uL 0.33-0.92 = 742-7) EOS x10^3 (test code = 0.16 10*3/uL 0.03-0.39 711-2) BASO x10^3 (test code 0.03 10*3/uL 0.01-0.07 = 704-7) Lab Interpretation Abnormal (test code = 35276-1) [facility] [id number] 10:50:00 Test Item Value Reference Range Interpretation Comments Culture, Urine (test code = URC) NF N Culture, Urine (test code = URC1) 75 NUGF N Chemistry - [id number] 13:59:00 Test Item Value Reference Range Interpretation Comments Chemistry - Specials Negative NEGATIVE Method of sensitivity- (test code = BHCGST) Indete rminant: results should be repeated after 48-72 hrs Positive: results may be detected as ear ly as 1 day after the first missed menses. Ipvrutmprc9388-45-29 13:35:00 Test Item Value Reference Range Interpretation Comments Urinalysis (test code = Dark Yellow Yellow UACLR) Urinalysis (test code = h Clear UACLY) Urinalysis (test code = 1.020 1.005-1.030 N SPGR) Urinalysis (test code = 7.0 5.0-9.0 N ISIDRO) Urinalysis (test code = Trace Negative A UALEU) Urinalysis (test code = Positive Negative A UANIT) Urinalysis (test code = 30 mg/dL Neg-Trace A PROUADIP) Urinalysis (test code = 100 mg/dL Negative A GLUCU) Urinalysis (test code = Negative mg/dL Negative KETU) Urinalysis (test code = 1.0 mg/dL 0.2-1.0 UAUROB) Urinalysis (test code = Negative Negative UABIL) Urinalysis (test code = Trace Negative A UABLD) Urinalysis (test code = 4-6 HPF 0-3 UARBC) Urinalysis (test code = Greater Than 50-TNTC 0-3 A UAWBC) HPF Urinalysis (test code = 4-6 HPF 0-3 A UASQUAM) Urinalysis (test code = 1+ HPF None Seen A UABAC) Urine Source: Urine Clean Catch
[2022-02-06 11:57] LABS: Urine Blood 2+ (Negative); Urine Glucose Negative (Negative); Urine Protein 1+ (Negative)
[2022-02-06 12:55] LABS: Urine Bacteria <20 /HPF (<20); Urine RBC 21-50 /HPF (None Seen)
[2022-02-06 13:07] LABS: Hematocrit 35.1 % (36.0-45.0); Lymphocytes % 27.5 % (15.3-44.8); MCV 92.3 fL (80-100); MPV 10.3 fL (7.6-11.3); RBC Red Blood Cell Count 3.81 M/uL (3.86-4.86)
[2022-02-06 13:23] LABS: ALT/SGPT 16 U/L (12-78); AST/SGOT 7 U/L (15-37); Albumin 3.2 g/dL (3.4-5.0); Alkaline Phosphatase 54 U/L (45-117); BUN Blood Urea Nitrogen 9 mg/dL (7-18); Bicarbonate 28 mmol/L (21-32); Bilirubin Total 0.1 mg/dL (0.2-1.0); Glomerular Filtration Rate 124 ml/min (=/>90); Glucose Level 82 mg/dL (74-106); Lipase 272 U/L (73-393); Potassium 4.1 mmol/L (3.5-5.1); Protein, Total 6.3 g/dL (6.4-8.2); Sodium Level 141 mmol/L (136-145)
[2022-02-06 13:26] LABS: HCG, Quantitative < 1 mIU/mL (1-3)
[2022-02-06] MEDS ORDERED: NA CHLORIDE 0.9% 1,000 ML ONE (15:17)
[2022-02-06] MEDS ORDERED: KETOROLAC 30 MG/ML INJ ONE (16:08)
[2022-02-06] MEDS ORDERED: CEFTRIAXONE 1000 MG/VIAL ONE (16:08)
[2022-02-06] MEDS ORDERED: NA CHLORIDE 0.9% 100 ML ONE (16:09)
--- NOTE | 2022-02-06 16:14 | RAD REPORT ---
EXAM DESCRIPTION: US - Transvaginal Study Probe - 02/06/2022 3:38 pm CLINICAL HISTORY: VAGINAL BLEEDING Pelvic pain. COMPARISON: No comparisons FINDINGS: The uterus is normal in size, shape and echotexture. 7 mm small fibroid suspected posterio r wall. The uterus measures 9.0 x 6.7 x 3.8 cm. The endometrial stripe measures 4 mm, normal. The right ovary is obscured by bowel gas. The left ovary measures 1.8 x 1.3 x 1.2 cm. No ovarian or p arovarian lesions. No adnexal masses. Normal Doppler blood flow was demonstrated to the left ovary. No significant pelvic ascites. IMPRESSION: Essentially unremarkable study except for nonvisualization of the right ovary.
--- NOTE | 2022-02-06 17:12 | EDPHYS ---
Physician Documentation [facility] Name: Christina Alfaro Age: 26 yrs Sex: Female : 1995 Arrival Date: 02/06/2022 Time: 10:55 Bed 10 Private MD: ED Physician Chele Hoffmann HPI: 02/06 11:30 This 26 yrs old Female presents to ER via Ambulatory with complaints of Urinary Problem.cp 11:30 The patient presents with urinary symptoms, vaginal bleeding that is moderate, with cp clots. Onset: The symptoms/episode began/occurred 5 day(s) ago. 11:30 Associated signs and symptoms: Pertinent negatives: constipation, diarrhea, dysuria, cp fever. Severity of symptoms: in the emergency department the symptoms are unchanged, despite home interventions. 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 - Social history:: Smoking status: Patient denies any tobacco usage or history of. ROS: 11:33 Constitutional: Negative for body aches, chills, fever, poor PO intake. cp 11:33 Eyes: Negative for injury, pain, redness, and discharge. cp 11:33 ENT: Negative for drainage from ear(s), ear pain, sore throat, difficulty swallowing, difficulty handling secretions. 11:33 Cardiovascular: Negative for chest pain, edema, palpitations. 11:33 Respiratory: Negative for cough, shortness of breath, wheezing. 11:33 Abdomen/GI: Positive for abdominal cramps. 11:33 : Positive for urinary symptoms, vaginal bleeding. 11:33 Neuro: Negative for altered mental status, dizziness, headache, loss of consciousness, syncope, weakness. 11:33 All other systems are negative. Exam: 11:37 Constitutional: The patient appears in no acute distress, alert, awake, non-toxic, well cp developed, well nourished. 11:37 Head/Face: Normocephalic, atraumatic. cp 11:37 Eyes: Periorbital structures: appear normal, Conjunctiva: normal, no exudate, no cp injection, Sclera: no appreciated abnormality, Lids and lashes: appear normal, bilaterally. 11:37 ENT: External ear(s): are unremarkable, Nose: is normal, Mouth: Lips: moist, Oral cp mucosa: pink and intact, moist, Posterior pharynx: Airway: no evidence of obstruction, patent. 11:37 Chest/axilla: Inspection: normal, Palpation: is normal, no crepitus, no tenderness. 11:37 Cardiovascular: Rate: normal, Rhythm: regular. 11:37 Respiratory: the patient does not display signs of respiratory distress, Respirations: normal, no use of accessory muscles, no retractions, labored breathing, is not present, Breath sounds: are clear throughout, no decreased breath sounds, no stridor, no wheezing. 11:37 Abdomen/GI: Inspection: abdomen appears normal, Bowel sounds: active, all quadrants, Palpation: soft, in all quadrants, mild abdominal tenderness, in the right lower quadrant and left lower quadrant, rebound tenderness, is not appreciated, voluntary guarding, is not appreciated, involuntary guarding, is not appreciated. 11:37 Back: CVA tenderness, is absent. 16:00 : Pelvic Exam: External exam: is normal, Speculum exam: moderate bleeding, bimanual cp exam reveals no cervical motion tenderness, no uterine tenderness, no adnexa tenderness or masses bilaterally, the nurse was present for the exam. Vital Signs: 11:27 BP 109 / 79; Pulse 70; Resp 16 S; Temp 98.8(O); Pulse Ox 99% on R/A; Height 5 ft. 9 in. aa5 (175.26 cm) (R); 14:25 BP 95 / 63; Pulse 45; Resp 16 S; Pulse Ox 96% on R/A; aa5 15:58 BP 92 / 62; Pulse 45; Resp 18 S; Pulse Ox 96% on R/A; aa5 17:15 BP 95 / 64; Pulse 48; Resp 18 S; Temp 98.6(TE); Pulse Ox 98% on R/A; aa5 MDM: 12:00 Differential diagnosis: urinary tract infection, vaginosis, anemia, abnormal uterine cp bleeding. 12:23 Patient medically screened. cp 17:10 Data reviewed: vital signs, nurses notes, lab test result(s), radiologic studies, cp ultrasound. 17:10 Counseling: I had a detailed discussion with the patient and/or guardian regarding: the cp historical points, exam findings, and any diagnostic results supporting the discharge/admit diagnosis, lab results, radiology results, the need for outpatient follow up, an OB/Gyne specialist, to return to the emergency department if symptoms worsen or persist or if there are any questions or concerns that arise at home. Response to treatment: the patient's symptoms have mildly improved after treatment, and as a result, I will discharge patient. 02/06 11:32 Order name: CBC with Diff; Complete Time: 13:59 cp 02/06 16:22 Interpretation: Normal except: RBC 3.81; HGB 11.8; HCT 35.1; MCV 92.3; MCH 30.9; PLT cp 144; EOSINOPHIL % 5.9. 02/06 11:32 Order name: CMP; Complete Time: 13:59 cp 02/06 11:32 Order name: Lipase; Complete Time: 13:59 cp 02/06 11:32 Order name: Urine Microscopic Only; Complete Time: 13:59 cp 02/06 13:59 Interpretation: Normal except: UWBC >50; URBC 21-50. cp 02/06 11:32 Order name: HCG-Quantitative; Complete Time: 13:59 cp 02/06 11:58 Order name: Urine Dipstick-Ancillary; Complete Time: 12:23 EDMS 02/06 14:00 Interpretation: Normal except: UBLD 2+; UPROT 1+; UNIT Positive; UESTR 2+. cp 02/06 11:32 Order name: IV Saline Lock; Complete Time: 12:53 cp 02/06 11:32 Order name: Labs collected and sent; Complete Time: 12:53 cp 02/06 12:01 Order name: Urine --Ancillary (enter results); Complete Time: 13:59 bd 02/06 12:58 Order name: Urine Culture EDMS 02/06 14:23 Order name: US Transvaginal Study (Probe); Complete Time: 16:20 cp 02/06 11:32 Order name: Urine Dipstick-Ancillary (obtain specimen); Complete Time: 11:58 cp 02/06 11:32 Order name: Urine Test (obtain specimen); Complete Time: 11:58 cp 02/06 12:23 Order name: Pelvic Exam Setup; Complete Time: 14:28 cp Administered Medications: 15:58 Drug: NS 0.9% 1000 ml Route: IV; Rate: 1000 ml; Site: right hand; aa5 17:15 Follow up: IV Status: Completed infusion; IV Intake: 1000ml aa5 16:07 Drug: Rocephin - (cefTRIAXone) 1 grams Route: IVPB; Infused Over: 30 mins; Site: right aa5 hand; 16:37 Follow up: Response: No adverse reaction; IV Status: Completed infusion aa5 16:07 Drug: Ketorolac 15 mg Route: IVP; Site: right hand; aa5 16:15 Follow up: Response: No adverse reaction aa5 Disposition Summary: 02/06/22 17:11 Discharge Ordered Location: Home cp Problem: new cp Symptoms: have improved cp Condition: Stable cp Diagnosis - Abnormal uterine and vaginal bleeding, unspecified cp - UTI/ Urinary tract infection, site not specified cp Followup: cp - With: Humaira Sweeney MD - When: 2 - 3 days - Reason: Recheck today's complaints Discharge Instructions: - Discharge Summary Sheet cp - Abnormal Uterine Bleeding cp - Urinary Tract Infection, Adult cp Forms: - Medication Reconciliation Form cp - Thank You Letter cp - Antibiotic Education cp - Prescription Opioid Use cp Prescriptions: - Diclofenac Sodium 75 mg Oral Tablet Sustained Release - take 1 tablet by ORAL route 2 times per day; 30 tablet; Refills: 0, Product cp Selection Permitted - cefpodoxime 200 mg Oral Tablet - take 1 tablet by ORAL route every 12 hours for 7 days with food; 14 tablet; cp Refills: 0, Product Selection Permitted Signatures: Dispatcher [employer] Odette Larson RN RN aa5 Roverto Hernandes PA PA cp
--- NOTE | 2022-02-06 17:12 | ER ---
Nurse's Notes [facility] Name: Christina Alfaro Age: 26 yrs Sex: Female : 1995 Arrival Date: 02/06/2022 Time: 10:55 Bed 10 Private MD: Diagnosis: Abnormal uterine and vaginal bleeding, unspecified;UTI/ Urinary tract infection, site not specified Presentation: 02/06 11:27 Chief complaint: Patient states: painful urination and vaginal bleeding that began aa5 Wednesday. Denies . Coronavirus screen: At this time, the client does not indicate any symptoms associated with coronavirus-19. Ebola Screen: No symptoms or risks identified at this time. Initial Sepsis Screen: Does the patient meet any 2 criteria? No. Patient's initial sepsis screen is negative. Does the patient have a suspected source of infection? No. Patient's initial sepsis screen is negative. Risk Assessment: Do you want to hurt yourself or someone else? Patient reports no desire to harm self or others. Onset of symptoms was 2021. 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 - Social history:: Smoking status: Patient denies any tobacco usage or history of. Screenin:30 Abuse screen: Denies threats or abuse. Nutritional screening: No deficits noted. aa5 Tuberculosis screening: No symptoms or risk factors identified. Fall Risk None identified. Assessment: 12:30 General: Appears comfortable, Behavior is calm, cooperative. Pain: Denies pain. Neuro: aa5 Level of Consciousness is awake, alert, obeys commands, Oriented to person, place, time, situation. Cardiovascular: Heart tones S1 S2 present Rhythm is regular. Respiratory: Airway is patent Respiratory effort is even, unlabored, Respiratory pattern is regular, symmetrical. GI: Abdomen is flat, non-distended, Bowel sounds present X 4 quads. Abd is soft and non tender X 4 quads. : Reports burning with urination, vaginal bleeding that is with clots, moderate flow, since Wednesday. EENT: No signs and/or symptoms were reported regarding the EENT system. Derm: Skin is pink, warm \T\ dry. Musculoskeletal: Range of motion: intact in all extremities. 13:30 Reassessment: Patient is alert, oriented x 3, equal unlabored respirations, skin aa5 warm/dry/pink. Pt sitting up in bed using her cellphone. . 15:25 Reassessment: To bedside to administer IV bolus, pt currently at US. . aa5 15:58 Reassessment: Patient is alert, oriented x 3, equal unlabored respirations, skin aa5 warm/dry/pink. 16:37 Reassessment: Patient is alert, oriented x 3, equal unlabored respirations, skin aa5 warm/dry/pink. Awaiting bolus to complete. . 17:30 Reassessment: Patient is alert, oriented x 3, equal unlabored respirations, skin aa5 warm/dry/pink. Vital Signs: 11:27 BP 109 / 79; Pulse 70; Resp 16 S; Temp 98.8(O); Pulse Ox 99% on R/A; Height 5 ft. 9 in. aa5 (175.26 cm) (R); 14:25 BP 95 / 63; Pulse 45; Resp 16 S; Pulse Ox 96% on R/A; aa5 15:58 BP 92 / 62; Pulse 45; Resp 18 S; Pulse Ox 96% on R/A; aa5 17:15 BP 95 / 64; Pulse 48; Resp 18 S; Temp 98.6(TE); Pulse Ox 98% on R/A; aa5 ED Course: 10:55 Patient arrived in ED. as 11:00 Roverto Hernandes PA is PHCP. cp 11:00 Chele Hoffmann MD is Attending Physician. cp 11:27 Arm band placed on. aa5 11:28 Triage completed. aa5 12:53 Odette Alexandra, LANA is Primary Nurse. aa5 12:57 Bed in low position. Call light in reach. Side rails up X 1. Door closed. Noise mb7 minimized. Warm blanket given. 12:57 Inserted saline lock: 20 gauge in right hand, using aseptic technique. Blood collected. mb7 12:57 CBC with Diff Sent. mb7 12:57 CMP Sent. mb7 12:57 Lipase Sent. mb7 12:57 Urine --Ancillary (enter results) Sent. mb7 12:57 HCG-Quantitative Sent. mb7 14:18 Assist provider with pelvic exam: Set up pelvic tray. Performed by Roverto FRANKEL aa5 Patient tolerated well. 15:40 US Transvaginal Study (Probe) In Process Unspecified. EDMS 17:11 Humaira Sweeney MD is Referral Physician. cp 17:30 IV discontinued, intact, bleeding controlled, No redness/swelling at site. Pressure aa5 dressing applied. Administered Medications: 15:58 Drug: NS 0.9% 1000 ml Route: IV; Rate: 1000 ml; Site: right hand; aa5 17:15 Follow up: IV Status: Completed infusion; IV Intake: 1000ml aa5 16:07 Drug: Rocephin - (cefTRIAXone) 1 grams Route: IVPB; Infused Over: 30 mins; Site: right aa5 hand; 16:37 Follow up: Response: No adverse reaction; IV Status: Completed infusion aa5 16:07 Drug: Ketorolac 15 mg Route: IVP; Site: right hand; aa5 16:15 Follow up: Response: No adverse reaction aa5 Medication: 17:30 VIS not applicable for this client. aa5 Intake: 17:15 IV: 1000ml; Total: 1000ml. aa5 Outcome: 17:11 Discharge ordered by MD. cp 17:30 Patient left the ED. aa5 17:30 Discharged to home ambulatory. aa5 17:30 Condition: stable 17:30 Discharge instructions given to patient, Instructed on discharge instructions, follow up and referral plans. medication usage, Demonstrated understanding of instructions, follow-up care, medications, Prescriptions given X 2. Signatures: Dispatcher [employer] EDMI Mae Magana Audri, RN RN aa5 Roverto Hernandes PA PA cp Kaylin Mcgovern mb7 Corrections: (The following items were deleted from the chart) 17:53 17:00 BP 95 / 64; Pulse 48bpm; Resp 18bpm; Spontaneous; Pulse Ox 98% RA; Temp 98.6F aa5 Temporal; aa5
[2022-02-06 18:13] VITALS: TEMP 98.8
[2022-02-06 18:15] VITALS: O2SAT 96
[2022-02-06 18:16] VITALS: BP 92/62
== END 2022-02-06 17:30 | disposition home or self-care (01) ==
LOC: ER 10:54
DX: N93.9 Abnormal uterine and vaginal bleeding, unspecified (principal); N39.0 Urinary tract infection, site not specified; Z91.040 Latex allergy status; Z91.048 Other nonmedicinal substance allergy status
CPT/HCPCS: 36415; 76830; 80053; 81003; 81015; 81025; 83690; 84702; 85025; 87077; 87086; 87088; 87186; 96361; 96365; 96375; 99284; J7030

== ENCOUNTER 2024-07-31 08:27 | Emergency (ER) | payer OTHER, SELFPAY ==
[2024-07-31] MEDS ORDERED: HYDROCODONE/APAP 5/325 MG TAB ONE (08:46)
--- NOTE | 2024-07-31 10:15 | RAD REPORT ---
Exam:Wrist Right 3 View HISTORY: Right wrist pain FINDINGS: No fracture or dislocation seen If the patient continues to have symptoms to suggest an occult fracture then follow-up x-ray in 7 day s would be recommended
--- NOTE | 2024-07-31 10:17 | RAD REPORT ---
Exam:Hand Right 3 View HISTORY: Right hand pain FINDINGS: No fracture or dislocation seen
--- NOTE | 2024-07-31 10:23 | ER ---
Nurse's Notes [facility] Name: Christina Alfaro Age: 29 yrs Sex: Female : 1995 Arrival Date: 07/31/2024 Time: 08:27 Bed 20 Private MD: Diagnosis: Sprain of other part of right wrist and hand Presentation: 07/31 08:37 Chief complaint: Patient states: tried the punching machine last night and injured her iw right hand/wrist , its swollen and painful. Coronavirus screen: At this time, the client does not indicate any symptoms associated with coronavirus-19. Ebola Screen: No symptoms or risks identified at this time. Initial Sepsis Screen: Does the patient meet any 2 criteria? No. Patient's initial sepsis screen is negative. Does the patient have a suspected source of infection? No. Patient's initial sepsis screen is negative. Risk Assessment: Do you want to hurt yourself or someone else? Patient reports no desire to harm self or others. Onset of symptoms was July 30, 2024. 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 - Infectious Disease History:: Denies. - Social history:: Smoking status: Reported history of juuling and/or vaping. Screenin:44 [facility] ED Fall Risk Assessment (Adult) History of falling in the last 3 months, ld1 including since admission No falls in past 3 months (0 pts) Confusion or Disorientation No (0 pts) Intoxicated or Sedated No (0 pts) Impaired Gait No (0 pts) Mobility Assist Device Used No (0 pt) Altered Elimination No (0 pt) Score/Fall Risk Level 0 - 2 = Low Risk Oriented to surroundings, Maintained a safe environment, Educated pt \T\ family on fall prevention, incl call for assistance when getting out of bed, Assessed \T\ reinforced patient's understanding of fall precautions, Provided non-skid footwear, Hourly rounding (assess needs \T\ fall precautionary measures) done, Used ambulatory aids as needed (educated on \T\ assisted with), Used gait belt as appropriate. Abuse screen: Denies threats or abuse. Denies injuries from another. Nutritional screening: No deficits noted. Nutritional screening: No deficits noted. Tuberculosis screening: No symptoms or risk factors identified. Assessment: 08:44 General: Appears in no apparent distress. comfortable, Behavior is calm, cooperative, ld1 appropriate for age. Pain: Complains of pain in right hand Pain does not radiate. Pain currently is 8 out of 10 on a pain scale. Quality of pain is described as throbbing, Pain began suddenly, Is continuous. Neuro: Level of Consciousness is awake, alert, obeys commands, Oriented to person, place, time, situation, Appropriate for age. Cardiovascular: Capillary refill < 3 seconds Patient's skin is warm and dry. Respiratory: Airway is patent Respiratory effort is even, unlabored. GI: Abdomen is flat, non-distended. : No signs and/or symptoms were reported regarding the genitourinary system. EENT: No signs and/or symptoms were reported regarding the EENT system. Derm: No signs and/or symptoms reported regarding the dermatologic system. Musculoskeletal: Range of motion: intact in all extremities. Vital Signs: 08:37 Resp 16; Temp 97.9; Pulse Ox 97% ; Weight 78.47 kg; Height 5 ft. 9 in. ; Pain 6/10; iw 08:39 BP 100 / 58; Pulse 54; iw 08:37 Body Mass Index 25.55 (78.47 kg, 175.26 cm) iw 08:37 Pain Scale: Adult iw ED Course: 08:31 Patient arrived in ED. sj2 08:35 Rain Sims PA-C is PHCP. sb4 08:35 Yordy Pantoja DO is Attending Physician. sb4 08:38 Triage completed. iw 08:40 Tika Pantoja, RN is Primary Nurse. ld1 08:44 Patient has correct armband on for positive identification. Placed in gown. Bed in low ld1 position. Call light in reach. Side rails up X2. wiener packer on. Pulse ox on. NIBP on. Door closed. Noise minimized. Warm blanket given. 08:44 No provider procedures requiring assistance completed. ld1 10:04 Hand Right 3 View XRAY In Process Unspecified. EDMS 10:04 Wrist Right 3 View XRAY In Process Unspecified. EDMS 10:22 Luiz Wesley MD is Referral Physician. sb4 10:27 Patient did not have IV access during this emergency room visit. ld1 10:28 Arm band placed on right wrist. ld1 Administered Medications: 08:52 Drug: HYDROcodone-acetaminophen PO 5 mg-325 mg 1 tabs PO once Route: PO; ld1 Medication: 08:44 VIS not applicable for this client. ld1 Outcome: 10: Discharge ordered by MD. sb4 10: Discharged to home ambulatory, ld1 10:27 Condition: stable 10:27 Discharge instructions given to patient, Instructed on discharge instructions, follow up and referral plans. Demonstrated understanding of instructions, follow-up care, 10:28 Patient left the ED. ld1 Signatures: Dispatcher [employer] Emma Lopez RN RN iw Tika Pantoja RN RN ld1 Rain Sims, PA-C PA-C sb4 Gordon Centeno 2
--- NOTE | 2024-07-31 10:23 | EDPHYS ---
Physician Documentation [facility] Name: Christina Alfaro Age: 29 yrs Sex: Female : 1995 Arrival Date: 07/31/2024 Time: 08:27 Bed 20 Private MD: ED Physician Yordy Pantoja HPI: 07/31 08:44 This 29 yrs old Female presents to ER via Ambulatory with complaints of Hand Injury. sb4 08:44 patient states that she punched a punching bag last night with her right hand sb4 abnormally and now her hand and wrist are hurting her. states the pain starts on the right side of her hand, goes into her wrist, and radiates up her thumb. denies any numbness or tingling. 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 - Infectious Disease History:: Denies. - Social history:: Smoking status: Reported history of juuling and/or vaping. ROS: 08:44 Constitutional: Negative for fever, chills, and weight loss, sb4 08:44 MS/extremity: Positive for injury or acute deformity, decreased range of motion, pain, swelling, tenderness, of the right hand, 08:44 All other systems are negative, Exam: 08:44 Constitutional: This is a well developed, well nourished patient who is awake, alert, sb4 and in no acute distress. Head/Face: Normocephalic, atraumatic. Eyes: Extra-ocular motions intact. Periorbital areas with no swelling, redness, or edema. ENT: Mucous membranes moist. Respiratory: No increased work of breathing, no retractions or nasal flaring. Skin: Warm, dry with normal turgor. Normal color with no rashes, no lesions, and no evidence of cellulitis. 08:44 Musculoskeletal/extremity: no deformity noted. pain with palpation fifth metacarpal. able to fully flex all 5 fingers. supination decreased due to pain.. Vital Signs: 08:37 Resp 16; Temp 97.9; Pulse Ox 97% ; Weight 78.47 kg; Height 5 ft. 9 in. ; Pain 6/10; iw 08:39 BP 100 / 58; Pulse 54; iw 08:37 Body Mass Index 25.55 (78.47 kg, 175.26 cm) iw 08:37 Pain Scale: Adult iw MDM: 08:40 Medical Screening Exam initiated sb4 08:48 Differential diagnosis: dislocation, closed fracture, contusion, sprain, strain. sb4 09:37 Awaiting: X-ray results, xray still not taken. sb4 09:46 Independent interpretation of the following test(s) in the Emergency Department X-Ray: sb4 My interpretation is my interpretation of the right hand and wrist xray images is no acute fracture or dislocation. 10:22 Data reviewed: vital signs, nurses notes, radiologic studies, and as a result, I will sb4 discharge patient. Counseling: I had a detailed discussion with the patient and/or guardian regarding the historical points, exam findings, and any diagnostic results supporting the discharge/admit diagnosis, radiology results, the need for outpatient follow up, for definitive care, to return to the emergency department if symptoms worsen or persist or if there are any questions or concerns that arise at home. 07/31 08:44 Order name: Hand Right 3 View XRAY; Complete Time: 10:18 sb4 07/31 08:44 Order name: Wrist Right 3 View XRAY; Complete Time: 10:17 sb4 07/31 10:22 Order name: Wrist Splint sb4 Administered Medications: 08:52 Drug: HYDROcodone-acetaminophen PO 5 mg-325 mg 1 tabs PO once Route: PO; ld1 Disposition: 09:57 I was immediately available on-site in the Emergency Department for consultation in the ms3 care of the patient. Disposition Summary: 07/31/24 10:22 Discharge Ordered Notes: Location: Home sb4 Problem: new sb4 Symptoms: have improved sb4 Condition: Stable sb4 Diagnosis - Sprain of other part of right wrist and hand sb4 Followup: sb4 - With: Luiz Wesley MD - When: As needed - Reason: Recheck today's complaints, Re-evaluation by your physician Discharge Instructions: - Discharge Summary Sheet sb4 - Hand Contusion, [id number] sb4 - Wrist Sprain, Adult sb4 Forms: - Work release form ld1 - Patient Portal Instructions sb4 - Leadership Thank You Letter sb4 Signatures: Dispatcher [employer] Emma Lopez, LANA RN iw Yordy Pantoja, DO ms3 Tika Pantoja RN RN ld1 Rain Sims, EMRE PAJia sb4 Corrections: (The following items were deleted from the chart) 08:44 08:44 Hand Right 3 View+RAD.RAD.BRZ ordered. EDMS EDMS 08:44 08:44 Wrist Right 3 View+RAD.RAD.BRZ ordered. EDMS EDMS
[2024-08-01 16:41] VITALS: BP 100/58; TEMP 97.9; O2SAT 97
== END 2024-07-31 10:28 | disposition home or self-care (01) ==
LOC: ER 08:27
DX: S63.8X1A Sprain of other part of right wrist and hand, initial encounter (principal)
CPT/HCPCS: 99284

== ENCOUNTER 2024-08-09 12:49 | Emergency (ER) | payer OTHER ==
--- NOTE | 2024-08-09 13:36 | RAD REPORT ---
EXAMINATION: XR LEFT HIP CLINICAL INDICATION: . PAIN TECHNIQUE: Multiple views of the left hip were obtained. COMPARISON: No prior exam. FINDINGS: No evidence of fracture or dislocation. Normal alignment. No radiographic evidence of AVN. IMPRESSION: No significant bone or joint abnormality.
[2024-08-09 13:51] LABS: Specific Gravity 1.024 (1.005-1.030); Urine Bacteria None Seen /HPF (<20); Urine Bilirubin NEGATIVE (Negative); Urine Blood Negative (Negative); Urine Clarity Turbid (Clear); Urine Color Light-Yellow (Yellow); Urine Culture Reflex Order NOT NEEDED; Urine Glucose NEGATIVE (Negative); Urine Ketones NEGATIVE (Negative); Urine Microscopic Reflex YN ORDER UMIC; Urine Mucus 1+ /HPF (None Seen); Urine Nitrite NEGATIVE (Negative); Urine Protein NEGATIVE (Negative); Urine RBC <5 /HPF (None Seen); Urine Urobilinogen Normal (Normal); Urine WBC <5 /HPF (<5); Urine WBC Clump Rare /HPF (None Seen); Urine Yeast (Budding) Trace /HPF (None Seen)
[2024-08-09] MEDS ORDERED: KETOROLAC 30 MG/ML INJ ONE (14:23)
--- NOTE | 2024-08-09 14:35 | EDPHYS ---
Physician Documentation [facility] Name: Christina Alfaro Age: 29 yrs Sex: Female : 1995 Arrival Date: 08/09/2024 Time: 12:49 Bed 10 Private MD: ED Physician Yordy Pantoja HPI: 08/09 14:35 This 29 yrs old Female presents to ER via Ambulatory with complaints of Back Pain - ms3 x3days. 14:35 Christina Alfaro is a 29-year-old female presenting to the Emergency Department ms3 with complaints of significant lower back pain predominantly affecting the left hip, described as sharp in nature. The pain has been present for the past three days, and she reports it intensifies with weight-bearing activities to the point of tears. She rates her pain as an 8 out of 10 on the pain scale. There is no radiation of pain down the leg. She reports increased urinary frequency yesterday with a notably full bladder but denies any other urinary symptoms, fever, chills, nausea, or vomiting.. 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 - Infectious Disease History:: Denies. - Social history:: Smoking status: Patient denies any tobacco usage or history of. ROS: 14:35 Constitutional: Negative for fever, and chills. Cardiovascular: Negative for chest ms3 pain, and palpitations. Respiratory: Negative for shortness of breath, cough, wheezing, and pleuritic chest pain, Abdomen/GI: Negative for abdominal pain, nausea, vomiting, diarrhea, and constipation, 14:35 Back: Positive for pain, 14:35 MS/extremity: Positive for left hip pain, Exam: 14:35 Constitutional: This is a well developed, well nourished patient who is awake, alert, ms3 and in no acute distress. Cardiovascular: Regular rate and rhythm with a normal S1 and S2. No gallops, murmurs, or rubs. Normal PMI, no JVD. No pulse deficits. Respiratory: Lungs have equal breath sounds bilaterally, clear to auscultation and percussion. No rales, rhonchi or wheezes noted. No increased work of breathing, no retractions or nasal flaring. Abdomen/GI: Soft, non-tender, with normal bowel sounds. No distension or tympany. No guarding or rebound. No evidence of tenderness throughout. Skin: Warm, dry with normal turgor. Normal color with no rashes, no lesions, and no evidence of cellulitis. Vital Signs: 12:54 Pulse 60; Resp 18; Temp 97.6(TE); Pulse Ox 100% on R/A; Weight 78.47 kg; Height 5 ft. 9 ld1 in. ; Pain 8/10; 13:44 BP 121 / 71; ll1 12:54 Body Mass Index 25.55 (78.47 kg, 175.26 cm) ld1 12:54 Pain Scale: Adult ld1 MDM: 13:13 Medical Screening Exam initiated ms3 14:35 Differential diagnosis: UTI vs DDD vs OA. Data reviewed: vital signs, nurses notes, lab ms3 test result(s), radiologic studies, and as a result, I will discharge patient. I considered the following discharge prescriptions or medication management in the emergency department Medications were administered in the Emergency Department. See MAR. Counseling: I had a detailed discussion with the patient and/or guardian regarding the historical points, exam findings, and any diagnostic results supporting the discharge/admit diagnosis, lab results, radiology results, the need for outpatient follow up, to return to the emergency department if symptoms worsen or persist or if there are any questions or concerns that arise at home. Special discussion: I discussed with the patient/guardian in detail that at this point there is no indication for admission to the hospital. It is understood, however, that if the symptoms persist or worsen the patient needs to return immediately for re-evaluation. ED course: Patient given 30 mg Toradol IV. Left hip x-ray unremarkable. Urinalysis significant for budding yeast. Patient offered treatment and declines. Patient to follow-up with primary care physician 2 to 3 days. Patient understands and agrees with plan. All questions were answered. Return precautions discussed include worsening symptoms, or any other concerns.. 08/09 13:09 Order name: Urinalysis w/ reflexes; Complete Time: 14:14 ms3 08/09 13:08 Order name: Hip Left 2 View XRAY; Complete Time: 14:14 ms3 Administered Medications: 14:28 Drug: Ketorolac IM 30 mg IM once Route: IM; Site: left deltoid; me1 14:51 Follow up: Response: No adverse reaction; Pain is decreased me1 Disposition Summary: 08/09/24 14:34 Discharge Ordered Notes: Location: Home ms3 Condition: Stable ms3 Diagnosis - Pain in left hip ms3 - Urinary Frequency ms3 Followup: ms3 - With: Silas Zarate DO - When: 2 - 3 days - Reason: Recheck today's complaints Followup: ms3 - With: Tarun Raymundo MD - When: 2 - 3 days - Reason: Recheck today's complaints Discharge Instructions: - Discharge Summary Sheet ms3 - Hip Pain ms3 Forms: - Medication Reconciliation Form ms3 - Antibiotic Education ms3 - Prescription Opioid Use ms3 - Patient Portal Instructions ms3 - Leadership Thank You Letter ms3 Prescriptions: - Ibuprofen 600 mg Oral Tablet - take 1 tablet ORAL route every 6 hours As needed take with food; 30 tablet; ms3 Refills: 0, Product Selection Permitted Signatures: Dispatcher [employer] Yordy Patterson DO DO ms3 Tika Pantoja RN RN ld1 Sara Gordon RN RN me1
--- NOTE | 2024-08-09 14:35 | ER ---
[facility]urse[facility] Name: Christina Alfaro Age: 29 yrs Sex: Female : 1995 Arrival Date: 08/09/2024 Time: 12:49 Bed 10 Private MD: Diagnosis: Pain in left hip;Urinary Frequency Presentation: 08/09 12:54 Chief complaint: Patient states: Low back pain and left hip pain X 3 days. Denies ld1 injury. Coronavirus screen: At this time, the client does not indicate any symptoms associated with coronavirus-19. Ebola Screen: No symptoms or risks identified at this time. Initial Sepsis Screen: Does the patient meet any 2 criteria? No. Patient's initial sepsis screen is negative. Does the patient have a suspected source of infection? No. Patient's initial sepsis screen is negative. Risk Assessment: Do you want to hurt yourself or someone else? Patient reports no desire to harm self or others. Onset of symptoms was August 09, 2024 at 12:55. 12:54 Method Of Arrival: Ambulatory ld1 12:54 Acuity: ADELINA 4 ld1 Triage Assessment: 12:55 General: Appears in no apparent distress. comfortable, Behavior is calm, cooperative, ld1 appropriate for age. Pain: Complains of pain in low back area Pain does not radiate. Pain currently is 8 out of 10 on a pain scale. Quality of pain is described as throbbing, Pain began suddenly, Is continuous. EENT: No signs and/or symptoms were reported regarding the EENT system. Neuro: Level of Consciousness is awake, alert, obeys commands, Oriented to person, place, time, situation. Cardiovascular: Capillary refill < 3 seconds Patient's skin is warm and dry. Respiratory: Airway is patent Respiratory effort is even, unlabored. GI: Abdomen is round non-distended. : No signs and/or symptoms were reported regarding the genitourinary system. Derm: No signs and/or symptoms reported regarding the dermatologic system. Musculoskeletal: Range of motion: intact in all extremities. 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 - Infectious Disease History:: Denies. - Social history:: Smoking status: Patient denies any tobacco usage or history of. Screenin:57 [facility] ED Fall Risk Assessment (Adult) History of falling in the last 3 months, ld1 including since admission No falls in past 3 months (0 pts) Confusion or Disorientation No (0 pts) Intoxicated or Sedated No (0 pts) Impaired Gait No (0 pts) Mobility Assist Device Used No (0 pt) Altered Elimination No (0 pt) Score/Fall Risk Level 0 - 2 = Low Risk Oriented to surroundings, Maintained a safe environment, Educated pt \T\ family on fall prevention, incl call for assistance when getting out of bed, Assessed \T\ reinforced patient's understanding of fall precautions, Provided non-skid footwear, Hourly rounding (assess needs \T\ fall precautionary measures) done, Used ambulatory aids as needed (educated on \T\ assisted with), Used gait belt as appropriate. Abuse screen: Denies threats or abuse. Denies injuries from another. Nutritional screening: No deficits noted. Tuberculosis screening: No symptoms or risk factors identified. Assessment: 12:57 Reassessment: See triage assessment. Neuro: Level of Consciousness is awake, alert, ld1 obeys commands, Oriented to person, place, time, situation. 13:00 General: Appears uncomfortable, well groomed, well developed, well nourished, Behavior me1 is calm, cooperative, appropriate for age. Pain: Complains of pain in back and low back area Pain does not radiate. Pain currently is 10 out of 10 on a pain scale. Quality of pain is described as sharp, shooting, Pain began gradually, Is continuous. Neuro: Level of Consciousness is awake, alert, obeys commands, Oriented to person, place, time, situation, Appropriate for age. Cardiovascular: Patient's skin is warm and dry. Respiratory: Airway is patent Respiratory effort is even, unlabored, Respiratory pattern is regular, symmetrical. GI: No signs and/or symptoms were reported involving the gastrointestinal system. : No signs and/or symptoms were reported regarding the genitourinary system. EENT: No signs and/or symptoms were reported regarding the EENT system. Derm: Skin is intact, is healthy with good turgor, Skin is pink, warm \T\ dry. Musculoskeletal: Reports pain in back and low back area. Vital Signs: 12:54 Pulse 60; Resp 18; Temp 97.6(TE); Pulse Ox 100% on R/A; Weight 78.47 kg; Height 5 ft. 9 ld1 in. ; Pain 8/10; 13:44 BP 121 / 71; ll1 12:54 Body Mass Index 25.55 (78.47 kg, 175.26 cm) ld1 12:54 Pain Scale: Adult ld1 ED Course: 12:52 Patient arrived in ED. ra3 12:54 Yordy Pantoja DO is Attending Physician. ms3 12:55 Triage completed. ld1 12:55 Arm band placed on right wrist. ld1 12:57 Patient has correct armband on for positive identification. Placed in gown. Bed in low ld1 position. Call light in reach. Side rails up X2. teletypesetter monitor on. Pulse ox on. NIBP on. Door closed. Noise minimized. 13:00 Provided Education on: POC. Verbalized understanding.. me1 13:00 No provider procedures requiring assistance completed. Patient did not have IV access me1 during this emergency room visit. 13:28 Hip Left 2 View XRAY In Process Unspecified. EDMS 13:44 Urinalysis w/ reflexes Sent. ll1 14:10 Sara Gordon, LANA is Primary Nurse. me1 14:34 Silas Zarate DO is Referral Physician. ms3 14:34 Tarun Raymundo MD is Referral Physician. ms3 Administered Medications: 14:28 Drug: Ketorolac IM 30 mg IM once Route: IM; Site: left deltoid; me1 14:51 Follow up: Response: No adverse reaction; Pain is decreased me1 Medication: 12:57 VIS not applicable for this client. ld1 Outcome: 14:34 Discharge ordered by . ms3 14:56 Discharged to home ambulatory, with significant other, me1 14:56 Condition: stable 14:56 Discharge instructions given to patient, significant other, Instructed on discharge instructions, follow up and referral plans. medication usage, Demonstrated understanding of instructions, follow-up care, medications, Prescriptions given X 1, 14:57 Patient left the ED. me1 Signatures: Dispatcher [employer] EDMS Jean-Pierre, Lynsay, RN RN ll1 Yordy Pantoja, DO ms3 Tika Pantoja RN RN ld1 Sara Gordon RN RN me1 Nasreen Montgomery ra3 Corrections: (The following items were deleted from the chart) 14:54 12:54 Chief complaint: Patient states: Low back pain and left hip pain X 3 days. Denies me1 injury ld1
[2024-08-09 15:43] VITALS: TEMP 97.6; O2SAT 100
[2024-08-09 15:46] VITALS: BP 121/71
== END 2024-08-09 14:57 | disposition home or self-care (01) ==
LOC: ER 12:49
DX: M25.552 Pain in left hip (principal); R35.0 Frequency of micturition
CPT/HCPCS: 81001; 96372; 99284